=== PATIENT | female | born 1970 | race Caucasian/White ===

== ENCOUNTER 2021-01-13 17:01 | Emergency (ER) | payer MEDICARE, MEDICAID, SELFPAY ==
--- NOTE | ~2021-01-13 | US_ITS ---
EXAMINATION: US ABDOMEN LIMITED CLINICAL INFORMATION: Mid abdominal pain for weeks. Nausea and vomiting.. COMPARISON: 01/13/2021 TECHNIQUE: Real-time imaging of the right upper quadrant abdominal viscera. FINDINGS: PANCREAS: Visualized pancreatic head unremarkable. Body and tail obscured by interposed bowel gas. LIVER: Normal. The liver is normal in size. The liver contour is normal. Parenchymal echogenicity is normal. No focal hepatic lesion. There is no intrahepatic biliary duct dilatation seen. GALLBLADDER: There is a large immobile stone within the gallbladder neck. No significant gallbladder wall thickening or pericholecystic fluid. Sonographic Chong sign is positive. The COMMON BILE DUCT: Normal in caliber measuring 0.4 cm in diameter. RIGHT KIDNEY: Normal. No hydronephrosis. No renal calculi or focal parenchymal lesions. The kidney measures 12.3 cm in maximum dimension. FREE FLUID: None. US/US abdomen limited IMPRESSION: A stone is lodged within the gallbladder neck. No gallbladder wall thickening or pericholecystic fluid to suggest cholecystitis, however the sonographic Chong sign is positive. As such, these findings could be compatible with very early cholecystitis. Consider HIDA scan to confirm.
--- NOTE | ~2021-01-13 | CT_ITS ---
EXAMINATION: CT ABDOMEN AND PELVIS WITH CONTRAST CLINICAL INFORMATION: Diffuse abdominal pain COMPARISON: None TECHNIQUE: Multidetector volumetric images were obtained from the superior aspect of the liver through the pubic symphysis following administration 85 mL of Omnipaque 350 intravenous contrast. Sagittal and coronal reformatted images were obtained on the technologist's workstation. Oral contrast: No This CT examination was performed using dose optimization techniques as appropriate, variously including the following: *Automated exposure control *Adjustment of mA and/or kV according to patient size (this includes techniques or standardized protocols for targeted exams where dose is matched to indication/reason for exam; i.e. extremities or head) *Use of iterative reconstruction technique DLP: 880 mGy-cm FINDINGS: LUNG BASES: The visualized lung bases are unremarkable. LIVER, GALLBLADDER, AND BILIARY TREE: The liver is normal in size, shape, and attenuation. No focal hepatic lesion or biliary ductal dilatation is present. There is a 2.9 cm stone within the gallbladder neck. The gallbladder is mildly distended. No pericholecystic inflammatory changes or fluid. PANCREAS: Unremarkable. SPLEEN: Unremarkable. ADRENAL GLANDS: Unremarkable. KIDNEYS AND URETERS: The kidneys are normal in size, shape, and attenuation. No hydronephrosis, hydroureter, or calculi seen. No perinephric stranding. BLADDER: Unremarkable. GASTROINTESTINAL TRACT: No bowel related abnormalities. Normal appendix. ABDOMINAL WALL: No significant hernia is appreciated. LYMPH NODES: Normal. VASCULAR: Unremarkable. PELVIC VISCERA: Uterus and ovaries unremarkable. OSSEOUS STRUCTURES: No acute or suspicious osseous abnormalities. Moderate loss of disc space height at L5-S1. CT/CT abdomen pelvis w con IMPRESSION: * There is a large stone within the gallbladder neck accompanied by mild gallbladder distention. Recommend right upper quadrant ultrasound if there is concern for cholecystitis. * Otherwise, no potential etiology for the patient's abdominal pain is identified.
[2021-01-13 17:49] VITALS: BP 108/80; BP 140/78; PULSE 71; PULSE 98; RESP 18; TEMP 36.7; O2SAT 98; O2SAT 99; BMI 29.2
[2021-01-13 20:52] LABS: Glucose Urine UA NEG (NEG); Leukocyte Esterase Urine NEG (NEG); Nitrite Urine NEG (NEG); Specific Gravity - Urine 1.025 (1.005-1.025); Urine Blood 1+ (NEG); Urine Ketones NEG (NEG); Urine Protein NEG (NEG-TRACE)
[2021-01-13 20:54] LABS: Appearance Urine CLEAR; Color Urine YELLOW
[2021-01-13 21:05] LABS: Squamous Epithelial Cell Urine 3+ /LPF; WBC Urine 0 /HPF (0-4)
[2021-01-13 21:06] LABS: Calcium Oxalate Crystals Urine 1+ /LPF
[2021-01-13 21:08] LABS: UPreg QC Valid YES; Urine Pregnancy NEGATIVE (NEGATIVE)
--- NOTE | 2021-01-13 21:12 | ED_ITS ---
HPI - Abdominal Pain General Chief Complaint: Abdominal Pain Stated Complaint: ABD PAIN WITH LOOSE STOOL Time Seen by Provider: 01/13/21 20:49 Source: patient Mode of arrival: EMS Limitations: no limitations History of Present Illness HPI narrative: Patient comes emergency room complaining of 1 week of diffuse abdominal pain, nausea vomiting and diarrhea. Patient states that she has vomited twice over the last 5 days, and has had multiple bowel movements over the last 3-4 days. Patient went to [facility] yesterday, patient eloped. Today patient went to urgent care and she was asked to come to the emergency room for further evaluation and treatment. Patient also complains of dysuria, states it has been present for 3-4 months MD elicited complaint: abdominal pain Related Data Previous Rx's Medication Instructions Recorded topiramate 25 mg tablet 25 mg PO DAILY #90 tab 07/09/20 dicyclomine 20 mg tablet 20 mg PO QID #360 tab 10/01/20 ProAir HFA 90 mcg/actuation 1 inh INHALATION QID 30 Days #8.5 10/03/20 aerosol inhaler g NS miscellaneous medical supply #1 ea 10/06/20 docosanol 10 % topical cream 1 appl TOPICAL DAILY 10 Days #2 g 10/15/20 loratadine 10 mg tablet 10 mg PO DAILY 90 Days #90 tab 10/15/20 ondansetron HCl 8 mg tablet 8 mg PO Q12H PRN 30 Days #60 tab 10/15/20 ibuprofen 600 mg tablet 600 mg PO TID PRN #45 tab 12/24/20 xhofinacfo-jcpwjtb-hkgnphux 50 1 cap PO BID PRN 5 Days #10 cap 12/30/20 mg-325 mg-40 mg capsule loperamide 2 mg PO Q6H PRN #10 cap 01/14/21 ondansetron HCl [Zofran] 4 mg PO Q8H PRN #10 tab 01/14/21 tramadol 50 mg PO TID PRN #10 tab 01/14/21 Allergies Allergy/AdvReac Type Severity Reaction Status Date / Time No Known Allergies Allergy Verified 01/13/21 17:48 [No Known Allergies*] Review of Systems Review of Systems Constitutional : No Weight loss, No Fever, No Chills, No Night Sweats, No Fatigue, No Malaise ENT/Mouth : No Hearing loss, No Ear Pain, No Nasal Congestion, No Sinus Pain, No Hoarseness, No sore throat, No Rhinorrhea, No Swallowing Difficulty Eyes: No Eye Pain, No Swelling, No Redness, No Foreign Body, No Discharge, No V ision Changes Cardiovascular : No Chest Pain, No SOB, No Dyspnea on Exertion, No Orthopnea, No Edema, No Palpitations Respiratory : No Cough, No Sputum, No Wheezing, No Smoke Exposure, No Dyspnea Gastrointestinal : Complaining of nausea vomiting and diarrhea No Constipation, complaining of diffuse abdominal Pain, No Hematochezia, No Melena Genitourinary : no irregular bleeding, No Dysuria, No Urinary Frequency, No Hematuria, No Urinary Incontinence, No Urgency, No Flank Pain, No Urinary Flow Changes, No Hesitancy Musculoskeletal : No joint pain, No Myalgias, No Joint Swelling Skin : No Skin Lesions, No rash Neuro : No Weakness, No Numbness, No Paresthesias, No Loss of Consciousness, No Dizziness, No Headache Psych : No Anxiety/Panic, No Depression, No SI/HI/AH/VH, No Social Issues, Heme/Lymph: No Bruising, No Bleeding,No Lymphadenopathy Endocrine : No Polyuria, No Polydipsia, No Temperature Intolerance Physical Exam Vital Signs: Vital Signs: Last Vital Signs Temp 98.0 F 01/13/21 17:49 Pulse 71 01/13/21 17:49 Resp 16 01/14/21 02:18 BP 140/78 H 01/13/21 17:49 Pulse Ox 98 01/13/21 17:49 Body Mass Index 29.2 Appearance: Alert. Oriented X3. No acute distress. Eyes: Pupils equal, round and reactive to light. ENT: Pharynx normal. Neck: Normal inspection. Neck supple. No lymph nodes noted. No crepitus CVS: Normal heart rate and rhythm. Pulses normal. Normal S1 and S2 Respiratory: No respiratory distress. Breath sounds normal. No Wheezing. No rales Abdomen: Soft and nontender. No rigidity. No distention. Mild positive Chong sign, Has good p.o. tolerance, currently drinking [employer] Skin: Skin warm and dry. Normal skin color. Normal skin turgor. Extremities: No lower extremity edema. No lower extremity edema. No Lacerations. No Rash Neuro: Oriented X 3. No motor deficit. No sensory deficit. Moving all extermities. No slurred speech. Course Course Course Narrative: I discussed the CT scan and ultrasound with Dr. Lovett. At this time, given that the patient has had abdominal pain for almost a week, has no gallbladder thickening, unlikely that patient has acute cholecystitis. P atient was given pain medication, feels much better. Patient tolerating p.o. patient will follow-up with surgery. MDM - Abdominal Pain Lab Data Result diagrams: 01/13/21 21:46 01/13/21 21:46 Labs: Lab Results 01/13/21 01/13/21 01/13/21 Range/Units 20:41 20:41 21:46 WBC 10.2 (4.8-10.8) X10*3/uL RBC 4.75 (4.20-5.50) X10*6/uL Hgb 13.5 (12.0-16.0) g/dl Hct 40.2 (37-47) % MCV 84.6 (80-98) fL MCH 28.4 (27.0-33.0) pg MCHC 33.6 (31.0-35.0) g/dl RDW 13.2 (11.0-16.0) % Plt Count 254 (160-400) X10*3/uL MPV 9.3 L (9.4-12.3) fL Immature Gran % (Auto) 0.2 (0.0-0.4) % Neut % (Auto) 52.6 (45-73) % Lymph % (Auto) 37.1 (20-40) % [place] % (Auto) 7.8 (2-11) % Eos % (Auto) 2.0 (0-4) % Baso % (Auto) 0.3 (0-2) % Lymph # (Auto) 3.8 (1.2-4.9) X10*3/uL [place] # (Auto) 0.8 (0.1-1.2) X10*3/uL Eos # (Auto) 0.2 (0.0-0.4) X10*3/uL Baso # (Auto) 0.0 (0.0-0.2) X10*3/uL Abs Immat Gran (auto) 0.02 (0.00-0.03) X10*3/uL Absolute Neuts (auto) 5.4 (2.0-8.3) X10*3/uL Absolute Nucleated RBC 0.000 (0.0-0.012) X10*3/uL Nucleated RBC % (auto) 0.0 (0.0-0.2) /100WBC Sodium (135-145) mmol/L Potassium (3.3-5.1) mmol/L Chloride (96-108) mmol/L Carbon Dioxide (22-29) mmol/L Anion Gap (12-20) BUN (9-16) mg/dL Creatinine (0.5-1.4) mg/dL Estim Creat Clear Calc Estimated GFR Random Glucose (60-115) mg/dL Calcium (8.4-10.2) mg/dL Total Bilirubin (0.0-1.0) mg/dL Direct Bilirubin (0.0-0.5) mg/dL AST (5-31) U/L ALT (0-31) U/L Alkaline Phosphatase (39-117) U/L Total Protein (6.5-8.0) g/dL Albumin (3.5-5.0) g/dL Lipase (8-78) U/L Urine Color YELLOW Urine Appearance CLEAR Urine pH 6.0 (5.0-8.0) Ur Specific [place] 1.025 (1.005-1.025) Urine Protein NEG (NEG-TRACE) MG/DL Urine Glucose (UA) NEG (NEG) MG/DL Urine Ketones NEG (NEG) MG/DL Urine Blood 1+ H (NEG) Urine Nitrite NEG (NEG) Ur Leukocyte Esterase NEG (NEG) Urine RBC 5-9 H (0) /HPF Urine WBC 0 (0-4) /HPF Ur Squamous Epith Cells 3+ /LPF Calcium Oxalate Crystal 1+ /LPF Urine Bacteria NONE /LPF Urine Test NEGATIVE (NEGATIVE) 01/13/21 Range/Units 21:46 WBC (4.8-10.8) X10*3/uL RBC (4.20-5.50) X10*6/uL Hgb (12.0-16.0) g/dl Hct (37-47) % MCV (80-98) fL MCH (27.0-33.0) pg MCHC (31.0-35.0) g/dl RDW (11.0-16.0) % Plt Count (160-400) X10*3/uL MPV (9.4-12.3) fL Immature Gran % (Auto) (0.0-0.4) % Neut % (Auto) (45-73) % Lymph % (Auto) (20-40) % [place] % (Auto) (2-11) % Eos % (Auto) (0-4) % Baso % (Auto) (0-2) % Lymph # (Auto) (1.2-4.9) X10*3/uL [place] # (Auto) (0.1-1.2) X10*3/uL Eos # (Auto) (0.0-0.4) X10*3/uL Baso # (Auto) (0.0-0.2) X10*3/uL Abs Immat Gran (auto) (0.00-0.03) X10*3/uL Absolute Neuts (auto) (2.0-8.3) X10*3/uL Absolute Nucleated RBC (0.0-0.012) X10*3/uL Nucleated RBC % (auto) (0.0-0.2) /100WBC Sodium 142 (135-145) mmol/L Potassium 3.7 (3.3-5.1) mmol/L Chloride 111 H (96-108) mmol/L Carbon Dioxide 23 (22-29) mmol/L Anion Gap 12 (12-20) BUN 10 (9-16) mg/dL Creatinine 0.71 (0.5-1.4) mg/dL Estim Creat Clear Calc 97.3 Estimated GFR > 60 Random Glucose 135 H (60-115) mg/dL Calcium 8.7 (8.4-10.2) mg/dL Total Bilirubin 0.3 (0.0-1.0) mg/dL Direct Bilirubin < 0.2 (0.0-0.5) mg/dL AST 19 (5-31) U/L ALT 24 (0-31) U/L Alkaline Phosphatase 142 H (39-117) U/L Total Protein 6.6 (6.5-8.0) g/dL Albumin 4.0 (3.5-5.0) g/dL Lipase 29 (8-78) U/L Urine Color Urine Appearance Urine pH (5.0-8.0) Ur Specific [place] (1.005-1.025) Urine Protein (NEG-TRACE) MG/DL Urine Glucose (UA) (NEG) MG/DL Urine Ketones (NEG) MG/DL Urine Blood (NEG) Urine Nitrite (NEG) Ur Leukocyte Esterase (NEG) Urine RBC (0) /HPF Urine WBC (0-4) /HPF Ur Squamous Epith Cells /LPF Calcium Oxalate Crystal /LPF Urine Bacteria /LPF Urine Test (NEGATIVE) Discharge Plan Discharge Clinical Impression: Cholelithiasis, Abdominal pain, Diarrhea Patient Disposition: Home, Self-Care Instructions: Gallstones (ED) Additional Instructions: Please follow-up with your primary care physician tomorrow. If you have any worsening or new symptoms, please return to the emergency room or call 911 Prescriptions: New tramadol 50 mg tablet 50 mg PO TID PRN (Reason: pain) Qty: 10 RF: 0 ondansetron HCl [Zofran] 4 mg tablet 4 mg PO Q8H PRN (Reason: nausea and vomiting) Qty: 10 RF: 0 loperamide 2 mg capsule 2 mg PO Q6H PRN (Reason: loose stool) Qty: 10 RF: 0 No Action topiramate 25 mg tablet 25 mg PO DAILY Qty: 90 RF: 1 albuterol sulfate [ProAir HFA] 90 mcg/actuation HFA aerosol inhaler 1 inh inhalation QID 30 Days Qty: 8.5 RF: 4 (DME) Blood Pressure Cuff Misc See Rx Instructions .ROUTE .MEDSUPPLY Qty: 1 RF: 0 ibuprofen 600 mg tablet 600 mg PO TID PRN (Reason: for pain) Qty: 45 RF: 3 vlfxmafeiw-tkiklbp-ruofnkby 50-325-40 mg capsule 1 cap PO BID PRN (Reason: pain) 5 Days Qty: 10 RF: 0 dicyclomine 20 mg tablet 20 mg PO QID Qty: 360 RF: 3 docosanol [Abreva] 10 % cream 1 appl topical DAILY 10 Days Qty: 2 RF: 0 loratadine 10 mg tablet 10 mg PO DAILY 90 Days Qty: 90 RF: 2 ondansetron HCl 8 mg tablet 8 mg PO Q12H PRN (Reason: nausea and vomiting) 30 Days Qty: 60 RF: 1 Referrals: Dinesh Henson MD [Physician] - 2 days [facility] Past Medical History Medical History Seasonal allergies Surgical History No pertinent past surgical history Family History Family History Father Celiac disease CVD (cardiovascular disease) Afib Mother Diabetes Hypertension Fibromyalgia Brother In good health Brother In good health Sister In good health Social History Social History (Updated 10/15/20 @ 11:36 by GELACIO Gatica) Alcohol intake: current Advance Directives: No Advance Directives Information Provided: No Patient : No
[2021-01-13 21:52] LABS: MANUAL DIFF FLAG NO
[2021-01-13 21:54] LABS: Basophils Percent Auto 0.3 % (0-2); Eosinophils Absolute Auto 0.2 X10*3/uL (0.0-0.4); Hematocrit 40.2 % (37-47); Hemoglobin 13.5 g/dl (12.0-16.0); Imm Gran Abs Auto 0.02 X10*3/uL (0.00-0.03); Imm Gran Pct Auto 0.2 % (0.0-0.4); Lymphocytes Absolute Auto 3.8 X10*3/uL (1.2-4.9); Lymphocytes Percent Auto 37.1 % (20-40); Mean Corpuscular HGB Conc 33.6 g/dl (31.0-35.0); Mean Corpuscular Hemoglobin 28.4 pg (27.0-33.0); Mean Corpuscular Volume 84.6 fL (80-98); Mean Platelet Volume 9.3 fL (9.4-12.3); Monocytes Absolute Auto 0.8 X10*3/uL (0.1-1.2); Monocytes Percent Auto 7.8 % (2-11); Neutrophils Absolute Auto 5.4 X10*3/uL (2.0-8.3); Neutrophils Percent Auto 52.6 % (45-73); Platelet Count 254 X10*3/uL (160-400); Red Blood Count 4.75 X10*6/uL (4.20-5.50); Red Cell Distribution Width 13.2 % (11.0-16.0); White Blood Count 10.2 X10*3/uL (4.8-10.8)
[2021-01-13] MEDS: PHENobarb/Hyoscy/Atropine/Scop 10 ML ELIXIR PO (22:06)
[2021-01-13] MEDS: ondansetron HCL 4 MG/2 ML VIAL IVPUSH (22:07)
[2021-01-13] MEDS: 0.9 % Sodium Chloride 1,000 ML 999 ML IVCONT (22:11)
[2021-01-13 22:15] LABS: Alanine Aminotransferase 24 U/L (0-31); Alkaline Phosphatase 142 U/L (39-117); Anion Gap 12 (12-20); Aspartate Amino Transferase 19 U/L (5-31); Bilirubin Direct < 0.2 mg/dL (0.0-0.5); Bilirubin Total 0.3 mg/dL (0.0-1.0); Blood Urea Nitrogen 10 mg/dL (9-16); Calcium 8.7 mg/dL (8.4-10.2); Carbon Dioxide 23 mmol/L (22-29); Chloride 111 mmol/L (96-108); Creatinine Clr Calc Pharmacy 97.3; Estimated Glomerular Filt Rate > 60; Glucose Random 135 mg/dL (60-115); Lipase 29 U/L (8-78); Potassium 3.7 mmol/L (3.3-5.1); Sodium 142 mmol/L (135-145); Total Protein 6.6 g/dL (6.5-8.0)
--- NOTE | 2021-01-13 23:10 | PC.NURSE ---
pt refusing additional IV placement for contrast CT at this time notified
[2021-01-13] MEDS: iohexoL 350 MG/ML 100 ML INFUS..BTL 85 ML IV (23:36)
[2021-01-14 02:18] VITALS: RESP 16
[2021-01-14] MEDS: Morphine Sulfate 4 MG/ML CARTRIDGE IVPUSH (02:18)
[2021-01-14 02:58] VITALS: RESP 16
[2021-01-14] MEDS: Morphine Sulfate 2 MG/ML CARTRIDGE IVPUSH (02:58)
== END 2021-01-14 03:14 | disposition home or self-care (01) ==
PROVIDERS: Internal Medicine; Emergency Provider Emergency Medicine
DX: K80.20 Calculus of gallbladder without cholecystitis without obstruction (principal); R19.7 Diarrhea, unspecified; R30.0 Dysuria
CPT/HCPCS: 36415; 74177; 76705; 80048; 80076; 81001; 81025; 83690; 85025; 96361; 96374; 96375; 96376; 99284; J2270; J2405; Q9967

== ENCOUNTER → 2021-01-15 10:24 | Outpatient (BNVA) | payer MEDICARE, MEDICAID, SELFPAY | PROVIDERS: PCP Physician Assistant; Referring Provider Physician Assistant; Visit Provider Surgery | DX: K80.20 Calculus of gallbladder without cholecystitis without obstruction (principal) | CPT/HCPCS: 99202 ==

== ENCOUNTER 2021-01-15 16:20 | Emergency (ER) | payer MEDICARE, MEDICAID, SELFPAY ==
--- NOTE | ~2021-01-15 | US_ITS ---
EXAMINATION: US ABDOMEN LIMITED CLINICAL INFORMATION: Right upper quadrant/epigastric pain with nausea and vomiting. COMPARISON: 01/14/2021 Limited abdominal ultrasound. TECHNIQUE: Real-time imaging of the right upper quadrant abdominal viscera. FINDINGS: PANCREAS: Visualized portions unremarkable. LIVER: Diffuse increased echotexture without focal abnormality. GALLBLADDER: Echogenic gallstones measuring up to 2.5 cm. No mural thickening or pericholecystic fluid. COMMON BILE DUCT: Normal in caliber measuring 0.4 cm in diameter. RIGHT KIDNEY: 10.5 cm. Unremarkable. FREE FLUID: None. US/US abdomen limited IMPRESSION: 1. Hepatic steatosis without focal abnormality. 2. Cholelithiasis without evidence for acute cholecystitis.
[2021-01-15 16:37] VITALS: BP 140/70; PULSE 73; RESP 18; TEMP 36.8; O2SAT 98; BMI 31.1
[2021-01-15 19:58] LABS: MANUAL DIFF FLAG NO
[2021-01-15 19:59] LABS: Basophils Percent Auto 0.4 % (0-2); Eosinophils Absolute Auto 0.2 X10*3/uL (0.0-0.4); Hematocrit 40.5 % (37-47); Hemoglobin 13.7 g/dl (12.0-16.0); Imm Gran Abs Auto 0.02 X10*3/uL (0.00-0.03); Imm Gran Pct Auto 0.2 % (0.0-0.4); Lymphocytes Percent Auto 27.2 % (20-40); Mean Corpuscular HGB Conc 33.8 g/dl (31.0-35.0); Mean Corpuscular Hemoglobin 28.5 pg (27.0-33.0); Mean Corpuscular Volume 84.4 fL (80-98); Mean Platelet Volume 9.1 fL (9.4-12.3); Monocytes Absolute Auto 0.6 X10*3/uL (0.1-1.2); Monocytes Percent Auto 5.3 % (2-11); Neutrophils Absolute Auto 7.2 X10*3/uL (2.0-8.3); Neutrophils Percent Auto 64.9 % (45-73); Platelet Count 243 X10*3/uL (160-400); Red Cell Distribution Width 13.1 % (11.0-16.0)
[2021-01-15 20:32] LABS: Alanine Aminotransferase 32 U/L (0-31); Albumin Level 4.3 g/dL (3.5-5.0); Alkaline Phosphatase 149 U/L (39-117); Anion Gap 12 (12-20); Aspartate Amino Transferase 22 U/L (5-31); Bilirubin Direct 0.2 mg/dL (0.0-0.5); Bilirubin Total 0.2 mg/dL (0.0-1.0); Blood Urea Nitrogen 14 mg/dL (9-16); Carbon Dioxide 25 mmol/L (22-29); Chloride 107 mmol/L (96-108); Creatinine Clr Calc Pharmacy 84.7; Estimated Glomerular Filt Rate > 60; Glucose Random 86 mg/dL (60-115); Potassium 4.1 mmol/L (3.3-5.1); Sodium 140 mmol/L (135-145); Total Protein 7.1 g/dL (6.5-8.0)
--- NOTE | 2021-01-15 21:19 | ED_ITS ---
HPI - Abdominal Pain General Chief Complaint: Abdominal Pain Stated Complaint: vomiting blood Time Seen by Provider: 01/15/21 21:17 Source: patient Mode of arrival: ambulatory History of Present Illness HPI narrative: This is a 50-year-old female who was evaluated at her general surgery appointment this morning and has a date for elective laparoscopic removal of her gallbladder, but states that when she got home she developed right upper quadrant/epigastric pain with radiation into her back and nausea with multiple episodes of nonbloody/nonbilious vomiting as well as some nonbloody diarrhea. Otherwise, patient denies any fever, chills, shortness of breath, chest pain/palpitations, but states she does have some burning on urination. Related Data Previous Rx's Medication Instructions Recorded topiramate 25 mg tablet 25 mg PO DAILY #90 tab 07/09/20 dicyclomine 20 mg tablet 20 mg PO QID #360 tab 10/01/20 ProAir HFA 90 mcg/actuation 1 inh INHALATION QID 30 Days #8.5 10/03/20 aerosol inhaler g NS miscellaneous medical supply #1 ea 10/06/20 docosanol 10 % topical cream 1 appl TOPICAL DAILY 10 Days #2 g 10/15/20 loratadine 10 mg tablet 10 mg PO DAILY 90 Days #90 tab 10/15/20 ondansetron HCl 8 mg tablet 8 mg PO Q12H PRN 30 Days #60 tab 10/15/20 ibuprofen 600 mg tablet 600 mg PO TID PRN #45 tab 12/24/20 cgjxzfjvtx-tmkhyyl-nwjxuvdb 50 1 cap PO BID PRN 5 Days #10 cap 12/30/20 mg-325 mg-40 mg capsule loperamide 2 mg PO Q6H PRN #10 cap 01/14/21 ondansetron HCl [Zofran] 4 mg PO Q8H PRN #10 tab 01/14/21 hydrocodone 5 mg-acetaminophen 325 1 tab PO Q8H PRN #14 tab 01/15/21 mg tablet ondansetron HCl [Zofran] 4 mg PO Q8H PRN #7 tab 01/15/21 Allergies Allergy/AdvReac Type Severity Reaction Status Date / Time No Known Allergies Allergy Verified 01/13/21 17:48 [No Known Allergies*] Review of Systems Review of Systems Pertinent positives and negatives as stated in HPI 10 point review of systems otherwise negative. Physical Exam Vital Signs: Vital Signs: Last Vital Signs Temp 98.2 F 01/15/21 16:37 Pulse 73 01/15/21 16:37 Resp 18 01/15/21 16:37 BP 140/70 H 01/15/21 16:37 Pulse Ox 98 01/15/21 16:37 Body Mass Index 31.1 VITAL SIGNS: Reviewed. GENERAL: Well developed, well nourished, in no acute distress. HEAD: Normocephalic/atraumatic EYES: PERRLA, EOMI OROPHARYNX: no oral lesions noted, posterior pharynx clear LUNGS: Normal breath sounds. No adventitious sounds or accessory muscle use. SpO2<98> CARDIOVASCULAR: Regular rate and rhythm without noted murmurs ABDOMEN: Soft, tenderness at right upper quadrant and epigastrium without shannon ound, non-distended with bowel sounds. NEUROLOGIC: Alert and oriented x 4. Course Course Course Narrative: 50-year-old female with history and clinical presentation suggestive of acute cholecystitis and felt less likely to be pancreatitis or gastritis. Review of all investigations negative for any acute findings other than known cholelithiasis and on re-evaluation patient reports complete resolution of her symptoms. She has explicitly asked for a pain medication prescription, and she was gently informed that that would not be possible at this time and that if she was having that much pain then we would need to discuss other measures. She declined and just requested something for the nausea should it happen again. She was discharged home in stable condition with instructions to follow-up with her scheduled laparoscopic cholecystectomy. MDM - Abdominal Pain Lab Data Result diagrams: 01/15/21 19:54 01/15/21 19:54 Labs: Lab Results 01/15/21 01/15/21 Range/Units 19:54 19:54 WBC 11.0 H (4.8-10.8) X10*3/uL RBC 4.80 (4.20-5.50) X10*6/uL Hgb 13.7 (12.0-16.0) g/dl Hct 40.5 (37-47) % MCV 84.4 (80-98) fL MCH 28.5 (27.0-33.0) pg MCHC 33.8 (31.0-35.0) g/dl RDW 13.1 (11.0-16.0) % Plt Count 243 (160-400) X10*3/uL MPV 9.1 L (9.4-12.3) fL Immature Gran % (Auto) 0.2 (0.0-0.4) % Neut % (Auto) 64.9 (45-73) % Lymph % (Auto) 27.2 (20-40) % [place] % (Auto) 5.3 (2-11) % Eos % (Auto) 2.0 (0-4) % Baso % (Auto) 0.4 (0-2) % Lymph # (Auto) 3.0 (1.2-4.9) X10*3/uL [place] # (Auto) 0.6 (0.1-1.2) X10*3/uL Eos # (Auto) 0.2 (0.0-0.4) X10*3/uL Baso # (Auto) 0.0 (0.0-0.2) X10*3/uL Abs Immat Gran (auto) 0.02 (0.00-0.03) X10*3/uL Absolute Neuts (auto) 7.2 (2.0-8.3) X10*3/uL Absolute Nucleated RBC 0.000 (0.0-0.012) X10*3/uL Nucleated RBC % (auto) 0.0 (0.0-0.2) /100WBC Sodium 140 (135-145) mmol/L Potassium 4.1 (3.3-5.1) mmol/L Chloride 107 (96-108) mmol/L Carbon Dioxide 25 (22-29) mmol/L Anion Gap 12 (12-20) BUN 14 (9-16) mg/dL Creatinine 0.78 (0.5-1.4) mg/dL Estim Creat Clear Calc 84.7 Estimated GFR > 60 Random Glucose 86 D (60-115) mg/dL Calcium 9.0 (8.4-10.2) mg/dL Total Bilirubin 0.2 (0.0-1.0) mg/dL Direct Bilirubin 0.2 (0.0-0.5) mg/dL AST 22 (5-31) U/L ALT 32 H (0-31) U/L Alkaline Phosphatase 149 H (39-117) U/L Total Protein 7.1 (6.5-8.0) g/dL Albumin 4.3 (3.5-5.0) g/dL Lipase 31 (8-78) U/L Discharge Plan Discharge Clinical Impression: Cholelithiasis Patient Disposition: Home, Self-Care Instructions: Gallstones (ED) Additional Instructions: 1. Please resume all home medications as prescribed. 2. You have been provided with a prescription for antinausea medication and has been sent to your pharmacy please use as directed. 3. Please keep your scheduled appointment for your gallbladder removed. Return to the ER for worsening of your symptoms. Prescriptions: New ondansetron HCl [Zofran] 4 mg tablet 4 mg PO Q8H PRN (Reason: nausea and vomiting) Qty: 7 RF: 0 No Action topiramate 25 mg tablet 25 mg PO DAILY Qty: 90 RF: 1 albuterol sulfate [ProAir HFA] 90 mcg/actuation HFA aerosol inhaler 1 inh inhalation QID 30 Days Qty: 8.5 RF: 4 (DME) Blood Pressure Cuff Misc See Rx Instructions .ROUTE .MEDSUPPLY Qty: 1 RF: 0 ibuprofen 600 mg tablet 600 mg PO TID PRN (Reason: for pain) Qty: 45 RF: 3 aueaxntzwk-hcffffh-qgjhnoco 50-325-40 mg capsule 1 cap PO BID PRN (Reason: pain) 5 Days Qty: 10 RF: 0 ondansetron HCl [Zofran] 4 mg tablet 4 mg PO Q8H PRN (Reason: nausea and vomiting) Qty: 10 RF: 0 loperamide 2 mg capsule 2 mg PO Q6H PRN (Reason: loose stool) Qty: 10 RF: 0 dicyclomine 20 mg tablet 20 mg PO QID Qty: 360 RF: 3 docosanol [Abreva] 10 % cream 1 appl topical DAILY 10 Days Qty: 2 RF: 0 loratadine 10 mg tablet 10 mg PO DAILY 90 Days Qty: 90 RF: 2 ondansetron HCl 8 mg tablet 8 mg PO Q12H PRN (Reason: nausea and vomiting) 30 Days Qty: 60 RF: 1 hydrocodone-acetaminophen 5-325 mg tablet 1 tab PO Q8H PRN (Reason: pain) Qty: 14 RF: 0 Referrals: Ernesto Hernandez PA-C [Primary Care Provider] - 2 days [facility] Past Medical History Source: nursing notes reviewed Medical History Asthma HTN (hypertension) Migraine Seasonal allergies Surgical History No pertinent past surgical history Family History Family History Father Celiac disease CVD (cardiovascular disease) Afib Mother Diabetes Hypertension Fibromyalgia Brother In good health Brother In good health Sister In good health Social History Social History Alcohol intake: current Alcohol intake frequency: holidays/special occasions only Advance Directives: No Advance Directives Information Provided: No Patient : No
[2021-01-15 21:31] LABS: Lipase 31 U/L (8-78)
[2021-01-15 22:00] VITALS: BP 124/78; PULSE 78; RESP 18; TEMP 37.2; O2SAT 98
[2021-01-15] MEDS: Ketorolac Tromethamine 15 MG/ML VIAL IVPUSH (22:10)
[2021-01-15] MEDS: 0.9 % Sodium Chloride 1,000 ML 999 ML IV (22:11)
[2021-01-15] MEDS: ondansetron HCL 4 MG/2 ML VIAL IVPUSH (22:11)
== END 2021-01-15 23:58 | disposition home or self-care (01) ==
PROVIDERS: Emergency Provider Student in an Organized Health Care Education/Training Program; PCP Physician Assistant
DX: K80.20 Calculus of gallbladder without cholecystitis without obstruction (principal); I10 Essential (primary) hypertension; J45.909 Unspecified asthma, uncomplicated; Z79.899 Other long term (current) drug therapy
CPT/HCPCS: 36415; 76705; 80053; 80076; 82248; 83690; 85025; 96361; 96374; 96375; 99284; J1885; J2405

== ENCOUNTER 2021-02-23 16:01 | Emergency (ER) | payer MEDICARE, MEDICAID, SELFPAY ==
--- NOTE | 2021-02-23 | ECG_ITS ---
Test Reason : ABDOMINAL PAIN Blood Pressure : / mmHG Vent. Rate : 072 BPM Atrial Rate : 072 BPM P-R Int : 124 ms QRS Dur : 076 ms QT Int : 380 ms P-R-T Axes : -03 -08 025 degrees QTc Int : 416 ms Normal sinus rhythm Moderate voltage criteria for LVH, may be normal variant Borderline ECG No previous ECGs available Referred By: Generic ED Physician Electronically Signed By:YAKELIN PEREZ
--- NOTE | ~2021-02-23 | US_ITS ---
EXAMINATION: US ABDOMEN LIMITED CLINICAL INFORMATION: Pain. History of cholelithiasis.. COMPARISON: Ultrasound abdomen January 15, 2021, January 14, 2021. CT scan abdomen pelvis January 13, 2021 TECHNIQUE: Real-time imaging of the right upper quadrant abdominal viscera. Color Doppler exam used. FINDINGS: PANCREAS: Obscured by bowel gas LIVER: Normal. The liver is normal in size. The liver contour is normal. Parenchymal echogenicity is normal. No focal hepatic lesion. There is no intrahepatic biliary duct dilatation seen. GALLBLADDER: Gallstones present in the gallbladder. There is an impacted 2.5 cm stone at the neck of the gallbladder. This stone has not changed position since the CAT scan of January 13, 2021. No gallbladder wall thickening. Gallbladder wall measures 0.3 cm. There is no pericholecystic fluid. Positive ultrasound Chong's sign. COMMON BILE DUCT: Normal in caliber measuring 0.5 cm in diameter. RIGHT KIDNEY: Normal. No hydronephrosis. No renal calculi or focal parenchymal lesions. The kidney measures 10.5 cm in maximum dimension. FREE FLUID: None. US/US abdomen limited IMPRESSION: Impacted 2.5 cm stone at the neck of the gallbladder. No change in the position of the stone since the prior CAT scan of January 13, 2021. There is no gallbladder wall thickening or pericholecystic fluid. There is however a positive ultrasound Chong's sign. Further evaluation with HIDA scan may be helpful.
[2021-02-23 16:31] VITALS: BP 131/70; PULSE 78; RESP 18; TEMP 36.4; O2SAT 97; BMI 38.9
--- NOTE | 2021-02-23 16:36 | PC.NURSE ---
when patient was informed about wait time. pt stated to this rn well, Now i'm dizzy and light headed. Can you get me in faster? . EKG ordered at this time. Pt encouraged to return to triage with worsening symptoms.
[2021-02-23 17:19] LABS: Hematocrit 37.5 % (37-47); Hemoglobin 12.8 g/dl (12.0-16.0); Mean Corpuscular HGB Conc 34.1 g/dl (31.0-35.0); Mean Corpuscular Volume 84.8 fL (80-98); Mean Platelet Volume 9.1 fL (9.4-12.3); Platelet Count 219 X10*3/uL (160-400); Red Blood Count 4.42 X10*6/uL (4.20-5.50); Red Cell Distribution Width 13.2 % (11.0-16.0); White Blood Count 12.6 X10*3/uL (4.8-10.8)
[2021-02-23 17:50] LABS: Alanine Aminotransferase 14 U/L (0-31); Albumin Level 3.8 g/dL (3.5-5.0); Alkaline Phosphatase 127 U/L (39-117); Anion Gap 12 (12-20); Aspartate Amino Transferase 14 U/L (5-31); Bilirubin Total 0.5 mg/dL (0.0-1.0); Blood Urea Nitrogen 8 mg/dL (9-16); Calcium 8.9 mg/dL (8.4-10.2); Carbon Dioxide 26 mmol/L (22-29); Chloride 106 mmol/L (96-108); Creatinine Clr Calc Pharmacy 100.6; Estimated Glomerular Filt Rate > 60; Glucose Random 111 mg/dL (60-115); Lipase 30 U/L (8-78); Potassium 3.7 mmol/L (3.3-5.1); Sodium 140 mmol/L (135-145); Total Protein 6.5 g/dL (6.5-8.0)
[2021-02-23 17:53] LABS: Troponin-I High Sensitivity < 3.5 ng/L (<3.5-17.0)
--- NOTE | 2021-02-23 20:46 | PC.NURSE ---
IV established. Pt ambulating to the bathroom to provide UA. PA at bedside for eval.
[2021-02-23 21:05] LABS: Glucose Urine UA NEG (NEG); Leukocyte Esterase Urine NEG (NEG); Nitrite Urine NEG (NEG); Specific Gravity - Urine 1.015 (1.005-1.025); Urine Blood 1+ (NEG); Urine Ketones NEG (NEG); Urine Protein NEG (NEG-TRACE)
[2021-02-23 21:08] LABS: Appearance Urine HAZY; Color Urine YELLOW
[2021-02-23 21:16] LABS: WBC Urine 0-2 /HPF (0-4)
[2021-02-23 21:17] LABS: Bacteria Urine TRACE /LPF; Mucus Urine TRACE /LPF; Squamous Epithelial Cell Urine 3+ /LPF; UPreg QC Valid YES; Urine Pregnancy NEGATIVE (NEGATIVE)
--- NOTE | 2021-02-23 21:22 | ED.ABDPAIN ---
HPI - Abdominal Pain General Chief Complaint: Abdominal Pain Stated Complaint: ABD PAIN Time Seen by Provider: 02/23/21 20:43 Source: patient Mode of arrival: ambulatory History of Present Illness HPI narrative: 50-year-old female with a past medical history of asthma, hypertension, migraines, cholelithiasis, presenting to the ED complaining of acute on chronic abdominal pain and nausea x1 week. Reports pain worse when lying flat. Admits to similar symptoms in the past, was supposed to have cholecystectomy however cannot be scheduled until March. Denies fever, chills, vomiting, diarrhea, dysuria/hematuria, decreased p.o. intake, pain worse with eating MD elicited complaint: abdominal pain Related Data Previous Rx's Medication Instructions Recorded topiramate 25 mg tablet 25 mg PO DAILY #90 tab 07/09/20 docosanol 10 % topical cream 1 appl TOPICAL DAILY 10 Days #2 g 10/15/20 loratadine 10 mg tablet 10 mg PO DAILY 90 Days #90 tab 10/15/20 ibuprofen 600 mg tablet 600 mg PO TID PRN #45 tab 12/24/20 loperamide 2 mg PO Q6H PRN #10 cap 01/14/21 miscellaneous medical supply #1 ea 01/26/21 Ventolin HFA 90 mcg/actuation 1 inh INHALATION QID 30 Days #18 g 02/11/21 aerosol inhaler NS fyewqqabun-hmhvbsc-ybuotygs 50 1 cap PO BID PRN 5 Days #10 cap 02/11/21 mg-325 mg-40 mg capsule dicyclomine 20 mg tablet 20 mg PO QID #360 tab 02/11/21 ondansetron HCl 4 mg tablet 4 mg PO Q8H PRN #10 tab 02/18/21 Allergies Allergy/AdvReac Type Severity Reaction Status Date / Time No Known Allergies Allergy Verified 02/18/21 15:19 [No Known Allergies*] Review of Systems Review of Systems Constitutional: No Fever, No Chills Cardiovascular: No Chest Pain, No SOB, No Palpitations Respiratory: No Cough, No Dyspnea Gastrointestinal: + Nausea, No Vomiting, No Diarrhea, No Constipation, + Abdominal pain Genitourinary: No Dysuria, No Urinary Frequency, No Hematuria, No Flank Pain Musculoskeletal: No joint pain, No Myalgias, No Joint Swelling Skin: No Skin Lesions, No rash Yes all other systems are reviewed and are negative Physical Exam Vital Signs: Vital Signs: Last Vital Signs Temp 97.6 F 02/23/21 22:49 Pulse 64 02/24/21 00:14 Resp 20 02/24/21 00:14 BP 111/56 L 02/24/21 00:14 Pulse Ox 97 02/24/21 00:14 Body Mass Index 38.9 Course Course Course Narrative: -leukocytosis of 12.6, labs otherwise unremarkable -UA with 1+ blood (chronically), not infected US abdomen limited IMPRESSION: Impacted 2.5 cm stone at the neck of the gallbladder. No change in the position of the stone since the prior CAT scan of January 13, 2021. There is no gallbladder wall thickening or pericholecystic fluid. There is however a positive ultrasound Chong's sign. Further evaluation with HIDA scan may be helpful. > will consult surgery -Spoke to Surgery Dr. Lara who recommended if patients pain can be controlled she can be discharged home with outpatient follow-up/surgical intervention -1216--patient was able to tolerate p.o. orange juice and saltines in the ED without nausea or vomiting. Pain is controlled. Discussed with patient worrisome signs and symptoms and strict return precautions and that she needs to call General surgery for follow-up in the morning, she verbalized understanding and feels safe for discharge home MDM - Abdominal Pain Lab Data Result diagrams: 02/23/21 17:14 02/23/21 17:14 Labs: Lab Results 02/23/21 02/23/21 02/23/21 Range/Units 17:14 17:14 17:14 WBC 12.6 H (4.8-10.8) X10*3/uL RBC 4.42 (4.20-5.50) X10*6/uL Hgb 12.8 (12.0-16.0) g/dl Hct 37.5 (37-47) % MCV 84.8 (80-98) fL MCH 29.0 (27.0-33.0) pg MCHC 34.1 (31.0-35.0) g/dl RDW 13.2 (11.0-16.0) % Plt Count 219 (160-400) X10*3/uL MPV 9.1 L (9.4-12.3) fL Absolute Nucleated RBC 0.000 (0.0-0.012) X10*3/uL Nucleated RBC % (auto) 0.0 (0.0-0.2) /100WBC Sodium 140 (135-145) mmol/L Potassium 3.7 (3.3-5.1) mmol/L Chloride 106 (96-108) mmol/L Carbon Dioxide 26 (22-29) mmol/L Anion Gap 12 (12-20) BUN 8 L (9-16) mg/dL Creatinine 0.77 (0.5-1.4) mg/dL Estim Creat Clear Calc 100.6 Estimated GFR > 60 Random Glucose 111 (60-115) mg/dL Calcium 8.9 (8.4-10.2) mg/dL Total Bilirubin 0.5 (0.0-1.0) mg/dL AST 14 (5-31) U/L ALT 14 (0-31) U/L Alkaline Phosphatase 127 H (39-117) U/L Troponin I High Sens < 3.5 (<3.5-17.0) ng/L Total Protein 6.5 (6.5-8.0) g/dL Albumin 3.8 (3.5-5.0) g/dL Lipase 30 (8-78) U/L Urine Color Urine Appearance Urine pH (5.0-8.0) Ur Specific [place] (1.005-1.025) Urine Protein (NEG-TRACE) MG/DL Urine Glucose (UA) (NEG) MG/DL Urine Ketones (NEG) MG/DL Urine Blood (NEG) Urine Nitrite (NEG) Ur Leukocyte Esterase (NEG) Urine RBC (0) /HPF Urine WBC (0-4) /HPF Ur Squamous Epith Cells /LPF Urine Bacteria /LPF Urine Mucus /LPF Urine Test (NEGATIVE) 02/23/21 02/23/21 Range/Units 20:46 20:46 WBC (4.8-10.8) X10*3/uL RBC (4.20-5.50) X10*6/uL Hgb (12.0-16.0) g/dl Hct (37-47) % MCV (80-98) fL MCH (27.0-33.0) pg MCHC (31.0-35.0) g/dl RDW (11.0-16.0) % Plt Count (160-400) X10*3/uL MPV (9.4-12.3) fL Absolute Nucleated RBC (0.0-0.012) X10*3/uL Nucleated RBC % (auto) (0.0-0.2) /100WBC Sodium (135-145) mmol/L Potassium (3.3-5.1) mmol/L Chloride (96-108) mmol/L Carbon Dioxide (22-29) mmol/L Anion Gap (12-20) BUN (9-16) mg/dL Creatinine (0.5-1.4) mg/dL Estim Creat Clear Calc Estimated GFR Random Glucose (60-115) mg/dL Calcium (8.4-10.2) mg/dL Total Bilirubin (0.0-1.0) mg/dL AST (5-31) U/L ALT (0-31) U/L Alkaline Phosphatase (39-117) U/L Troponin I High Sens (<3.5-17.0) ng/L Total Protein (6.5-8.0) g/dL Albumin (3.5-5.0) g/dL Lipase (8-78) U/L Urine Color YELLOW Urine Appearance HAZY Urine pH 6.0 (5.0-8.0) Ur Specific [place] 1.015 (1.005-1.025) Urine Protein NEG (NEG-TRACE) MG/DL Urine Glucose (UA) NEG (NEG) MG/DL Urine Ketones NEG (NEG) MG/DL Urine Blood 1+ H (NEG) Urine Nitrite NEG (NEG) Ur Leukocyte Esterase NEG (NEG) Urine RBC 1-4 (0) /HPF Urine WBC 0-2 (0-4) /HPF Ur Squamous Epith Cells 3+ /LPF Urine Bacteria TRACE /LPF Urine Mucus TRACE /LPF Urine Test NEGATIVE (NEGATIVE) Discharge Plan Discharge Clinical Impression: Cholelithiasis Patient Disposition: Home, Self-Care Instructions: Gallstones (ED) Additional Instructions: You have an impacted stone in the neck of her gallbladder You need her gallbladder taken out It is very important that you are staying hydrated at home You need to call the surgeon in the morning for follow-up If you are unable to eat or drink, persistent nausea/vomiting, unbearable abdominal pain, or develops fever please return to the ED immediately Prescriptions: No Action topiramate 25 mg tablet 25 mg PO DAILY Qty: 90 RF: 1 ibuprofen 600 mg tablet 600 mg PO TID PRN (Reason: for pain) Qty: 45 RF: 3 (DME) Blood Pressure Cuff Misc See Rx Instructions .ROUTE .MEDSUPPLY Qty: 1 RF: 0 dicyclomine 20 mg tablet 20 mg PO QID Qty: 360 RF: 3 albuterol sulfate [Ventolin HFA] 90 mcg/actuation HFA aerosol inhaler 1 inh inhalation QID 30 Days Qty: 18 RF: 4 gvjfasuqgv-agstawx-zuobksmw 50-325-40 mg capsule 1 cap PO BID PRN (Reason: pain) 5 Days Qty: 10 RF: 0 loperamide 2 mg capsule 2 mg PO Q6H PRN (Reason: loose stool) Qty: 10 RF: 0 ondansetron HCl [Zofran] 4 mg tablet 4 mg PO Q8H PRN (Reason: nausea and vomiting) Qty: 10 RF: 0 docosanol [Abreva] 10 % cream 1 appl topical DAILY 10 Days Qty: 2 RF: 0 loratadine 10 mg tablet 10 mg PO DAILY 90 Days Qty: 90 RF: 2 Referrals: Mandi Lara MD [Physician] - 2 days PMF Past Medical History Medical History (Updated 02/23/21 @ 23:33 by STEPHANIE Moe) Asthma HTN (hypertension) Migraine Screening for hypothyroidism Seasonal allergies Surgical History No pertinent past surgical history Family History Family History Father Celiac disease CVD (cardiovascular disease) Afib Mother Diabetes Hypertension Fibromyalgia Brother In good health Brother In good health Sister In good health Social History Social History Housing: Apartment Alcohol intake: current Alcohol intake frequency: holidays/special occasions only Patient Tobacco Use Status: Never used Tobacco e-Cigarette/Vaping Use: Never Used Second Hand Smoke Exposure: No Advance Directives: No Advance Directives Information Provided: No Patient : No service: No Current occupational status: disabled
[2021-02-23] MEDS: 0.9 % Sodium Chloride 1,000 ML 999 ML IVCONT (21:24)
[2021-02-23] MEDS: Ketorolac Tromethamine 15 MG/ML VIAL IVPUSH (21:24)
--- NOTE | 2021-02-23 21:26 | PC.NURSE ---
Pt medicated per MAR.
[2021-02-23 22:49] VITALS: BP 108/56; PULSE 63; RESP 18; TEMP 36.4; O2SAT 98
[2021-02-24 00:14] VITALS: BP 111/56; PULSE 64; RESP 20; O2SAT 97
--- NOTE | 2021-02-24 00:15 | PC.NURSE ---
PA at bedside discussing results and plan to DC home.
== END 2021-02-24 00:19 | disposition home or self-care (01) ==
PROVIDERS: Emergency Provider Student in an Organized Health Care Education/Training Program; PCP Physician Assistant
DX: K80.20 Calculus of gallbladder without cholecystitis without obstruction (principal); I10 Essential (primary) hypertension
CPT/HCPCS: 36415; 76705; 80053; 81001; 81003; 81025; 83690; 84484; 85027; 93005; 96361; 96374; 96375; 99284; J1885; J2405

== ENCOUNTER 2021-04-28 14:09 | Outpatient (REF) | payer MEDICARE, MEDICAID, SELFPAY ==
--- NOTE | ~2021-04-28 | XR_ITS ---
EXAMINATION: XR WRIST, RIGHT CLINICAL INFORMATION: Diffuse pain. COMPARISON: None TECHNIQUE: PA, lateral, and oblique views of the right wrist. FINDINGS: Bony alignment and mineralization are normal. The proximal and distal carpal rows, including the navicular bone, are intact. No fracture, dislocation or unusual degenerative change is seen. There is soft tissue swelling, most pronounced of the dorsal wrist. No soft tissue gas or foreign body is seen. XR/XR wrist RT 2V IMPRESSION: No fracture, dislocation or unusual degenerative change of the right wrist is seen. There is dorsal soft tissue swelling.
--- NOTE | ~2021-04-28 | US_ITS ---
EXAMINATION: US VENOUS WITH DOPPLER UPPER EXTREMITY, right. CLINICAL INFORMATION: Right upper extremity edema. COMPARISON: None TECHNIQUE: Ultrasound of the upper extremity is performed using compression sonography and color and pulse Doppler flow with assessment of augmentation of flow. There is also imaging and Doppler assessment of the jugular and subclavian veins. Spectral analysis with color-flow imaging is performed. FINDINGS: Respiratory variation, normal compression, and augmented flow are noted throughout the upper extremity including the axillary, brachial, cubital, and radial and ulnar veins. There is normal flow in the internal jugular and subclavian veins. There is no visible deep or superficial thrombophlebitis. If the patient's symptoms progress, a followup ultrasound in 5 -7 days might be of value to exclude proximal propagation from a nonvisualized distal arm vein. US/US venous duplex UE RT IMPRESSION: No DVT demonstrated in the right upper extremity ultrasound.
== END 2021-04-28 14:10 | disposition home or self-care (01) ==
LOC: HO.US 14:09
PROVIDERS: PCP Physician Assistant; Visit Provider Physician Assistant
DX: R60.0 Localized edema (principal); M25.431 Effusion, right wrist
CPT/HCPCS: 73100; 93971

== ENCOUNTER 2021-06-30 14:30 | Outpatient (RCR) | payer MEDICARE, MEDICAID, SELFPAY ==
--- NOTE | 2021-05-19 15:36 | MHC.OT.OEV ---
[address] [phone] F: [phone] Occupational Therapy Evaluation Diagnosis: R WRIST PAIN Date of Onset: 04/28/21 Attending Provider: Ernesto Hernandez Prescribed Treatment: EVERETTE AND TEX CHOU Follow Up Appointment: 05/21/21 History of Current Condition: DENIES TRAUMA, FALLS OR INJURY TO RIGHT WRIST OR UE. XRAY: No fracture, dislocation or unusual degenerative change of the right wrist is seen. There is dorsal soft tissue swelling. U/S NEGATIVE FOR ACUTE DVT Significant Medical History: HTN, ASTHMA, MIGRAINE, HYPOTHYROIDISM Precautions/Contraindications: LEGALLY BLIND, L EYE Patient Goals: TO BE ABLE TO DO MORE FOR HERSELF Hand Dominance: Right Observations: PRE-MINOR SPLINT NOT WORN QuickDASH Score: 73% Prior Level of Function and Occupation Self Care, Employment, Leisure: DISABLED. ENJOYS WATCHING TV. DENIES EXERCISING, REPORTS SEDENTARY LIFESTYLE. Living Situation, Family and/or Social Support: LIVES WITH PARENTS; HAS SEWER LINE REPAIRER FOR 6 HOURS/WEEK Current Level of Function and Occupation Self Care, Employment, Leisure: DIFFICULTIES WITH PULLING UP PANTS WITH RUE, TROUBLE WITH FASTENING BUTTONS AND ZIPPERS, WASHING SELF. ASSIST WITH COOKING AND CLEANING FROM FATHER. HAS SEWER LINE REPAIRER ASSIST 6 HOURS/WEEK FOR TRANSPORTATION Sleep: DIFFICULTIES WITH FALLING ASLEEP. NOT CURRENTLY WEARING SPLINT AT NIGHT. Driving: DOES NOT DRIVE. Vision: GLASSES. LEGALLY BLIND IN LEFT EYE. DIFFICULTIES FILLING OUT INTAKE FORMS. Pain Assessment Pain Score: 10/10 Pain Scale Used: Numeric (0 - 10) Pain Location and Description: R DORSAL AND VOLAR FOREARM, R THUMB, R LATERAL ELBOW; GENERALIZED RUE PAIN REPORTS 20/10 PAIN Aggravating Factors: USING - GRIPPING OR CARRYING ITEMS Alleviating Factors: REPORTS RELIEF WITH USE OF ICE, WEARING PRE-MINOR WRIST BRACE, TRAMADOL, PREDNISONE Skin and Soft Tissue Assessment Skin and Soft Tissue: Swelling Comments: EDEMA TO R THENAR EMINENCE AND DORSAL FOREARM Sensory Assessment Temperature: Light Touch: Right Impaired Proprioception: Vibration: Comments: INCONSISTENT WITH SEMMES AVELINO ASSESSMENT WITH EYES OPEN OR CLOSED. ? LOSS OF PROTECTIVE SENSATION R HAND. CONTINUE TO ASSESS WITH ONGOING SESSIONS. Edema Assessment Upper Extremity: Right Impaired Lower Extremity: Comments: CIRCUMFERENCE OF WRIST, DISTAL TO US RIGHT: 17.1 CM, LEFT 16.6 CM Dexterity Assessment Dexterity: WFL Comments: FUNCTIONAL DEXTERITY TEST: RIGHT 25 SECONDS (FUNCTIONAL SCORE), LEFT 32 SECONDS Special Tests Comments: (+) KATHI UNABLE TO TOLERATE PHALENES ASSESSMENT OR COZENS TEST DUE TO PAIN AROM(PROM) Strength Shoulder Flexion: Extension: Abduction: Internal Rotation: External Rotation: Comments: Flexion: R 125, L 155 Extension: Abduction: Internal Rotation: External Rotation: Comments: REPORTS ANTERIOR SHOULDER PAIN, CONTINUE TO ASSESS WITH ONGOING SESSIONS DUE TO TIME LIMITS Elbow Flexion: R 140, L 155 Extension: R 15, L 0 Pronation: Supination: Comments: Flexion: 4+/5 R, 4+/5 L Extension: 4+/5 R, 4+/5 L Pronation: Supination: Comments: Wrist Flexion: R 60, L 55 Extension: R 62, L 65 Ulnar Deviation: R 25, L 50 Radial Deviation: R 10, L 10 Comments: Flexion: Extension: Ulnar Deviation: Radial Deviation: Comments: Thumb Thumb CMC Flexion: Thumb MCP Flexion: Thumb IP Flexion: Radial Abduction: Palmar Abduction: Anderson (Kapandji 0-10): R 7/10 Comments: SUBMAX EFFORT Digits Index MCP: PIP: DIP: Long MCP: PIP: DIP: Ring MCP: PIP: DIP: Small MCP: PIP: DIP: Comments: Gross Grasp: R 33, L 40 Lateral Pinch: R 12, L 11 Two-Point Pinch: R 4, L 5 Three-Jaw Ld: R 9, L 9 Comments: PAIN WITH R LATERAL PINCH MMT ROASTMASTER TESTING 4+/5 R, 4+/5 L Patient Education Primary Language: Maori Sales Utility Representative Required: No Current Knowledge: Minimal, needs reinforcement Teaching Method: Demonstration Handouts Verbal Education Needs Identified on Evaluation: ADL's Disease Information Equipment Use Exercise Pain Safety How did patient/family demonstrate learning? Patient demonstrates Patient verbalizes Needs reinforcement Barriers to Learning: Vision Readiness for Learning: Accepting Who was educated? Patient Comments: MULTIMODAL EDUCATION INCLUDING HAND OVER HAND ASSIST Plan of Care Assessment: FELI PRESENTS TO OT WITH R WRIST PAIN. SHE DENIES FALL, TRAUMA OR INJURY TO DOMINANT RIGHT UE. DIFFICULTIES IDENTIFYING DATE OF ONSET, YET REPORTS A 73% LIMITATION PER THE QUICK DASH ASSESSMENT. SHE EXPRESSES DIFFICULTIES WITH DAILY ACTIVITIES INCLUDING DRESSING AND BATHING. SHE REPORTS GENERALIZED PAIN THROUGH THE DORSAL AND VOLAR ASPECT OF HER WRIST AND ELBOW, YET UPON FURTHER INVESTIGATION IT APPEARS THOUGH HER PAIN IS GREATEST AT HER THUMB AND RADIAL WRIST. A (+) CAN WAS ELICITED DURING HER OT EVALUATION. ONGOING SKILLED OT IS WARRANTED TO ACHIEVE HER OPTIMAL FUNCTIONAL LEVEL AND IMPROVE QOL. STG Duration: 2 WEEKS Short Term Goals: IND HEP IND EDEMA MANAGMENT AND POSITIONING OF RUE REPORT <5/10 PAIN AT REST KAPANDJI 10/10 ON RIGHT IND ORTHOSIS USE AND APPLICATION LTG Duration: 6 WEEKS Assisted Goals: QUICK DASH <58% REPORT <5/10 PAIN WITH BADLs IND JOINT PROTECTION AND ACTIVITY MODIFICATION PAINFREE AROM THROUGH SHOULDER, ELBOW AND WRIST REPORT MINIMAL INTERRUPTION WITH SLEEPING Frequency and Duration: The patient will be seen 2X/WEEK FOR 6 WEEKS Treatment Plan: Therapeutic Exercise Therapeutic Activity Home Exercise Program Splinting Neuro Re-ed Patient Education Desensitization/Sensory Re-ed Edema Control ADL Training Ultrasound NMES Iontophoresis Paraffin Fluidotherapy MHP Cold Packs Joint Mobilization Soft Tissue Mobilization Kinesiotaping Other (see comments) Electronically Signed By: JUAN PABLO HARRIS OTR/L Reviewed/agree with student documentation: N/A Therapist: Please sign and return to therapist, Thank you for your referral.
--- NOTE | 2021-06-30 15:41 | MHC.OT.DC ---
[address] [phone] F: [phone] Occupational Therapy Discharge Note Provider: Ernesto Hernandez Diagnosis: R WRIST PAIN Date of Evaluation: 05/19/21 Date of Discharge: 06/30/21 Treatments to Date: 11 Discharge Status: Achieved Goals Improved Function Discharge Summary: MS MORLEY HAS PROGRESSED WELL WITH HER OT SESSIONS. SHE DEMONSTRATES FUNCTIONAL ROM, STRENGTH, COORDINATION AND ABILITY TO PARTICIPATE IN BADLs. SHE REPORTS LOW PAIN (3/10). PATIENT WAS FIT WITH A CUSTOM ORTHOSIS FOR USE DURING THE DAY WITH IADLs, WELL EDUCATION ON JOINT PROTECTION/ ACTIVITY MODIFICATION. SHE CONTINUED TO NEED MODERATE CUING ON TECHNIQUE/FORM WITH HER HEP AND WOULD BENEFIT FROM ASSISTANCE FROM SIDE STITCHING MACHINE OPERATOR OR FAMILY FOR PROPER CARRYOVER OF EXERCISES. WILL TRANSITION Pt TO A HOME BASED PROGRAM AT THIS TIME. D/C OT SERVICES. Electronically Signed By: JUAN PABLO HARRIS OTR/L Reviewed/agree with student documentation: N/A Therapist: Please Sign and return to therapist, thank you for your referral.
== END 2021-06-30 15:45 | disposition home or self-care (01) ==
LOC: HO.OT 14:30
PROVIDERS: PCP Physician Assistant; Visit Provider Physician Assistant
DX: M77.8 Other enthesopathies, not elsewhere classified (principal)
CPT/HCPCS: 97033; 97035; 97110; 97166; 97530; 97760

== ENCOUNTER 2021-07-08 15:24 | Outpatient (REF) | payer MEDICARE, MEDICAID, SELFPAY ==
[2021-07-10 13:12] LABS: COVID-19 Test Negative (Negative)
== END 2021-07-08 15:25 | disposition home or self-care (01) ==
LOC: HO.LAB 15:24
PROVIDERS: Visit Provider Internal Medicine
DX: Z20.822 Contact with and (suspected) exposure to COVID-19 (principal)
CPT/HCPCS: 36415; 87635; C9803

== ENCOUNTER → 2021-10-13 10:58 | Outpatient (REF) | payer MEDICARE, MEDICAID, SELFPAY ==
[2021-10-13 12:22] LABS: Hematocrit 44.2 % (37.0-47.0); Hemoglobin 14.3 g/dl (12.0-16.0); Mean Corpuscular HGB Conc 32.4 g/dl (31.0-35.0); Mean Corpuscular Hemoglobin 27.8 pg (27.0-33.0); Mean Platelet Volume 9.5 fL (9.4-12.3); Platelet Count 269 X10*3/uL (160-400); Red Blood Count 5.14 X10*6/uL (4.20-5.50); Red Cell Distribution Width 12.9 % (11.0-16.0); White Blood Count 8.1 X10*3/uL (4.8-10.8)
[2021-10-13 12:54] LABS: Alanine Aminotransferase 26 U/L (0-31); Albumin Level 4.2 g/dL (3.5-5.0); Alkaline Phosphatase 117 U/L (39-117); Aspartate Amino Transferase 23 U/L (5-31); Bilirubin Direct 0.3 mg/dL (0.0-0.5); Bilirubin Total 0.8 mg/dL (0.0-1.0); Lipase 17 U/L (8-78)
== END ==
LOC: HO.NUCMED 10:58
PROVIDERS: PCP Physician Assistant; Visit Provider Internal Medicine Gastroenterology
DX: R10.13 Epigastric pain (principal)
CPT/HCPCS: 36415; 80076; 83690; 85027

== ENCOUNTER 2021-10-15 11:00 | Outpatient (REF) | payer MEDICARE, MEDICAID, SELFPAY ==
--- NOTE | ~2021-10-15 | XR_ITS ---
EXAMINATION: XR ANKLE, RIGHT CLINICAL INFORMATION: Medial ankle pain and swelling x4 days COMPARISON: None TECHNIQUE: AP, lateral, and mortise views of the right ankle. FINDINGS: There is lateral malleolar soft tissue swelling. No visible acute fracture, dislocation or subluxation seen. The ankle mortise and subtalar joints are normal. There is a small calcaneal heel spur. XR/XR ankle RT 2V IMPRESSION: Small calcaneal heel spur. No visible acute fracture, dislocation or subluxation seen.
[2021-10-15 12:33] LABS: Hematocrit 41.7 % (37.0-47.0); Hemoglobin 13.5 g/dl (12.0-16.0); Mean Corpuscular HGB Conc 32.4 g/dl (31.0-35.0); Mean Corpuscular Volume 86.3 fL (80.0-98.0); Platelet Count 265 X10*3/uL (160-400); Red Blood Count 4.83 X10*6/uL (4.20-5.50); Red Cell Distribution Width 12.9 % (11.0-16.0); White Blood Count 7.7 X10*3/uL (4.8-10.8)
[2021-10-15 12:39] LABS: Estimated Average Glucose 100 mg/dL; Hemoglobin A1c % 5.1 %
[2021-10-15 13:00] LABS: Microalbum/Creatinine Ratio Ur 5.8 ug/mg cr
[2021-10-15 13:07] LABS: Alanine Aminotransferase 25 U/L (0-31); Albumin Level 4.1 g/dL (3.5-5.0); Alkaline Phosphatase 112 U/L (39-117); Anion Gap 11 (12-20); Aspartate Amino Transferase 19 U/L (5-31); Bilirubin Total 0.6 mg/dL (0.0-1.0); Blood Urea Nitrogen 18 mg/dL (9-16); Calcium 9.6 mg/dL (8.4-10.2); Carbon Dioxide 27 mmol/L (22-29); Chloride 109 mmol/L (96-108); Cholesterol 177 mg/dL; Estimated Glomerular Filt Rate > 60; Glucose Fasting 82 mg/dL (60-99); HDL Cholesterol 49 mg/dL; LDL Cholesterol Calculated 112 mg/dl; Potassium 4.3 mmol/L (3.3-5.1); Sodium 143 mmol/L (135-145); Total Protein 6.9 g/dL (6.5-8.0); Triglycerides 84 mg/dL; Uric Acid 4.5 mg/dL (2.4-5.7)
[2021-10-15 13:28] LABS: TSH reflex Free T4 1.59 uIU/mL (0.32-4.0)
== END 2021-10-15 11:01 | disposition home or self-care (01) ==
LOC: HO.LAB 11:00
PROVIDERS: PCP Physician Assistant; Visit Provider Physician Assistant
DX: M25.471 Effusion, right ankle (principal); I10 Essential (primary) hypertension
CPT/HCPCS: 36415; 73600; 80053; 80061; 82043; 83036; 84443; 84550; 85027

== ENCOUNTER 2022-02-25 15:47 | Outpatient (REF) | payer MEDICARE, MEDICAID, SELFPAY ==
--- NOTE | ~2022-02-25 | XR_ITS ---
EXAMINATION: XR ANKLE, LEFT CLINICAL INFORMATION: Left ankle pain and swelling. COMPARISON: None TECHNIQUE: AP, lateral, and mortise views of the left ankle. FINDINGS: The ankle joint and mortise are intact. There is no acute fracture dislocation. The tarsal bones are normally aligned. Small plantar calcaneal spur. Mild to moderate soft tissue swelling. XR/XR ankle LT min 3V IMPRESSION: Mild to moderate soft tissue swelling and small plantar calcaneal spur. No definitive acute osseous abnormality.
== END 2022-02-25 15:48 | disposition home or self-care (01) ==
LOC: HO.HMGCX 15:47
PROVIDERS: PCP Physician Assistant
DX: M25.572 Pain in left ankle and joints of left foot (principal)
CPT/HCPCS: 73610

== ENCOUNTER 2022-04-08 11:36 | Outpatient (REF) | payer MEDICARE, MEDICAID, SELFPAY ==
[2022-04-08 14:03] LABS: Appearance Urine Clear; Color Urine Yellow; Glucose Urine UA Negative (Negative); Leukocyte Esterase Urine Trace (Negative); Nitrite Urine Negative (Negative); Urine Blood Trace (Negative); Urine Ketones Negative (Negative); Urine Protein Negative (Neg-Trace)
[2022-04-08 14:09] LABS: Bacteria Urine 1+ (None Seen); Hyaline Casts Urine 0-2 /LPF (0-2); WBC Urine 0-5 /HPF (0-5)
== END 2022-04-08 11:37 | disposition home or self-care (01) ==
LOC: HO.LAB 11:36
PROVIDERS: PCP Physician Assistant; Visit Provider Internal Medicine
DX: N39.0 Urinary tract infection, site not specified (principal)
CPT/HCPCS: 81001; 81003

== ENCOUNTER → 2022-08-05 10:48 | Outpatient (REF) | payer MEDICARE, MEDICAID, SELFPAY ==
--- NOTE | ~2022-08-05 | MM_ITS ---
EXAMINATION: MM SCREENING DIGITAL BREAST TOMOSYNTHESIS, BILATERAL CLINICAL INFORMATION: Screening. Asymptomatic. The lifetime risk of breast cancer based on the Tyrer-Cuzick Model is 12%. COMPARISON: Mammography: 04/18/2020; outside mammography 09/02/2017, 10/09/2013 ([facility]) TECHNIQUE: Digital breast tomosynthesis is performed in both the craniocaudal and mediolateral oblique views along with computer-aided detection (CAD). Synthesized 2D images are generated from the tomosynthesis. FINDINGS: There are scattered areas of fibroglandular density (ACR BI-RADS breast composition Category b). There are no significant masses, abnormal calcifications, or other abnormalities. Parenchymal pattern is similar to prior studies. There is no developing density or architectural abnormality. The axilla and skin contours are unremarkable. No significant changes. MM/MM tomosynthesis screening BI IMPRESSION: No mammographic evidence of malignancy. ASSESSMENT: BI-RADS 1: Negative RECOMMENDATION: Routine annual mammography screening. This patient's information was entered into a reminder system with a target due date for their next mammogram.
== END ==
LOC: HO.SL 10:48
PROVIDERS: PCP Physician Assistant; Visit Provider Physician Assistant
DX: Z12.31 Encounter for screening mammogram for malignant neoplasm of breast (principal); G47.33 Obstructive sleep apnea (adult) (pediatric)
CPT/HCPCS: 77063; 77067; 95806

== ENCOUNTER → 2022-10-19 09:59 | Outpatient (BNVA) | payer MEDICARE, MEDICAID, SELFPAY | PROVIDERS: PCP Physician Assistant; Visit Provider Nurse Practitioner Family | DX: G43.009 Migraine without aura, not intractable, without status migrainosus (principal); G47.33 Obstructive sleep apnea (adult) (pediatric) | CPT/HCPCS: 99202 ==

== ENCOUNTER → 2022-12-02 12:53 | Outpatient (BNVA) | payer MEDICARE, MEDICAID, SELFPAY | PROVIDERS: PCP Physician Assistant; Visit Provider Nurse Practitioner Family | DX: G47.33 Obstructive sleep apnea (adult) (pediatric) (principal); G43.009 Migraine without aura, not intractable, without status migrainosus | CPT/HCPCS: 99212 ==

== ENCOUNTER 2023-03-10 10:44 | Outpatient (AMB) | payer MEDICARE, MEDICAID, SELFPAY ==
--- NOTE | 2023-03-10 10:51 | A.OFFPC_ITS ---
Vital Signs 03/10/23 10:52 Height 5 ft 3 in Weight 213 lb BMI 37.7 BP 102/64 Blood Pressure Location Lt brachial Position Sitting Pulse 60 Pulse Source Pulse Oximeter Pulse Oximetry (%) 98 Intake Visit Reasons: med review Intake Note: pt is here for medication review, and also pt states she hurt her back and was seen in [facility] ED [employer] Required: No Accompanied by: Self / Same As Patient Allergies No Known Allergies [No Known Allergies*] Allergy (Verified 03/10/23 10:59) Medication List - Last Reconciled 03/10/23 by Ernesto Hernandez PA-C ilflhnintt-lzrsbkhzyowef-jlvm 50-325-40 mg 1 tab PO ONCE PRN 14 days dicyclomine 20 mg PO QID fluticasone propionate 50 mcg/actuation (Flonase Allergy Relief) 1 spray intranasal DAILY fluticasone propionate 110 mcg/actuation (Flovent HFA) 1 puff inhalation BID 30 days lactulose 20 grams (30 mL) PO BID PRN 15 days lisinopril 2.5 mg PO DAILY loperamide 2 mg PO Q6H PRN methocarbamol 750 mg PO Q8H 7 days miscellaneous medical supply 1 ea miscellaneous DAILY 99 days miscellaneous medical supply (Blood Pressure Cuff) As directed omeprazole 40 mg PO DAILY 30 days ondansetron HCl 4 mg PO Q8H PRN sumatriptan succinate 100 mg PO ONCE PRN 30 days tramadol 50 mg PO DAILY 7 days Ventolin HFA 90 mcg/actuation (albuterol sulfate) 1 inh inhalation QID 30 days NS Tobacco use date assessed: 03/10/23 Dental Screening Dental Screen Date: 03/10/23 Did you have a dental visit in the last 12 months?: Yes Did you have a dental problem in the last 6 months where you did not have access to dental care?: No Was dental information given to patient?: Patient has dentist HPI med review HPI Details atient is a 52 year female here today for a follow-up visit.? Patient has a past medical history significant for obesity, learning disability, chronic migraine, GERD,asthma. Recently seen at [facility] for acute atraumatic lower back pain. She reports her mother fell and tried to pick her up and hurt your back. MRI was recommended though patient reports she is afraid to get MRI. She was prescribed tramadol, methocarbamol and naproxen and has been since asking for refills of tramadol. Now in PT for her back which has been helpful. CHRONIC MEDICAL CONDITION--> .. Migraines:? Has been refer Neurology and has had an evaluation, recommended to start him gout he for her migraines though has not started this medication.? MRI was also recommended though patient in or get this done.? Since starting CPAP machine for her obstructive sleep apnea she has had less frequent less severe migraines. Interval history-- >? Patient has been using Fioricet on a nearly every day basis.? She does report having more than 15 migraines per month and more for age she is having rebound migraines due to her pillow. We did discuss the possibility of her having rebound migraines from the Fioricet and she somewhat understands.? She is willing to trial migraine prophylaxis with amitriptyline on a nightly basis. .. VICENTE:? Has been started on CPAP machine to which she is using a nightly basis though finds it difficult to keep the CPAP mask on throughout the night.? .. Hypertension:? Patient's blood pressure acceptable today in office.? Continues on lisinopril 2.5 mg daily .. Asthma:? Patient reports she has been having to use her asthma inhaler multiple times a day as she does report cough and shortness of breath pick specially on exertion.? Will step up her asthma therapy to include Flovent inhaler twice a day for better asthma control. ,.. Obesity:? Patient does understand her BMI is over 30 will work on being more physically active and adapt to better eating habits to reduce her weight. ? [facility] Medical History Asthma HTN (hypertension) Migraine Screening for hypothyroidism Seasonal allergies Surgical History No pertinent past surgical history Family History Father Celiac disease CVD (cardiovascular disease) Afib Mother Diabetes Hypertension Fibromyalgia Migraines Brother In good health Brother In good health Sister In good health Social History Housing: Apartment Alcohol intake: current Alcohol intake frequency: holidays/special occasions only Patient Tobacco Use Status: Never used Tobacco e-Cigarette/Vaping Use: Never Used Second Hand Smoke Exposure: No service: No Current occupational status: disabled Cognitive needs: No Hearing needs: No Vision needs: Yes (glasses) Questionnaire Thrive Questionnaire Date Thrive assessed: 12/15/22 JUHI-7 AMB Questionnaire JUHI-7 Date JUHI - 7 assessed: 12/15/22 Source: Developed by Drs. Hector Acuña, Varsha Chavez, Sage freeman nd colleagues, with an educational jean marie from [employer]. Review of Systems Const Denies headache(s) Eyes Denies loss of vision ENT Denies vertigo, Denies dizziness, Denies headache(s) and Denies sore throat Card Denies chest pain, Denies leg edema and Denies lightheadedness Resp Denies cough, Denies hemoptysis and Denies wheezing GI Denies abdominal pain, Denies melena, Denies constipation, Denies diarrhea and Denies vomiting Denies urinary frequency, Denies dysuria and Denies urinary urgency Musc Reports back pain, Denies arthralgias, Denies joint swelling, Denies numbness and Denies tingling Neuro Denies Abnormal speech present, Denies behavioral changes, Denies vertigo, Denies dizziness, Denies headache(s), Denies loss of vision, Denies memory loss, Denies numbness and Denies tingling Psych Denies anxiety, Denies behavioral changes, Denies depression, Denies memory loss and Denies panic attacks Jozef/Lymph Denies easy bleeding and Denies easy bruising Aller/Immun Denies wheezing Physical exam (Primary Care) Vital Signs: Last Vital Signs Pulse 60 03/10/23 10:52 BP 102/64 03/10/23 10:52 Pulse Ox 98 03/10/23 10:52 BMI result Body Mass Index 37.7 Tobacco/Smoking Status: Tobacco use Status Tobacco use date assessed 03/10/23 03/10/23 10:56 Patient Tobacco Use Status Never used Tobacco 03/10/23 10:56 e-Cigarette/Vaping Use Never Used 03/10/23 10:56 Thrive Assessment: Date of Thrive Assessment Date Thrive assessed 12/15/22 03/10/23 10:56 Const General: healthy appearing, no acute distress, alert and awake Nutritional Appearance: well nourished Orientation/consciousness: oriented to person, oriented to place and oriented to time HENMT Ears: TM's normal bilaterally General nose exam: Normal nasal mucous membranes and turbinates present Eyes Conjunctivae: conjunctivae normal Sclerae: sclerae normal Pupils: Equal, round and reactive pupils present Neck Neck: Yes no lymphadenopathy and Yes no JVD Thyroid: Thyroid normal Carotids: no bruits Resp Effort & Inspection: normal respiratory effort and not tachypneic Auscultation: no crackles, no rales, no rhonchi and no wheezes Cardio Rate: regular rate Rhythm: regular rhythm Heart sounds: no murmurs and normal S1 and S2 GI Palpation (GI): Soft to palpation, nontender, no hepatomegaly and no splenomegaly Auscultation: normal bowel sounds Skin General skin exam: no rashes or lesions noted and dry skin Neuro General: oriented to person, oriented to place and oriented to time Cranial nerves: Yes Equal, round and reactive pupils present Speech: No Abnormal speech present Gait exam (Neuro): Normal gait present Motor exam (neuro): no tremor noted Extrem Right upper extremity: full ROM Left upper extremity: full ROM Right lower extremity: full ROM; no edema Left lower extremity: full ROM; no edema Psych Mental Status: mental status grossly normal Speech and movement: Normal speech and movement present Affect: normal affect Attitude: cooperative Thought process: Normal thought process present Assessment and Plan Assessment & Plan (1) Lumbar radicular pain: Code(s): M54.16 - Radiculopathy, lumbar region Plan: As per HPI patient reports hurting her back while trying to lift her mother off of the floor. She was seen at the ER for acute low back pain. Per patient she reports getting a CT scan though no reports of this. Recommended MRI though patient declines saying she is claustrophobic. Currently patient denies any radiculopathy, bowel or bladder dysfunction or saddle amnesia. She was started on tramadol p.r.n., methocarbamol and naproxen. She is asking for more tramadol at this time. Now on physical therapy and feels that is helping her lower back pain. Will give 1 more script of 7 tablets of tramadol to use on a p.r.n. basis. Medications: Refilled methocarbamol 750 mg PO Q8H 7 days 21 tabs 0RF M54.16 - Radiculopathy, lumbar region tramadol 50 mg PO DAILY 7 days 7 tabs 0RF M54.16 - Radiculopathy, lumbar region partkwdcdy-utlomzlogkgty-nrec 50-325-40 mg 1 tab PO ONCE 14 days PRN 14 tabs 0RF headaches G43.909 - Migraine, unspecified, not intractable, without status migrainosus fluticasone propionate 110 mcg/actuation (Flovent HFA) 1 puff inhalation BID 30 days 12 grams 4RF J45.20 - Mild intermittent asthma, uncomplicated fluticasone propionate 50 mcg/actuation (Flonase Allergy Relief) administer into each nostril 1 spray intranasal DAILY 100 mL 4RF R09.81 - Nasal congestion lisinopril 2.5 mg PO DAILY 30 tabs 6RF I10 - Essential (primary) hypertension omeprazole 40 mg PO DAILY 30 days 90 caps 3RF K27.9 - Peptic ulcer, site unspecified, unspecified as acute or chronic, without hemorrhage or perforation ondansetron HCl 4 mg PO Q8H PRN 10 tabs 3RF nausea and vomiting K27.9 - Peptic ulcer, site unspecified, unspecified as acute or chronic, without hemorrhage or perforation Coding Level of Care Code Est Pt Level 3 (09477) Diagnoses Lumbar radicular pain M54.16
[2023-03-10 10:52] VITALS: BP 102/64; PULSE 60; O2SAT 98; BMI 37.7
== END 2023-03-10 11:11 | disposition home or self-care (01) ==
LOC: HO.HMGH 10:44
PROVIDERS: PCP Physician Assistant; Visit Provider Physician Assistant
DX: M54.16 Radiculopathy, lumbar region (principal)
CPT/HCPCS: 99213

== ENCOUNTER 2023-03-31 14:32 | Outpatient (AMB) | payer MEDICARE, MEDICAID, SELFPAY ==
--- NOTE | 2023-03-31 14:43 | A.OFFVIS_ITS ---
Intake Vital Signs 03/31/23 14:48 BP 120/82 Blood Pressure Location Rt brachial Position Sitting Pulse 87 Pulse Source Pulse Oximeter Pulse Oximetry (%) 98 Oxygen Delivery Method Room Air Intake Visit Reasons: 3m follow up Migraine - LVM Intake Note: Patient presents for 3 month follow up migraine.Patient states no concerns today. Allergies No Known Allergies [No Known Allergies*] Allergy (Verified 03/31/23 14:46) Medication List - Last Reconciled 03/31/23 by SHALINI Leroy arscrtxrxc-xvuahqitcohmz-htvb 50-325-40 mg 1 tab PO ONCE PRN 14 days dicyclomine 20 mg PO QID fluticasone propionate 110 mcg/actuation (Flovent HFA) 1 puff inhalation BID 30 days fluticasone propionate 50 mcg/actuation (Flonase Allergy Relief) 1 spray intranasal DAILY lactulose 20 grams (30 mL) PO BID PRN 15 days lisinopril 2.5 mg PO DAILY loperamide 2 mg PO Q6H PRN methocarbamol 750 mg PO Q8H 7 days miscellaneous medical supply 1 ea miscellaneous DAILY 99 days miscellaneous medical supply (Blood Pressure Cuff) As directed omeprazole 40 mg PO DAILY 30 days ondansetron HCl 4 mg PO Q8H PRN sumatriptan succinate 100 mg PO ONCE PRN 30 days tramadol 50 mg PO DAILY 7 days Ventolin HFA 90 mcg/actuation (albuterol sulfate) 1 inh inhalation QID 30 days NS HPI HPI Comments History of Present Illness Details 52-yr-old female presents for f/u visit. Pt denies any significant interval medical changes. Pt reports that she is now using her CPAP every night x's at least 4 hrs. There is no recent compliance data- pt states the rekha is not working either. She states she is sleeping well with it and has improved daytime energy. Since she started to use CPAP, she has not had any migraines. Pt states there is a hole in her PAP tubing, states she has called and requested new tubing but she has not received it yet. [facility] Medical History Asthma HTN (hypertension) Migraine Screening for hypothyroidism Seasonal allergies Surgical History No pertinent past surgical history Family History Father Celiac disease CVD (cardiovascular disease) Afib Mother Diabetes Hypertension Fibromyalgia Migraines Brother In good health Brother In good health Sister In good health Social History Housing: Apartment Alcohol intake: current Alcohol intake frequency: holidays/special occasions only Patient Tobacco Use Status: Never used Tobacco e-Cigarette/Vaping Use: Never Used Second Hand Smoke Exposure: No service: No Current occupational status: disabled Cognitive needs: No Hearing needs: No Vision needs: Yes (glasses) Review of Systems Const All systems reviewed & are unremarkable except as noted in HPI and below Physical Exam Vital Signs: Last Vital Signs Pulse 87 03/31/23 14:48 BP 120/82 03/31/23 14:48 Pulse Ox 98 03/31/23 14:48 Oxygen Delivery Method Room Air 03/31/23 14:48 Const General: cooperative and no acute distress HEENT Head: Yes normocephalic Resp Effort & Inspection: normal respiratory effort and able to speak in complete sentences Neuro Other: A&O x's 3, responding appropriately. General: CN's II-XI intact bilaterally Motor exam (neuro): 5/5 motor strength present throughout Psych Affect: normal affect Attitude: cooperative Assessment & Plan Assessment & Plan (1) VICENTE (obstructive sleep apnea): Code(s): G47.33 - Obstructive sleep apnea (adult) (pediatric) (2) Migraine without aura: Code(s): G43.009 - Migraine without aura, not intractable, without status migrainosus Qualifiers: Status migrainosus presence: without status migrainosus Intractability: not intractable Qualified Code(s): G43.009 - Migraine without aura, not intractable, without status migrainosus (3) Cognitive developmental delay: Code(s): F81.9 - Developmental disorder of scholastic skills, unspecified Plan Continue CPAP, as pt is having good clinical effect from use. ? if recent lack of compliance data is r/t Resmed Rekha issues. Due to cognitive developmental delay- pt may need reinforcement of information. Printed info given on [facility]'s walk-in hours. Continue Sumatripatn or Fioricet prn. ? f/u in 6 months or sooner prn. Coding Level of Care Code Est Pt Level 4 (62741) Diagnoses VICENTE (obstructive sleep apnea) G47.33 Migraine without aura G43.009 Status migrainosus presence: without status migrainosus Intractability: not intractable Cognitive developmental delay F81.9
[2023-03-31 14:48] VITALS: BP 120/82; PULSE 87; O2SAT 98
== END 2023-03-31 15:11 | disposition home or self-care (01) ==
PROVIDERS: Visit Provider Nurse Practitioner Family
DX: G47.33 Obstructive sleep apnea (adult) (pediatric) (principal); G43.009 Migraine without aura, not intractable, without status migrainosus; F81.9 Developmental disorder of scholastic skills, unspecified
CPT/HCPCS: 99214

== ENCOUNTER → 2023-03-31 14:32 | Outpatient (BNVA) | payer MEDICARE, MEDICAID, SELFPAY | PROVIDERS: Visit Provider Nurse Practitioner Family | DX: G47.33 Obstructive sleep apnea (adult) (pediatric) (principal); G43.009 Migraine without aura, not intractable, without status migrainosus; F81.9 Developmental disorder of scholastic skills, unspecified; Z99.89 Dependence on other enabling machines and devices | CPT/HCPCS: 99212 ==

== ENCOUNTER 2023-04-19 10:05 | Outpatient (AMB) | payer MEDICARE, MEDICAID, SELFPAY ==
[2023-04-19 10:06] VITALS: BP 106/80; PULSE 76; BMI 38.3
--- NOTE | 2023-04-19 10:06 | A.OFFPC_ITS ---
Vital Signs 04/19/23 10:06 Height 5 ft 3 in Weight 216 lb BMI 38.3 BP 106/80 Blood Pressure Location Lt brachial Position Sitting Pulse 76 Pulse Source Pulse Oximeter Oxygen Delivery Method Room Air Intake Visit Reasons: f/u HTN/ Migraines, VICENTE Intake Note: Pt is here for F/U HTN, Migraine and VICENTE. Maintenance Services Dispatcher Required: No Accompanied by: Self / Same As Patient Allergies No Known Allergies [No Known Allergies*] Allergy (Verified 04/19/23 10:24) Medication List - Last Reconciled 04/19/23 by Ernesto Hernandez PA-C [id number] 50-325-40 mg 1 tab PO ONCE PRN 14 days cyclobenzaprine 10 mg PO TID PRN 7 days dicyclomine 20 mg PO QID fluticasone propionate 50 mcg/actuation (Flonase Allergy Relief) 1 spray intranasal DAILY fluticasone propionate 110 mcg/actuation (Flovent HFA) 1 puff inhalation BID 30 days lactulose 20 grams (30 mL) PO BID PRN 15 days lisinopril 2.5 mg PO DAILY loperamide 2 mg PO Q6H PRN miscellaneous medical supply 1 ea miscellaneous DAILY 99 days miscellaneous medical supply (Blood Pressure Cuff) As directed omeprazole 40 mg PO DAILY 30 days ondansetron HCl 4 mg PO Q8H PRN sumatriptan succinate 100 mg PO ONCE PRN 30 days tramadol 50 mg PO DAILY 7 days Ventolin HFA 90 mcg/actuation (albuterol sulfate) 1 inh inhalation QID 30 days NS Tobacco use date assessed: 03/10/23 Dental Screening Dental Screen Date: 04/19/23 Did you have a dental visit in the last 12 months?: Yes Did you have a dental problem in the last 6 months where you did not have access to dental care?: No Was dental information given to patient?: Patient has dentist HPI f/u HTN/ Migraines, VICENTE HPI Details Patient is a 52 year female here today for a follow-up visit.? Patient has a past medical history significant for obesity, learning disability, chronic migraine, GERD, obstructive sleep apnea, asthma. Recently seen at [facility] for acute atraumatic lower back pain. She reports her mother fell and tried to pick her up and hurt your back. MRI was recommended though patient reports she is afraid to get MRI. She was prescribed tramadol, methocarbamol and naproxen and has been since asking for refills of tramadol. Now in PT for her back which has been helpful. CHRONIC MEDICAL CONDITION--> .. Migraines:? Has been refer Neurology and has had an evaluation, recommended to start him gout he for her migraines though has not started this medication.? MRI was also recommended though patient in or get this done.? Since starting CPAP machine for her obstructive sleep apnea she has had less frequent less severe migraines. Interval history-- >? Patient has been using Fioricet on a nearly every day basis.? She does report having more than 15 migraines per month and more for age she is having rebound migraines due to her pillow. We did discuss the possibility of her having rebound migraines from the Fioricet and she somewhat understands.? .. VICENTE:? Has been started on CPAP machine to which she is using a nightly basis though finds it difficult to keep the CPAP mask on throughout the night.? She has been having less migraines since starting CPAP machine nightly. .. Hypertension:? Patient's blood pressure acceptable today in office.? Continues on lisinopril 2.5 mg daily .. Asthma:? Patient reports she has been having to use her asthma inhaler multiple times a day as she does report cough and shortness of breath pick specially on exertion.? Will step up her asthma therapy to include Flovent inhaler twice a day for better asthma control. ,.. Obesity:? Patient does understand her BMI is over 30 will work on being more physically active and adapt to better eating habits to reduce her weight. ? PFSH Medical History Screening for hypothyroidism HTN (hypertension) Asthma Migraine Seasonal allergies Surgical History No pertinent past surgical history Family History Father Celiac disease CVD (cardiovascular disease) Afib Mother Diabetes Hypertension Fibromyalgia Migraines Brother In good health Brother In good health Sister In good health Social History Housing: Apartment Alcohol intake: current Alcohol intake frequency: holidays/special occasions only Patient Tobacco Use Status: Never used Tobacco e-Cigarette/Vaping Use: Never Used Second Hand Smoke Exposure: No service: No Current occupational status: disabled Cognitive needs: No Hearing needs: No Vision needs: Yes (glasses) Questionnaire Thrive Questionnaire Date Thrive assessed: 12/15/22 JUHI-7 AMB Questionnaire JUHI-7 Date JUHI - 7 assessed: 12/15/22 Source: Developed by Drs. Hector Acuña, Varsha Chavez, Sage Sarabia and colleagues, with an educational jean marie from [employer]. ACT Questionnaire In the past 4 weeks, how much of the time did your asthma keep you from getting as much done at work, school or at home?: None of the time During the past 4 weeks, how often have you had shortness of breath?: Not at all During the past 4 weeks, how often did your asthma symptoms wake you up at night or earlier than usual in the morning?: Not at all During the past 4 weeks, how often have you had to use your rescue inhaler or nebulizer medication?: Not at all How would you rate your asthma control during the past 4 weeks?: Completely controlled ACT Interpretation: Negative Score: 25 Review of Systems Const Denies headache(s) Eyes Denies loss of vision ENT Denies vertigo, Denies dizziness, Denies headache(s) and Denies sore throat Card Denies chest pain, Denies leg edema and Denies lightheadedness Resp Denies cough, Denies hemoptysis and Denies wheezing GI Denies abdominal pain, Denies melena, Denies constipation, Denies diarrhea and Denies vomiting Denies urinary frequency, Denies dysuria and Denies urinary urgency Musc Denies arthralgias, Denies joint swelling, Denies numbness and Denies tingling Neuro Denies Abnormal speech present, Denies behavioral changes, Denies vertigo, Denies dizziness, Denies headache(s), Denies loss of vision, Denies memory loss, Denies numbness and Denies tingling Psych Denies anxiety, Denies behavioral changes, Denies depression, Denies memory loss and Denies panic attacks Jozef/Lymph Denies easy bleeding and Denies easy bruising Aller/Immun Denies wheezing Physical exam (Primary Care) Vital Signs: Last Vital Signs Pulse 76 04/19/23 10:06 BP 106/80 04/19/23 10:06 Oxygen Delivery Method Room Air 04/19/23 10:06 BMI result Body Mass Index 38.3 Tobacco/Smoking Status: Tobacco use Status Tobacco use date assessed 03/10/23 04/19/23 10:14 Patient Tobacco Use Status Never used Tobacco 04/19/23 10:14 e-Cigarette/Vaping Use Never Used 04/19/23 10:14 Thrive Assessment: Date of Thrive Assessment Date Thrive assessed 12/15/22 04/19/23 10:14 Const General: healthy appearing, no acute distress, alert and awake Nutritional Appearance: well nourished Orientation/consciousness: oriented to person, oriented to place and oriented to time HENMT Ears: TM's normal bilaterally General nose exam: Normal nasal mucous membranes and turbinates present Eyes Conjunctivae: conjunctivae normal Sclerae: sclerae normal Pupils: Equal, round and reactive pupils present Neck Neck: Yes no lymphadenopathy and Yes no JVD Thyroid: Thyroid normal Carotids: no bruits Resp Effort & Inspection: normal respiratory effort and not tachypneic Auscultation: no crackles, no rales, no rhonchi and no wheezes Cardio Rate: regular rate Rhythm: regular rhythm Heart sounds: no murmurs and normal S1 and S2 GI Palpation (GI): Soft to palpation, nontender, no hepatomegaly and no splenomegaly Auscultation: normal bowel sounds Skin General skin exam: no rashes or lesions noted and dry skin Neuro General: oriented to person, oriented to place and oriented to time Cranial nerves: Yes Equal, round and reactive pupils present Speech: No Abnormal speech present Gait exam (Neuro): Normal gait present Motor exam (neuro): no tremor noted Extrem Right upper extremity: full ROM Left upper extremity: full ROM Right lower extremity: full ROM; no edema Left lower extremity: full ROM; no edema Psych Mental Status: mental status grossly normal Speech and movement: Normal speech and movement present Affect: normal affect Attitude: cooperative Thought process: Normal thought process present Assessment and Plan Assessment & Plan (1) Migraine without aura: Code(s): G43.009 - Migraine without aura, not intractable, without status migrainosus Qualifiers: Intractability: not intractable Status migrainosus presence: without status migrainosus Qualified Code(s): G43.009 - Migraine without aura, not intractable, without status migrainosus Plan: Since starting CPAP machine nightly basis for obstructive sleep apnea her migraines have been less frequent. She still does use sumatriptan and Fioricet on a p.r.n. basis (2) HTN (hypertension): Code(s): I10 - Essential (primary) hypertension Qualifiers: Hypertension type: essential hypertension Qualified Code(s): I10 - Essential (primary) hypertension Plan: noted low BP today in office. Advised to hold her lisinopril. Advised to increase her fluid intake. We have tried to get her blood pressure cuff though reports insurance does not cover. Advised to purchase blood pressure cuff on a counter. Goal blood pressure is to be below above 100/60 and below 140/90 (3) Asthma: Code(s): J45.909 - Unspecified asthma, uncomplicated Qualifiers: Asthma complication type: uncomplicated Asthma persistence: intermittent Asthma severity: mild Qualified Code(s): J45.20 - Mild intermittent asthma, uncomplicated Plan: Reinforced the directions on using her rescue inhaler and her maintenance Flovent inhaler. (4) Lumbar radicular pain: Code(s): M54.16 - Radiculopathy, lumbar region Plan: Patient now on physical therapy which has been helpful for her lower back pain. Does use cyclobenzaprine and tramadol on a p.r.n. basis for her lower back pain. (5) Obese: Code(s): E66.9 - Obesity, unspecified Qualifiers: Body mass index: BMI 37.0-37.9 Obesity classification: adult class 2 (BMI 35 - 39.9) Obesity type: due to excess calories Serious obesity comorbidity presence: without serious comorbidity Qualified Code(s): E66.09 - Other obesity due to excess calories; Z68.37 - Body mass index [BMI] 37.0-37.9, adult Plan: Patient does understand her BMI is over 30 and will work on being more physically active and adapting to better eating habits to reduce her weight Orders: Orders Comprehensive [place]. Panel Fast 04/19/23 I10 - Essential (primary) hypertension Complete Blood Count no Diff 04/19/23 I10 - Essential (primary) hypertension Microalbumin, Random (w Creat) 04/19/23 I10 - Essential (primary) hypertension Medications: Changed From cyclobenzaprine 10 mg PO TID 7 days PRN 21 tabs 0RF muscle spasm M54.16 - Radiculopathy, lumbar region To cyclobenzaprine 10 mg PO TID 30 days PRN 90 tabs 0RF muscle spasm M54.16 - Radiculopathy, lumbar region Refilled tramadol 50 mg PO DAILY 7 days 7 tabs 0RF M54.16 - Radiculopathy, lumbar region On Hold lisinopril Hold Comment: Doctor's Order 2.5 mg PO DAILY 30 tabs 6RF I10 - Essential (primary) hypertension Coding Level of Care Code Est Pt Level 4 (54332) Diagnoses Migraine without aura and without status migrainosus, not intractable G43.009 Intractability: not intractable Status migrainosus presence: without status migrainosus Essential hypertension I10 Hypertension type: essential hypertension Mild intermittent asthma without complication J45.20 Asthma complication type: uncomplicated Asthma persistence: intermittent Asthma severity: mild Lumbar radicular pain M54.16 Class 2 obesity due to excess calories without serious comorbidity with body mass index (BMI) of 37.0 to 37.9 in adult E66.09; Z68.37 Body mass index: BMI 37.0-37.9 Obesity classification: adult class 2 (BMI 35 - 39.9) Obesity type: due to excess calories Serious obesity comorbidity presence: without serious comorbidity
== END 2023-04-19 10:37 | disposition home or self-care (01) ==
PROVIDERS: PCP Physician Assistant; Visit Provider Physician Assistant
DX: G43.009 Migraine without aura, not intractable, without status migrainosus (principal); I10 Essential (primary) hypertension; Z68.37 Body mass index [BMI] 37.0-37.9, adult; J45.20 Mild intermittent asthma, uncomplicated; E66.09 Other obesity due to excess calories; M54.16 Radiculopathy, lumbar region
CPT/HCPCS: 99214

== ENCOUNTER 2023-06-07 12:00 | Outpatient (RCR) | payer MEDICARE, MEDICAID, SELFPAY ==
--- NOTE | 2023-03-01 14:39 | MHC.PT.EP ---
[place] Office [place] Office [place] Office [address] [phone] F: [phone] F: [phone] F: [phone] F: [phone] Physical Therapy Plan of Care Date of Evaluation: Date of Surgery: Diagnosis: low back pain with radiculopathy Assessment: Patient is a pleasant 52 y.o. female with learning disabilities who is referred to PT by Ernesto Hernandez PA-C with Dx of LBP with radiculopathy. Patient impairments include poor posture, limited ROM in lumbar spine, weakness in core and hips, labored transfers. Patient current functional limitations are bending, cleaning, getting out of low chair, stand for long time, worse with walking longer distance. Patient will benefit from skilled PT to address aforementioned impairments and functional limitations to meet established goals. Frequency and Duration: The patient will be seen 2x/week for 4 weeks Short Term Goals: 2 weeks Patient demonstrates consistency and independence with HEP to self manage symptoms. Senior Care Goals: 4 weeks Patient presents with increased lumbar spine flexion 75 degrees to be able to bend/squat for cleaning at home. Patient presents with increased bilateral hip flexion 5/5 to be able to get up/down from low surfaces. Treatment Plan: Modalities to reduce pain, spasms and effusion. Manual therapy to restore motion and function. Therapeutic exercise to improve strength and flexibility. Neuromuscular re-education for posture and balance. Therapeutic activities to return to functional activities of daily living. Electronically signed by: Nichol Xie, PT, DPT Please sign and return to therapist. Thank you for your referral.
--- NOTE | 2023-06-08 12:51 | MHC.PT.DC ---
[facility] [place] Office [place] Office [place] Office [address] Nadya Reyes [address] [phone] F: [phone] F: [phone] F: [phone] F: [phone] Physical Therapy Discharge Report Diagnosis: low back pain with radiculopathy Date of Surgery: Date of Evaluation: 03/01/23 Date of Discharge: 06/07/23 Treatments to Date: 15 Cancellations to Date: No Shows to Date: Discharge Status: Improved Function Independent with HEP Discharge Summary: Ave has been able to demonstrate HEP throughout her sessions. She has also been able to demonstrates proper squats to help her mother at home whom she cares for. She demonstrates improvements in lumbar ROM, LE strength and reduction in familiar pain. She is agreeable to discharge this session. Electronically signed by: Nichol Xie, PT, DPT Please sign and return to therapist. Thank you for your referral.
== END 2023-06-08 12:52 | disposition home or self-care (01) ==
LOC: HO.PT 12:00
PROVIDERS: PCP Physician Assistant; Visit Provider Physician Assistant
DX: M54.16 Radiculopathy, lumbar region (principal)
CPT/HCPCS: 97110; 97140; 97162; 97530

== ENCOUNTER 2023-08-16 14:35 | Outpatient (AMB) | payer MEDICARE, MEDICAID, SELFPAY ==
--- NOTE | 2023-08-16 14:46 | A.OFFVIS_ITS ---
Intake Vital Signs 08/16/23 14:51 Height 5 ft 3 in Weight 214 lb 6 oz BMI 38.0 BP 122/80 Blood Pressure Location Lt brachial Position Sitting Pulse 69 Pulse Source Pulse Oximeter Pulse Oximetry (%) 98 Oxygen Delivery Method Room Air Intake Visit Reasons: Requalify for Cpap -Confirmed Intake Note: Pt. presents for f/U. she wants to know whats wrong with her machine Allergies No Known Allergies [No Known Allergies*] Allergy (Verified 08/16/23 14:50) HPI HPI Comments History of Present Illness Details 52 y/o female patient presents for follo w up visit to re-qualify CPAP. Pt states that she used CPAP but has not received CPAP supplies for a while, and can't use it now. Pt needs supplies to use it. There is no recent compliance data- pt states the stefan is not working either. She states she is sleeping well with it and has improved daytime energy. Since she started to use CPAP, she has not had any migraines. Pt states there is a hole in her PAP tubing, states she has called and requested new tubing but she has not received it yet. [facility] Medical History Screening for hypothyroidism HTN (hypertension) Asthma Migraine Seasonal allergies Surgical History No pertinent past surgical history Family History Father Celiac disease CVD (cardiovascular disease) Afib Mother Diabetes Hypertension Fibromyalgia Migraines Brother In good health Brother In good health Sister In good health Social History Housing: Apartment Alcohol intake: current Alcohol intake frequency: holidays/special occasions only Patient Tobacco Use Status: Never used Tobacco e-Cigarette/Vaping Use: Never Used Second Hand Smoke Exposure: No service: No Current occupational status: disabled Cognitive needs: No Hearing needs: No Vision needs: Yes (glasses) Review of Systems Const All systems reviewed & are unremarkable except as noted in HPI and below Physical Exam Vital Signs: Last Vital Signs Pulse 69 08/16/23 14:51 BP 122/80 08/16/23 14:51 Pulse Ox 98 08/16/23 14:51 Oxygen Delivery Method Room Air 08/16/23 14:51 BMI result Body Mass Index 38.0 Const General: cooperative and no acute distress HEENT Head: Yes normocephalic Resp Effort & Inspection: normal respiratory effort and able to speak in complete sentences Neuro Other: A&O x's 3, responding appropriately. General: CN's II-XI intact bilaterally Motor exam (neuro): 5/5 motor strength present throughout Psych Affect: normal affect Attitude: cooperative Assessment & Plan Assessment & Plan (1) VICENTE (obstructive sleep apnea): Code(s): G47.33 - Obstructive sleep apnea (adult) (pediatric) Plan Advised patient to undergo in-lab sleep study to requalify the CPAP use. Will f/u of sleep study with the patient for appropriate the treatment options. Wt reduction advised. Orders: Orders RT PSG in-lab sleep study Today E66.9 - Obesity, unspecified, G47.33 - Obstructive sleep apnea (adult) (pediatric) Coding Level of Care Code Est Pt Level 3 (02816) Diagnoses VICENTE (obstructive sleep apnea) G47.33
[2023-08-16 14:51] VITALS: BP 122/80; PULSE 69; O2SAT 98; BMI 38.0
== END 2023-08-16 15:17 | disposition home or self-care (01) ==
PROVIDERS: PCP Physician Assistant; Visit Provider Nurse Practitioner Family
DX: G47.33 Obstructive sleep apnea (adult) (pediatric) (principal)
CPT/HCPCS: 99213

== ENCOUNTER → 2023-08-16 14:35 | Outpatient (BNVA) | payer MEDICARE, MEDICAID, SELFPAY | PROVIDERS: PCP Physician Assistant; Visit Provider Nurse Practitioner Family | DX: G47.33 Obstructive sleep apnea (adult) (pediatric) (principal); E66.9 Obesity, unspecified; Z68.38 Body mass index [BMI] 38.0-38.9, adult | CPT/HCPCS: 99212 ==

== ENCOUNTER 2023-08-19 12:21 | Outpatient (AMB) | payer MEDICARE, MEDICAID, SELFPAY ==
--- NOTE | 2023-08-19 12:35 | A.OFFPC_ITS ---
Vital Signs 08/19/23 12:36 Height 5 ft 3 in Weight 212 lb BMI 37.6 BP 120/70 Blood Pressure Location Lt brachial Position Sitting Pulse 56 Pulse Source Pulse Oximeter Pulse Oximetry (%) 98 Oxygen Delivery Method Room Air Intake Visit Reasons: right wrist pain Intake Note: Patient is here today for right wrist pain and swelling on going for a week. 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: Not Required per policy Accompanied by: Self / Same As Patient Allergies No Known Allergies [No Known Allergies*] Allergy (Verified 08/19/23 13:34) Medication List - Last Reconciled 08/19/23 by David Farias MD blood pressure monitor As directed cgkclaigel-ayffrhccwguvw-baxb 50-325-40 mg 1 tab PO ONCE PRN 14 days cyclobenzaprine 10 mg PO TID PRN 30 days dicyclomine 20 mg PO QID fluticasone propionate 50 mcg/actuation (Flonase Allergy Relief) 1 spray intranasal DAILY 30 days ibuprofen 600 mg PO TID PRN 15 days lactulose 20 grams (30 mL) PO BID PRN 15 days lisinopril 2.5 mg PO DAILY loperamide 2 mg PO Q6H PRN meloxicam 15 mg PO DAILY 14 days miscellaneous medical supply 1 ea miscellaneous DAILY 99 days miscellaneous medical supply (Blood Pressure Cuff) As directed mometasone 100 mcg/actuation (Asmanex HFA) 1 puff inhalation BID 30 days omeprazole 40 mg PO DAILY 90 days ondansetron HCl 4 mg PO Q8H PRN sumatriptan succinate 100 mg PO ONCE PRN 30 days tramadol 50 mg PO BEDTIME PRN 15 days tramadol 50 mg PO DAILY PRN 30 days Ventolin HFA 90 mcg/actuation (albuterol sulfate) 1 inh inhalation QID 30 days NS Tobacco use date assessed: 08/19/23 Dental Screening Dental Screen Date: 08/19/23 Did you have a dental visit in the last 12 months?: Yes Did you have a dental problem in the last 6 months where you did not have access to dental care?: No Was dental information given to patient?: Patient has dentist HPI right wrist pain HPI Details Patient comes in today complaining of increasing right wrist pain lately States that she accidentally tripped and fell on her right wrist while walking her dog back on 06/28/2023 She went to the ER after her fall to get her wrist checked Had x-rays of the wrist done at the ER then, which came back negative for fracture She was provided a splint for her wrist, which she has been using since States that her wrist pain has never completely resolved even though her injury occurred over a month ago now, and she feels that her wrist pain has been getting worse lately, especially at night Has not been able to get a good night's sleep for the past few days due to her increasing wrist pain and states that Ibuprofen does not help at all at night and she would like to get something stronger for night time use She was recently referred to orthopedics by her PCP and is currently scheduled to be seen by orthopedics next month on 09/20/2023 but she does not think she is going to be able to wait that long Would also like to get a refill on her Sumatriptan Rx for her migraine headaches No other acute complaints or symptoms are noted at present [facility] Medical History Screening for hypothyroidism HTN (hypertension) Asthma Migraine Seasonal allergies Surgical History No pertinent past surgical history Family History Father Celiac disease CVD (cardiovascular disease) Afib Mother Diabetes Hypertension Fibromyalgia Migraines Brother In good health Brother In good health Sister In good health Social History Housing: Apartment Alcohol intake: current Alcohol intake frequency: holidays/special occasions only Patient Tobacco Use Status: Never used Tobacco e-Cigarette/Vaping Use: Never Used Second Hand Smoke Exposure: No service: No Current occupational status: disabled Cognitive needs: No Hearing needs: No Vision needs: Yes (glasses) Questionnaire PHQ-9 Over the last 2 weeks, how often have you been bothered by any of the following problems? 1. Little interest or pleasure in doing things: not at all 2. Feeling down, depressed, or hopeless: not at all 3. Trouble falling or staying asleep, or sleeping too much: not at all 4. Feeling tired or having little energy: not at all 5. Poor appetite or overeating: not at all 6. Feeling bad about yourself - or that you are a failure or have let yourself or your family down: not at all 7. Trouble concentrating on things, such as reading the newspaper or watching television: not at all 8. Moving or speaking so slowly that other people could have noticed. Or the opposite - being so fidgety or restless that you have been moving around a lot more than usual: not at all 9. Thoughts that you would be better off or of hurting yourself in some way: not at all Total score: 0 Depression Screening Interpretation: Negative Depression Screening Done: Yes 51926 - PHQ-9 Billing: Yes Source: Developed by Drs. Hector Acuña, Varsha Chavez, Sage Sarabia and colleagues, with an educational jean marie from [employer]. Thrive Questionnaire Date Thrive assessed: 08/19/23 I am a: Patient What is your living situation today?: I have a steady place to live Within the past 12 months, did the food you bought not last and you didn't have the money to get more?: Never true Within the past 12 months, did you worry whether your food would run out before you got money to buy more?: Never true Do you have trouble paying for medicines?: No Do you have trouble getting transportation to medical appointments?: No Do you have trouble paying your heating and electricity bill?: No Do you have trouble taking care of your child, family member or friend?: No Do you have trouble with day-to-day activities such as bathing, preparing meals, shopping, managing finances, etc.?: No Are you currently unemployed and looking for a job?: No Are you interested in more education?: No Currently or been in a relationship where the following occur: no concerns reported THRIVE Score: 0 AUDIT C Alcohol Use Questionnaire (AUDIT-C) 1. How often do you have a drink containing alcohol?: Never Total Score: 0 Score Reviewed/Action Taken: Yes JUHI-7 AMB Questionnaire JUHI-7 Date JUHI - 7 assessed: 08/19/23 Feeling nervous, anxious, or on edge: 0 = Not at all Not being able to stop or control worryin = Not at all Worrying too much about different things: 0 = Not at all Trouble relaxin = Not at all Being so restless that it is hard to sit still: 0 = Not at all Becoming easily annoyed or irritable: 0 = Not at all Feeling afraid as if something awful might happen: 0 = Not at all Total JUHI-7 score (0-4 normal; 5-9 mild; 10-14 moderate; 15-21 severe): 0 Source: Developed by Drs. Hector Acuña, Varsha Chavez, Sage Sarabia and colleagues, with an educational jean marie from [employer]. Review of Systems Const Reports difficulty sleeping (mostly due to her increasing wrist pain lately), Denies fatigue, Denies fever(s) and Denies headache(s) ENT Denies dysphagia, Denies dizziness, Denies headache(s) and Denies sore throat Card Denies chest pain, Denies palpitations and Denies dyspnea Resp Denies cough and Denies dyspnea GI Denies abdominal pain, Denies constipation, Denies dysphagia, Denies heartburn, Denies diarrhea, Denies nausea and Denies vomiting Musc Denies back pain and Reports arthralgias (increasing, over the right wrist; worse at night) Skin/Breast Denies rash Neuro Denies dizziness and Denies headache(s) Endo Denies fatigue and Denies palpitations Physical exam (Primary Care) Vital Signs: Last Vital Signs Pulse 56 08/19/23 12:36 BP 120/70 08/19/23 12:36 Pulse Ox 98 08/19/23 12:36 Oxygen Delivery Method Room Air 08/19/23 12:36 BMI result Body Mass Index 37.6 Tobacco/Smoking Status: Tobacco use Status Tobacco use date assessed 08/19/23 08/19/23 12:42 Patient Tobacco Use Status Never used Tobacco 08/19/23 12:42 e-Cigarette/Vaping Use Never Used 08/19/23 12:42 PHQ-9: PHQ-9 Score PHQ-9: Total score 0 08/19/23 12:42 Depression Screening Interpretation: Negative Thrive Assessment: Date of Thrive Assessment Date Thrive assessed 08/19/23 08/19/23 12:42 Currently or been in a relationship where the following occur: no concerns reported Const General: no acute distress and alert HENMT Throat: Yes posterior oropharynx normal and Yes tonsils normal (no TP congestion noted) Neck Neck: Yes no lymphadenopathy and Yes supple Resp Auscultation: clear to auscultation bilaterally, no rales and no wheezes Cardio Rate: regular rate Rhythm: regular rhythm Heart sounds: no murmurs GI Palpation (GI): Soft to palpation and nontender Extrem General: Yes no clubbing, cyanosis or edema Right upper extremity: wrist Details: tenderness, swelling (mild) and abnormal ROM Details: pain with active ROM during Assessment and Plan Assessment & Plan (1) Right wrist pain: Code(s): M25.531 - Pain in right wrist Plan: Mostly arising from injury / fall sustained on 06/28/2023 Had x-rays done at the ER at [facility] back in June 2022 - x-rays showed no fractures As she has been experiencing a significant increase/worsening of her wrist symptoms lately, will send her for repeat right wrist x-rays for further evaluation Will try to see if we can get orthopedics to expedite her appointment and move up her appointment to a sooner date Will send in Rx for Tramadol 50 mg for her to take Q HS PRN for now to help her get some sleep at night (2) Migraine: Code(s): G43.909 - Migraine, unspecified, not intractable, without status migrainosus Qualifiers: Migraine type: unspecified Status migrainosus presence: without status migrainosus Intractability: not intractable Qualified Code(s): G43.909 - Migraine, unspecified, not intractable, without status migrainosus Plan: Reinforced avoidance of potential migraine triggers Continue Sumatriptan 100 mg PRN - Rx refilled, per request Plan To return as scheduled in October 2023 for her annual physical examination with her PCP Orders: Orders XR wrist RT min 3V Today M25.531 - Pain in right wrist Referrals Orthopedics Referral M25.531 - Pain in right wrist Medications: New tramadol 50 mg PO BEDTIME 15 days PRN 15 tabs 0RF severe wrist pain Refilled loperamide 2 mg PO Q6H PRN 10 caps 0RF loose stool G43.909 - Migraine, unspecified, not intractable, without status migrainosus pzwnvmhbmb-ilhpaxfchcikf-yjbr 50-325-40 mg 1 tab PO ONCE 14 days PRN 14 tabs 1RF headaches G43.909 - Migraine, unspecified, not intractable, without status migrainosus lactulose 20 grams (30 mL) PO BID 15 days PRN 900 mL 0RF laxative effect Ventolin HFA 90 mcg/actuation (albuterol sulfate) 1 inh inhalation QID 30 days 18 grams 4RF NS J45.909 - Unspecified asthma, uncomplicated sumatriptan succinate do not exceed 2 doses per 24 hrs 100 mg PO ONCE 30 days PRN 10 tabs 1RF migraine headache G43.909 - Migraine, unspecified, not intractable, without status migrainosus Coding Level of Care Code Est Pt Level 3 (45956) Diagnoses Right wrist pain M25.531 Migraine without status migrainosus, not intractable, unspecified migraine type G43.909 Migraine type: unspecified Status migrainosus presence: without status migrainosus Intractability: not intractable
[2023-08-19 12:36] VITALS: BP 120/70; PULSE 56; O2SAT 98; BMI 37.6
== END 2023-08-19 15:25 | disposition home or self-care (01) ==
PROVIDERS: PCP Physician Assistant; Visit Provider Internal Medicine
DX: M25.531 Pain in right wrist (principal); G43.909 Migraine, unspecified, not intractable, without status migrainosus
CPT/HCPCS: 99213

== ENCOUNTER 2023-08-19 13:06 | Outpatient (REF) | payer MEDICARE, MEDICAID, SELFPAY ==
--- NOTE | ~2023-08-19 | XR_ITS ---
EXAMINATION: XR WRIST, RIGHT CLINICAL INFORMATION: Pain in right wrist. COMPARISON: 04/28/2021 TECHNIQUE: 4 views of the right wrist. FINDINGS: No acute displaced fracture identified. Moderate degenerative changes in the first carpometacarpal joint with joint space narrowing and hypertrophic change. XR/XR wrist RT min 3V IMPRESSION: Moderate degenerative changes in the first carpometacarpal joint. Recommend follow-up imaging in 10-14 days if fracture is suspected.
== END 2023-08-19 13:07 | disposition home or self-care (01) ==
LOC: HO.XRAY 13:06
PROVIDERS: PCP Physician Assistant; Visit Provider Internal Medicine
DX: M25.531 Pain in right wrist (principal)
CPT/HCPCS: 73110

== ENCOUNTER → 2023-08-30 20:30 | Outpatient (REF) | payer MEDICARE, MEDICAID, SELFPAY | LOC: HO.SL 20:30 | PROVIDERS: PCP Physician Assistant; Visit Provider Nurse Practitioner Family | DX: G47.33 Obstructive sleep apnea (adult) (pediatric) (principal); E66.9 Obesity, unspecified | CPT/HCPCS: 95810 ==

== ENCOUNTER → 2023-08-30 23:18 | Outpatient (BNV) | payer MEDICARE, MEDICAID, SELFPAY | PROVIDERS: PCP Physician Assistant; Visit Provider Psychiatry & Neurology Neurology | DX: G47.33 Obstructive sleep apnea (adult) (pediatric) (principal) | CPT/HCPCS: 95810 ==

== ENCOUNTER 2023-09-19 12:52 | Outpatient (AMB) | payer MEDICARE, MEDICAID, SELFPAY ==
[2023-09-19 13:02] VITALS: BP 100/72; PULSE 65; O2SAT 96; BMI 37.6
--- NOTE | 2023-09-19 13:02 | A.OFFPC_ITS ---
Vital Signs 3 09/19/23 13:02 Height 5 ft 3 in Weight 212 lb BMI 37.6 BP 100/72 Blood Pressure Location Lt brachial Position Sitting Pulse 65 Pulse Source Pulse Oximeter Pulse Oximetry (%) 96 Oxygen Delivery Method Room Air Intake Visit Reasons: [facility] - Wrist Pain Intake Note: Patient is here to follow-up after a visit the emergency department at [facility] on 09/15/23 for Right wrist pain. 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 Accompanied by: Self / Same As Patient Allergies No Known Allergies [No Known Allergies*] Allergy (Verified 09/19/23 13:16) Medication List - Last Reconciled 09/19/23 by Ernesto Hernandez PA-C blood pressure monitor As directed blood pressure monitor As directed tqqevdngot-aldqaounpzgdp-lqte 50-325-40 mg 1 tab PO ONCE PRN 14 days cyclobenzaprine 10 mg PO TID PRN 30 days dicyclomine 20 mg PO QID fluticasone propionate 50 mcg/actuation (Flonase Allergy Relief) 1 spray intranasal DAILY 30 days ibuprofen 600 mg PO TID PRN 15 days lactulose 20 grams (30 mL) PO BID PRN 15 days lisinopril 2.5 mg PO DAILY loperamide 2 mg PO Q6H PRN meloxicam 15 mg PO DAILY 14 days miscellaneous medical supply 1 ea miscellaneous DAILY 99 days miscellaneous medical supply (Blood Pressure Cuff) As directed mometasone 100 mcg/actuation (Asmanex HFA) 1 puff inhalation BID 30 days omeprazole 40 mg PO DAILY 90 days ondansetron HCl 4 mg PO Q8H PRN sumatriptan succinate 100 mg PO ONCE PRN 30 days tramadol 50 mg PO BEDTIME PRN 15 days Ventolin HFA 90 mcg/actuation (albuterol sulfate) 1 inh inhalation QID 30 days NS Tobacco use date assessed: 08/19/23 Dental Screening Dental Screen Date: 09/19/23 Did you have a dental visit in the last 12 months?: Yes Did you have a dental problem in the last 6 months where you did not have access to dental care?: No Was dental information given to patient?: Patient has dentist HPI [facility] - W[facility] Pain 2 HPI0 Details Patient is a 52 year female here today for a follow-up visit.? Patient has a past medical history significant for obesity, learning disability, chronic migraine, GERD, obstructive sleep apnea, asthma. Patient recently seen at [facility] for her wrist pain, has right wrist pain since June. She does report it started off with a fall. Has gotten wrist x-ray that did show some moderate arthritis. Otherwise no notable fracture. Does have full function with her right wrist. She does use ibuprofen and Tylenol without much relief. She does have an upcoming appointment with orthopedics and occupational therapy. She is using tramadol on a p.r.n. basis She is interested in getting a right wrist splint CHRONIC MEDICAL CONDITION--> .. Migraines:? Has been refer Neurology and has had an evaluation, recommended to start him gout he for her migraines though has not started this medication.? MRI was also recommended though patient in or get this done.? Since starting CPAP machine for her obstructive sleep apnea she has had less frequent less severe migraines. Interval history-- >? Patient has been using Fioricet on a nearly every day basis.? She does report having more than 15 migraines per month and more for age she is having rebound migraines due to her pillow. We did discuss the possibility of her having rebound migraines from the Fioricet and she somewhat understands.? .. VICENTE:? Has been started on CPAP machine to which she is using a nightly basis though finds it difficult to keep the CPAP mask on throughout the night.? She has been having less migraines since starting CPAP machine nightly. .. Hypertension:? Patient's blood pressure acceptable today in office.? Continues on lisinopril 2.5 mg daily .. Asthma:? Patient reports she has been having to use her asthma inhaler multiple times a day as she does report cough and shortness of breath pick specially on exertion.? Will step up her asthma therapy to include Flovent inhaler twice a day for better asthma control. ,.. Obesity:? Patient does understand her BMI is over 30 will work on being more physically active and adapt to better eating habits to reduce her weight. [facility] Medical History Screening for hypothyroidism HTN (hypertension) Asthma Migraine Seasonal allergies Surgical History No pertinent past surgical history Family History Father Celiac disease CVD (cardiovascular disease) Afib Mother Diabetes Hypertension Fibromyalgia Migraines Brother In good health Brother In good health Sister In good health Social History Housing: Apartment Alcohol intake: current Alcohol intake frequency: holidays/special occasions only Patient Tobacco Use Status: Never used Tobacco e-Cigarette/Vaping Use: Never Used Second Hand Smoke Exposure: No service: No Current occupational status: disabled Cognitive needs: No Hearing needs: No Vision needs: Yes (glasses) Questionnaire Thrive Questionnaire Date Thrive assessed: 08/19/23 JUHI-7 AMB Questionnaire JUHI-7 Date JUHI - 7 assessed: 08/19/23 Source: Developed by Drs. Hector Acuña, Varsha Chavez, Sage Sarabia and colleagues, with an educational jean marie from [employer]. Review of Systems Const Denies headache(s) Eyes Denies loss of vision ENT Denies vertigo, Denies dizziness, Denies headache(s) and Denies sore throat Card Denies chest pain, Denies leg edema and Denies lightheadedness Resp Denies cough, Denies hemoptysis and Denies wheezing GI Denies abdominal pain, Denies melena, Denies constipation, Denies diarrhea and Denies vomiting Denies urinary frequency, Denies dysuria and Denies urinary urgency Musc Denies arthralgias, Denies joint swelling, Denies numbness and Denies tingling Neuro Denies Abnormal speech present, Denies behavioral changes, Denies vertigo, Denies dizziness, Denies headache(s), Denies loss of vision, Denies memory loss, Denies numbness and Denies tingling Psych Denies anxiety, Denies behavioral changes, Denies depression, Denies memory loss and Denies panic attacks Jozef/Lymph Denies easy bleeding and Denies easy bruising Aller/Immun Denies wheezing Physical exam (Primary Care) Vital Signs: Last Vital Signs Pulse 65 09/19/23 13:02 BP 100/72 09/19/23 13:02 Pulse Ox 96 09/19/23 13:02 Oxygen Delivery Method Room Air 09/19/23 13:02 BMI result Body Mass Index 37.6 Tobacco/Smoking Status: Tobacco use Status Tobacco use date assessed 08/19/23 09/19/23 13:03 Patient Tobacco Use Status Never used Tobacco 09/19/23 13:03 e-Cigarette/Vaping Use Never Used 09/19/23 13:03 Thrive Assessment: Date of Thrive Assessment Date Thrive assessed 08/19/23 09/19/23 13:03 Const General: healthy appearing, no acute distress, alert and awake Nutritional Appearance: well nourished Orientation/consciousness: oriented to person, oriented to place and oriented to time HENMT Ears: TM's normal bilaterally General nose exam: Normal nasal mucous membranes and turbinates present Eyes Conjunctivae: conjunctivae normal Sclerae: sclerae normal Pupils: Equal, round and reactive pupils present Neck Neck: Yes no lymphadenopathy and Yes no JVD Thyroid: Thyroid normal Carotids: no bruits Resp Effort & Inspection: normal respiratory effort and not tachypneic Auscultation: no crackles, no rales, no rhonchi and no wheezes Cardio Rate: regular rate Rhythm: regular rhythm Heart sounds: no murmurs and normal S1 and S2 GI Palpation (GI): Soft to palpation, nontender, no hepatomegaly and no splenomegaly Auscultation: normal bowel sounds Skin General skin exam: no rashes or lesions noted and dry skin Neuro General: oriented to person, oriented to place and oriented to time Cranial nerves: Yes Equal, round and reactive pupils present Speech: No Abnormal speech present Gait exam (Neuro): Normal gait present Motor exam (neuro): no tremor noted Extrem Right upper extremity: full ROM Left upper extremity: full ROM Hand/finger images: 2 1. Has full range of motion of the right wrist, good vp marketing strength, no notable erythema. Does appear somewhat swollen over the right wrist Right lower extremity: full ROM; no edema Left lower extremity: full ROM; no edema Psych Mental Status: mental status grossly normal Speech and movement: Normal speech and movement present Affect: normal affect Attitude: cooperative Thought process: Normal thought process present Assessment and Plan Assessment & Plan (1) Right wrist sprain: Code(s): S63.501A - Unspecified sprain of right wrist, initial encounter Qualifiers: Encounter type: subsequent encounter Qualified Code(s): S63.501D - Unspecified sprain of right wrist, subsequent encounter Plan: Patient has had a 4 month history of right wrist pain. X-rays without any dislocations or fractures. Does have moderate arthritis. Has been using Tylenol, NSAIDs and tramadol with only minimal short-term relief. She does not seem to be limited in any way by her right wrist. Physical exam today shows full range of motion and no snuffbox tenderness. Will supply patient with a right wrist splint to use for stabilization. Has upcoming appointment with orthopedics and occupational therapy. Medications: New 2 diclofenac sodium 1% apply to single elbow, wrist or hand; for hand includes palm/fingers/back of hand 2 grams topical QID 30 days 100 grams 0RF M25.531 - Pain in right wrist Refilled 2 sumatriptan succinate do not exceed 2 doses per 24 hrs 100 mg PO ONCE 30 days PRN 10 tabs 1RF migraine headache G43.909 - Migraine, unspecified, not intractable, without status migrainosus Ventolin HFA 90 mcg/actuation (albuterol sulfate) 1 inh inhalation QID 30 days 18 grams 4RF NS J45.909 - Unspecified asthma, uncomplicated tzolzdffga-mtvwliedhjvpn-hlli 50-325-40 mg 1 tab PO ONCE 14 days PRN 14 tabs 1RF headaches G43.909 - Migraine, unspecified, not intractable, without status migrainosus fluticasone propionate 50 mcg/actuation (Flonase Allergy Relief) administer into each nostril 1 spray intranasal DAILY 30 days 100 mL 4RF R09.81 - Nasal congestion miscellaneous medical supply (Blood Pressure Cuff) As directed 1 ea 0RF I10 - Essential (primary) hypertension mometasone 100 mcg/actuation (Asmanex HFA) 1 puff inhalation BID 30 days 13 grams 3RF J45.20 - Mild intermittent asthma, uncomplicated tramadol 50 mg PO BEDTIME 15 days PRN 15 tabs 0RF severe wrist pain S63.501D - Unspecified sprain of right wrist, subsequent encounter Coding Level of Care Code Est Pt Level 3 (84381) Diagnoses Sprain of right wrist, subsequent encounter S63.501D Encounter type: subsequent encounter
== END 2023-09-19 13:35 | disposition home or self-care (01) ==
PROVIDERS: PCP Physician Assistant; Visit Provider Physician Assistant
DX: S63.501D Unspecified sprain of right wrist, subsequent encounter (principal)
CPT/HCPCS: 99213

== ENCOUNTER 2023-09-20 09:28 | Outpatient (REF) | payer MEDICARE, MEDICAID, SELFPAY ==
--- NOTE | ~2023-09-20 | XR_ITS ---
EXAMINATION: XR WRIST, RIGHT CLINICAL INFORMATION: Pain in right wrist. COMPARISON: 08/19/2023, 04/28/2021 TECHNIQUE: 4 views of the right wrist. FINDINGS: No acute displaced fracture identified. Moderate degenerative changes in the first carpometacarpal joint with joint space narrowing and hypertrophic change. XR/XR wrist RT w scaphoid IMPRESSION: Moderate degenerative changes in the first carpometacarpal joint. No acute displaced fracture appreciated.
== END 2023-09-20 09:29 | disposition home or self-care (01) ==
LOC: HO.HOSX 09:28
PROVIDERS: Visit Provider Orthopaedic Surgery
DX: M25.531 Pain in right wrist (principal); F81.9 Developmental disorder of scholastic skills, unspecified
CPT/HCPCS: 73110; 99202

== ENCOUNTER 2023-09-20 14:04 | Outpatient (AMB) | payer MEDICARE, MEDICAID, SELFPAY ==
[2023-09-20 14:36] VITALS: BMI 37.6
--- NOTE | 2023-09-20 14:36 | A.OFFVIS_ITS ---
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 Patient recently seen at [facility] for her wrist pain, has right wrist pain since June. She does report it started off with a fall while walking her dog. Last seen with her PCP on 09/19/23 who referred patient to Dr. Espinoza. States she has little pain with ROM and has worn her wrist brace as needed. Had swelling for the past 3-4 weeks and is better today. Hx of moderate arthritis. Has an O.T appointment this with [facility] therapist. Denies numbness or tingling. Patient os not sure of the medication she is currently taking. 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 She was seen at [facility] ED on 09/15/23 for right forearm swelling, and seen by her PCP on 09/19/23 for a wrist sprain. Her PCP gave her a right wrist splint to wear, and ordered OT. Her first appointment is on 09/22/23. She complains of pain & swelling in the dorsal aspect of her right wrist since her fall. She says her pain & swelling have been improving over the last few weeks, and is only mild today. She stays active at the gym, and particularly enjoys [employer] classes. She has a developmental delay, but was able to actively participate in discussion today. [facility] Medical History Screening for hypothyroidism HTN (hypertension) Asthma Migraine Seasonal allergies Surgical History No pertinent past surgical history Family History Father Celiac disease CVD (cardiovascular disease) Afib Mother Diabetes Hypertension Fibromyalgia Migraines Brother In good health Brother In good health Sister In good health Social History (Updated 09/20/23 @ 14:45 by Dodie Barrera [facility]) Housing: Apartment Alcohol intake: current Alcohol intake frequency: holidays/special occasions only Patient Tobacco Use Status: Never used Tobacco e-Cigarette/Vaping Use: Never Used Second Hand Smoke Exposure: No service: No Current occupational status: disabled 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 Cognitive needs: No Hearing needs: No Vision needs: Yes (glasses) Review of Systems Const All systems reviewed & are unremarkable except as noted in HPI and below Physical Exam Vital Signs: BMI result Body Mass Index 37.6 Const General: cooperative, healthy appearing and no acute distress Orientation/consciousness: patient oriented x3 HEENT Head: Yes normocephalic and Yes atraumatic Eyes EOM: EOMs intact bilaterally Resp Effort & Inspection: normal respiratory effort and able to speak in complete sentences Cardio Jugular venous distension: no JVD Skin General skin exam: turgor normal Rashes: no rashes Neuro General: patient oriented x3 Extrem Other: Evaluation of Right Upper Extremity: The patient is alert, oriented, and in no acute distress She is seen today with a female operational test mechanic, and possible family member versus field support specialist. Neuro: Median, Ulnar, Radial nerves motor and sensory intact and sensation is n ormal to the tips of all digits Vascular: Cap refill brisk ROM/general: She has no swelling and no erythema in the right upper extremity today. She can make a fist and extend all her digits No locking or catching Smooth & painless wrist ROM Full & symmetrical pronosupination and elbow range of motion. Skin: No lacerations or abrasions. The distal radius DRUJ and distal ulna are completely nontender to palpation. The DRUJ is stable on exam. No subluxation of the ECU tendon with prono-supination. No snuffbox or scaphoid tubercle tenderness. No tenderness over the ECU tendon, ulnocarpal joint or fovea. No pain with proximal forearm squeeze or tenderness about the elbow. Smooth and symmetrical wrist range of motion without pain today. Radiographs: 3 views of the right wrist, plus a scaphoid view, were taken and viewed by me today in clinic. they show no fractures or dislocations. Psych Appearance: grossly normal Affect: normal affect Attitude: cooperative Assessment & Plan Assessment & Plan (1) Right wrist pain: Code(s): M25.531 - Pain in right wrist (2) Cognitive developmental delay: Code(s): F81.9 - Developmental disorder of scholastic skills, unspecified Plan Assessment & Plan: 1. Right wrist pain, S/P fall DOI: 06/28/23 Resolved with reported episode of right forearm and wrist swelling about 5 days ago which resulted in a visit to the [facility] Emergency Department. No new fall. Completely normal radiographs and exam today in clinic. She is a 52-year-old woman with learning disabilities. I educated her and her aide about this condition I encouraged her to discontinue use of any of her wrist splints at this time unless there is ice or snow outside, or perhaps when she is going to the store and anticipates lifting objects. She has a 12 lb dog, and I do not think she needs to wear her wrist brace for walking her dog. I encouraged her to try to normalize activity with her right wrist. Her operational test mechanic tries to encourage her to go to the gym with her, and I encouraged her to start going to the gym and participating in these fun activities. She has her first OT appointment scheduled on 09/22/23. This appears to have been ordered by her primary care physician. I would encourage normalization of right hand function. She can follow up prn. Scribed for Lian Espinoza MD by Vikash Drake, medical record coder, on 09/20/23 at 3:20 PM, EST. Orders: Orders XR wrist RT w scaphoid Today M25.531 - Pain in right wrist Coding Level of Care Code New Pt Level 3 (20468) Diagnoses Right wrist pain M25.531 Cognitive developmental delay F81.9
== END 2023-09-20 15:23 | disposition home or self-care (01) ==
PROVIDERS: PCP Physician Assistant; Visit Provider Orthopaedic Surgery
DX: M25.531 Pain in right wrist (principal); F81.9 Developmental disorder of scholastic skills, unspecified
CPT/HCPCS: 99202

== ENCOUNTER 2023-10-04 14:28 | Outpatient (AMB) | payer MEDICARE, MEDICAID, SELFPAY ==
--- NOTE | 2023-10-04 14:39 | MHC.OFFVIS ---
Intake Intake Visit Reasons: 6m follow up Migraine-confirmed Intake Note: Patient presents for 6 month follow up migraine. Allergies No Known Allergies [No Known Allergies*] Allergy (Verified 09/20/23 14:44) Medication List - Last Reconciled 10/04/23 by SHALINI Leroy blood pressure monitor As directed blood pressure monitor As directed [id number]-[id number]-[id number] 50-325-40 mg 1 tab PO ONCE PRN 14 days cyclobenzaprine 10 mg PO TID PRN 30 days diclofenac sodium 1% 2 grams topical QID 30 days dicyclomine 20 mg PO QID fluticasone propionate 50 mcg/actuation (Flonase Allergy Relief) 1 spray intranasal DAILY 30 days ibuprofen 600 mg PO TID PRN 15 days lactulose 20 grams (30 mL) PO BID PRN 15 days lisinopril 2.5 mg PO DAILY loperamide 2 mg PO Q6H PRN meloxicam 15 mg PO DAILY 14 days miscellaneous medical supply 1 ea miscellaneous DAILY 99 days miscellaneous medical supply (Blood Pressure Cuff) As directed mometasone 100 mcg/actuation (Asmanex HFA) 1 puff inhalation BID 30 days omeprazole 40 mg PO DAILY 90 days ondansetron HCl 4 mg PO Q8H PRN sumatriptan succinate 100 mg PO ONCE PRN 30 days tramadol 50 mg PO BEDTIME PRN 15 days Ventolin HFA 90 mcg/actuation (albuterol sulfate) 1 inh inhalation QID 30 days NS HPI HPI Comments History of Present Illness Details 52-yr-old female presents for female presents for f/u visit. Pt has not had any recent headaches. 08/30/23, in-lab PSG, AHI 16/hr, REM AHI 49hr, O2 dick 64% She was recently fitted for a new PAP mask- but unfortunately states that the hose is broken. She thinks [facility] but is not sure. She does want to resume using her PAP device. She does endorse some mild asthma s/s.. [facility] Medical History Screening for hypothyroidism HTN (hypertension) Asthma Migraine Seasonal allergies Surgical History No pertinent past surgical history Family History Father Celiac disease CVD (cardiovascular disease) Afib Mother Diabetes Hypertension Fibromyalgia Migraines Brother In good health Brother In good health Sister In good health Social History Housing: Apartment Alcohol intake: current Alcohol intake frequency: holidays/special occasions only Patient Tobacco Use Status: Never used Tobacco e-Cigarette/Vaping Use: Never Used Second Hand Smoke Exposure: No service: No Current occupational status: disabled 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 Cognitive needs: No Hearing needs: No Vision needs: Yes (glasses) Physical Exam Const General: cooperative and no acute distress Orientation/consciousness: patient oriented x3 Resp Effort & Inspection: normal respiratory effort and able to speak in complete sentences Neuro General: patient oriented x3 Cognition (Neuro): normal cognition Psych Appearance: grossly normal Affect: normal affect Attitude: cooperative Assessment & Plan Assessment & Plan (1) VICENTE (obstructive sleep apnea): Code(s): G47.33 - Obstructive sleep apnea (adult) (pediatric) (2) Migraine without aura: Code(s): G43.009 - Migraine without aura, not intractable, without status migrainosus Qualifiers: Status migrainosus presence: without status migrainosus Intractability: not intractable Qualified Code(s): G43.009 - Migraine without aura, not intractable, without status migrainosus (3) Cognitive developmental delay: Code(s): F81.9 - Developmental disorder of scholastic skills, unspecified Plan For VICENTE: Resume APAP for now. We will contact [facility] to f/u on request for new PAP hose. However, pt is advised to undergo in-lab PAP titration study to identify optimal PAP tx pressures to reduce REM AHI and nocturanl hypoxemia. Due to cognitive developmental delay- pt may need reinforcement of information and increased support. . For headaches: Continue Sumatripatn or Fioricet prn. ? f/u in 3 months or sooner prn. Orders: Orders RT PSG in-lab sleep titration Today G47.33 - Obstructive sleep apnea (adult) (pediatric), G47.34 - Idiopathic sleep related nonobstructive alveolar hypoventilation, J45.909 - Unspecified asthma, uncomplicated Coding Level of Care Code Est Pt Level 4 (44384) Diagnoses VICENTE (obstructive sleep apnea) G47.33 Migraine without aura and without status migrainosus, not intractable G43.009 Status migrainosus presence: without status migrainosus Intractability: not intractable Cognitive developmental delay F81.9
== END 2023-10-04 15:18 | disposition home or self-care (01) ==
PROVIDERS: PCP Physician Assistant; Visit Provider Nurse Practitioner Family
DX: G47.33 Obstructive sleep apnea (adult) (pediatric) (principal); G43.009 Migraine without aura, not intractable, without status migrainosus; F81.9 Developmental disorder of scholastic skills, unspecified
CPT/HCPCS: 99214

== ENCOUNTER → 2023-10-04 14:28 | Outpatient (BNVA) | payer MEDICARE, MEDICAID, SELFPAY | PROVIDERS: PCP Physician Assistant; Visit Provider Nurse Practitioner Family | DX: G43.009 Migraine without aura, not intractable, without status migrainosus (principal); G47.33 Obstructive sleep apnea (adult) (pediatric); F81.9 Developmental disorder of scholastic skills, unspecified | CPT/HCPCS: 99212 ==

== ENCOUNTER 2023-10-06 14:30 | Outpatient (RCR) | payer MEDICARE, MEDICAID, SELFPAY ==
--- NOTE | 2023-09-22 13:42 | MHC.OT.EP ---
[address] [phone] Occupational Therapy Plan of Care Patient Name: Ave Pires Date of Evaluation: 09/22/23 Diagnosis: Right wrist pain Pain Location: 3/10 resting Pt reports 10/10 at times Tender over dorsal forearm, no other tenderness to palpate Pain Score: 3 Pain Scale Used: Numeric (0 - 10) Aggravating Factors: Lifting nigttime Alleviating Factors: Tramadol daily, ice daily Assessment: 52 yo female fell while walking her dog, was seen at [facility] for right wrist pain, she was given orthosis but did not follow up w/ specialist She was seen by Dr Espinoza at [facility] this past week and she recommends discontinuing splint wear and normalizing function. On assessment, she initially reports 10/10 pain, but has no faclal indicators or grimaces, slight tenderness to palpate over dorsal forearm. Wrist range and gross hand grasp are WFL and no loss of sensation or coordination. She does report nighttime pain and numbness/tingling, but provocative testing (-) for CTS. At this time, we will continue brief course of OT for HEP and encourage general use w/ daily activities. Frequency and Duration: The patient will be seen 1x/wk for 2 weeks Short Term Goals: Ind w/ HEP Pt to report ease w/ lifting and transferring 5lb objects Ind w/ self massage Progress to strengthening program Customer Resource Specialist Goals: same as above Treatment Plan: Therapeutic Exercise Therapeutic Activity Home Exercise Program Patient Education Edema Control ADL Training Fluidotherapy Soft Tissue Mobilization Electronically Signed By: Lauren Sims OTR/L Please Sign and return to therapist. Thank you once again for your referral.
--- NOTE | 2023-10-13 13:59 | MHC.OT.DC ---
[address] [phone] F: [phone] Occupational Therapy Discharge Note Patient Name: Ave Pires Provider: Ernesto Hernandez PA-C Diagnosis: Right wrist pain Date of Evaluation: 09/22/23 Date of Discharge: 10/07/23 Treatments to Date: 2 Discharge Summary: Ave was referred to OT w/ right wrist pain, no known origin of injury and has been cleared by ortho to discharge resting wrist brace and normalize hand function. She has persistent mild edema, right more so than left, but present bilaterally and likely due to decreased lymph drainage. She has overall low endurance w/ therapeutic activities/exercises, needs encouragement to complete sets and easily distracted at times, but completes all activities without indication of pain or weakness. She has not been participating in self massage or HEP, but reports no significant limitations w/ daily activities. At this time we will d/c to self management. Electronically Signed By: Lauren Sims OTR/L Please Sign and return to therapist, thank you for your referral.
== END 2023-10-13 14:00 | disposition home or self-care (01) ==
LOC: HO.OT 14:30
PROVIDERS: PCP Physician Assistant; Visit Provider Physician Assistant
DX: S63.501A Unspecified sprain of right wrist, initial encounter (principal)
CPT/HCPCS: 97110; 97165

== ENCOUNTER 2023-10-13 13:07 | Outpatient (AMB) | payer MEDICARE, MEDICAID, SELFPAY ==
--- NOTE | 2023-10-13 13:12 | A.OFFVIS_ITS ---
Intake Vital Signs 10/13/23 13:16 Height 5 ft 5 in Weight 230 lb BMI 38.3 BP 132/90 H Blood Pressure Location Lt brachial Position Sitting Pulse 84 Pulse Source Pulse Oximeter Pulse Oximetry (%) 97 Oxygen Delivery Method Room Air Intake Visit Reasons: Pain in right wrist Intake Note: Pain today 12/08 Hospice Physician Required: No Accompanied by: Self / Same As Patient Allergies No Known Allergies [No Known Allergies*] Allergy (Verified 10/13/23 13:14) HPI Pain in right wrist HPI Details Patient is a 52 year old right hand dominant woman with cognitive developmental delay, here with her technology support analyst Mady, presents for initial evaluation of chronic right wrist pain. Patient actively participates in discussion today but reports she does not read. She is easily distracted and frequently takes out her iPhone to browse and disconnects during today?s encounter. Patient had a mechanical fall on 06/28/23 and had a right wrist sprain. Patient was seen at [facility] ED on 09/15/23 for right forearm swelling, and seen by her PCP on 09/19/23 for a wrist sprain, completed 3 sessions of OT and was evaluated by Hand Specialist on 09/20/23 and was recommended discontinuation of wrist splints and encourage normalization of right hand function. Recent right wrist xray showed no acute displaced fracture. Patient denies any new falls, injury, or trauma. Patient presents with mild localized tenderness and mild swelling in the dorsal aspect of right forearm. She has been taking Tylenol, oral and topical NSAIDs and short term tramadol with continued symptoms. Pain affects her daily functioning, mood and sleep. She reports increase pain during the night due to CPAP machine use while sleeping on right side. Reports numbness and tingling in her right forearm that radiates up to her right upper arm. Denies any fever, chills, weight loss, rash, redness, weakness, dizziness, chest pain, shortness of breaths, or any significant changes in her medical history, medications or recent hospitalizations. Location Right wrist and forearm, dorsal aspect Duration Since 06/28/23 due to mechanical fall Characteristics of symptom or complaint Tingling, pins and needles, mild tenderness and swelling right forearm Aggravating or associated factors Movements, worse in the middle of the night, right side sleeping Relieving factors Tramadol, Tylenol, NSAIDs, diclofenac gel Treatment OT therapy, wrist splint, active at gym and [facility] Medical History Screening for hypothyroidism HTN (hypertension) Asthma Migraine Seasonal allergies Surgical History No pertinent past surgical history Family History Father Celiac disease CVD (cardiovascular disease) Afib Mother Diabetes Hypertension Fibromyalgia Migraines Brother In good health Brother In good health Sister In good health Social History Housing: Apartment Alcohol intake: current Alcohol intake frequency: holidays/special occasions only Patient Tobacco Use Status: Never used Tobacco e-Cigarette/Vaping Use: Never Used Second Hand Smoke Exposure: No service: No Current occupational status: disabled 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 Alert and oriented. Mood and affect appropriate. Follows and participates in conversation appropriately. Respiratory effort is unlabored. No cough. No nasal discharge. Able to transition from sit to stand unassisted. Ambulates with bilaterally normal heel strike and toe off. Extrem General: Yes capillary refill normal and Yes no clubbing, cyanosis or edema Right upper extremity: elbow/forearm Details: normal to inspection, tenderness (mild TTP dorsal aspect), normal ROM and distal pulses intact; no unusual warmth, no ecchymosis and no crepitus Results Reviewed Results Reviewed: XR WRIST, RIGHT 09/20/23 CLINICAL INFORMATION: Pain in right wrist. COMPARISON: 08/19/2023, 04/28/2021 TECHNIQUE: 4 views of the right wrist. FINDINGS: No acute displaced fracture identified. Moderate degenerative changes in the first carpometacarpal joint with joint space narrowing and hypertrophic change. IMPRESSION: Moderate degenerative changes in the first carpometacarpal joint. No acute displaced fracture appreciated. Assessment & Plan Assessment & Plan (1) Chronic pain of right wrist: Code(s): M25.531 - Pain in right wrist; G89.29 - Other chronic pain (2) Paresthesia of right upper extremity: Code(s): R20.2 - Paresthesia of skin (3) Cognitive developmental delay: Code(s): F81.9 - Developmental disorder of scholastic skills, unspecified Plan Patient presents with normal right wrist and forearm exam and full ROM except mild localized tenderness. She was encouraged by Hand Specialist for normalization of right hand function. Patient reports most of her pain comes on at night when she has prolonged use of screen. Discussed sleep hygiene and decrease iPhone use at night prior to sleep. We will proceed with EMG and NVC testing to evaluate for RUE numbness and tingling. Patient is not interested in interventional treatments and emphasizes that she is very afraid of needles. Script provided for topical capsaicin. Side effects, precautions and safety discussed with patient and her ASSURANCE SENIOR MANAGER INSURANCE Mady. All questions and concerns have been answered and patient/ASSURANCE SENIOR MANAGER INSURANCE agreed with the plan. Follow up for EMG results and sooner as needed. Orders: Orders NE nerve conduction velocity Today G89.29 - Other chronic pain, M25.531 - Pain in right wrist, R20.2 - Paresthesia of skin NE electromyogram (EMG) Today G89.29 - Other chronic pain, M25.531 - Pain in right wrist, R20.2 - Paresthesia of skin Medications: New capsaicin 0.1% (Arthritis Pain Relief (capsaicin)) do not wash area for at least 30 min after application 1 appl topical BID 30 days 60 grams 2RF pain G89.29 - Other chronic pain, M25.531 - Pain in right wrist Coding Level of Care Code New Pt Level 4 (13378) Diagnoses Chronic pain of right wrist M25.531; G89.29 Paresthesia of right upper extremity R20.2 Cognitive developmental delay F81.9
[2023-10-13 13:16] VITALS: BP 132/90; PULSE 84; O2SAT 97; BMI 38.3
== END 2023-10-13 13:43 | disposition home or self-care (01) ==
PROVIDERS: PCP Physician Assistant; Visit Provider Nurse Practitioner Family
DX: M25.531 Pain in right wrist (principal); G89.29 Other chronic pain; R20.2 Paresthesia of skin; F81.9 Developmental disorder of scholastic skills, unspecified
CPT/HCPCS: 99204; 99214

== ENCOUNTER → 2023-10-13 13:07 | Outpatient (BNVA) | payer MEDICARE, MEDICAID, SELFPAY | PROVIDERS: PCP Physician Assistant; Visit Provider Nurse Practitioner Family | DX: M25.531 Pain in right wrist (principal); G89.29 Other chronic pain; R20.2 Paresthesia of skin; F81.9 Developmental disorder of scholastic skills, unspecified | CPT/HCPCS: 99202 ==

== ENCOUNTER → 2023-10-19 19:30 | Outpatient (REF) | payer MEDICARE, MEDICAID, SELFPAY | LOC: HO.SL 19:30 | PROVIDERS: PCP Physician Assistant; Visit Provider Nurse Practitioner Family | DX: G47.33 Obstructive sleep apnea (adult) (pediatric) (principal); G47.34 Idiopathic sleep related nonobstructive alveolar hypoventilation; J45.909 Unspecified asthma, uncomplicated | CPT/HCPCS: 95811 ==

== ENCOUNTER → 2023-10-20 04:18 | Outpatient (BNV) | payer MEDICARE, MEDICAID, SELFPAY | PROVIDERS: PCP Physician Assistant; Visit Provider Psychiatry & Neurology Neurology | DX: G47.33 Obstructive sleep apnea (adult) (pediatric) (principal) | CPT/HCPCS: 95811 ==

== ENCOUNTER 2023-11-01 13:22 | Outpatient (AMB) | payer MEDICARE, MEDICAID, SELFPAY ==
[2023-11-01 13:36] VITALS: BP 110/68; PULSE 70; RESP 17; O2SAT 97; BMI 39.8
--- NOTE | 2023-11-01 13:36 | A.OFFPC_ITS ---
Vital Signs 11/01/23 13:36 Height 5 ft 1.5 in Weight 214 lb 2 oz BMI 39.8 BP 110/68 Blood Pressure Location Lt brachial Position Sitting Respiration 17 Pulse 70 Pulse Source Pulse Oximeter Pulse Oximetry (%) 97 Oxygen Delivery Method Room Air Intake Visit Reasons: Annual Exam Intake Note: Patient is here today for a physical. 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 by: Self / Same As Patient Allergies No Known Allergies [No Known Allergies*] Allergy (Verified 11/01/23 13:43) Medication List - Last Reconciled 11/01/23 by Ernesto Hernandez PA-C blood pressure monitor As directed blood pressure monitor As directed [id number]-kbmwajkbxbrrl-xrot 50-325-40 mg 1 tab PO ONCE PRN 14 days capsaicin 0.1% (Arthritis Pain Relief (capsaicin)) 1 appl topical BID 30 days cyclobenzaprine 10 mg PO TID PRN 30 days diclofenac sodium 1% 2 grams topical QID 30 days dicyclomine 20 mg PO QID fluticasone propionate 50 mcg/actuation (Flonase Allergy Relief) 1 spray intranasal DAILY 30 days ibuprofen 600 mg PO TID PRN 15 days lactulose 20 grams (30 mL) PO BID PRN 15 days lisinopril 2.5 mg PO DAILY loperamide 2 mg PO Q6H PRN meloxicam 15 mg PO DAILY 14 days miscellaneous medical supply 1 ea miscellaneous DAILY 99 days miscellaneous medical supply (Blood Pressure Cuff) As directed mometasone 100 mcg/actuation (Asmanex HFA) 1 puff inhalation BID 30 days omeprazole 40 mg PO DAILY 90 days ondansetron HCl 4 mg PO Q8H PRN sumatriptan succinate 100 mg PO ONCE PRN 30 days tramadol 50 mg PO BEDTIME PRN 15 days Ventolin HFA 90 mcg/actuation (albuterol sulfate) 1 inh inhalation QID 30 days NS Tobacco use date assessed: 08/19/23 Dental Screening Dental Screen Date: 09/19/23 HPI Annual Exam HPI Details Patient is a 52 year female here today for a annual physical? Patient has a past medical history significant for obesity, learning disability, chronic migraine, GERD, obstructive sleep apnea, asthma. Chronic right wrist pain--> has seen pain management and is due for EMG testing. Was to take a topical capsaicin cream for her chronic pain. Also seen orthopedics though no treatment could be given. She reports falling again this past Easter injuring her right wrist. Physical exam today in office benign has full range of motion of bilateral wrist, no snuffbox tenderness or notable erythema or edema. .. Migraines:? Has been refer Neurology and has had an evaluation, recommended to start him gout he for her migraines though has not started this medication.? MRI was also recommended though patient in or get this done.? Since starting CPAP machine for her obstructive sleep apnea she has had less frequent less severe migraines. Interval history-- >? Patient has been using Fioricet on a nearly every day basis.? She does report having more than 15 migraines per month and more for age she is having rebound migraines due to her pillow. We did discuss the possibility of her having rebound migraines from the Fioricet and she somewhat understands.? .. VICENTE:? Has been started on CPAP machine to which she is using a nightly basis though finds it difficult to keep the CPAP mask on throughout the night.? She has been having less migraines since starting CPAP machine nightly. .. Hypertension:? Patient's blood pressure acceptable today in office. She is stopped taking lisinopril as she has been feeling very dizzy when she takes this medication. .. Asthma:? Patient reports she has been having to use her asthma inhaler multiple times a day as she does report cough and shortness of breath pick specially on exertion.? Will step up her asthma therapy to include Flovent inhaler twice a day for better asthma control. ,.. Obesity:? Patient does understand her BMI is over 30 will work on being more physically active and adapt to better eating habits to reduce her weight. ? Mammogram: Mammogram done in August 2022 BI-RADS 1, needs repeat Cervical cancer screening: Continues to decline PAP Colon cancer screening: Has yet to do Cologuard- now declining both colonoscopy and Cologuard Vaccines: Up-to-date with COVID vaccine, up-to-date with tetanus vaccine. , needs pneumonia vaccine , considering shingles vaccine. [facility] Medical History Screening for hypothyroidism HTN (hypertension) Asthma Migraine Seasonal allergies Surgical History No pertinent past surgical history Family History Father Celiac disease CVD (cardiovascular disease) Afib Mother Diabetes Hypertension Fibromyalgia Migraines Brother In good health Brother In good health Sister In good health Social History Housing: Apartment Alcohol intake: current Alcohol intake frequency: holidays/special occasions only Patient Tobacco Use Status: Never used Tobacco e-Cigarette/Vaping Use: Never Used Second Hand Smoke Exposure: No service: No Current occupational status: disabled 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 1. Little interest or pleasure in doing things: not at all 2. Feeling down, depressed, or hopeless: not at all 3. Trouble falling or staying asleep, or sleeping too much: not at all 4. Feeling tired or having little energy: not at all 5. Poor appetite or overeating: not at all 6. Feeling bad about yourself - or that you are a failure or have let yourself or your family down: not at all 7. Trouble concentrating on things, such as reading the newspaper or watching television: not at all 8. Moving or speaking so slowly that other people could have noticed. Or the opposite - being so fidgety or restless that you have been moving around a lot more than usual: not at all 9. Thoughts that you would be better off or of hurting yourself in some way: not at all Total score: 0 Depression Screening Interpretation: Negative Depression Screening Done: Yes 24643 - PHQ-9 Billing: Yes Source: Developed by Drs. Hector Acuña, Varsha Chavez, Sage Sarabia and colleagues, with an educational jean marie from [employer]. Thrive Questionnaire Date Thrive assessed: 08/19/23 AUDIT C Alcohol Use Questionnaire (AUDIT-C) 1. How often do you have a drink containing alcohol?: Never Total Score: 0 Score Reviewed/Action Taken: Yes JUHI-7 AMB Questionnaire JUHI-7 Date JUHI - 7 assessed: 08/19/23 Source: Developed by Drs. Hector Acuña, Varsha Chavez, Sage Sarabia and colleagues, with an educational jean marie from [employer]. ACT Questionnaire In the past 4 weeks, how much of the time did your asthma keep you from getting as much done at work, school or at home?: None of the time During the past 4 weeks, how often have you had shortness of breath?: 1-2 times a week During the past 4 weeks, how often did your asthma symptoms wake you up at night or earlier than usual in the morning?: Once or twice per week During the past 4 weeks, how often have you had to use your rescue inhaler or nebulizer medication?: Not at all How would you rate your asthma control during the past 4 weeks?: Well controlled ACT Interpretation: Negative Score: 22 Review of Systems Const Denies body aches, Denies chills, Denies excessive sweating, Denies fatigue, Denies fever(s) and Denies headache(s) Eyes Denies blurry vision ENT Denies dysphagia, Denies vertigo, Denies dizziness, Denies headache(s), Denies hearing loss and Denies tinnitus Card Denies chest pain, Denies chest pain with activity, Denies syncope, Denies irregular heart rhythm and Denies dyspnea Resp Denies chest congestion, Denies cough, Denies hemoptysis, Denies dyspnea and Denies wheezing GI Denies abdominal pain, Denies melena, Denies hematochezia, Denies coffee ground emesis, Denies dysphagia, Denies diarrhea, Denies nausea and Denies vomiting Denies urinary frequency, Denies dysuria, Denies urinary hesitancy and Denies urinary urgency Musc Denies arthralgias, Denies limited range of motion, Denies muscle cramps and Denies muscle weakness Skin/Breast Denies rash and Denies skin ulcer Neuro Denies Abnormal speech present, Denies confusion, Denies vertigo, Denies dizziness, Denies syncope, Denies headache(s), Denies memory loss and Denies seizure-like activity Psych Denies anxiety, Denies confusion, Denies depression, Denies memory loss, Denies panic attacks and Denies paranoia Endo Denies excessive sweating, Denies fatigue, Denies flushing, Denies polydipsia and Denies polyuria Aller/Immun Denies wheezing Physical exam (Primary Care) Vital Signs: Last Vital Signs Pulse 70 11/01/23 13:36 Resp 17 11/01/23 13:36 BP 110/68 11/01/23 13:36 Pulse Ox 97 11/01/23 13:36 Oxygen Delivery Method Room Air 11/01/23 13:36 BMI result Body Mass Index 39.8 Tobacco/Smoking Status: Tobacco use Status Tobacco use date assessed 08/19/23 11/01/23 13:42 Patient Tobacco Use Status Never used Tobacco 11/01/23 13:42 e-Cigarette/Vaping Use Never Used 11/01/23 13:42 PHQ-9: PHQ-9 Score PHQ-9: Total score 0 11/01/23 13:44 Depression Screening Interpretation: Negative Thrive Assessment: Date of Thrive Assessment Date Thrive assessed 08/19/23 11/01/23 13:42 Const General: cooperative, comfortable, no acute distress, alert and awake; No confusion Orientation/consciousness: oriented to person, oriented to place, patient oriented x3 and No confusion HENMT Head: Yes normocephalic Ears: external ears normal and TM's normal bilaterally Face and sinus: No sinus tenderness Mouth: Normal oral and palatal mucosa present and tongue normal Teeth and gingiva: dentition normal and gingiva normal Throat: Yes posterior oropharynx normal, Yes tonsils normal and Yes uvula midline Eyes Conjunctivae: conjunctivae normal Sclerae: sclerae normal Pupils: Equal, round and reactive pupils present EOM: EOMs intact bilaterally Direct Ophthalmoscopy: No no photophobia Neck Neck: Yes no lymphadenopathy, No tender and Yes no JVD Thyroid: Thyroid normal Carotids: no bruits Chest Chest palpation & inspection: no tenderness Resp Effort & Inspection: normal respiratory effort, no audible wheezes, not labored and no stridor Auscultation: no crackles, no rales, no rhonchi and no wheezes Cardio Jugular venous distension: no JVD Rate: regular rate, not bradycardic and not tachycardic Rhythm: regular rhythm Bruits: no carotid bruits Peripheral pulses: Peripheral pulses 2+ throughout GI Inspection: Yes normal to inspection, No abdominal wall ecchymosis and No visible herniation Palpation (GI): Soft to palpation, nontender, no guarding, not rigid and No hepatosplenomegaly present Auscultation: normoactive bowel sounds General: Yes no CVA tenderness Back/Spine/Pelvis Back: no CVA tenderness and No back tenderness Cervical Spine: cervical ROM normal Thoracic/Lumbar Spine: thoracic and lumbar spine normal to inspection, straight leg raise negative bilaterally, No thoraco-lumbar ROM limited and No lumbar spinal tenderness Skin Lesions: no lesions Rashes: no rashes Wounds: no wounds Neuro General: oriented to person, oriented to place, patient oriented x3, CN's II-XI intact bilaterally and No confusion Cranial nerves: Yes Equal, round and reactive pupils present and Yes Normal accommodation reflex present Cognition (Neuro): normal cognition Speech: No Abnormal speech present Gait exam (Neuro): Normal gait present Motor exam (neuro): 5/5 motor strength present throughout Extrem Other: BILATERAL WRIST WITH FULL RANGE OF MOTION, NO NOTABLE SWELLING OR DEFORMITIES. NO SNUFFBOX TENDERNESS. Right upper extremity: full ROM; no cyanosis Left upper extremity: full ROM; no cyanosis Right lower extremity: no edema Left lower extremity: no edema Psych Appearance: grossly normal Mental Status: mental status grossly normal Affect: normal affect Attitude: cooperative Thought process: Normal thought process present Assessment and Plan Assessment & Plan (1) Annual physical exam: Code(s): Z00.00 - Encounter for general adult medical examination without abnormal findings (2) HTN (hypertension): Code(s): I10 - Essential (primary) hypertension Qualifiers: Hypertension type: essential hypertension Qualified Code(s): I10 - Essential (primary) hypertension Plan: Patient blood pressure acceptable today in office. She has been holding off on taking lisinopril as she does report feeling dizzy with the medication. For now her blood pressure is dietary lifestyle managed. Goal blood pressures to remain below 140/90 (3) Migraine: Code(s): G43.909 - Migraine, unspecified, not intractable, without status migrainosus Qualifiers: Intractability: not intractable Migraine type: unspecified Status migrainosus presence: without status migrainosus Qualified Code(s): G43.909 - Migraine, unspecified, not intractable, without status migrainosus Plan: Patient is followed by Neurology, she does use a CPAP machine on a nightly b asis. She is using sumatriptan as a as needed medication for her migraines. Is seen she has not using much Fioricet at this time. (4) VICENTE (obstructive sleep apnea): Code(s): G47.33 - Obstructive sleep apnea (adult) (pediatric) Plan: Patient is followed by sleep specialty, uses her CPAP nightly basis. She does report recently getting CPAP titration study and is awaiting results. (5) Asthma: Code(s): J45.909 - Unspecified asthma, uncomplicated Qualifiers: Asthma complication type: uncomplicated Asthma persistence: in termittent Asthma severity: mild Qualified Code(s): J45.20 - Mild intermittent asthma, uncomplicated Plan: Patient reports her asthma is fairly well controlled though is having trouble getting insurance approval for inhalers. (6) Right wrist tendinitis: Code(s): M77.8 - Other enthesopathies, not elsewhere classified Plan: Has chronic right wrist pain. Does report having a fall up some stairs his past weekend. Does seem to have a right wrist tendinitis. Advised on conservative treatment NSAID, rest and ice. She does take tramadol from time to time for her pain scales of 9-10.. Medications: Changed From tramadol 50 mg PO BEDTIME 15 days PRN 15 tabs 0RF severe wrist pain S63.501D - Unspecified sprain of right wrist, subsequent encounter To tramadol 50 mg PO BEDTIME 10 days PRN 10 tabs 0RF severe wrist pain S63.501D - Unspecified sprain of right wrist, subsequent encounter From Ventolin HFA 90 mcg/actuation (albuterol sulfate) 1 inh inhalation QID 30 days 18 grams 4RF NS J45.909 - Unspecified asthma, uncomplicated To albuterol sulfate 90 mcg/actuation 1 inh inhalation QID 30 days 8.5 grams 3RF NS J45.909 - Unspecified asthma, uncomplicated Refilled sumatriptan succinate do not exceed 2 doses per 24 hrs 100 mg PO ONCE 30 days PRN 10 tabs 1RF migraine headache G43.909 - Migraine, unspecified, not intractable, without status migrainosus mometasone 100 mcg/actuation (Asmanex HFA) 1 puff inhalation BID 30 days 13 grams 3RF J45.20 - Mild intermittent asthma, uncomplicated Coding Level of Care Code Est Pt Prev Care 40-64y(21257) Diagnoses Annual physical exam Z00.00 Essential hypertension I10 Hypertension type: essential hypertension Migraine without status migrainosus, not intractable, unspecified migraine type G43.909 Intractability: not intractable Migraine type: unspecified Status migrainosus presence: without status migrainosus VICENTE (obstructive sleep apnea) G47.33 Mild intermittent asthma without complication J45.20 Asthma complication type: uncomplicated Asthma persistence: intermittent Asthma severity: mild Right wrist tendinitis M77.8
== END 2023-11-01 14:07 | disposition home or self-care (01) ==
PROVIDERS: PCP Physician Assistant; Visit Provider Physician Assistant
DX: Z00.00 Encounter for general adult medical examination without abnormal findings (principal); I10 Essential (primary) hypertension; G43.909 Migraine, unspecified, not intractable, without status migrainosus; G47.33 Obstructive sleep apnea (adult) (pediatric); J45.20 Mild intermittent asthma, uncomplicated; M77.8 Other enthesopathies, not elsewhere classified
CPT/HCPCS: 99396

== ENCOUNTER 2023-11-24 12:55 | Outpatient (REF) | payer MEDICARE, MEDICAID, SELFPAY ==
--- NOTE | 2023-11-24 12:59 | EMG_ITS ---
Chief complaint: Right wrist pain after fall last June, denies numbness, denies neck pain Reason for referral: Evaluate for Carpal Tunnel Syndrome Referred by: Katiuska Burnett NP Procedure done: Right upper extremity NCS/EMG Precautions and/or limitations: None The limb temperature was monitored continuously and remained between 32-36 degrees C during the performance of the NCS. Nerve Conduction Studies Anti Sensory Summary Table ?Stim Site NR Onset (ms) Norm Onset (ms) Peak (ms) Norm Peak (ms) O-P Amp (?V) Norm O-P Amp Site1 Site2 Delta-0 (ms) Dist (cm) Krzysztof (m/s) Norm Krzysztof (m/s) Right Median Anti Sensory (2nd Digit) Wrist ? 2.9 3.6 <3.6 30.3 >10 Wrist 2nd Digit 2.9 14.0 48 Right Ulnar Anti Sensory (5th Digit) Wrist ? 2.1 2.7 <3.7 16.4 >15.0 Wrist 5th Digit 2.1 14.0 67 Motor Summary Table ?Stim Site NR Onset (ms) Norm Onset (ms) O-P Amp (mV) Norm O-P Amp iAmp (mV) Amp (1st) (%) Site1 Site2 Delta-0 (ms) Dist (cm) Krzysztof (m/s) Norm Krzysztof (m/s) Right Median Motor (Abd Poll Brev) Wrist ? 3.4 <3.9 8.3 >4.5 10.2 100.0 Elbow Wrist 3.8 19.0 50 >45 Elbow ? 7.2 7.9 9.8 95.2 Right Ulnar Motor (Abd Dig Minimi) Wrist ? 2.4 <3.0 5.4 >5 6.6 100.0 B Elbow Wrist 3.3 18.0 55 >45 B Elbow ? 5.7 5.8 7.3 107.4 A Elbow B Elbow 1.5 10.0 67 >45 A Elbow ? 7.2 4.9 6.3 90.7 Comparison Summary Table ?Stim Site NR Peak (ms) Norm Peak (ms) P-T Amp (?V) Site1 Site2 Delta-P (ms) Norm Delta (ms) Right Median/Radial Dig I Comparison (Digit 1 - 10cm) Median ? 2.9 <2.9 47.1 Median Radial 0.6 Radial ? 2.3 <2.8 22.5 EMG ?Side Muscle Nerve Root Ins Act Fibs Psw Amp Dur Poly Recrt Int Pat Comment Right 1stDorInt Ulnar C8-T1 Nml Nml Nml Nml Nml 0 Nml Complete Right FlexCarRad Median C6-7 Nml Nml Nml Nml Nml 0 Nml Complete Right Biceps Musculocut C5-6 Nml Nml Nml Nml Nml 0 Nml Complete Right Triceps Radial C6-7-8 Nml Nml Nml Nml Nml 0 Nml Complete Right Deltoid Axillary C5-6 Nml Nml Nml Nml Nml 0 Nml Complete FINDINGS: Significant interlatency difference between right median and radial sensory nerves. Otherwise, all other nerves tested were within normal. Concentric needle EMG was performed in selected muscles of the right upper extremity. Study did not reveal signs of electric abnormalities as shown in the table below. IMPRESSION: 1. This is minimally abnormal study. 2. 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 3. There is no electrodiagnostic evidence for ulnar neuropathy, brachial plexopathy, or cervical radiculopathy. Thank you for your kind referral. Linda Becerra MD, ZAK Board Certified, [place] [employer] and [employer] (ABPMR) Board Certified, [place] Board [employer] Electrodiagnostic Medicine (ABEM) [place] [id number] [facility]
== END 2023-11-24 12:56 | disposition home or self-care (01) ==
LOC: HO.NEURO 12:55
PROVIDERS: PCP Physician Assistant; Visit Provider Nurse Practitioner Family
DX: R20.2 Paresthesia of skin (principal); M25.531 Pain in right wrist; G89.29 Other chronic pain
CPT/HCPCS: 95886; 95909

== ENCOUNTER → 2023-11-24 12:59 | Outpatient (BNV) | payer MEDICARE, MEDICAID, SELFPAY | PROVIDERS: PCP Physician Assistant; Visit Provider Physical Medicine & Rehabilitation | DX: G56.11 Other lesions of median nerve, right upper limb (principal) | CPT/HCPCS: 95886; 95909 ==

== ENCOUNTER 2024-01-03 11:39 | Outpatient (AMB) | payer MEDICARE, MEDICAID, SELFPAY ==
--- NOTE | 2024-01-03 11:46 | MHC.PC.OV ---
Vital Signs 01/03/24 11:47 Height 5 ft 1.5 in Weight 209 lb 8 oz BMI 38.9 BP 110/64 Blood Pressure Location Lt brachial Position Sitting Pulse 78 Pulse Source Pulse Oximeter Pulse Oximetry (%) 99 Oxygen Delivery Method Room Air Intake Visit Reasons: [facility] ER/gallbladder pain Gis Technician Required: No Accompanied by: Self / Same As Patient Allergies No Known Allergies [No Known Allergies*] Allergy (Verified 01/03/24 12:01) Medication List - Last Reconciled 01/03/24 by Ernesto Hernandez PA-C albuterol sulfate 90 mcg/actuation 1 inh inhalation QID 30 days NS blood pressure monitor As directed blood pressure monitor As directed oimnranevg-ahqenxttekdrc-yuwa 50-325-40 mg 1 tab PO ONCE PRN 14 days capsaicin 0.1% (Arthritis Pain Relief (capsaicin)) 1 appl topical BID 30 days cyclobenzaprine 10 mg PO TID PRN 30 days diclofenac sodium 1% 2 grams topical QID 30 days dicyclomine 20 mg PO QID fluticasone propionate 50 mcg/actuation (Flonase Allergy Relief) 1 spray intranasal DAILY 30 days ibuprofen 600 mg PO TID PRN 15 days lactulose 20 grams (30 mL) PO BID PRN 15 days lisinopril 2.5 mg PO DAILY loperamide 2 mg PO Q6H PRN miscellaneous medical supply 1 ea miscellaneous DAILY 99 days miscellaneous medical supply (Blood Pressure Cuff) As directed mometasone 100 mcg/actuation (Asmanex HFA) 1 puff inhalation BID 30 days omeprazole 40 mg PO DAILY 90 days ondansetron HCl 4 mg PO Q8H PRN sumatriptan succinate 100 mg PO ONCE PRN 30 days tramadol 50 mg PO BEDTIME PRN 10 days Tobacco use date assessed: 08/19/23 Dental Screening Dental Screen Date: 09/19/23 HPI [facility] ER/gallbladder pain HPI Details Patient is a 52 year female here today for an ER follow-up visit.? Patient has a past medical history significant for obesity, learning disability, chronic migraine, GERD, obstructive sleep apnea, asthma. Patient was seen at [facility] in early November 2023 for acute right upper abdominal pain and few episodes of bloody diarrhea. While in the ER she underwent a CT of the abdomen and pelvis which showed cholelithiasis with distended gallbladder and fatty liver. She did not elect to a cholecystectomy and elected to do outpatient evaluation with general surgeon. She was discharged home with a few tablets of oxycodone for pain. Currently doing well without any abdominal pain or changes in bowel movements. She is followed up with surgeon as outpatient and per patient if she has another gallbladder attack she will strongly consider cholecystectomy. She is asking for refill on oxycodone for pain and agreed to give her low-dose short-term script for as needed abdominal pain. No further use of tramadol at this time and patient agrees and understands. [facility] Medical History Screening for hypothyroidism HTN (hypertension) Asthma Migraine Seasonal allergies Surgical History No pertinent past surgical history Family History Father Celiac disease CVD (cardiovascular disease) Afib Mother Diabetes Hypertension Fibromyalgia Migraines Brother In good health Brother In good health Sister In good health Social History Housing: Apartment Alcohol intake: current Alcohol intake frequency: holidays/special occasions only Patient Tobacco Use Status: Never used Tobacco e-Cigarette/Vaping Use: Never Used Second Hand Smoke Exposure: No service: No Current occupational status: disabled 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 Hector Acuña, Varsha Chavez, Sage Sarabia and colleagues, with an educational jean marie from [employer]. Review of Systems Const Denies headache(s) Eyes Denies loss of vision ENT Denies vertigo, Denies dizziness, Denies headache(s) and Denies sore throat Card Denies chest pain, Denies leg edema and Denies lightheadedness Resp Denies cough, Denies hemoptysis and Denies wheezing GI Denies abdominal pain, Denies melena, Denies constipation, Denies diarrhea and Denies vomiting Denies urinary frequency, Denies dysuria and Denies urinary urgency Musc Denies arthralgias, Denies joint swelling, Denies numbness and Denies tingling Neuro Denies Abnormal speech present, Denies behavioral changes, Denies vertigo, Denies dizziness, Denies headache(s), Denies loss of vision, Denies memory loss, Denies numbness and Denies tingling Psych Denies anxiety, Denies behavioral changes, Denies depression, Denies memory loss and Denies panic attacks Jozef/Lymph Denies easy bleeding and Denies easy bruising Aller/Immun Denies wheezing Physical exam (Primary Care) Vital Signs: Last Vital Signs Pulse 78 01/03/24 11:47 BP 110/64 01/03/24 11:47 Pulse Ox 99 01/03/24 11:47 Oxygen Delivery Method Room Air 01/03/24 11:47 BMI result Body Mass Index 38.9 Tobacco/Smoking Status: Tobacco use Status Tobacco use date assessed 08/19/23 01/03/24 11:53 Patient Tobacco Use Status Never used Tobacco 01/03/24 11:53 e-Cigarette/Vaping Use Never Used 01/03/24 11:53 Thrive Assessment: Date of Thrive Assessment Date Thrive assessed 08/19/23 01/03/24 11:53 Const General: healthy appearing, no acute distress, alert and awake Nutritional Appearance: well nourished Orientation/consciousness: oriented to person, oriented to place and oriented to time HENMT Ears: TM's normal bilaterally General nose exam: Normal nasal mucous membranes and turbinates present Eyes Conjunctivae: conjunctivae normal Sclerae: sclerae normal Pupils: Equal, round and reactive pupils present Neck Neck: Yes no lymphadenopathy and Yes no JVD Thyroid: Thyroid normal Carotids: no bruits Resp Effort & Inspection: normal respiratory effort and not tachypneic Auscultation: no crackles, no rales, no rhonchi and no wheezes Cardio Rate: regular rate Rhythm: regular rhythm Heart sounds: no murmurs and normal S1 and S2 GI Palpation (GI): Soft to palpation, nontender, no hepatomegaly and no splenomegaly Auscultation: normal bowel sounds Skin General skin exam: no rashes or lesions noted and dry skin Neuro General: oriented to person, oriented to place and oriented to time Cranial nerves: Yes Equal, round and reactive pupils present Speech: No Abnormal speech present Gait exam (Neuro): Normal gait present Motor exam (neuro): no tremor noted Extrem Right upper extremity: full ROM Left upper extremity: full ROM Right lower extremity: full ROM; no edema Left lower extremity: full ROM; no edema Psych Mental Status: mental status grossly normal Speech and movement: Normal speech and movement present Affect: normal affect Attitude: cooperative Thought process: Normal thought process present Assessment and Plan Assessment & Plan (1) Hospital discharge follow-up: Code(s): Z09 - Encounter for follow-up examination after completed treatment for conditions other than malignant neoplasm Plan: As per HPI (2) Cholelithiases: Code(s): K80.20 - Calculus of gallbladder without cholecystitis without obstruction Qualifiers: Biliary obstruction: without biliary obstruction Cholecystitis presence: without cholecystitis Cholelithiasis location: gallbladder Qualified Code(s): K80.20 - Calculus of gallbladder without cholecystitis without obstruction Plan: As per HPI patient does have cholelithiasis. Does seem to be having intermittent episodes of biliary colic. CT of abdomen as explained in HPI. She does have general surgeon at [facility]. She will consider a elective laparoscopic cholecystectomy if she has another gallbladder attack. His far as her pain she is asking for refill on oxycodone 5 mg which she was given from [facility]. We did discuss the habit-forming nature and addiction potential with this medication she does agree and understand. Will give her#5 tablets of oxycodone to use on a very limited p.r.n. basis for abdominal pain. Advised on no further use of tramadol. (3) Biliary colic: Code(s): K80.50 - Calculus of bile duct without cholangitis or cholecystitis without obstruction Medications: New oxycodone Partial Fill upon patient request. 5 mg PO DAILY PRN 5 tabs 0RF pain 5 days K80.50 - Calculus of bile duct without cholangitis or cholecystitis without obstruction Refilled lisinopril 2.5 mg PO DAILY 30 tabs 6RF I10 - Essential (primary) hypertension sumatriptan succinate do not exceed 2 doses per 24 hrs 100 mg PO ONCE PRN 10 tabs 3RF migraine headache 30 days G43.909 - Migraine, unspecified, not intractable, without status migrainosus albuterol sulfate 90 mcg/actuation 1 inh inhalation QID 8.5 grams 3RF 30 days NS J45.909 - Unspecified asthma, uncomplicated diclofenac sodium 1% apply to single elbow, wrist or hand; for hand includes palm/fingers/back of hand 2 grams topical QID 100 grams 0RF 30 days M25.531 - Pain in right wrist fluticasone propionate 50 mcg/actuation (Flonase Allergy Relief) administer into each nostril 1 spray intranasal DAILY 100 mL 3RF 30 days R09.81 - Nasal congestion ondansetron HCl 4 mg PO Q8H PRN 10 tabs 3RF nausea and vomiting K27.9 - Peptic ulcer, site unspecified, unspecified as acute or chronic, without hemorrhage or perforation Discontinued tramadol Discontinued Reason: Doctor's Order 50 mg PO BEDTIME 10 days PRN 10 tabs 0RF severe wrist pain S63.501D - Unspecified sprain of right wrist, subsequent encounter Coding Level of Care Code Est Pt Level 3 (59486) Diagnoses Hospital discharge follow-up Z09 Calculus of gallbladder without cholecystitis without obstruction K80.20 Biliary obstruction: without biliary obstruction Cholecystitis presence: without cholecystitis Cholelithiasis location: gallbladder Biliary colic K80.50
[2024-01-03 11:47] VITALS: BP 110/64; PULSE 78; O2SAT 99; BMI 38.9
== END 2024-01-03 12:14 | disposition home or self-care (01) ==
PROVIDERS: PCP Physician Assistant; Visit Provider Physician Assistant
DX: Z09 Encounter for follow-up examination after completed treatment for conditions other than malignant neoplasm (principal); K80.20 Calculus of gallbladder without cholecystitis without obstruction; K80.50 Calculus of bile duct without cholangitis or cholecystitis without obstruction
CPT/HCPCS: 99213

== ENCOUNTER 2024-03-05 12:51 | Outpatient (REF) | payer MEDICARE, SELFPAY | END 2024-03-05 12:52 | disposition home or self-care (01) | LOC: HO.HOSX 12:51 | PROVIDERS: Visit Provider Physician Assistant | DX: Z13.89 Encounter for screening for other disorder (principal) ==

== ENCOUNTER 2024-03-13 14:45 | Outpatient (AMB) | payer MEDICARE, MEDICAID, SELFPAY ==
--- NOTE | 2024-03-13 14:50 | A.OFFVIS_ITS ---
Vital Signs 03/13/24 15:03 Handedness Right Intake Visit Reasons: OV- Rt Wrist Pain, EMG done Intake Note: Ave 53 year old right hand dominant female who presents today for a follow up evaluation of right wrist pain s/p fall DOI: 06/28/23. Patient states her wrist has been hurting for a while. She says she has seen other doctors in the past who were unable to figure out what has been going on. She has stabbing pain is mainly on the dorsal and volar aspect of wrist. She has tried ibuprofen and found no relief, is requesting an alternative medication for her symptoms. EMG done on 11/24/23. She has tried OT and claims this helped to improve her symptoms but since she no longer sees OT her symptoms have improved. Allergies No Known Allergies [No Known Allergies*] Allergy (Verified 03/13/24 15:11) HPI HPI OV- Rt Wrist Pain, EMG done: Details: Patient is a 53-year-old female who presents for evaluation of right wrist pain, ongoing since approximately . 2022. At that time, the patient reports that she fell while walking her dog, and injured both her right wrist and left ankle. Patient has been evaluated several times for both of these issues, and no structural issues have been identified for either condition. For her right wrist, the patient was previously evaluated by Dr. Espinoza in September of 2023, where she was given a Velcro wrist splint to wear with strenuous activity, such as walking her dog, and was also sent to occupational hand therapy, which the patient reports did help with her pain significantly. The patient does report that when she was discharged from no therapy, her pain began to worsen, and now she feels she is back to her previous baseline from prior to OT. The patient reports no further injuries to the area since original date of injury. No other complaints or concerns at this time. [facility] Medical History Screening for hypothyroidism HTN (hypertension) Asthma Migraine Seasonal allergies Surgical History No pertinent past surgical history Family History Father Celiac disease CVD (cardiovascular disease) Afib Mother Diabetes Hypertension Fibromyalgia Migraines Brother In good health Brother In good health Sister In good health Social History Housing: Apartment Alcohol intake: current Alcohol intake frequency: holidays/special occasions only Patient Tobacco Use Status: Never used Tobacco e-Cigarette/Vaping Use: Never Used Second Hand Smoke Exposure: No service: No Current occupational status: disabled 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 Neuro: Median, ulnar, radial nerves motor and sensory intact and sensation is normal to the tips of all digits. Vascular: Cap refill brisk Pain: Patient reports very mild tenderness to deep palpation of the dorsal and volar right wrist, no tenderness to palpation of the radial and ulnar aspects of the right wrist, no anatomical snuffbox tenderness, no tenderness to CMC grind ROM: Patient is able to make a full closed fist and extend fingers fully Range of motion of the right wrist is full and intact with encouragement Skin: No lacerations or abrasions. General: No ecchymosis, erythema, or evidence of infection. Psych: Appears grossly normal Affect normal Attitude cooperative Assessment & Plan Assessment & Plan (1) Chronic pain of right wrist: Code(s): M25.531 - Pain in right wrist; G89.29 - Other chronic pain Category: Medical Plan 1. Right wrist pain Patient was discussed with Dr. Espinoza, and a collaborative treatment plan was formed: At this time, due to history of negative imaging and lack of acute findings on physical exam, I do not feel that there is any acute intervention indicated in this patient at this time Patient is educated that she should continue with OT exercises multiple times per day to promote strengthening, range of motion, stability of the right wrist Patient is amenable to this plan If the patient does not notice any improvement in 2-3 months, she should follow up for discussion of potential further imaging, such as MRI Patient will follow-up in 2-3 months if she has no symptom improvement for discussion of further imaging and treatment options, sooner with any acute concerns Coding Level of Care Code Est Pt Level 3 (02170) Diagnoses Chronic pain of right wrist M25.531; G89.29
== END 2024-03-13 15:58 | disposition home or self-care (01) ==
PROVIDERS: PCP Physician Assistant
DX: M25.531 Pain in right wrist (principal); G89.29 Other chronic pain
CPT/HCPCS: 99212

== ENCOUNTER → 2024-03-13 14:45 | Outpatient (BNVA) | payer MEDICARE, MEDICAID, SELFPAY | PROVIDERS: PCP Physician Assistant | DX: M25.531 Pain in right wrist (principal); G89.29 Other chronic pain | CPT/HCPCS: 99212 ==

== ENCOUNTER 2024-03-21 11:03 | Outpatient (AMB) | payer MEDICARE, MEDICAID, SELFPAY ==
--- NOTE | 2024-03-21 11:11 | MHC.OFFVIS ---
Vital Signs 03/21/24 11:19 Height 5 ft 4 in Weight 214 lb 0.8 oz BMI 36.7 Intake Visit Reasons: [facility]- LT ankle pain, ED follow up from [facility] Intake Note: Ave 53 year old right hand dominant female who presents today for a follow up evaluation of LT ankle pain s/p fall DOI: 06/28/23. Patient says she was walking her dog in Jun when she had a fall, she believes this is how she injured her ankle. She presents today with a post op shoe on that she was provided by [facility] ED. She describes her pain as stabbing that is intermittent. She expresses pain occasionally with ambulation. She is able to stand w/o discomfort she says when she has her post op shoe on. Ibuprofen and ice offer her mild relief. Denies recent trauma, numbness and tingling. She is requesting francisco bandage to wrap her left ankle when she goes home. Allergies No Known Allergies [No Known Allergies*] Allergy (Verified 03/21/24 11:24) HPI HPI [facility]- LT ankle pain, ED follow up from [facility]: Details: Patient is a 53-year-old female who presents for evaluation of chronic left ankle pain, ongoing since June of 2023 when she fell while walking her dog. The patient reports that, since this time, she has been experiencing pain on the lateral aspect of her left ankle. The patient reports that she has been evaluated multiple times in [facility] Emergency Department for this ankle pain, and she was previously provided with a postop shoe, which she reports does give some relief with ambulation. The patient reports that her pain improves with rest, and worsens with activity. Patient reports that she has had x-rays taken multiple times of her left ankle, and they are always negative. The patient inquires if there are any further treatment options available for her. Patient reports normal sensation in the distal lower extremity. No other acute complaints or concerns at this time. [facility] Medical History Screening for hypothyroidism HTN (hypertension) Asthma Migraine Seasonal allergies Surgical History No pertinent past surgical history Family History Father Celiac disease CVD (cardiovascular disease) Afib Mother Diabetes Hypertension Fibromyalgia Migraines Brother In good health Brother In good health Sister In good health Social History Housing: Apartment Alcohol intake: current Alcohol intake frequency: holidays/special occasions only Patient Tobacco Use Status: Never used Tobacco e-Cigarette/Vaping Use: Never Used Second Hand Smoke Exposure: No service: No Current occupational status: disabled 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 Patient is able to plantar flex and dorsiflex the left foot fully without difficulty Patient is able to invert and delmis the left foot without difficulty Patient is able to flex and extend the digits of the left foot without difficulty Distal sensation intact Capillary refill brisk Results Reviewed Results Reviewed: X-rays obtained in the office today and independently reviewed by me, Thang Guajardo PA-C, demonstrate no fracture or acute bony abnormality. Assessment & Plan Assessment & Plan (1) Left ankle pain: Code(s): M25.572 - Pain in left ankle and joints of left foot Category: Medical Qualifiers: Chronicity: chronic Qualified Code(s): M25.572 - Pain in left ankle and joints of left foot; G89.29 - Other chronic pain (2) Chronic pain of left ankle: Code(s): M25.572 - Pain in left ankle and joints of left foot; G89.29 - Other chronic pain Category: Medical Plan 1. Left ankle pain Ongoing since approximately June 2023 At this time, it is likely that the patient is experiencing pain secondary to an old sprain or strain of the left ankle Patient is told that x-rays of both her foot and ankle are negative, revealing no fracture or acute bony abnormality Patient is referred to physical therapy for range of motion, strengthening, stabilization of the left ankle Patient is amenable to this plan Patient will follow-up p.r.n. with any acute concerns Orders: Orders PT Evaluation and Treatment 03/21/24 G89.29 - Other chronic pain, M25.572 - Pain in left ankle and joints of left foot XR ankle LT min 3V 03/21/24 M25.572 - Pain in left ankle and joints of left foot Coding Level of Care Code Est Pt Level 3 (66710) Diagnoses Chronic pain of left ankle M25.572; G89.29 Chronicity: chronic Chronic pain of left ankle M25.572; G89.29
[2024-03-21 11:19] VITALS: BMI 36.7
== END 2024-03-21 11:46 | disposition home or self-care (01) ==
PROVIDERS: PCP Physician Assistant
DX: M25.572 Pain in left ankle and joints of left foot (principal); G89.29 Other chronic pain
CPT/HCPCS: 99213

== ENCOUNTER 2024-03-21 13:51 | Outpatient (REF) | payer MEDICARE, MEDICAID, SELFPAY ==
--- NOTE | ~2024-03-21 | XR_ITS ---
EXAMINATION: XR ANKLE, LEFT CLINICAL INFORMATION: Left ankle pain. COMPARISON: None available. TECHNIQUE: AP, lateral, and mortise views of the left ankle. FINDINGS: Soft tissue swelling of the ankle. A 4 mm osseous loose body is suspected in the posterior joint recess. A small osteochondral injury is suspected at the lateral margin of the talar dome, measuring 5 mm in width. Small marginal osteophytes at the talocrural joint. There is a 1.8 cm type II accessory navicular. Moderate-sized enthesopathic spur is present at the plantar fascial origin on the calcaneus. No fracture or malalignment. XR/XR ankle LT min 3V IMPRESSION: 1. Soft tissue swelling at the ankle. No acute fracture or malalignment. 2. Mild talocrural osteoarthritis with a probable 4 mm osseous loose body in the posterior joint recess and a small osteochondral injury at the lateral margin of the talar dome. Electronically signed by: Nain Cotton MD 04/13/2024 10:10 PM EDT
== END 2024-03-21 13:52 | disposition home or self-care (01) ==
LOC: HO.HOSX 13:51
DX: M25.572 Pain in left ankle and joints of left foot (principal); G89.29 Other chronic pain
CPT/HCPCS: 73610; 99212

== ENCOUNTER 2024-04-03 13:41 | Outpatient (AMB) | payer MEDICARE, MEDICAID, SELFPAY ==
--- NOTE | 2024-04-03 13:52 | A.OFFPC_ITS ---
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 Accompanied by: Self / Same As Patient Allergies No Known Allergies [No Known Allergies*] Allergy (Verified 04/03/24 14:03) Medication List - Last Reconciled 04/03/24 by Ernesto Hernandez PA-C albuterol sulfate 90 mcg/actuation 1 inh inhalation QID 30 days NS blood pressure monitor As directed blood pressure monitor As directed jzbzrhxcvj-rgyyeolopfdhk-xejx 50-325-40 mg 1 tab PO ONCE PRN 14 days capsaicin 0.1% (Arthritis Pain Relief (capsaicin)) 1 appl topical BID 30 days cyclobenzaprine 10 mg PO TID PRN 30 days diclofenac sodium 1% 2 grams topical QID 30 days dicyclomine 20 mg PO QID fluticasone propionate 50 mcg/actuation (Flonase Allergy Relief) 1 spray intranasal DAILY 30 days ibuprofen 600 mg PO TID PRN 15 days lactulose 20 grams (30 mL) PO BID PRN 15 days lisinopril 2.5 mg PO DAILY loperamide 2 mg PO Q6H PRN miscellaneous medical supply 1 ea miscellaneous DAILY 99 days miscellaneous medical supply (Blood Pressure Cuff) As directed mometasone 100 mcg/actuation (Asmanex HFA) 1 puff inhalation BID 30 days omeprazole 40 mg PO DAILY 90 days ondansetron HCl 4 mg PO Q8H PRN sumatriptan succinate 100 mg PO ONCE PRN 30 days Tobacco use date assessed: 08/19/23 Dental Screening Dental Screen Date: 09/19/23 HPI f/u HTN/ Migraines 2 HPI0 Details Patient is a 53 year female here today for a follow-up visit. Patient has a past medical history significant for obesity, learning disability, chronic migraine, GERD, obstructive sleep apnea, asthma. .. Left ankle pain/ chronic swelling: Patient has had several month history right ankle pain and swelling. Seeing orthopedics and will be sent for physical therapy. She is unclear on how she injured her ankle though did have a fall several months ago injuring her right wrist. On physical exam does seem to have some lateral malleolus swelling. Plan: Start physical therapy, use NSAID/Tylenol for pain. Advised on elevating and icing as much as possible. Did supply her with a stabilizing ankle brace today in office. .. CHRONIC MEDICAL CONDITIONS--> Migraines:? Has been refer Neurology and has had an evaluation, recommended to start him gout he for her migraines though has not started this medication.? MRI was also recommended though patient in or get this done.? Since starting CPAP machine for her obstructive sleep apnea she has had less frequent less severe migraines. Interval history-- >? Patient has been using Fioricet on a nearly every day basis.? She does report having more than 15 migraines per month and more for age she is having rebound migraines due to her pillow. We did discuss the possibility of her having rebound migraines from the Fioricet and she somewhat understands.? .. VICENTE:? Has been started on CPAP machine to which she is using a nightly basis though finds it difficult to keep the CPAP mask on throughout the night.? She has been having less migraines since starting CPAP machine nightly. .. Hypertension:? Patient's blood pressure acceptable today in office. She is stopped taking lisinopril as she has been feeling very dizzy when she takes this medication. .. Asthma:? Patient reports she has been having to use her asthma inhaler multiple times a day as she does report cough and shortness of breath pick specially on exertion.? Will step up her asthma therapy to include Flovent inhaler twice a day for better asthma control. ,..? [facility] Medical History Screening for hypothyroidism HTN (hypertension) Asthma Migraine Seasonal allergies Surgical History No pertinent past surgical history Family History Father Celiac disease CVD (cardiovascular disease) Afib Mother Diabetes Hypertension Fibromyalgia Migraines Brother In good health Brother In good health Sister In good health Social History Housing: Apartment Alcohol intake: current Alcohol intake frequency: holidays/special occasions only Patient Tobacco Use Status: Never used Tobacco e-Cigarette/Vaping Use: Never Used Second Hand Smoke Exposure: No service: No Current occupational status: disabled 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 Hector Acuña, Varsha Chavez, Sage Sarabia and colleagues, with an educational jean marie from [employer]. Review of Systems Const Denies headache(s) Eyes Denies loss of vision ENT Denies vertigo, Denies dizziness, Denies headache(s) and Denies sore throat Card Denies chest pain, Denies leg edema and Denies lightheadedness Resp Denies cough, Denies hemoptysis and Denies wheezing GI Denies abdominal pain, Denies melena, Denies constipation, Denies diarrhea and Denies vomiting Denies urinary frequency, Denies dysuria and Denies urinary urgency Musc Denies arthralgias, Denies joint swelling, Denies numbness and Denies tingling Neuro Denies Abnormal speech present, Denies behavioral changes, Denies vertigo, Denies dizziness, Denies headache(s), Denies loss of vision, Denies memory loss, Denies numbness and Denies tingling Psych Denies anxiety, Denies behavioral changes, Denies depression, Denies memory loss and Denies panic attacks Jozef/Lymph Denies easy bleeding and Denies easy bruising Aller/Immun Denies wheezing Physical exam (Primary Care) Vital Signs: Last Vital Signs Pulse 90 04/03/24 13:56 BP 106/70 04/03/24 13:56 Pulse Ox 99 04/03/24 13:56 Oxygen Delivery Method Room Air 04/03/24 13:56 BMI result Body Mass Index 37.0 Tobacco/Smoking Status: Tobacco use Status Tobacco use date assessed 08/19/23 04/03/24 13:52 Patient Tobacco Use Status Never used Tobacco 04/03/24 13:52 e-Cigarette/Vaping Use Never Used 04/03/24 13:52 Thrive Assessment: Date of Thrive Assessment Date Thrive assessed 08/19/23 04/03/24 13:52 Const General: healthy appearing, no acute distress, alert and awake Nutritional Appearance: well nourished Orientation/consciousness: oriented to person, oriented to place and oriented to time HENMT Ears: TM's normal bilaterally General nose exam: Normal nasal mucous membranes and turbinates present Eyes Conjunctivae: conjunctivae normal Sclerae: sclerae normal Pupils: Equal, round and reactive pupils present Neck Neck: Yes no lymphadenopathy and Yes no JVD Thyroid: Thyroid normal Carotids: no bruits Resp Effort & Inspection: normal respiratory effort and not tachypneic Auscultation: no crackles, no rales, no rhonchi and no wheezes Cardio Rate: regular rate Rhythm: regular rhythm Heart sounds: no murmurs and normal S1 and S2 GI Palpation (GI): Soft to palpation, nontender, no hepatomegaly and no splenomegaly Auscultation: normal bowel sounds Skin General skin exam: no rashes or lesions noted and dry skin Neuro General: oriented to person, oriented to place and oriented to time Cranial nerves: Yes Equal, round and reactive pupils present Speech: No Abnormal speech present Gait exam (Neuro): Normal gait present Motor exam (neuro): no tremor noted Extrem Right upper extremity: full ROM Left upper extremity: full ROM Right lower extremity: full ROM; no edema Left lower extremity: full ROM; no edema Ankle/foot/toe images: 2 1. NOTED SWELLING IN THE AREA OUTLINED. DOES HAVE SOME LIMITED RANGE OF MOTION DUE TO SOME PAIN AND STIFFNESS Psych Mental Status: mental status grossly normal Speech and movement: Normal speech and movement present Affect: normal affect Attitude: cooperative Thought process: Normal thought process present Assessment and Plan Assessment & Plan (1) Left ankle tendinitis: Code(s): M77.52 - Other enthesopathy of left foot and ankle Plan: Patient does seem to have a left ankle tendinitis. Does have some notable swelling over the left lateral malleolus. She would likely benefit from physical therapy and icing and elevating the extremity. Will supply patient with NSAID and Tylenol to use. Also did supply patient with an ankle brace for stabilization today in office. She will continue to follow orthopedics. (2) HTN (hypertension): Code(s): I10 - Essential (primary) hypertension Qualifiers: Hypertension type: essential hypertension Qualified Code(s): I10 - Essential (primary) hypertension Plan: Patient blood pressure acceptable today in office. She has been holding off on taking lisinopril as she does report feeling dizzy with the medication. For now her blood pressure is dietary lifestyle managed. Goal blood pressures to remain below 140/90 (3) Migraine: Code(s): G43.909 - Migraine, unspecified, not intractable, without status migrainosus Qualifiers: Intractability: not intractable Migraine type: unspecified Status migrainosus presence: without status migrainosus Qualified Code(s): G43.909 - Migraine, unspecified, not intractable, without status migrainosus Plan: Patient is followed by Neurology, she does use a CPAP machine on a nightly basis. She is using sumatriptan as a as needed medication for her migraines. Today she does ask for 30 day supply of Fioricet and we did have a long discussion again about the habit-forming nature and rebound headaches with this medication and patient does understand.. (4) VICENTE (obstructive sleep apnea): Code(s): G47.33 - Obstructive sleep apnea (adult) (pediatric) Plan: Patient is followed by sleep specialty, uses her CPAP nightly basis. She does report recently getting CPAP titration study and is awaiting results. (5) Asthma: Code(s): J45.909 - Unspecified asthma, uncomplicated Qualifiers: Asthma complication type: uncomplicated Asthma persistence: i ntermittent Asthma severity: mild Qualified Code(s): J45.20 - Mild intermittent asthma, uncomplicated Plan: Patient reports her asthma is fairly well controlled though is having trouble getting insurance approval for inhalers. Orders: Orders 2 Microalbumin, Random (w Creat) 04/03/24 I10 - Essential (primary) hypertension Uric Acid 04/03/24 M77.52 - Other enthesopathy of left foot and ankle Comprehensive [place]. Panel Fast 04/03/24 Z13.1 - Encounter for screening for diabetes mellitus Medications: New 2 acetaminophen ER (Tylenol Arthritis Pain) 650 mg PO Q12H 60 tabs 0RF 30 days M19.90 - Unspecified osteoarthritis, unspecified site Changed 2 From albuterol sulfate 90 mcg/actuation 1 inh inhalation QID 30 days 8.5 grams 3RF NS J45.909 - Unspecified asthma, uncomplicated To albuterol sulfate 90 mcg/actuation 1 inh inhalation QID 3 inhalers 3RF 90 days NS J45.909 - Unspecified asthma, uncomplicated From qxvfkjjwty-fgwtjountqgsa-dbho 50-325-40 mg 1 tab PO ONCE 14 days PRN 14 tabs 1RF headaches G43.909 - Migraine, unspecified, not intractable, without status migrainosus To rmvumnlvda-fngwdntrwuckd-hqvj 50-325-40 mg 1 tab PO ONCE 30 tabs 2RF headaches 30 days G43.909 - Migraine, unspecified, not intractable, without status migrainosus From mometasone 100 mcg/actuation (Asmanex HFA) 1 puff inhalation BID 30 days 13 grams 3RF J45.20 - Mild intermittent asthma, uncomplicated To mometasone 100 mcg/actuation (Asmanex HFA) 1 puff inhalation BID 3 inhalers 3RF 90 days J45.20 - Mild intermittent asthma, uncomplicated Refilled 2 ondansetron HCl 4 mg PO Q8H PRN 10 tabs 3RF nausea and vomiting K27.9 - Peptic ulcer, site unspecified, unspecified as acute or chronic, without hemorrhage or perforation ibuprofen 600 mg PO TID PRN 45 tabs 3RF pain 15 days G43.909 - Migraine, unspecified, not intractable, without status migrainosus Discontinued 2 blood pressure monitor Discontinued Reason: Doctor's Order As directed 1 ea 0RF I10 - Essential (primary) hypertension Coding Level of Care Code Est Pt Level 4 (94677) Diagnoses Left ankle tendinitis M77.52 Essential hypertension I10 Hypertension type: essential hypertension Migraine without status migrainosus, not intractable, unspecified migraine type G43.909 Intractability: not intractable Migraine type: unspecified Status migrainosus presence: without status migrainosus VICENTE (obstructive sleep apnea) G47.33 Mild intermittent asthma without complication J45.20 Asthma complication type: uncomplicated Asthma persistence: intermittent Asthma severity: mild
[2024-04-03 13:56] VITALS: BP 106/70; PULSE 90; O2SAT 99; BMI 37.0
== END 2024-04-03 14:29 | disposition home or self-care (01) ==
PROVIDERS: PCP Physician Assistant; Visit Provider Physician Assistant
DX: M77.52 Other enthesopathy of left foot and ankle (principal); I10 Essential (primary) hypertension; G43.909 Migraine, unspecified, not intractable, without status migrainosus; G47.33 Obstructive sleep apnea (adult) (pediatric); J45.20 Mild intermittent asthma, uncomplicated
CPT/HCPCS: 99214

== ENCOUNTER 2024-04-19 13:05 | Outpatient (AMB) | payer MEDICARE, SELFPAY ==
--- NOTE | 2024-04-19 13:11 | A.OFFVIS_ITS ---
Vital Signs 04/19/24 13:12 Height 5 ft 4 in Weight 215 lb BMI 36.9 Pulse 74 Pulse Source Pulse Oximeter Pulse Oximetry (%) 97 Oxygen Delivery Method Room Air Intake Visit Reasons: 6m f/u Migraine Intake Note: patient presents for follow up. patient still getting migraines Allergies No Known Allergies [No Known Allergies*] Allergy (Verified 04/19/24 13:12) Medication List - Last Reconciled 04/19/24 by SHALINI Leroy acetaminophen ER (Tylenol Arthritis Pain) 650 mg PO Q12H 30 days albuterol sulfate 90 mcg/actuation 1 inh inhalation QID 90 days NS blood pressure monitor As directed eelyodvemg-ghrhwcxyiooaa-zmwh 50-325-40 mg 1 tab PO ONCE 30 days capsaicin 0.1% (Arthritis Pain Relief (capsaicin)) 1 appl topical BID 30 days cyclobenzaprine 10 mg PO TID PRN 30 days diclofenac sodium 1% 2 grams topical QID 30 days dicyclomine 20 mg PO QID fluticasone propionate 50 mcg/actuation (Flonase Allergy Relief) 1 spray intranasal DAILY 30 days ibuprofen 600 mg PO TID PRN 15 days lactulose 20 grams (30 mL) PO BID PRN 15 days lisinopril 2.5 mg PO DAILY loperamide 2 mg PO Q6H PRN miscellaneous medical supply 1 ea miscellaneous DAILY 99 days miscellaneous medical supply (Blood Pressure Cuff) As directed mometasone 100 mcg/actuation (Asmanex HFA) 1 puff inhalation BID 90 days omeprazole 40 mg PO DAILY 90 days ondansetron HCl 4 mg PO Q8H PRN sumatriptan succinate 100 mg PO ONCE PRN 30 days HPI Comments Details: 53-yr-old female presents for f/u visit. Pt denies any significant interval medical changes. Pt states she needs a new CPAP mask and tubing. She states she does need a mask fitting as the nasal pillows work well for her. Her [employer] account does not show any significant PAP usage, however pt states she is using her machine w/ good effect. However she states that maybe the machine is not logging her use, as she cannot log into her own [employer] [facility] as she forgot her password. Her migraines are well controlled. She has needed to occasionally take her Sumatriptan, which is effective. [facility] Medical History Screening for hypothyroidism HTN (hypertension) Asthma Migraine Seasonal allergies Surgical History No pertinent past surgical history Family History Father Celiac disease CVD (cardiovascular disease) Afib Mother Diabetes Hypertension Fibromyalgia Migraines Brother In good health Brother In good health Sister In good health Social History Housing: Apartment Alcohol intake: current Alcohol intake frequency: holidays/special occasions only Patient Tobacco Use Status: Never used Tobacco e-Cigarette/Vaping Use: Never Used Second Hand Smoke Exposure: No service: No Current occupational status: disabled 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 Cognitive needs: No Hearing needs: No Vision needs: Yes (glasses) Physical Exam Vital Signs: Last Vital Signs Pulse 74 04/19/24 13:12 Pulse Ox 97 04/19/24 13:12 Oxygen Delivery Method Room Air 04/19/24 13:12 BMI result Body Mass Index 36.9 Const General: cooperative and no acute distress Orientation/consciousness: patient oriented x3 Resp Effort & Inspection: normal respiratory effort and able to speak in complete sentences Neuro General: patient oriented x3 Cranial nerves: Yes CN's II-XII intact bilaterally Cognition (Neuro): normal cognition Psych Appearance: grossly normal Mental Status: mental status grossly normal Speech and movement: Pressured speech present (this is pt's baseline.) Affect: normal affect Attitude: cooperative Assessment & Plan Assessment & Plan (1) VICENTE (obstructive sleep apnea): Code(s): G47.33 - Obstructive sleep apnea (adult) (pediatric) Category: Medical (2) Cognitive developmental delay: Code(s): F81.9 - Developmental disorder of scholastic skills, unspecified Category: Medical (3) Migraine without aura: Code(s): G43.009 - Migraine without aura, not intractable, without status migrainosus Category: Medical Qualifiers: Status migrainosus presence: without status migrainosus Intractability: not intractable Qualified Code(s): G43.009 - Migraine without aura, not intractable, without status migrainosus Plan For VICENTE: Continue APAP for now. We will contact [facility] to check status of mask and PAP hose. Due to cognitive developmental delay- pt may need reinforcement of information and increased support. Assisted pt is re-accessing her [employer] Rekha. For headaches: Continue Sumatripatn or Fioricet prn. ? f/u in 6 months or sooner prn. Coding Level of Care Code Est Pt Level 4 (24917) Diagnoses VICENTE (obstructive sleep apnea) G47.33 Cognitive developmental delay F81.9 Migraine without aura and without status migrainosus, not intractable G43.009 Status migrainosus presence: without status migrainosus Intractability: not intractable
[2024-04-19 13:12] VITALS: PULSE 74; O2SAT 97; BMI 36.9
== END 2024-04-19 13:44 | disposition home or self-care (01) ==
PROVIDERS: PCP Physician Assistant; Visit Provider Nurse Practitioner Family
DX: G47.33 Obstructive sleep apnea (adult) (pediatric) (principal); F81.9 Developmental disorder of scholastic skills, unspecified; G43.009 Migraine without aura, not intractable, without status migrainosus
CPT/HCPCS: 99214

== ENCOUNTER → 2024-04-19 13:05 | Outpatient (BNVA) | payer MEDICARE, SELFPAY | PROVIDERS: PCP Physician Assistant; Visit Provider Nurse Practitioner Family | DX: G43.009 Migraine without aura, not intractable, without status migrainosus (principal); G47.33 Obstructive sleep apnea (adult) (pediatric); F81.9 Developmental disorder of scholastic skills, unspecified; Z99.89 Dependence on other enabling machines and devices | CPT/HCPCS: 99212 ==

== ENCOUNTER 2024-05-15 13:39 | Outpatient (AMB) | payer MEDICARE, MEDICAID, SELFPAY ==
--- NOTE | 2024-05-15 14:19 | MHC.PC.OV ---
Vital Signs 05/15/24 14:20 Height 5 ft 4 in Weight 215 lb 4 oz BMI 36.9 BP 120/80 Blood Pressure Location Lt brachial Position Sitting Pulse 76 Pulse Source Pulse Oximeter Pulse Oximetry (%) 97 Oxygen Delivery Method Room Air Intake Visit Reasons: Follow Up Cytogenetic Technician Required: No Accompanied by: Self / Same As Patient Allergies No Known Allergies [No Known Allergies*] Allergy (Verified 05/15/24 14:41) Medication List - Last Reconciled 05/15/24 by Ernesto Hernandez PA-C acetaminophen ER (Tylenol Arthritis Pain) 650 mg PO Q12H 30 days albuterol sulfate 90 mcg/actuation 1 inh inhalation QID 90 days NS blood pressure monitor As directed cjgxtbmkba-bzptlftcweaul-oojj 50-325-40 mg 1 tab PO .PRN 30 days capsaicin 0.1% (Arthritis Pain Relief (capsaicin)) 1 appl topical BID 30 days cyclobenzaprine 10 mg PO TID PRN 30 days diclofenac sodium 1% 2 grams topical QID 30 days dicyclomine 20 mg PO QID fluticasone furoate 100 mcg/actuation (Arnuity Ellipta) 1 inh inhalation DAILY 30 days fluticasone propionate 50 mcg/actuation (Flonase Allergy Relief) 1 spray intranasal DAILY 30 days ibuprofen 600 mg PO TID PRN 15 days lactulose 20 grams (30 mL) PO BID PRN 15 days lisinopril 2.5 mg PO DAILY loperamide 2 mg PO Q6H PRN miscellaneous medical supply 1 ea miscellaneous DAILY 99 days miscellaneous medical supply (Blood Pressure Cuff) As directed omeprazole 40 mg PO DAILY 90 days ondansetron HCl 4 mg PO Q8H PRN sumatriptan succinate 100 mg PO ONCE PRN 30 days Tobacco use date assessed: 08/19/23 Dental Screening Dental Screen Date: 09/19/23 HPI Follow Up HPI Details Patient is a 53 year female here today for a follow-up visit. Patient has a past medical history significant for obesity, learning disability, chronic migraine, GERD, obstructive sleep apnea, asthma. .. CHRONIC MEDICAL CONDITIONS--> Migraines:? Has been refer Neurology and has had an evaluation, recommended to start him gout he for her migraines though has not started this medication.? MRI was also recommended though patient in or get this done.? Since starting CPAP machine for her obstructive sleep apnea she has had less frequent less severe migraines. Interval history-- >? Patient has been using Fioricet on a nearly every day basis.? WE STARTED TO DISCUSS ONLY USING FIORICET ON NEEDED BASIS THOUGH PATIENT CAN VERY ANGRY AND STARTED TO RAISE HER VOICE. SHE WAS REQUESTING A 90 DAY SUPPLY OF FIORICET THOUGH I DO NOT BELIEVE THIS IS APPROPRIATE FOR PATIENT SHE SEEMINGLY USING THIS MEDICATION ON AN EVERYDAY BASIS WHICH IS LIKELY CAUSING REBOUND HEADACHES. SHE HAS MULTIPLE CALL IN ON ON-CALL MIGRAINE MEDICATION. GAVE HER SOME OTHER OPTIONS INCLUDING RIZATRIPTAN COUPLE OF TOPAMAX OR TRIALING NURTEC THOUGH SHE DECLINES AND LEFT OFFICE VISIT.? .. VICENTE:? Has been started on CPAP machine to which she is using a nightly basis though finds it difficult to keep the CPAP mask on throughout the night.? She has been having less migraines since starting CPAP machine nightly. .. Hypertension:? Patient's blood pressure acceptable today in office. She is stopped taking lisinopril as she has been feeling very dizzy when she takes this medication. .. Asthma:? Patient reports she has been having to use her asthma inhaler multiple times a day as she does report cough and shortness of breath pick specially on exertion.? Will step up her asthma therapy to include Flovent inhaler twice a day for better asthma control. [facility] Medical History Screening for hypothyroidism HTN (hypertension) Asthma Migraine Seasonal allergies Surgical History No pertinent past surgical history Family History Father Celiac disease CVD (cardiovascular disease) Afib Mother Diabetes Hypertension Fibromyalgia Migraines Brother In good health Brother In good health Sister In good health Social History Housing: Apartment Alcohol intake: current Alcohol intake frequency: holidays/special occasions only Patient Tobacco Use Status: Never used Tobacco e-Cigarette/Vaping Use: Never Used Second Hand Smoke Exposure: No service: No Current occupational status: disabled 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 Hector Acuña, Varsha Chavez, Sage Sarabia and colleagues, with an educational jean marie from [employer]. Review of Systems Const Reports headache(s) Eyes Denies loss of vision ENT Denies vertigo, Denies dizziness, Reports headache(s) and Denies sore throat Card Denies chest pain, Denies leg edema and Denies lightheadedness Resp Denies cough, Denies hemoptysis and Denies wheezing GI Denies abdominal pain, Denies melena, Denies constipation, Denies diarrhea and Denies vomiting Denies urinary frequency, Denies dysuria and Denies urinary urgency Musc Denies arthralgias, Denies joint swelling, Denies numbness and Denies tingling Neuro Denies Abnormal speech present, Denies behavioral changes, Denies vertigo, Denies dizziness, Reports headache(s), Denies loss of vision, Denies memory loss, Denies numbness and Denies tingling Psych Denies anxiety, Denies behavioral changes, Denies depression, Denies memory loss and Denies panic attacks Jozef/Lymph Denies easy bleeding and Denies easy bruising Aller/Immun Denies wheezing Physical exam (Primary Care) Vital Signs: Last Vital Signs Pulse 76 05/15/24 14:20 BP 120/80 05/15/24 14:20 Pulse Ox 97 05/15/24 14:20 Oxygen Delivery Method Room Air 05/15/24 14:20 BMI result Body Mass Index 36.9 Tobacco/Smoking Status: Tobacco use Status Tobacco use date assessed 08/19/23 05/15/24 14:19 Patient Tobacco Use Status Never used Tobacco 05/15/24 14:19 e-Cigarette/Vaping Use Never Used 05/15/24 14:19 Thrive Assessment: Date of Thrive Assessment Date Thrive assessed 08/19/23 05/15/24 14:19 Const General: healthy appearing, no acute distress, alert and awake Nutritional Appearance: well nourished Orientation/consciousness: oriented to person, oriented to place and oriented to time HENMT Ears: TM's normal bilaterally General nose exam: Normal nasal mucous membranes and turbinates present Eyes Conjunctivae: conjunctivae normal Sclerae: sclerae normal Pupils: Equal, round and reactive pupils present Neck Neck: Yes no lymphadenopathy and Yes no JVD Thyroid: Thyroid normal Carotids: no bruits Resp Effort & Inspection: normal respiratory effort and not tachypneic Auscultation: no crackles, no rales, no rhonchi and no wheezes Cardio Rate: regular rate Rhythm: regular rhythm Heart sounds: no murmurs and normal S1 and S2 GI Palpation (GI): Soft to palpation, nontender, no hepatomegaly and no splenomegaly Auscultation: normal bowel sounds Skin General skin exam: no rashes or lesions noted and dry skin Neuro General: oriented to person, oriented to place and oriented to time Cranial nerves: Yes Equal, round and reactive pupils present Speech: No Abnormal speech present Gait exam (Neuro): Normal gait present Motor exam (neuro): no tremor noted Extrem Right upper extremity: full ROM Left upper extremity: full ROM Right lower extremity: full ROM; no edema Left lower extremity: full ROM; no edema Psych Mental Status: mental status grossly normal Speech and movement: Normal speech and movement present Affect: normal affect Attitude: cooperative Thought process: Normal thought process present Office Procedures Flu Questionnaire Does the patient have a severe egg allergy?: No Does the patient have severe life threatening allergies?: No Does the patient have a fever or illness today?: No Has the patient ever had Guillain-[place] Syndrome?: No Has the patient ever had any past reaction to a flu shot?: No Immunizations Fluarix Triv [id number] (PF) 45 mcg (15 mcg x 3)/0.5 mL IM syringe Performing Provider: Ernesto Hernandez PA-C [facility] Administered by: ANA Valenzuela on 05/15/24 14:25 Dose Route Admin Location Dispensed Lot Number Expiration Date [facility] Solar Engineer 0.5 mL IM Right Deltoid 0.5 mL [id number] 01/28/25 31260-086-05 STATS Group VIS Given Date VIS Provided VIS Publication Date 05/15/24 Single Vaccine 21 Eligibility Eligibility Date Funding Source Not [facility] Eligible 05/15/24 Private Coding Level of Care Code Est Pt Level 4 (60540) Diagnoses Migraine without status migrainosus, not intractable, unspecified migraine type G43.909 Intractability: not intractable Migraine type: unspecified Status migrainosus presence: without status migrainosus Essential hypertension I10 Hypertension type: essential hypertension Assessment & Plan Assessment & Plan (1) Migraine: Code(s): G43.909 - Migraine, unspecified, not intractable, without status migrainosus Category: Medical Qualifiers: Intractability: not intractable Migraine type: unspecified Status migrainosus presence: without status migrainosus Qualified Code(s): G43.909 - Migraine, unspecified, not intractable, without status migrainosus Plan: WE STARTED TO DISCUSS ONLY USING FIORICET ON NEEDED BASIS THOUGH PATIENT CAN VERY ANGRY AND STARTED TO YELL. SHE WAS REQUESTING A 90 DAY SUPPLY OF FIORICET THOUGH I DO NOT BELIEVE THIS IS APPROPRIATE FOR PATIENT SHE SEEMINGLY USING THIS MEDICATION ON AN EVERYDAY BASIS WHICH IS LIKELY CAUSING REBOUND HEADACHES. GAVE HER SOME OTHER OPTIONS INCLUDING RIZATRIPTAN COUPLE OF TOPAMAX OR TRIALING NURTEC THOUGH SHE DECLINES AND LEFT OFFICE VISIT.? (2) HTN (hypertension): Code(s): I10 - Essential (primary) hypertension Category: Medical Qualifiers: Hypertension type: essential hypertension Qualified Code(s): I10 - Essential (primary) hypertension Plan: Patient's blood pressure acceptable today in office. Will continue current dose of lisinopril with goal blood pressure to be below 140/90 Orders: Orders Influenza [id number] Immunization 05/15/24 Z23 - Encounter for immunization Medications: New azelastine (Astepro Allergy) administer into each nostril 1 spray intranasal BID 30 mL 3RF 30 days R09.81 - Nasal congestion Changed From sumatriptan succinate do not exceed 2 doses per 24 hrs 100 mg PO ONCE 30 days PRN 10 tabs 3RF migraine headache G43.909 - Migraine, unspecified, not intractable, without status migrainosus To sumatriptan succinate do not exceed 2 doses per 24 hrs 100 mg PO ONCE 30 tabs 3RF migraine headache 90 days G43.909 - Migraine, unspecified, not intractable, without status migrainosus Discontinued fluticasone propionate 50 mcg/actuation (Flonase Allergy Relief) administer into each nostril Discontinued Reason: Doctor's Order 1 spray intranasal DAILY 30 days 100 mL 3RF R09.81 - Nasal congestion
[2024-05-15 14:20] VITALS: BP 120/80; PULSE 76; O2SAT 97; BMI 36.9
== END 2024-05-15 15:44 | disposition home or self-care (01) ==
PROVIDERS: PCP Physician Assistant; Visit Provider Physician Assistant
DX: G43.909 Migraine, unspecified, not intractable, without status migrainosus (principal); I10 Essential (primary) hypertension

== ENCOUNTER → 2024-05-15 13:39 | Outpatient (BNVA) | payer MEDICARE, MEDICAID, SELFPAY | PROVIDERS: PCP Physician Assistant; Visit Provider Physician Assistant | DX: Z23 Encounter for immunization (principal); G43.909 Migraine, unspecified, not intractable, without status migrainosus; I10 Essential (primary) hypertension | CPT/HCPCS: 90471; 90656; 99212 ==

== ENCOUNTER 2024-05-31 12:00 | Outpatient (RCR) | payer MEDICARE, MEDICAID, SELFPAY ==
--- NOTE | 2024-04-17 13:58 | MHC.PT.EP ---
[facility] [place] Office [place] Office [place] Office [address] [phone] F: [phone] F: [phone] F: [phone] F: [phone] Physical Therapy Plan of Care Date of Evaluation: 04/17/24 Date of Surgery: Diagnosis: Chronic LEFT ankle pain (Hx of sprain) (RS) Assessment: Patient is a 53 y.o. female who is referred to PT by STEPHANIE Lira with Dx of chronic LEFT ankle pain (from sprain). Patient impairments include localized L ankle swelling, limited L ankle ROM, weakness in L ankle with antalgic gait and reduced balance. Patient current functional limitations are walking long distances, walking outdoors, stairs. Patient will benefit from skilled PT to address aforementioned impairments and functional limitations to meet established goals. Frequency and Duration: The patient will be seen Short Term Goals: 2 weeks Patient demonstrates consistency and independence with HEP to self manage symptoms. Patient is able to wean out of tall walking boot slowly and carefully to regular shoe. Manager Rental Goals: 4 weeks Patient presents with increased LEFT ankle AROM 0 degrees to restore normalized gait level surfaces. Patient presents with increased LEFT ankle eversion strength 4+/5 to improve stability to walk outside on uneven surfaces. Treatment Plan: Modalities to reduce pain, spasms and effusion. Manual therapy to restore motion and function. Therapeutic exercise to improve strength and flexibility. Neuromuscular re-education for posture and balance. Therapeutic activities to return to functional activities of daily living. Electronically signed by: Nichol Xie, PT, DPT Please sign and return to therapist. Thank you for your referral.
--- NOTE | 2024-07-06 15:09 | MHC.PT.DC ---
[facility] [place] [facility] [place] [facility] [place] [facility] [address] Nadya Reyes [address] [phone] F: [phone] F: [phone] F: [phone] F: [phone] Physical Therapy Discharge Report Diagnosis: Chronic LEFT ankle pain (Hx of sprain) (RS) Date of Surgery: Date of Evaluation: 04/17/24 Date of Discharge: 07/06/24 Treatments to Date: 5 Cancellations to Date: 0 No Shows to Date: 2 Discharge Status: Independent with HEP Visit Non-compliance Discharge Summary: Ave showed progress in functional strength and mobility of her ankle and was able to progress to standing program for her ankle. She ceased attending PT on her own accord, she has an independent HEP to self manage her sxs. Electronically signed by: Nichol Xie, PT, DPT Please sign and return to therapist. Thank you for your referral.
== END 2024-07-06 15:10 | disposition home or self-care (01) ==
LOC: HO.PT 12:00
PROVIDERS: PCP Physician Assistant
DX: M25.572 Pain in left ankle and joints of left foot (principal); G89.29 Other chronic pain
CPT/HCPCS: 97110; 97112; 97140; 97161

== ENCOUNTER 2024-06-11 14:59 | Outpatient (AMB) | payer MEDICARE, MEDICAID, SELFPAY ==
--- NOTE | 2024-06-11 15:08 | A.OFFPC_ITS ---
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: No Accompanied by: Self / Same As Patient Allergies No Known Allergies [No Known Allergies*] Allergy (Verified 06/11/24 15:24) Medication List - Last Reconciled 06/11/24 by Ernesto Hernandez PA-C acetaminophen ER (Tylenol Arthritis Pain) 650 mg PO Q12H 30 days albuterol sulfate 90 mcg/actuation 1 inh inhalation QID 90 days NS blood pressure monitor As directed yzgmgeaaky-pmikkwhjbzepr-xyih 50-325-40 mg 1 tab PO .PRN 30 days capsaicin 0.1% (Arthritis Pain Relief (capsaicin)) 1 appl topical BID 30 days diclofenac sodium 1% 2 grams topical QID 30 days dicyclomine 20 mg PO QID fluticasone furoate 100 mcg/actuation (Arnuity Ellipta) 1 inh inhalation DAILY 30 days ibuprofen 600 mg PO TID PRN 15 days ipratropium bromide 2 sprays intranasal BID 30 days lactulose 20 grams (30 mL) PO BID PRN 15 days lisinopril 2.5 mg PO DAILY loperamide 2 mg PO Q6H PRN miscellaneous medical supply 1 ea miscellaneous DAILY 99 days miscellaneous medical supply (Blood Pressure Cuff) As directed omeprazole 40 mg PO DAILY 90 days ondansetron HCl 4 mg PO Q8H PRN sumatriptan succinate 100 mg PO ONCE 90 days Tobacco use date assessed: 08/19/23 Dental Screening Dental Screen Date: 09/19/23 HPI medication F/U HPI Details Patient is a 53 year female here today for a follow-up visit. Patient has a past medical history significant for obesity, learning disability, chronic migraine, GERD, obstructive sleep apnea, asthma. Patient recently seen at the [facility] ER for acute low back pain. No x-rays were done as pains seem to be muscular. She reports she was given a muscle relaxer though does not not name. She is willing to try a muscle relaxer to help her pain. Also did discuss physical therapy and she is willing to do this as well. .. CHRONIC MEDICAL CONDITIONS--> Migraines:? Has been refer Neurology and has had an evaluation. Since starting CPAP machine for her obstructive sleep apnea she has had less frequent less severe migraines. Interval history-- >? Patient has been using Fioricet on a nearly every day basis.? WE STARTED TO DISCUSS ONLY USING FIORICET ON NEEDED BASIS THOUGH PATIENT DOES NOT SEEM TO UNDERSTAND. GAVE HER SOME OTHER OPTIONS INCLUDING RIZATRIPTAN COUPLE OF TOPAMAX OR TRIALING NURTEC .. VICENTE:? Has been started on CPAP machine to which she is using a nightly basis though finds it difficult to keep the CPAP mask on throughout the night.? She has been having less migraines since starting CPAP machine nightly. .. Hypertension:? Patient's blood pressure acceptable today in office. She is stopped taking lisinopril as she has been feeling very dizzy when she takes this medication. .. Asthma:? Patient reports she has been having to use her asthma inhaler multiple times a day as she does report cough and shortness of breath pick specially on exertion.? Will step up her asthma therapy to include Flovent inhaler twice a day for better asthma control. [facility] Medical History Screening for hypothyroidism HTN (hypertension) Asthma Migraine Seasonal allergies Surgical History No pertinent past surgical history Family History Father Celiac disease CVD (cardiovascular disease) Afib Mother Diabetes Hypertension Fibromyalgia Migraines Brother In good health Brother In good health Sister In good health Social History Housing: Apartment Alcohol intake: current Alcohol intake frequency: holidays/special occasions only Patient Tobacco Use Status: Never used Tobacco e-Cigarette/Vaping Use: Never Used Second Hand Smoke Exposure: No service: No Current occupational status: disabled 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 Hector Acuña, Varsha Chavez, Sage Sarbaia and colleagues, with an educational jean marie from [employer]. Review of Systems Const Denies headache(s) Eyes Denies loss of vision ENT Denies vertigo, Denies dizziness, Denies headache(s) and Denies sore throat Card Denies chest pain, Denies leg edema and Denies lightheadedness Resp Denies cough, Denies hemoptysis and Denies wheezing GI Denies abdominal pain, Denies melena, Denies constipation, Denies diarrhea and Denies vomiting Denies urinary frequency, Denies dysuria and Denies urinary urgency Musc Denies arthralgias, Denies joint swelling, Denies numbness and Denies tingling Neuro Denies Abnormal speech present, Denies behavioral changes, Denies vertigo, Denies dizziness, Denies headache(s), Denies loss of vision, Denies memory loss, Denies numbness and Denies tingling Psych Denies anxiety, Denies behavioral changes, Denies depression, Denies memory loss and Denies panic attacks Jozef/Lymph Denies easy bleeding and Denies easy bruising Aller/Immun Denies wheezing Physical exam (Primary Care) Vital Signs: Last Vital Signs Pulse 76 06/11/24 15:16 BP 106/60 06/11/24 15:16 Pulse Ox 97 06/11/24 15:16 Oxygen Delivery Method Room Air 06/11/24 15:16 BMI result Body Mass Index 36.6 Tobacco/Smoking Status: Tobacco use Status Tobacco use date assessed 08/19/23 06/11/24 15:08 Patient Tobacco Use Status Never used Tobacco 06/11/24 15:08 e-Cigarette/Vaping Use Never Used 06/11/24 15:08 Thrive Assessment: Date of Thrive Assessment Date Thrive assessed 08/19/23 06/11/24 15:08 Const General: healthy appearing, no acute distress, alert and awake Nutritional Appearance: well nourished Orientation/consciousness: oriented to person, oriented to place and oriented to time HENMT Ears: TM's normal bilaterally General nose exam: Normal nasal mucous membranes and turbinates present Eyes Conjunctivae: conjunctivae normal Sclerae: sclerae normal Pupils: Equal, round and reactive pupils present Neck Neck: Yes no lymphadenopathy and Yes no JVD Thyroid: Thyroid normal Carotids: no bruits Resp Effort & Inspection: normal respiratory effort and not tachypneic Auscultation: no crackles, no rales, no rhonchi and no wheezes Cardio Rate: regular rate Rhythm: regular rhythm Heart sounds: no murmurs and normal S1 and S2 GI Palpation (GI): Soft to palpation, nontender, no hepatomegaly and no splenomegaly Auscultation: normal bowel sounds Skin General skin exam: no rashes or lesions noted and dry skin Neuro General: oriented to person, oriented to place and oriented to time Cranial nerves: Yes Equal, round and reactive pupils present Speech: No Abnormal speech present Gait exam (Neuro): Normal gait present Motor exam (neuro): no tremor noted Extrem Right upper extremity: full ROM Left upper extremity: full ROM Right lower extremity: full ROM; no edema Left lower extremity: full ROM; no edema Psych Mental Status: mental status grossly normal Speech and movement: Normal speech and movement present Affect: normal affect Attitude: cooperative Thought process: Normal thought process present Office Procedures Flu Questionnaire Does the patient have a severe egg allergy?: No Immunizations Fluarix Triv 1065-8302 (PF) 45 mcg (15 mcg x 3)/0.5 mL IM syringe Performing Provider: Ernesto Hernandez PA-C [facility] Documented (not given) by: ANA Valenzuela on 06/11/24 15:19 Reason Not Given: Patient Refused Coding Level of Care Code Est Pt Level 4 (35195) Diagnoses Migraine without status migrainosus, not intractable, unspecified migraine type G43.909 Migraine type: unspecified Status migrainosus presence: without status migrainosus Intractability: not intractable Essential hypertension I10 Hypertension type: essential hypertension Lumbar radicular pain M54.16 Assessment & Plan Assessment & Plan (1) Migraine: Code(s): G43.909 - Migraine, unspecified, not intractable, without status migrainosus Category: Medical Qualifiers: Migraine type: unspecified Status migrainosus presence: without status migrainosus Intractability: not intractable Qualified Code(s): G43.909 - Migraine, unspecified, not intractable, without status migrainosus Plan: Patient will continue with the use of ibuprofen as 1st line for her migraines. We did discuss Fioricet bein an only as needed though patient does not seem to understand. Seems that she is using the medication on a daily basis. Of note since she has started CPAP machine her migraines have been a bit better. (2) HTN (hypertension): Code(s): I10 - Essential (primary) hypertension Category: Medical Qualifiers: Hypertension type: essential hypertension Qualified Code(s): I10 - Essential (primary) hypertension Plan: Patient's blood pressure acceptable today in office. Will continue current dose of lisinopril with goal blood pressure to be below 140/90 (3) Lumbar radicular pain: Code(s): M54.16 - Radiculopathy, lumbar region Category: Medical Plan: Patient recently seen at the [facility] ER for acute lower back pain. No recent falls or lifting injuries. She was given a muscle relaxer though can not recall the name. Will supply patient with baclofen to use for her pain. She does agree with doing physical therapy for back as well. Will consider getting x- rays if physical therapy is not effective. Orders: Orders Complete Blood Count no Diff Today K27.9 - Peptic ulcer, site unspecified, unspecified as acute or chronic, without hemorrhage or perforation Comprehensive [place]. Panel Fast Today Z13.1 - Encounter for screening for diabetes mellitus Magnesium Today R20.2 - Paresthesia of skin Influenza 2931-3917 Immunization Today Z23 - Encounter for immunization PT Evaluation and Treatment Today M51.9 - Unspecified thoracic, thoracolumbar and lumbosacral intervertebral disc disorder, M54.16 - Radiculopathy, lumbar region Medications: New fluticasone propionate 50 mcg/actuation (Flonase Allergy Relief) administer into each nostril 1 spray intranasal BID 16 grams 3RF 30 days R09.81 - Nasal congestion baclofen 10 mg PO BID PRN 28 tabs 0RF muscle spasm 14 days M54.16 - Radiculopathy, lumbar region Changed From loperamide 2 mg PO Q6H PRN 10 caps 0RF loose stool G43.909 - Migraine, unspecified, not intractable, without status migrainosus To loperamide 2 mg PO Q6H PRN 28 caps 3RF loose stool 7 days G43.909 - Migraine, unspecified, not intractable, without status migrainosus Refilled qqzkanemhd-hdsvzmsenmjwu-lgfr 50-325-40 mg TO BE USED NEEDED ONLY FOR ACUTE MIGRAINES 1 tab PO .PRN 30 tabs 0RF headaches 30 days G43.909 - Migraine, unspecified, not intractable, without status migrainosus ondansetron HCl 4 mg PO Q8H PRN 10 tabs 3RF nausea and vomiting K27.9 - Peptic ulcer, site unspecified, unspecified as acute or chronic, without hemorrhage or perforation albuterol sulfate 90 mcg/actuation 1 inh inhalation QID 3 inhalers 3RF 90 days NS J45.909 - Unspecified asthma, uncomplicated
[2024-06-11 15:16] VITALS: BP 106/60; PULSE 76; O2SAT 97; BMI 36.6
== END 2024-06-11 15:39 | disposition home or self-care (01) ==
PROVIDERS: PCP Physician Assistant; Visit Provider Physician Assistant
DX: G43.909 Migraine, unspecified, not intractable, without status migrainosus (principal); I10 Essential (primary) hypertension; M54.16 Radiculopathy, lumbar region; Z23 Encounter for immunization

== ENCOUNTER → 2024-06-11 14:59 | Outpatient (BNVA) | payer MEDICARE, MEDICAID, SELFPAY | PROVIDERS: PCP Physician Assistant; Visit Provider Physician Assistant | DX: G43.909 Migraine, unspecified, not intractable, without status migrainosus (principal); M54.16 Radiculopathy, lumbar region; I10 Essential (primary) hypertension | CPT/HCPCS: 90471; 99212 ==

== ENCOUNTER 2024-11-01 13:25 | Outpatient (AMB) | payer MEDICARE, SELFPAY ==
[2024-11-01 13:47] VITALS: BP 114/72; BMI 38.3
--- NOTE | 2024-11-01 13:47 | MHC.OFFVIS ---
Vital Signs 11/01/24 13:47 Height 5 ft 4 in Weight 223 lb BMI 38.3 BP 114/72 Blood Pressure Location Rt brachial Position Sitting Intake Visit Reasons: 6mo F/U Intake Note: Patient presents follow up VICENTE/Migraine. Non Compliant Allergies No Known Allergies [No Known Allergies*] Allergy (Verified 11/01/24 13:49) Medication List - Last Reconciled 11/01/24 by SHALINI Leroy acetaminophen ER (Tylenol Arthritis Pain) 650 mg PO Q12H 30 days albuterol sulfate 90 mcg/actuation 1 inh inhalation QID 90 days NS baclofen 10 mg PO BID PRN 14 days blood pressure monitor As directed wekixvrjqi-nbaveapwmiosh-yrjn 50-325-40 mg 1 tab PO ONCE 30 days capsaicin 0.1% (Arthritis Pain Relief (capsaicin)) 1 appl topical BID 30 days diclofenac sodium 1% 2 grams topical QID 30 days dicyclomine 20 mg PO QID fluticasone furoate 100 mcg/actuation (Arnuity Ellipta) 1 inh inhalation DAILY 30 days fluticasone propionate 50 mcg/actuation (Flonase Allergy Relief) 1 spray intranasal BID 30 days ibuprofen 600 mg PO TID PRN 15 days ipratropium bromide 2 sprays intranasal BID 30 days lactulose 20 grams (30 mL) PO BID PRN 15 days lisinopril 2.5 mg PO DAILY loperamide 2 mg PO Q6H PRN 7 days miscellaneous medical supply 1 ea miscellaneous DAILY 99 days miscellaneous medical supply (Blood Pressure Cuff) As directed omeprazole 40 mg PO DAILY 90 days ondansetron HCl 4 mg PO Q8H PRN sumatriptan succinate 100 mg PO ONCE 90 days HPI Comments Details: 53-yr-old female presents for f/u visit. Pt denies any significant interval medical changes. Pt states she has been unable to use her CPAP machine as she needs new tubing. Patient's [employer] account does not show any significant PAP usage. She again is unable to access her [employer] as she forgot her password. Her migraines are well controlled. She has needed to occasionally take her Sumatriptan, which is still effective. [facility] Medical History Screening for hypothyroidism HTN (hypertension) Asthma Migraine Seasonal allergies Surgical History No pertinent past surgical history Family History Father Celiac disease CVD (cardiovascular disease) Afib Mother Diabetes Hypertension Fibromyalgia Migraines Brother In good health Brother In good health Sister In good health Social History Housing: Apartment Alcohol intake: current Alcohol intake frequency: holidays/special occasions only Patient Tobacco Use Status: Never used Tobacco e-Cigarette/Vaping Use: Never Used Second Hand Smoke Exposure: No service: No Current occupational status: disabled 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 Cognitive needs: No Hearing needs: No Vision needs: Yes (glasses) Physical Exam Vital Signs: Last Vital Signs BP 114/72 11/01/24 13:47 BMI result Body Mass Index 38.3 Const General: cooperative and no acute distress Orientation/consciousness: patient oriented x3 Resp Effort & Inspection: normal respiratory effort and able to speak in complete sentences Neuro General: patient oriented x3 Cranial nerves: Yes CN's II-XII intact bilaterally Cognition (Neuro): normal cognition Psych Appearance: grossly normal Mental Status: mental status grossly normal Speech and movement: Pressured speech present (this is pt's baseline.) Affect: normal affect Attitude: cooperative Assessment & Plan Assessment & Plan (1) VICENTE (obstructive sleep apnea): Code(s): G47.33 - Obstructive sleep apnea (adult) (pediatric) Category: Medical (2) Cognitive developmental delay: Code(s): F81.9 - Developmental disorder of scholastic skills, unspecified Category: Medical (3) Migraine without aura: Code(s): G43.009 - Migraine without aura, not intractable, without status migrainosus Category: Medical Qualifiers: Status migrainosus presence: without status migrainosus Intractability: not intractable Qualified Code(s): G43.009 - Migraine without aura, not intractable, without status migrainosus Plan For VICENTE: Continue APAP for now. We will request new PAP supplies including water reservoir Due to cognitive developmental delay- pt may need reinforcement of information and increased support. Provided patient with a copy of her [employer] logging credentials.. For headaches: Continue Sumatripatn or Fioricet prn. ? f/u in 6 months or sooner prn. Medications: Refilled sumatriptan succinate do not exceed 2 doses per 24 hrs 100 mg PO ONCE 90 days 30 tabs 3RF migraine headache G43.909 - Migraine, unspecified, not intractable, without status migrainosus Coding Level of Care Code Est Pt Level 4 (20633) Diagnoses VICENTE (obstructive sleep apnea) G47.33 Cognitive developmental delay F81.9 Migraine without aura and without status migrainosus, not intractable G43.009 Status migrainosus presence: without status migrainosus Intractability: not intractable
--- OUTSIDE RECORDS SUMMARY | 2024-11-01 14:41 | XMS_ITS ---
Author Organization [facility] Address [address] [place] [address] Care Team Providers Care Sampler Radioactive Waste Name Role Phone Ernesto Hernandez Primary Care Provider Unavailab Levy Ozuna Jr REASON FOR VISIT Pt no show Encounters Encounter Location Date Provider Diagnosis [facility] [address] [place] [address] 05/10/2024 Levy Sung Jr Plan Of Treatment Next Appt Details Provider Name:Levy parekh Jr, 12/06/2024 03:15:00 PM, [address], [address], [place], [address], Progress Notes * FELI MORLEY ADOB:1970 (53 yo F)Acc No.[id number]:05/10/2024 Patient:?PEYMAN FELI A :1970???Age:53 Y???Sex:Female [address] [place], [address] * true * Date:? Generated for Danyell asif/Chari/eTransmitting on:?11/01/2024 02:40 PM EDT
--- OUTSIDE RECORDS SUMMARY | 2024-11-01 14:41 | XMS_ITS ---
Author Organization [facility] Address [address] [place] [address] Care Team Providers Care Weblogic Developer Name Role Phone [place], Ernesto Primary Care Provider Unavailab kaye Sung [...] 20 MG 1-2 Orally before meals/prn Active Hleuczpgdp-VZO-Xecxqfqf Active Ondansetron Active Loperamide HCl 2 MG 1-2 capsule Orally F our times a day Active ProAir HFA Active ibuprofen Active Encounters Encounter Location Date Provider Diagnosis [facility] [address] [place] [address] 05/10/2024 Levy Sung Jr Plan Of Treatment Next Appt Details Provider Name:Levy parekh Jr, 12/06/2024 03:15:00 PM, [address], [address], [place], [address], Progress Notes * FELI MORLEY ADOB:1970 (53 yo F)Acc No.[id number]:05/10/2024 Progress Notes Patient:FELI MCCOY Provider:?Levy Sung MD :1970???Age:53 Y???Sex:Female D ate:05/10/2024 Address:[address] [place] [address] [facility] Pcp:Ernesto Hernandez Subjective: * Chief Complaints: * ???1. Patient presents today for IBS. * Medical History:? * Medications:?Taking ibuprofe n , Taking Ondansetron , Taking Ngydmvljzu-EWE-Ghcrdiyc , Taking ProAir HFA , Taking Loperamide [...] EVERY DAY FOR 30 DAYS Objective: * Vitals:? Assessment: Plan: * Treatment: * * The named appointment provid er may or may not be the originator of this progress note, and it is not deemed complete until electronically signed by the appointment provider. Sign off status: Pending * Provider:?Levy Sung MD Date:?1 Generated for Danyell asif/Chari/eTransmitting on:?11/01/2024 02:40 PM EDT
--- OUTSIDE RECORDS SUMMARY | 2024-11-01 14:41 | XMS_ITS | Patient Health Record ---
Author Organization [facility] Address [address] [place] [address] Care Team Providers Care Oracle R12 Developer Name Role Phone Ernesto Hernandez Primary Care Provider UnavailLevy Alanis Jr Unavailable Allergies No Known Allergies Reason For Referral No Information Medications Medication SIG (Take, Route, Frequency, Duration) Notes Start Date End Date Status Omeprazole 40 MG TAKE 1 CAPSULE BY MO UTH EVERY DAY Oral for 90 Active Dicyclomine HCl 20 MG 1-2 Orally before meals/prn Active Cyclobenzaprine HCl 10 MG Oral for 7 Active SUMAtriptan Succinate 100 MG Oral for 23 Active Lzmruruytu-YKV-Iclhcmds Active Ondansetron Active ProAir HFA Active Loperamide HCl 2 MG TAKE 1 CAPSULE BY MO UTH FOUR TIMES A DAY NEEDED for 30 Active ibuprofen Active Ondansetron HCl 4 MG TAKE 1 TABLET BY MO UTH EVERY DAY FOR 30 DAYS for 30 Active Immunizations Vaccine Route Administration Date Status Comme nts Influenza Unknown 05/10/2018 Administered Influenza Unknown 04/01/2020 Administered Social History Alcohol Screen Question Answer Notes Did you have a drink containing alcohol in the p ast year? No Points 0 Interpretation Negative Problems Problem Type SNOMED Code ICD Code Onset Dates Problem Status W/U Status Risk Notes Problem 09199076 Epigastric pain (R10.13) Active confirmed Problem 792252729 Change in bowel habits (R19.4) Active confirmed Problem 646703335 Irritable bowel syndrome with diarrhea (K58.0) Active confirmed Problem 794253797 Gastroesophageal reflux disease without esophagitis (K21.9) Active confirmed Problem 980785400 Gallstones (K80.20) Active confirmed Problem 542620579 Hepatic steatosi s (K76.0) Active confirmed Encounters Encounter Location Date Provider Diagnosis [facility] [address] [place] [address] 05/10/2024 Levy Sung Jr Plan Of Treatment Pending Test Test Name Order Date LIVER PROFILE 10/07/2021 LIPASE 10/07/2021 CBC w/o DIFF 10/07/2021 HIDA SCAN W/WO GALL BLADDER 10/07/2021 Future Test Test Name Order Date UPPER GI ENDOSCOPY 08/19/2016 COLONOSCOPY 08/19/2016 Next Appt Details Provider Name:Levy parekh Jr, 12/06/2024 03:15:00 PM, [address], [address], [place], [address], Insurance Providers Payer Name Payer Address Payer Phone Subscriber Number Group Number Insured Name Patient Relationship to Insured Coverage Start Date Coverage End Date MEDICARE OF [place] [address] YONNY LÓPEZ [id number] [phone] [id number] FELI MORLEY Self - patient is the insured MEDICAID OF [facility] [address] [place] [phone] [id number] FELI MORLEY Self - patient is the insured Medical (General) History Medical History History ICD Code Colonoscopy 01/28/17, done fo r change in bowel habits, normal including terminal ileal and sigmoid biopsies. blind eye left PTSD developmental delay asthma urinary incontinence Upper endoscopy done for epi gastric pain, 01/28/17, normal, no H. pylori or Patel's Surgical History Surgery Date(Month/Year) Eye surgery
--- OUTSIDE RECORDS SUMMARY | 2024-11-01 14:41 | XMS_ITS | Clinical Summary ---
Author Organization [facility] Address [address] [place] [address] Phone Care Team Providers Care Mat Roller Name Role Phone Ernesto Hernandez Primary Care Provider [phone] Allergies No known active allergies Medications diclofenac (Voltaren Arthritis Pain) 1 % topical gel Apply 4 g topically 2 (two) times a day. 240 g 1 5 11/04/19 25 Active methocarbamoL (ROBAXIN) 750 mg tablet Take 1 tablet (750 mg total) by mouth 4 (four) times a day for 10 days. 40 each 5 Active ibuprofen (ADVIL,MOTRIN) 800 mg tablet Take 1 tablet (800 mg total) by mouth every 12 (twelve) hours for 21 days. 42 each 5 11/21/19 25 Active naproxen (NAPROSYN) 500 mg tablet Take 1 tablet (500 mg total) by mouth 2 (two) times a day with meals for 15 days. 30 tablet 5 10/26/19 25 ibuprofen (ADVIL,MOTRIN) 600 mg tablet Take 1 tablet (600 mg total) by mouth every 6 (six) hours if needed for mild pain (for pain) for up to 10 days. 30 tablet 5 10/27/19 25 Active Problems No known active problems Encounters Date Type Department Care Team Description 10/30/2024 1:30 PM EDT Consult Orthopedic Surgery - [place] [address] [facility] [address] [place] [address] Asha Solomon PA Acute pain of right shoulder (Primary Dx) 10/16/2024 6:16 PM EDT - 10/16/2024 8:04 PM EDT Emergency [facility] [address] [place] [phone] Right shoulder injury, initial encounter (Primary Dx) Discharge Disposition: Home or Self Care 10/10/2024 8:51 AM EDT - 10/10/2024 9:52 AM EDT Emergency [facility] [address] [place] [phone] Acute pain of right shoulder (Primary Dx) Discharge Disposition: Home or Self Care 09/04/2024 1:30 PM EST Office Visit Orthopedic Surgery - [place] [address] [place] [address] [address] [place] [phone] Roberto Faye, FLOR Inversion sprain of left ankle, sequela (Primary Dx); Ankle impingement syndrome, left from Last 3 Months Immunizations Name Administration Dates Next Due Influenza, Unspecified 05/21/2016 Medical History Medical History Date Comments Obstructive sleep apnea (raymond lt) (pediatric) 04/22/2023 DX:Obstructive sleep apnea ( adult) (pediatric) Essential hypertension, malignant 04/22/2023 DX:Essential hypertension, malignant Migraine 04/22/2023 DX:Migraine 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 04/22/2023 DX:Intrinsic asthma without status asthmaticus Left ankle pain 04/22/2023 DX:Left ankle pa in Social History Tobacco Use Types Packs/Day Years Used Date Smoking Tobacco: Never Smokeless Tobacco: Never Tobacco Cessation:Counseling Given: Not Answered Alcohol Use Standard Drinks/Week Comments Not Currently 0 (1 standard drink = 0.6 oz pur e alcohol) Comments Unknown Sex and Gender Information Value Date Recorded Sex Assigned at Female 10/10/2024 9:11 AM EDT Legal Sex Female 9:10 PM EST Gender Identity Female 10/10/2024 9:11 AM EDT Sexual Orientation Straight 10/10/2024 9: 11 AM EDT Obstetrics History Last Filed Vital Signs Vital Sign Reading Time Taken Comments Blood Pressure 100/57 10/16/2024 6:07 PM EDT Pulse 73 10/16/2024 6:07 PM EDT Temperature 36.6 ??C (97.9 ??F) 10/16/2024 6:07 PM ED T Respiratory Rate 22 10/16/2024 6:07 PM EDT Oxygen Saturation 97% 10/16/2024 6:07 PM EDT Inhaled Oxygen Concentration - - Weight 77.1 kg (170 lb) 10/30/2024 1:16 PM EDT Height 162.6 cm (5' 4.02 ) 10/30/2024 1:16 PM ED T Body Mass Index 29.17 10/30/2024 1:16 PM EDT Plan of Treatment Upcoming Encounters Date Type Department Care Team (Late st Contact Info) Description 11/06/2024 2:00 PM EDT Office Visit Orthopedic Surgery [facility] [address] [facility] [address] [place] [phone] Roberto Faye, DPYayo [address] [facility] 250 [place] [address] 12/13/2024 11:15 AM EDT Office Visit Orthopedic Surgery [facility] [address] [facility] [address] [place] [phone] Asha Solomon PA [address] [facility] [address] [place] [phone] Health Maintenance Due Date Last Done Comments Breast Cancer Screening 1972 COVID-19 Vaccine (#1) 1977 DTaP,Tdap,and Td Vaccines (1 - Tdap) 11/29/1991 Hepatitis B Vaccines (1 of 3 - 19+ 3-dose series) 11/29/1991 Pneumococcal Vaccine: 50+ Years (1 of 2 - PCV) 11/29/1991 Pneumococcal Vaccine: Pediatrics (0 to 5 Years) and At-Risk Patients (6 to 64 Years) (1 of 2 - PCV) 11/29/1991 Zoster Vaccines (1 of 2) 11/29/1991 Cervical Cancer Screening: P ap Smear 1993 Cholesterol Screening (Lipid Panel) 08/26/2023 Colorectal Cancer Screening: Colonoscopy 08/26/2023 Depression Screening 08/26/2023 HIV Screening 08/26/2023 Hepatitis C Screening 08/26/2023 Medicare Annual Wellness Visit 08/26/2023 Social Influencers of Health Screening 08/26/2023 Hypertension/CHF/CAD Annual BMP Blood Test 09/14/2023 Influenza Vaccine Completed 05/15/2024, 05/21/2016 HIB Vaccines Aged Out No longer eligi ble based on patient's age to complete this topic HPV Vaccines Aged Out No longer eligi ble based on patient's age to complete this topic Hepatitis A Vaccines Aged Out No long er eligible based on patient's age to complete this topic IPV Vaccines Aged Out No longer eligi ble based on patient's age to complete this topic MMR Vaccines Aged Out No longer eligi ble based on patient's age to complete this topic Meningococcal ACWY Vaccine Aged Out N o longer eligible based on patient's age to complete this topic Meningococcal B Vacine Aged Out No lo nger eligible based on patient's age to complete this topic RSV Immunization Patients Under 20 months Aged Out No longer eligible b ased on patient's age to complete this topic Varicella Vaccines Aged Out No longer eligible based on patient's age to complete this topic Procedures Procedure Name Priority Date/Time Associated Diagnosis Comments XR HUMERUS 2+ VIEWS RIGHT STAT 10/16/2024 6:20 PM EDT XR SHOULDER 2+ VIEWS RIGHT STAT 10/16/2024 6:20 PM EDT XR SHOULDER 2+ VIEWS RIGHT STAT 10/10/2024 9:00 AM EDT from Last 3 Months Results * XR Humerus 2+ Views Right (10/16/2024 6:20 PM EDT) Anatomical Region Laterality Modality Upper Extremities, Humerus Right Radio graphic Imaging 10/17/2024 7:29 AM EDT Impressions 10/17/2024 7:34 AM EDT No acute fracture or subluxation. -------- FINAL REPORT -------- Dictated By: Joe Lindsay Dictated Date: 10/17/2024 07:29 ET Assigned Physician: Joe Lindsay Reviewed and Electronically Signed By: Joe Lindsay Signed Date: 10/17/2024 07:34 ET Workstation ID: [id number] Transcribed By: Self Edit Transcribed Date: 10/17/2024 07:29 ET Narrative 10/17/2024 7:34 AM EDT EXAMINATION: RIGHT SHOULDER RIGHT HUMERUS CLINICAL INFORMATION: Pain. Fall COMPARISON: Right shoulder 10/10/2024 TECHNIQUE: 3 views right shoulder Frontal and lateral views right humerus FINDINGS: Right shoulder: No fracture, focal lesion, periosteal new bone or subluxation. Tiny ossification associated with the dorsum of the acromion unchanged with no overlying soft tissue swelling. No suspicious abnormality in the visualized chest Right humerus: No fracture focal lesion or periosteal new bone. The chest and ribs are not evaluable. Procedure Note Joe Lindsay MD - 10/17/2024 EXAMINATION: RIGHT SHOULDER RIGHT HUMERUS CLINICAL INFORMATION: Pain. Fall COMPARISON: Right shoulder 10/10/2024 TECHNIQUE: 3 views right shoulder Frontal and lateral views right humerus FINDINGS: Right shoulder: No fracture, focal lesion, periosteal new bone or subluxation. Tiny ossification associated with the dorsum of the acromion unchangedwith no overlying soft tissue swelling. No suspicious abnormality in the visualized chest Right humerus: No fracture focal lesion or periosteal new bone. The chest and ribs are not evaluable. IMPRESSION: No acute fracture or subluxation. -------- FINAL REPORT -------- Dictated By: Joe Lindsay Dictated Date: 10/17/2024 07:29 ET Assigned Physician: Joe Lindsay Reviewed and Electronically Signed By: Joe Lindsay Signed Date: 10/17/2024 07:34 ET Workstation ID: [id number] Transcribed By: Self Edit Transcribed Date: 10/17/2024 07:29 ET us Fredy Cueto MD IMG XR PROCEDURES Final R esult * XR Shoulder 2+ Views Right (10/16/2024 6:20 PM EDT) Only the most recent of2 resultswithin the time period is included. Anatomical Region Laterality Modality Upper Extremities, Shoulder Right Radi ographic Imaging 10/17/2024 7:29 AM EDT Impressions 10/17/2024 7:34 AM EDT No acute fracture or subluxation. -------- FINAL REPORT -------- Dictated By: Joe Lindsay Dictated Date: 10/17/2024 07:29 ET Assigned Physician: Joe Lindsay Reviewed and Electronically Signed By: Joe Lindsay Signed Date: 10/17/2024 07:34 ET Workstation ID: [id number] Transcribed By: Self Edit Transcribed Date: 10/17/2024 07:29 ET Narrative 10/17/2024 7:34 AM EDT EXAMINATION: RIGHT SHOULDER RIGHT HUMERUS CLINICAL INFORMATION: Pain. Fall COMPARISON: Right shoulder 10/10/2024 TECHNIQUE: 3 views right shoulder Frontal and lateral views right humerus FINDINGS: Right shoulder: No fracture, focal lesion, periosteal new bone or subluxation. Tiny ossification associated with the dorsum of the acromion unchanged with no overlying soft tissue swelling. No suspicious abnormality in the visualized chest Right humerus: No fracture focal lesion or periosteal new bone. The chest and ribs are not evaluable. Procedure Note Joe Lindsay MD - 10/17/2024 EXAMINATION: RIGHT SHOULDER RIGHT HUMERUS CLINICAL INFORMATION: Pain. Fall COMPARISON: Right shoulder 10/10/2024 TECHNIQUE: 3 views right shoulder Frontal and lateral views right humerus FINDINGS: Right shoulder: No fracture, focal lesion, periosteal new bone or subluxation. Tiny ossification associated with the dorsum of the acromion unchangedwith no overlying soft tissue swelling. No suspicious abnormality in the visualized chest Right humerus: No fracture focal lesion or periosteal new bone. The chest and ribs are not evaluable. IMPRESSION: No acute fracture or subluxation. -------- FINAL REPORT -------- Dictated By: Joe Lindsay Dictated Date: 10/17/2024 07:29 ET Assigned Physician: Joe Lindsay Reviewed and Electronically Signed By: Joe Lindsay Signed Date: 10/17/2024 07:34 ET Workstation ID: [id number] Transcribed By: Self Edit Transcribed Date: 10/17/2024 07:29 ET us Fredy Cueto MD IMG XR PROCEDURES Final R esult from Last 3 Months Insurance MEDICAID - [place] [employer] MEDICARE ADVANTAGE Care Teams Mat Roller Relationship Specialty Start Date End Date Ernesto Hernandez PA [address] [place] [address] PCP - General 12/21/22
--- OUTSIDE RECORDS SUMMARY | 2024-11-01 14:41 | XMS_ITS ---
Author Organization [facility] Address [address] [place] [address] Care Team Providers Care Surgical Endoscopist Name Role Phone Ernesto Hernandez Primary Care Provider Unavailab Levy Ozuna Jr REASON FOR VISIT Patient presents today for IBS Encounters Encounter Location Date Provider Diagnosis [facility] [address] [facility] [address] [place] [address] 09/06/2024 Levy Sung Jr Plan Of Treatment Next Appt Details Provider Name:Levy parekh Jr, 12/06/2024 03:15:00 PM, [address] [facility], [address], [place], [address], Progress Notes * FELI MORLEY ADOB:1970 (53 yo F)Acc No.[id number]:09/06/2024 Progress Notes Patient:?NIKOValentino FELI A Provider:?Levy Sung MD :1970???Age:53 Y???Sex:Female D ate:09/06/2024 Address: [place], [place] Pcp:Ernesto Hernandez Subjective: * Chief Complaints: * ???1. Patient presents today for IBS. * Medical History:? Objective: * Vitals:? Assessment: Plan: * Treatment: * * The named appointment provid er may or may not be the originator of this progress note, and it is not deemed complete until electronically signed by the appointment provider. Sign off status: Pending * Provider:?Levy Sung MD Date:?0 09/06/2024 Generated for Danyell asif/Chari/Awilda on:?11/01/2024 02:40 PM EDT
--- OUTSIDE RECORDS SUMMARY | 2024-11-01 14:41 | XMS_ITS | Encounter Summary ---
Author Organization [facility] Address [id number] [place] [id number] Care Team Providers Care Aws Consultant Name Role Phone Ernesto Hernandez Primary Care Provider [phone] Reason for Referral * Consultation (Routine) - Pending Review Specialty Diagnoses / Procedures Referred By Contkarthikeyan pratt Referred To Contact Physical Therapy Diagnoses Acute pain of right shoulder Asha Solomon PA [address] [facility] [address] [place] [address] Phone: tel: fax: Referral ID Status Reason Start Date Expiration Date Visits Requested Visits Authorized [id number] Pending Review Specialty Services Required 10/30/2024 10/30/2025 1 1 Reason for Visit * Reason Comments Consult NPV-right shoulder p ain * Consultation (Routine) - Authorized Specialty Diagnoses / Procedures Referred By Contact Referred To Contact Orthopaedics / Orthopaedic Surgery Diagnoses Right shoulder injury Telma Brower PA [address] [place] [address] Phone: tel: fax: Orthopedic Surgery [facility] [address] [facility] [address] [place] [address] Phone: tel: fax: Referral ID Status Reason Start Date Expiration Date Visits Requested Visits Authorized [id number] Authorized Specialty Services Required 10/16/2024 10/16/2025 1 1 Encounter Details Date Type Department Care Team (Late st Contact Info) Description 10/30/2024 1:30 PM EDT Consult Orthopedic Surgery [facility] [address] [facility] [address] [place] [address] Asha Solomon PA [address] [facility] [address] [place] [address] Acute pain of right shoulder (Primary Dx) Social History Tobacco Use Types Packs/Day Years Used Date Smoking Tobacco: Never Smokeless Tobacco: Never Alcohol Use Standard Drinks/Week Comments Not Currently 0 (1 standard drink = 0.6 oz pur e alcohol) Comments Unknown Sex and Gender Information Value Date Recorded Sex Assigned at Female 10/10/2024 9:11 AM EDT Legal Sex Female 9:10 PM EST Gender Identity Female 10/10/2024 9:11 AM EDT Sexual Orientation Straight 10/10/2024 9: 11 AM EDT documented as of this encounter Last Filed Vital Signs Vital Sign Reading Time Taken Comments Blood Pressure - - Pulse - - Temperature - - Respiratory Rate - - Oxygen Saturation - - Inhaled Oxygen Concentration - - Weight 77.1 kg (170 lb) 10/30/2024 1:16 PM EDT Height 162.6 cm (5' 4.02 ) 10/30/2024 1:16 PM ED T Body Mass Index 29.17 10/30/2024 1:16 PM EDT documented in this encounter Functional Status * Are you deaf or do you have serious difficulty hearing? Answer Date of Assessment Author No 06/04/2024 7:02 PM Savana Mario RN * Are you blind or do you have serious difficulty seeing, even when wearing glasses? Answer Date of Assessment Author No 06/04/2024 7:02 PM Savana Mario RN * Do you have serious difficulty walking or climbing stairs? Answer Date of Assessment Author No 06/04/2024 7:02 PM Savana Mario RN * Do you have serious difficulty dressing or bathing? Answer Date of Assessment Author No 06/04/2024 7:02 PM Savana Mario RN * Because of a physical, mental, or emotional condition, do you have serious difficulty doing errandsalone such as visiting the doctor? Answer Date of Assessment Author No 06/04/2024 7:02 PM Savana Mario RN documented as of this encounter Mental Status * Because of a physical, mental, or emotional condition, do you have serious difficulty concentrating, remembering, or making decisions? (5 years old or older) Answer Entry Date Author No 06/04/2024 7:02 PM Savana Mario RN documented in this encounter Ordered Prescriptions Prescription Sig Dispense Quantity Refills Last Filled Start Date End Date ibuprofen (ADVIL,MOTRIN) 800 mg tablet Take 1 tablet (800 mg total) by mouth every 12 (twelve) hours for 21 days. 42 each 10/30/2024 11/20/2024 documented in this encounter Progress Notes * STEPHANIE Dempsey - 10/30/2024 1:30 PM EDT Referring MD:Telma Brower PA is a 53 y.o. year old female who presents for consultation regarding Chief Complaint Patient presents with Consult NPV-right shoulder pain . HPI: 53-year-old [id number] female chief complaint right shoulder pain ongoing for about 3 months. She reports she started having shoulder pain about 3 months ago but then she fell on October 15 where she was walking her dog and had increased right shoulder pain. She has been having some trouble lifting her arm and pain lying on her side at night. She went to the [facility] ER and she had x-rays of the shoulder and humerus with no fracture. She has been taking a muscle relaxant that is not helpingand ibuprofen 600 mg that is also not helping. No numbness tingling in her arm. PAST MEDICAL HISTORY: Past Medical History: Diagnosis Date Essential hypertension, malignant 04/22/2023 DX:Essential hypertension, malignant Intrinsic asthma without status asthmaticus 04/22/2023 DX:Intrinsic asthma without status asthmaticus Left ankle pain 04/22/2023 DX:Left ankle pain Migraine 04/22/2023 DX:Migraine Obstructive sleep apnea (adult) (pediatric) 04/22/2023 DX:Obstructive sleep apnea (adult) (pediatric) PAST SURGICAL HISTORY: No past surgical history on file. SOCIAL HISTORY: Social History Occupational History Not on file Tobacco Use Smoking status: Never Smokeless tobacco: Never Substance and Sexual Activity Alcohol use: Not Currently Drug use: Not Currently Sexual activity: Not on file FAMILY HISTORY: No family history on file. No family status information on file. ACTIVE PROBLEMS LIST: There is no problem list on file for this patient. ACTIVE MEDICATIONS: Current Outpatient Medications on File Prior to Visit Medication Sig Dispense Refill diclofenac (Voltaren Arthritis Pain) 1 % topical gel Apply 4 g topically 2 (two) times a day. 240 g1 [] ibuprofen (ADVIL,MOTRIN) 600 mg tablet Take 1 tablet (600 mg total) by mouth every 6 (six) hours if needed for mild pain (for pain) for up to 10 days. 30 tablet 0 methocarbamoL (ROBAXIN) 750 mg tablet Take 1 tablet (750 mg total) by mouth 4 (four) times a day for 10 days. 40 each 0 [] naproxen (NAPROSYN) 500 mg tablet Take 1 tablet (500 mg total) by mouth 2 (two) times a day with meals for 15 days. 30 tablet 0 No current facility-administered medications on file prior to visit. ALLERGIES: No Known Allergies PHYSICAL EXAM: Visit Vitals Ht 1.626 m (64.02 ) Wt 77.1 kg (170 lb) BMI 29.17 kg/m?? Smoking Status Never BSA 1.83 m?? APPEARANCE: Alert and in no acute distress EYES: conjunctivae and sclerae normal EXTREMITIES: Extremities warm and well perfused without clubbing, cyanosis, or edema Right shoulder no swelling. Right wrist and forearm no swelling. Full flexion extension of the elbow with 5 out of 5 biceps and triceps strength. She can make a full fist with hypothenar, thenar interosseous musculature intact. Active forward flexion is to 90 degrees, IR to L4 and external . Passively forward flexion 140 but with some stiffness and pain, ER 50 and abduction external rotation 90. Positive Neer's and Urban test. Pain to palpation over anterior lateral aspect of the shoulder. No pain over bicipital groove. Strength intact in IR ER and supraspinatus. Negative drop arm test. Intact belly press. VASCULAR:well perfused with normal pulses in the distal extremities and no peripheral edema noted NEURO: Awake, alert and oriented SKIN: Skin color, texture, turgor normal. No rashes or lesions. PSYCH: does not appear depressed or anxious and oriented to time, place and person LABS: none IMAGING: X-rays of the right shoulder done on October 16 were reviewed showing no fracture, dislocation or lytic lesions. No calcifications no proximal migration humeral head and no arthritis. ASSESSMENT AND PLAN: 1. Acute pain of right shoulder STEPHANIE Dempsey The details of the visit were reviewed with the patient. Pertinent history, and objective findings were reviewed, along with the diagnoses: Right shoulder pain with differential diagnosis tendinitis/bursitis versus sprain. She does have some limited range of motion of her shoulder. She mentions that she is very fearful of needles and does not want a shot . Recommended physical therapy to start and ibuprofen 800 mg twice daily for the next 2 weeks. Gentle at home exercises. Patient will follow-up with me in 6 weeks time for clinical recheck. She is requesting that the therapy prescription go to [facility]. [facility] P[facility] acknowledges understanding of the above plan and agrees to follow recommendations and/or take medications as prescribed. cc: Telma Brower PA documented in this encounter Plan of Treatment Upcoming Encounters Date Type Department Care Team (Late st Contact Info) Description 11/06/2024 2:00 PM EDT Office Visit Orthopedic Surgery [facility] [address] [phone] Roberto Faye, [place]OR [address] [address] 12/13/2024 11:15 AM EDT Office Visit Orthopedic Surgery [facility] [address] [facility] [address] [facility] [address] [place] [phone] Asha Solomon PA [address] [facility] [address] [facility] [address] [place] [phone] Scheduled Referrals Name Type Priority Associated Diagnoses Order Schedule Ambulatory referral to Physical Therapy and Athletic Training Outpatient Referral Routine Acute pain of right shoulder 1 Occurrences starting 10/30/2024 until 10/30/2025 documented as of this encounter Visit Diagnoses Diagnosis Acute pain of right shoulder- Primary documented in this encounter Care Teams Aws Consultant Relationship Specialty Start Date End Date Ernesto Hernandez PA [address] [place] [phone] PCP - General 12/21/22 documented as of this encounter
== END 2024-11-01 14:11 | disposition home or self-care (01) ==
LOC: HO.HSMS 13:26
PROVIDERS: PCP Physician Assistant; Visit Provider Nurse Practitioner Family
DX: G47.33 Obstructive sleep apnea (adult) (pediatric) (principal); F81.9 Developmental disorder of scholastic skills, unspecified; G43.009 Migraine without aura, not intractable, without status migrainosus
CPT/HCPCS: 99214

== ENCOUNTER → 2024-11-01 13:25 | Outpatient (BNVA) | payer MEDICARE, SELFPAY | PROVIDERS: PCP Physician Assistant; Visit Provider Nurse Practitioner Family | DX: G47.33 Obstructive sleep apnea (adult) (pediatric) (principal); G43.009 Migraine without aura, not intractable, without status migrainosus; F81.9 Developmental disorder of scholastic skills, unspecified; Z99.89 Dependence on other enabling machines and devices | CPT/HCPCS: 99212 ==

== ENCOUNTER 2024-11-13 13:39 | Outpatient (AMB) | payer MEDICARE, SELFPAY ==
--- NOTE | 2024-11-13 13:40 | MHC.PC.OV ---
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 Required: No Accompanied by: Self / Same As Patient Allergies No Known Allergies [No Known Allergies*] Allergy (Verified 11/13/24 14:04) Medication List - Last Reconciled 11/13/24 by Ernesto Hernandez PA-C acetaminophen ER (Tylenol Arthritis Pain) 650 mg PO Q12H 30 days albuterol sulfate 90 mcg/actuation 1 inh inhalation QID 90 days NS baclofen 10 mg PO BID PRN 14 days blood pressure monitor As directed zzwyswnhbg-cidtjldoxlpya-bywe 50-325-40 mg 1 tab PO ONCE 30 days capsaicin 0.1% (Arthritis Pain Relief (capsaicin)) 1 appl topical BID 30 days diclofenac sodium 1% 2 grams topical QID 30 days dicyclomine 20 mg PO QID fluticasone furoate 100 mcg/actuation (Arnuity Ellipta) 1 inh inhalation DAILY 30 days fluticasone propionate 50 mcg/actuation (Flonase Allergy Relief) 1 spray intranasal BID 30 days ibuprofen 600 mg PO TID PRN 15 days ipratropium bromide 2 sprays intranasal BID 30 days lactulose 20 grams (30 mL) PO BID PRN 15 days lisinopril 2.5 mg PO DAILY loperamide 2 mg PO Q6H PRN 7 days miscellaneous medical supply 1 ea miscellaneous DAILY 99 days miscellaneous medical supply (Blood Pressure Cuff) As directed omeprazole 40 mg PO DAILY 90 days ondansetron HCl 4 mg PO Q8H PRN sumatriptan succinate 100 mg PO ONCE 90 days Tobacco use date assessed: 11/13/24 Dental Screening Dental Screen Date: 11/13/24 Did you have a dental visit in the last 12 months?: Yes Did you have a dental problem in the last 6 months where you did not have access to dental care?: No Was dental information given to patient?: Patient has dentist HPI Follow-up asthma HPI Details Patient is a 53 year female here today for a follow-up visit. Patient has a past medical history significant for obesity, learning disability, chronic migraine, GERD, obstructive sleep apnea, asthma. Patient recently seen at the [facility] ER for acute right shoulder pain . does reports being told she has tendinitis in her right shoulder. She can not recall any injury to her right shoulder recently. She was given tramadol up the ER. She does report getting a muscle relaxer methocarbamol which did help her pain .. CHRONIC MEDICAL CONDITIONS--> Migraines:? Has been refer Neurology and has had an evaluation. Since starting CPAP machine for her obstructive sleep apnea she has had less frequent less severe migraines. Interval history-- >? Patient has been using Fioricet on a nearly every day basis.? She has recently followed up neurology whom recommends using sumatriptan for migraine WE STARTED TO DISCUSS ONLY USING FIORICET ON NEEDED BASIS THOUGH PATIENT DOES NOT SEEM TO UNDERSTAND. .. VICENTE:? Has been started on CPAP machine to which she is using a nightly basis though finds it difficult to keep the CPAP mask on throughout the night.? She has been having less migraines since starting CPAP machine nightly. .. Hypertension:? Patient's blood pressure acceptable today in office. She is stopped taking lisinopril as she has been feeling very dizzy when she takes this medication. .. Asthma:? Patient reports she has been having to use her asthma inhaler multiple times a day as she does report cough and shortness of breath pick specially on exertion.? Will step up her asthma therapy to include Flovent inhaler twice a day for better asthma control. [facility] Medical History Screening for hypothyroidism HTN (hypertension) Asthma Migraine Seasonal allergies Surgical History No pertinent past surgical history Family History Father Celiac disease CVD (cardiovascular disease) Afib Mother Diabetes Hypertension Fibromyalgia Migraines Brother In good health Brother In good health Sister In good health Social History Housing: Apartment Alcohol intake: current Alcohol intake frequency: holidays/special occasions only Patient Tobacco Use Status: Never used Tobacco e-Cigarette/Vaping Use: Never Used Second Hand Smoke Exposure: No service: No Current occupational status: disabled 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 1. Little interest or pleasure in doing things: not at all 2. Feeling down, depressed, or hopeless: not at all 3. Trouble falling or staying asleep, or sleeping too much: not at all 4. Feeling tired or having little energy: not at all 5. Poor appetite or overeating: not at all 6. Feeling bad about yourself - or that you are a failure or have let yourself or your family down: not at all 7. Trouble concentrating on things, such as reading the newspaper or watching television: not at all 8. Moving or speaking so slowly that other people could have noticed. Or the opposite - being so fidgety or restless that you have been moving around a lot more than usual: not at all 9. Thoughts that you would be better off or of hurting yourself in some way: not at all Total score: 0 Depression Screening Interpretation: Negative Depression Screening Done: Yes 84968 - PHQ-9 Billing: Yes Source: Developed by Drs. Hector Acuña, Varsha Chavez, Sage Sarabia and colleagues, with an educational jean marie from [employer]. Thrive Questionnaire Date Thrive assessed: 11/13/24 I am a: Patient What is your living situation today?: I have a steady place to live Within the past 12 months, did the food you bought not last and you didn't have the money to get more?: Never true Within the past 12 months, did you worry whether your food would run out before you got money to buy more?: Never true Do you have trouble paying for medicines?: No Do you have trouble getting transportation to medical appointments?: No Do you have trouble paying your heating and electricity bill?: No Do you have trouble taking care of your child, family member or friend?: No Do you have trouble with day-to-day activities such as bathing, preparing meals, shopping, managing finances, etc.?: No Are you currently unemployed and looking for a job?: No Are you interested in more education?: No Please select the resources that you would like help with: None Currently or been in a relationship where the following occur: No concerns reported THRIVE Score: 0 AUDIT C Alcohol Use Questionnaire (AUDIT-C) 1. How often do you have a drink containing alcohol?: Never 3. How often do you have six or more drinks on one occasion?: Never Total Score: 0 Score Reviewed/Action Taken: Yes JUHI-7 AMB Questionnaire JUHI-7 Date JUHI - 7 assessed: 11/13/24 Feeling nervous, anxious, or on edge: 0 = Not at all Not being able to stop or control worryin = Not at all Worrying too much about different things: 0 = Not at all Trouble relaxin = Not at all Being so restless that it is hard to sit still: 0 = Not at all Becoming easily annoyed or irritable: 0 = Not at all Feeling afraid as if something awful might happen: 0 = Not at all Total JUHI-7 score (0-4 normal; 5-9 mild; 10-14 moderate; 15-21 severe): 0 Source: Developed by Drs. Hector Acuña, Varsha Chavez, Sage Sarabia and colleagues, with an educational jean marie from [employer]. JUHI-7 Assessment Billing JUHI-7 Assessment Tool: JUHI-7 Assessment 97005 ACT Questionnaire In the past 4 weeks, how much of the time did your asthma keep you from getting as much done at work, school or at home?: None of the time During the past 4 weeks, how often have you had shortness of breath?: Not at all During the past 4 weeks, how often did your asthma symptoms wake you up at night or earlier than usual in the morning?: Not at all During the past 4 weeks, how often have you had to use your rescue inhaler or nebulizer medication?: Not at all How would you rate your asthma control during the past 4 weeks?: Completely controlled ACT Interpretation: Negative Score: 25 Review of Systems Const Denies headache(s) Eyes Denies loss of vision ENT Denies vertigo, Denies dizziness, Denies headache(s) and Denies sore throat Card Denies chest pain, Denies leg edema and Denies lightheadedness Resp Denies cough, Denies hemoptysis and Denies wheezing GI Denies abdominal pain, Denies melena, Denies constipation, Denies diarrhea and Denies vomiting Denies urinary frequency, Denies dysuria and Denies urinary urgency Musc Denies arthralgias, Denies joint swelling, Denies numbness and Denies tingling Neuro Denies Abnormal speech present, Denies behavioral changes, Denies vertigo, Denies dizziness, Denies headache(s), Denies loss of vision, Denies memory loss, Denies numbness and Denies tingling Psych Denies anxiety, Denies behavioral changes, Denies depression, Denies memory loss and Denies panic attacks Jozef/Lymph Denies easy bleeding and Denies easy bruising Aller/Immun Denies wheezing Physical exam (Primary Care) Vital Signs: Last Vital Signs Temp 97.3 F 11/13/24 13:53 Pulse 70 11/13/24 13:53 BP 124/68 11/13/24 13:53 Pulse Ox 98 11/13/24 13:53 Oxygen Delivery Method Room Air 11/13/24 13:53 BMI result Body Mass Index 38.0 Tobacco/Smoking Status: Tobacco use Status Tobacco use date assessed 08/19/23 11/13/24 13:40 Patient Tobacco Use Status Never used Tobacco 11/13/24 13:40 e-Cigarette/Vaping Use Never Used 11/13/24 13:40 PHQ-9: PHQ-9 Score PHQ-9: Total score 0 11/13/24 13:50 Depression Screening Interpretation: Negative Thrive Assessment: Date of Thrive Assessment Date Thrive assessed 11/13/24 11/13/24 13:50 Currently or been in a relationship where the following occur: No concerns reported Const General: healthy appearing, no acute distress, alert and awake Nutritional Appearance: well nourished Orientation/consciousness: oriented to person, oriented to place and oriented to time HENMT Ears: TM's normal bilaterally General nose exam: Normal nasal mucous membranes and turbinates present Eyes Conjunctivae: conjunctivae normal Sclerae: sclerae normal Pupils: Equal, round and reactive pupils present Neck Neck: Yes no lymphadenopathy and Yes no JVD Thyroid: Thyroid normal Carotids: no bruits Resp Effort & Inspection: normal respiratory effort and not tachypneic Auscultation: no crackles, no rales, no rhonchi and no wheezes Cardio Rate: regular rate Rhythm: regular rhythm Heart sounds: no murmurs and normal S1 and S2 GI Palpation (GI): Soft to palpation, nontender, no hepatomegaly and no splenomegaly Auscultation: normal bowel sounds Skin General skin exam: no rashes or lesions noted and dry skin Neuro General: oriented to person, oriented to place and oriented to time Cranial nerves: Yes Equal, round and reactive pupils present Speech: No Abnormal speech present Gait exam (Neuro): Normal gait present Motor exam (neuro): no tremor noted Extrem Right upper extremity: full ROM Left upper extremity: full ROM Right lower extremity: full ROM; no edema Left lower extremity: full ROM; no edema Psych Mental Status: mental status grossly normal Speech and movement: Normal speech and movement present Affect: normal affect Attitude: cooperative Thought process: Normal thought process present Coding Level of Care Code Est Pt Level 4 (17572) Diagnoses Migraine without status migrainosus, not intractable, unspecified migraine type G43.909 Migraine type: unspecified Status migrainosus presence: without status migrainosus Intractability: not intractable Essential hypertension I10 Hypertension type: essential hypertension Right shoulder tendinitis M77.8 Mild intermittent asthma without complication J45.20 Asthma severity: mild Asthma persistence: intermittent Asthma complication type: uncomplicated Additional Codes JUHI-7 Assessment Billing - JUHI-7 Assessment Tool: JUHI-7 Assessment 34030 ([id number]) PHQ-9 - 55524 - PHQ-9 Billing: Yes ([id number]) Asthma Control Questionnaire - ACT Interpretation: Negative ([id number]) Assessment & Plan Assessment & Plan (1) Migraine: Code(s): G43.909 - Migraine, unspecified, not intractable, without status migrainosus Category: Medical Qualifiers: Migraine type: unspecified Status migrainosus presence: without status migrainosus Intractability: not intractable Qualified Code(s): G43.909 - Migraine, unspecified, not intractable, without status migrainosus Plan: She is followed by neurologist and has been using sumatriptan for first-line med for migraines. We did discuss the habit-forming nature of butalbital and the rebound headaches that could come along with this medication she does somewhat understand. (2) HTN (hypertension): Code(s): I10 - Essential (primary) hypertension Category: Medical Qualifiers: Hypertension type: essential hypertension Qualified Code(s): I10 - Essential (primary) hypertension Plan: Patient's blood pressure acceptable today in office. Will continue current dose of lisinopril with goal blood pressure to be below 140/90 (3) Right shoulder tendinitis: Code(s): M77.8 - Other enthesopathies, not elsewhere classified Category: Medical Plan: Had recent ER visit for right shoulder pain, she was diagnosed with tendinitis. She is willing to do physical therapy. We did discuss the possibility of having to do more advanced imaging to evaluate for rotator cuff partial tear though she is not open to the idea of doing MRI or CT scan (4) Asthma: Code(s): J45.909 - Unspecified asthma, uncomplicated Category: Medical Qualifiers: Asthma severity: mild Asthma persistence: intermittent Asthma complication type: uncomplicated Qualified Code(s): J45.20 - Mild intermittent asthma, uncomplicated Plan: Patient's asthma seems to be well controlled with current maintenance inhaler and p.r.n. use of her albuterol inhaler. She has denies any nighttime awakenings with asthma symptoms or recent asthma exacerbations. Orders: Orders PT Evaluation and Treatment Today M77.8 - Other enthesopathies, not elsewhere classified Microalbumin, Random (w Creat) Today I10 - Essential (primary) hypertension Comprehensive [place]. Panel Fast Today I10 - Essential (primary) hypertension Complete Blood Count no Diff Today I10 - Essential (primary) hypertension MM screening mammo BI Today Z12.31 - Encounter for screening mammogram for malignant neoplasm of breast Medications: New methocarbamol 500 mg PO BID 15 days PRN 30 tabs 0RF pain (scale score 7-10) M77.8 - Other enthesopathies, not elsewhere classified Refilled albuterol sulfate 90 mcg/actuation 1 inh inhalation QID 90 days 3 inhalers 3RF NS J45.909 - Unspecified asthma, uncomplicated dlntrieeoe-klwfxioatwjsr-afhx 50-325-40 mg TO BE USED once per day NEEDED ONLY FOR ACUTE MIGRAINES 1 tab PO ONCE 30 days 30 tabs 1RF headaches G43.909 - Migraine, unspecified, not intractable, without status migrainosus fluticasone furoate 100 mcg/actuation (Arnuity Ellipta) 1 inh inhalation DAILY 30 days 30 ea 3RF J45.20 - Mild intermittent asthma, uncomplicated fluticasone propionate 50 mcg/actuation (Flonase Allergy Relief) administer into each nostril 1 spray intranasal BID 30 days 16 grams 1RF R09.81 - Nasal congestion ondansetron HCl 4 mg PO Q8H PRN 10 tabs 3RF nausea and vomiting K27.9 - Peptic ulcer, site unspecified, unspecified as acute or chronic, without hemorrhage or perforation omeprazole 40 mg PO DAILY 90 days 90 caps 2RF K27.9 - Peptic ulcer, site unspecified, unspecified as acute or chronic, without hemorrhage or perforation Discontinued baclofen Discontinued Reason: Doctor's Order 10 mg PO BID 14 days PRN 28 tabs 0RF muscle spasm M54.16 - Radiculopathy, lumbar region
[2024-11-13 13:53] VITALS: BP 124/68; PULSE 70; TEMP 36.3; O2SAT 98; BMI 38.0
--- OUTSIDE RECORDS SUMMARY | 2024-11-13 16:43 | XMS_ITS ---
Author Organization [facility] Address [address] [place] [address] Care Team Providers Care Power Machine Operator Name Role Phone David, Ernesto Primary Care [...] 20 MG 1-2 Orally before meals/prn Active Mlqbtsropw-MLL-Chsylhjt Active Ondansetron Active Loperamide HCl 2 MG 1-2 capsule Orally F our times a day Active ProAir HFA Active ibuprofen Active Encounters Encounter Location Date Provider Diagnosis [facility] [address] [place] [address] 05/10/2024 Levy Sung Jr Plan Of Treatment Next Appt Details Provider Name:Levy parekh Jr, 12/06/2024 03:15:00 PM, [address], [address], [place], [address], Progress Notes * FELI MORLEY ADOB:1970 (53 yo F)Acc No.[id number]:05/10/2024 Progress Notes Patient:FELI MCCOY Provider:?Levy Sung MD :1970???Age:53 Y???Sex:Female D ate:05/10/2024 Address:[address] [place] [address] [facility] Pcp:Ernesto Hernandez Subjective: * Chief Complaints: * ???1. Patient presents today for IBS. * Medical History:? * Medications:?Taking ibuprofe n , Taking Ondansetron , Taking [place]-FHN-Xstqlznf , Taking ProAir HFA , Taking Loperamide [...] Provider:?Levy Sung MD Date:?1 Generated for Danyell asif/Chari/Gabrielaransmitting on:?11/13/2024 04:43 PM EDT
--- OUTSIDE RECORDS SUMMARY | 2024-11-13 16:44 | XMS_ITS | Patient Health Record ---
Author Organization [facility] Address [address] [place] [address] Care Team Providers Care Sound Controller Name Role Phone Ernesto Hernandez Primary Care Provider UnavailLevy Alanis Jr Unavailable [phone] Allergies No Known Allergies Reason For Referral No Information Medications Medication SIG (Take, Route, Frequency, Duration) Notes Start Date End Date Status Omeprazole 40 MG TAKE 1 CAPSULE BY MO UTH EVERY DAY Oral for 90 Active Dicyclomine HCl 20 MG 1-2 Orally before meals/prn Active Cyclobenzaprine HCl 10 MG Oral for 7 Active SUMAtriptan Succinate 100 MG Oral for 23 Active Nrphutugrc-SPV-Abqowrxk Active Ondansetron Active ProAir HFA Active Loperamide [...] Problem Status W/U Status Risk Notes Problem 38706745 Epigastric pain (R10.13) Active confirmed Problem 520693324 Change in bowel habits (R19.4) Active confirmed Problem 196303254 Irritable bowel syndrome with diarrhea (K58.0) Active confirmed Problem 410317978 Gastroesophageal reflux disease without esophagitis (K21.9) Active confirmed Problem 588157796 Gallstones (K80.20) Active confirmed Problem 580259780 Hepatic steatosi s (K76.0) Active confirmed Encounters Encounter Location Date Provider Diagnosis [facility] [address] [place] [address] 05/10/2024 Levy Sung Jr Plan Of Treatment Pending Test Test Name Order Date LIVER PROFILE 10/07/2021 LIPASE 10/07/2021 CBC w/o DIFF 10/07/2021 HIDA SCAN W/WO GALL BLADDER 10/07/2021 Future Test Test Name Order Date UPPER GI ENDOSCOPY 08/19/2016 COLONOSCOPY 08/19/2016 Next Appt Details Provider Name:Levy parekh Jr, 12/06/2024 03:15:00 PM, [address], [address], [place], [address], Insurance Providers Payer Name Payer Address Payer Phone Subscriber Number Group Number Insured Name Patient Relationship to Insured Coverage Start Date Coverage End Date MEDICARE OF [place] [address] [place]Z [id number] FELI MORLEY Self - patient is the insured MEDICAID OF [facility] [address] [place] [address] [id number] FELI MORLEY Self - patient is the [...]
--- OUTSIDE RECORDS SUMMARY | 2024-11-13 16:44 | XMS_ITS | Clinical Summary ---
Author Organization [facility] Address [address] [place] [address] Phone Care Team Providers Care Distribution Estimator Name Role Phone Ernesto Hernandez Primary Care Provider [phone] Allergies No known active allergies Medications methocarbamoL (ROBAXIN) 750 mg tablet Take 1 tablet (750 mg total) by mouth 4 (four) times a day for 10 days. 40 each 5 Active ibuprofen (ADVIL,MOTRIN) 800 mg tablet Take 1 tablet (800 mg total) by mouth every 12 (twelve) hours for 21 days. 42 each 5 11/21/19 25 Active traMADoL (ULTRAM) 50 mg tabletIndicatio ns:Chronic right shoulder pain Take 1 tablet (50 mg total) by mouth 3 (three) times a day if needed for severe pain for up to 3 days. Max Daily Amount: 150 mg 9 tablet 5 11/15/19 25 Active diclofenac (Voltaren Arthritis Pain) 1 % topical gel Apply 4 g topically 2 (two) times a day. 240 g 1 5 11/04/19 25 naproxen (NAPROSYN) 500 mg tablet Take 1 tablet (500 mg total) by mouth 2 (two) times a day with meals for 15 days. 30 tablet 5 10/26/19 25 ibuprofen (ADVIL,MOTRIN) 600 mg tablet Take 1 tablet (600 mg total) by mouth every 6 (six) hours if needed for mild pain (for pain) for up to 10 days. 30 tablet 03/18/10/27/19 Active Problems No known active problems Encounters Date Type Department Care Team Description 11/11/2024 5:16 PM EDT - 11/11/2024 6:16 PM EDT Emergency Emergency [address] [place] [address] Chronic right shoulder pain (Primary Dx) Discharge Disposition: Home or Self Care 10/30/2024 1:30 PM EDT Consult Orthopedic Surgery [facility] [address] [facility] [address] [place] [phone] Asha Solomon PA Acute pain of right shoulder (Primary Dx) 10/16/2024 6:16 PM EDT - 10/16/2024 8:04 PM EDT Emergency Emergency [address] [place] [id number] Right shoulder injury, initial encounter (Primary Dx) Discharge Disposition: Home or Self Care 10/10/2024 8:51 AM EDT - 10/10/2024 9:52 AM EDT Emergency Emergency [address] [place] [address] Acute pain of right shoulder (Primary Dx) Discharge Disposition: Home or Self Care 09/04/2024 1:30 PM EST Office Visit Orthopedic Surgery [facility] [address] [facility] [address] [place] [address] Roberto Faye, FLOR Inversion sprain of left [...] Sign Reading Time Taken Comments Blood Pressure 129/71 11/11/2024 5:03 PM EDT Pulse 88 11/11/2024 5:03 PM EDT Temperature 36.9 ??C (98.4 ??F) 11/11/2024 5:03 PM ED T Respiratory Rate 16 11/11/2024 5:03 PM EDT Oxygen Saturation 98% 11/11/2024 5:03 PM EDT Inhaled Oxygen Concentration - - Weight 101 kg (222 lb) 11/11/2024 5:03 PM EDT Height 162.6 cm (5' 4 ) 11/11/2024 5:03 PM EDT Body Mass Index 38.11 11/11/2024 5:03 PM EDT Plan of Treatment Upcoming Encounters Date Type Department Care Team (Late st Contact Info) Description 12/13/2024 11:15 AM EDT Office Visit Orthopedic Surgery - [place] [address] [facility] [address] [place] [address] Asha Solomon PA [address] [facility] [address] [place] [phone] Health Maintenance Due Date Last Done Comments [...] age to complete this topic Meningococcal B Vaccine Aged Out No l onger eligible based on patient's age to complete [...] Signed Date: 10/17/2024 07:34 ET Workstation ID: [id number] Transcribed By: Self Edit Transcribed Date: 10/17/2024 [...] Signed Date: 10/17/2024 07:34 ET Workstation ID: [id number] Transcribed By: Self Edit Transcribed Date: 10/17/2024 [...] Signed Date: 10/17/2024 07:34 ET Workstation ID: [id number] Transcribed By: Self Edit Transcribed Date: 10/17/2024 [...] Signed Date: 10/17/2024 07:34 ET Workstation ID: [id number] Transcribed By: Self Edit Transcribed Date: 10/17/2024 07:29 ET Fredy Cueto MD IMG XR PROCEDURES Final R esult from Last 3 Months Insurance MEDICAID - [place] [employer] MEDICARE ADVANTAGE Care Teams Distribution Estimator Relationship Specialty Start Date End Date Ernesto Hernandez PA [address] [place] [phone] PCP - General 12/21/22
--- OUTSIDE RECORDS SUMMARY | 2024-11-13 16:44 | XMS_ITS | Encounter Summary ---
Author Organization [facility] Address [address] [place] [address] Care Team Providers Care Heat Treating Furnace Tender Name Role Phone Ernesto Hernandez Primary Care Provider [phone] Reason for Referral * Consultation (Routine) - Authorized Specialty Diagnoses / Procedures Referred By Contkarthikeyan t Referred To Contact Orthopaedics / Orthopaedic Surgery Diagnoses ? right rot cuff injury, ongoing right posterior shoulder pain Hector De Guzman PA [address] [place] [address] Phone: tel: fax: Asha Solomon PA [address] [address] Phone: tel: fax: Referral ID Status Reason Start Date Expiration Date Visits Requested Visits Authorized [id number] Authorized Specialty Services Required 11/11/2024 11/11/2025 1 1 Reason for Visit * Reason Comments Shoulder Pain Encounter Details Date Type Department Care Team (Late st Contact Info) Description 11/11/2024 5:16 PM EDT - 11/11/2024 6:16 PM EDT Emergency [facility] Emergency [address] [place] [address] Chronic right shoulder pain (Primary Dx) Discharge Disposition: Home or Self Care Social History Tobacco Use Types Packs/Day Years [...] Mass Index 38.11 11/11/2024 5:03 PM EDT documented in this encounter Functional [...] Savana Mario RN documented in this encounter Discharge Instructions * Discharge Instructions* STEPHANIE Gonzalez - 11/11/2024 5:53 PM EDT It is possible that you have sustained a rotator cuff injury in your right shoulder. The way to better evaluate for this is an MRI. I would like for you to follow-up with orthopedics, I have given you a referral, and you are free to call the office number for Dr. Masoud Gomez, as otherwise documented in this discharge summary. Alternate Tylenol (500-1,000 mg) and Ibuprofen (400-600 mg) every 4 hours for pain/inflammation. You can take tramadol 50 mg up to 4 times a day as needed for severe breakthrough pain only. This is an opioid medication and can be highly addictive and abused. Please use safely and responsibly. You have the right to partially fill your prescription at the pharmacy to avoid potential abuse. This medication may also make you drowsy, and significantly increases risk of falls. Be careful while using this medication. Try not to do any lifting over 5 pounds on the right arm in the meantime as this may cause worsening of your symptoms. I encouraged gentle range of motion of the wrist and digits to avoid stiffness however. In the meantime I encourage you to follow-up with your primary care doctor this coming Tuesday as previously scheduled. Return to the ER with any new or worsening symptoms. * Attachments The following attachments cannot be sent through Care Everywhere. * Rotator Cuff Injury (Arabic) * Shoulder Pain (Arabic) documented in this encounter Medications at Time of Discharge ibuprofen (ADVIL,MOTRIN) 800 mg tablet Take 1 tablet (800 mg total) by mouth every 12 (twelve) hours for 21 days. 42 each 10/30/2024 11/20/2024 traMADoL (ULTRAM) 50 mg tabletIndications :Chronic right shoulder pain Take 1 tablet (50 mg total) by mouth 3 (three) times a day if needed for severe pain for up to 3 days. Max Daily Amount: 150 mg 9 tablet 11/11/2024 11/14/2024 documented as of this encounter Ordered Prescriptions Prescription Sig Dispense Quantity Refills Last Filled Start Date End Date traMADoL (ULTRAM) 50 mg tabletIndications: Chronic right shoulder pain Take 1 tablet (50 mg total) by mouth 3 (three) times a day if needed for severe pain for up to 3 days. Max Daily Amount: 150 mg 9 tablet 11/11/2024 11/14/2024 documented in this encounter Discharge Disposition Disposition Code Departure Means Destination Comment s Home or Self Care Patient confirmed not driving. documented in this encounter Progress Notes * Marla Rodriguez RN - 11/11/2024 5:01 PM EDT She has been having pain in her right shoulder since last June. She has been seen here twice for her shoulder pain. She has been taking Ibuprofen and a muscle relaxer with no relief. * Primo Serrano MD - 11/11/2024 4:52 PM EDT [facility] Emergency Department Encounter Note Patient Name: Ave Pires Initial Evaluation: 11/11/2024 : 1970 Patient's PCP: STEPHANIE Ibarra Emergency Physician: STEPHANIE Peralta History of Present Illness Chief Complaint: Chief Complaint Patient presents with Shoulder Pain HPI: Ave is a 53-year-old female with reported history of hypertension, VICENTE, amongst others; presents for evaluation of ongoing, intermittent right posterior shoulder pains. Pain seems to originate in the posterior right shoulder, and radiating down to the mid aspect of the posterior lateral humerus. This all started a few days prior to her initial visit here on 10/10/2024. Radiographs were negativeat the time, and she was discharged on Naprosyn and methocarbamol. She did not have any relief on this therapy, so she returned here on 10/16/2024, at which time radiographs of the shoulder and humerus were obtained, both negative for acute pathology. She was then discharged on ibuprofen. She statesjosefina continues to have intermittent pains, primarily with active range of motion. Was feeling somewhat at her baseline earlier this morning, however upon returning home from [facility], was once again noticing the pain. She denies any overt erythema or heat. Denies any associate fevers or chills. No recent reinjury. Denies history of rotator cuff injury. No other complaints. Otherwise denies fever, chills, weakness, c/p, sob, cough, abd pain, n/v/d/c. No headache, LOC, lightheadedness, dizziness. No dysuria, frequency, or hematuria. ROS: I have performed a ROS with the pertinent positives and negatives documented in the history ofpresent illness. Previous History Past Medical History: Diagnosis Date Essential hypertension, malignant 04/22/2023 DX:Essential hypertension, malignant Intrinsic asthma without status asthmaticus 04/22/2023 DX:Intrinsic asthma without status asthmaticus Left ankle pain 04/22/2023 DX:Left ankle pain Migraine 04/22/2023 DX:Migraine Obstructive sleep apnea (adult) (pediatric) 04/22/2023 DX:Obstructive sleep apnea (adult) (pediatric) History reviewed. No pertinent surgical history. Social History Tobacco Use Smoking status: Never Smokeless tobacco: Never Substance Use Topics Alcohol use: Not Currently Drug use: Not Currently No family history on file. has No Known Allergies. No current facility-administered medications on file prior to encounter. Current Outpatient Medications on File Prior to Encounter Medication Sig Dispense Refill ibuprofen (ADVIL,MOTRIN) 800 mg tablet Take 1 tablet (800 mg total) by mouth every 12 (twelve) hours for 21 days. 42 each 0 methocarbamoL (ROBAXIN) 750 mg tablet Take 1 tablet (750 mg total) by mouth 4 (four) times a day for 10 days. 40 each 0 Physical Exam ED Triage Vitals [11/11/24 1703] Temp Heart Rate Resp BP 36.9 ??C (98.4 ??F) 88 16 129/71 SpO2 Temp Source Heart Rate Source Patient Position 98 % Oral -- -- BP Location FiO2 (%) -- -- GENERAL: Non-toxic appearing, no acute distress. SKIN: [place], warm, dry. HEENT: Normocephalic, atraumatic. EOMI. NECK: Supple, full ROM. CARDIOVASCULAR: Deferred. PULMONARY: Breathing adequately on room air. ABDOMINAL: Deferred. MUSCULOSKELETAL: RUE: + Difficulty with active external rotation and abduction/elevation of the arm due to discomfort. Reproducibly TTP about the muscular distribution of the posterior shoulder. No erythema, heat, fluctuance, or swelling. Negative empty glenoid sign. Full and uninhibited flexion/extension ability of the elbow and wrist. Gross neurovascular intact. No other tenderness to palpation. NEURO: AOx3 PSYCHIATRIC: Normal affect, fluid speech, good eye contact and appropriate demeanor. Results Labs Reviewed - No data to display Abnormal Labs Reviewed - No data to display No orders to display I have discussed the incidental/abnormal imaging and/or lab abnormalities with the patient and haveinstructed them the need for further evaluation and workup with their primary care doctor. I have provided the patient with a paper copy of the abnormality. The laboratory results, imaging results and other diagnostic exam results were reviewed in the EMR. Differential Diagnosis Rotator cuff injury Shoulder sprain vs strain Fracture-doubt Dislocation-doubt ? Medical Decision Making On my exam is NAD, nontoxic-appearing, hemodynamically stable and afebrile. Overall clinically well-appearing. Physical exam as above, consistent with possible rotator cuff injury. There are no infectious indications of form of erythema, heat, or pain with any passive range of motion. She actually tolerates full passive range of motion in all directions without any difficulty. She is otherwise neurovascularly intact. Considering she has had radiographs of the shoulder and humerus on several occasions now, in the absence of any reinjury or obvious bony deformity/crepitus or concerning findings here today, there isno indication for reimaging. She has no TTP about the midline spine, I do not find this to be radicular pain in nature. No hypertensive crisis, toxic appearance, BP variance, or other red flag signs/symptoms for dissection event. We talked about getting an outpatient MRI, however patient states she is claustrophobic and refusing a referral for MRI. I have put a referral into orthopedics. Encouraged continuing Tylenol ibuprofen, will write for short course of tramadol to bridge any severe breakthrough pain. Medically and hemodynamically stable, safe for discharge. Discussed this plan with the patient who is agreeable. Red flag symptoms and return precautions discussed, all questions asked and answered, plan for discharge with outpatient follow-up. *All documented times are approximate and may not reflect exact time of care rendered or intervention.* Clinical Impressions as of 11/11/241808 Chronic right shoulder pain Medications ketorolac (TORADOL) injection 30 mg (30 mg intramuscular Given 11/11/241801) traMADoL (ULTRAM) tablet 50 mg (50 mg oral Given 11/11/241802) Procedures Procedures Diagnosis 1. Chronic right shoulder pain traMADoL (ULTRAM) 50 mg tablet Disposition Discharge ED Prescriptions Medication Sig Dispense Start Date End Date Auth. Provider traMADoL (ULTRAM) 50 mg tablet Take 1 tablet (50 mg total) by mouth 3 (three) times a day if neededfor severe pain for up to 3 days. Max Daily Amount: 150 mg 9 tablet 11/11/2024 11/14/2024 STEPHANIE Gonzalez Physician Attestation I was available for consult in real time (during the shifts I was working) and if asked my input incare is as outlined by the documentation below by me. If not documented, then I did not participatein the care of this patient and have reviewed the chart as written. Primo Serrano MD Electronically signed by STEPHANIE Peralta PA 11/11/241808 Primo Serrano MD 11/11/24 184 documented in this encounter Plan of Treatment Upcoming Encounters Date Type Department Care Team (Late st Contact Info) Description 12/13/2024 11:15 AM EDT Office Visit Orthopedic Surgery - [place] [address] [place] [address] Asha Solomon PA [address] [place] [address] Scheduled Referrals Name Type Priority Associated Diagnoses Order Schedule Ambulatory referral to Orthopedic Outpatient Referral Routine 1 Occurrence s starting 11/11/2024 until 11/11/2025 documented as of this encounter Visit Diagnoses Diagnosis Chronic right shoulder pain- Primary Pain in joint, shoulder region documented in this encounter Administered Medications Inactive Administered Medications - up to 3 most recent administrations Medication Order MAR Action Action Date Dose Rate Site ketorolac (TORADOL) injection 30 mg 30 mg, intramuscular, Once, On 11/11/24 at 1755, For 1 dose Given 11/11/2024 6:02 PM EDT 30 mg Left Deltoid traMADoL (ULTRAM) tablet 50 mg 50 mg, oral, Once, On 11/11/24 at 1755, For 1 dose Given 11/11/2024 6:03 PM EDT 50 mg documented in this encounter Active and Recently Administered Medications Times are shown in EDT. Scheduled Medication Order 11/09/2024 11/10/2024 11/11/2024 ketorolac (TORADOL) injection 30 mg (COMPLETED) 30 mg, intramuscular, Once, On 11/11/24 at 1755, For 1 dose 1802 (Given - Provid er: Silvestre Gonzalez RN) traMADoL (ULTRAM) tablet 50 mg (COMPLETED) 50 mg, oral, Once, On 11/11/24 at 1755, For 1 dose 1803 (Given - Provid er: Silvestre Gonzalez RN) documented in this encounter Care Teams Heat Treating Furnace Tender Relationship Specialty Start Date End Date Ernesto Hernandez PA [address] [place] [address] PCP - General 12/21/22 documented as of this encounter
--- OUTSIDE RECORDS SUMMARY | 2024-11-13 16:44 | XMS_ITS ---
Author Organization [facility] Address [address] [place] [address] Care Team Providers Care Enrolled Nurse Name Role Phone Ernesto Henrandez Primary Care Provider Unavailab Levy Ozuna Jr REASON FOR VISIT Pt no show Encounters Encounter Location Date Provider Diagnosis [facility] [address] [place] [address] 05/10/2024 Levy Sung Jr Plan Of Treatment Next Appt Details Provider Name:Levy parekh Jr, 12/06/2024 03:15:00 PM, [address], [address], [place], [address], Progress Notes * FELI MORLEY ADOB:1970 (53 yo F)Acc No.[id number]:05/10/2024 Patient:?PEYMAN FELI A :1970???Age:53 Y???Sex:Female Address:[address] [place], [address] * true * Date:? Generated for Onii laya/Chari/eTransmitting on:?11/13/2024 04:43 PM EDT
--- OUTSIDE RECORDS SUMMARY | 2024-11-13 16:44 | XMS_ITS ---
Author Organization [facility] Address [address] [place] [address] Care Team Providers Care Casket Inspector Name Role Phone Ernesto Hernandez Primary Care Provider Unavailab Levy Ozuna Jr REASON FOR VISIT Patient presents today for IBS Encounters Encounter Location Date Provider Diagnosis [facility] [address] [place] [address] 09/06/2024 Levy Sung Jr Plan Of Treatment Next Appt Details Provider Name:Levy parekh Jr, 12/06/2024 03:15:00 PM, [address], [address], [place], [address], Progress Notes * FELI MORLEY ADOB:1970 (53 yo F)Acc No.[id number]:09/06/2024 Progress Notes Patient:?NIKOValentino FELI A Provider:?Levy Sung MD :1970???Age:53 Y???Sex:Female D ate:09/06/2024 Address: [address] [place], [place] Pcp:Ernesto Hernandez Subjective: * Chief Complaints: * [...] MD Date:?0 09/06/2024 Generated for Danyell asif/Chari/Awilda on:?11/13/2024 04:43 PM EDT
== END 2024-11-13 14:14 | disposition home or self-care (01) ==
LOC: HO.HMCH 13:39
PROVIDERS: PCP Physician Assistant; Visit Provider Physician Assistant
DX: G43.909 Migraine, unspecified, not intractable, without status migrainosus (principal); I10 Essential (primary) hypertension; M77.8 Other enthesopathies, not elsewhere classified; J45.20 Mild intermittent asthma, uncomplicated

== ENCOUNTER → 2024-11-13 13:39 | Outpatient (BNVA) | payer MEDICARE, SELFPAY | PROVIDERS: PCP Physician Assistant; Visit Provider Physician Assistant | DX: G43.909 Migraine, unspecified, not intractable, without status migrainosus (principal); K21.9 Gastro-esophageal reflux disease without esophagitis; G47.33 Obstructive sleep apnea (adult) (pediatric); M25.511 Pain in right shoulder; I10 Essential (primary) hypertension; E66.9 Obesity, unspecified; M77.8 Other enthesopathies, not elsewhere classified; J45.20 Mild intermittent asthma, uncomplicated; R09.81 Nasal congestion; K27.9 Peptic ulcer, site unspecified, unspecified as acute or chronic, without hemorrhage or perforation; M54.16 Radiculopathy, lumbar region; Z99.89 Dependence on other enabling machines and devices; Z68.38 Body mass index [BMI] 38.0-38.9, adult | CPT/HCPCS: 96127; 96160; 99212 ==

== ENCOUNTER 2025-02-21 13:51 | Outpatient (AMB) | payer MEDICARE, SELFPAY ==
--- OUTSIDE RECORDS SUMMARY | 2024-05-10 09:15 | XMS_ITS ---
Author Organization [facility] Address [address] [place] [address] Care Team Providers Care Cut Plug Packer Name Role Phone Maurice, Ernesto Primary Care Provider Unavailab kaye Sung Jr, Levy Unavailable [phone] REASON FOR VISIT Patient presents today for IBS Medications Medication SIG (Take, Route, Frequency, Duration) Notes Start Date End Date Status Omeprazole 40 MG TAKE 1 CAPSULE BY MO UT EVERY DAY Oral for 90 Active Cyclobenzaprine HCl 10 MG Oral for 7 Active SUMAtriptan Succinate 100 MG Oral for 23 Active Loperamide HCl 2 MG 1 capsule as needed Orally Four times a day for 30 days 05/12/2023 Active Ondansetron HCl 4 MG TAKE 1 TABLET BY MO UT EVERY DAY FOR 30 DAYS for 30 Active Dicyclomine HCl 20 MG 1-2 Orally before meals/prn Active Zndvzdfrgp-CLX-Zndomdnu Active Ondansetron Active Loperamide HCl 2 MG 1-2 capsule Orally F our times a day Active ProAir HFA Active ibuprofen Active Encounters Encounter Location Date Provider Diagnosis [facility] [address] [place] [address] 05/10/2024 Levy Sung Jr Plan Of Treatment Next Appt Details Provider Name:Levy parekh Jr, 12/12/2025 01:35:00 PM, [address], [address], [place], [address], Progress Notes * FELI MORLEY ADOB:1970 (54 yo F)Acc No.[id number]:05/10/2024 Progress Notes Patient: FELI RITTER Provider: Beatrice Sung MD :1970 A ge:53 Y S ex:Female Date:05/10/2024 [address] [facility] Pcp:Ernesto Hernandez Subjective: * Chief Complaints: * 1 . Patient presents today for IBS. * Medical History: * Medications: T aking ibuprofen , Taking Ondansetron , Taking Laggcjivpz-NWJ-Swoknkkn , Taking ProAir HFA , Taking Loperamide [...] Beatrice Sung MD Date: Generated for Danyell asif/Chari/Vanessaitting on: 02/21/2025 01:54 PM EDT
--- NOTE | 2025-02-21 13:53 | A.OFFPC_ITS ---
Vital Signs 02/21/25 13:54 Height 5 ft 4 in Weight 223 lb BMI 38.3 BP 118/80 Blood Pressure Location Lt brachial Position Sitting Pulse 88 Pulse Source Pulse Oximeter Pulse Oximetry (%) 97 Oxygen Delivery Method Room Air Intake Visit Reasons: Follow-up asthma Sleeve Separator Required: No Accompanied by: Self / Same As Patient Allergies No Known Allergies (No Known Allergies*) Allergy (Verified 02/21/25 14:14) Medication List - Last Reconciled 02/21/25 by Ernesto Hernandez PA-C acetaminophen ER (Tylenol Arthritis Pain) 650 mg PO Q12H 30 days albuterol sulfate 90 mcg/actuation 1 inh inhalation QID 90 days NS blood pressure monitor As directed yqbawubwsy-teedtiyokrgho-dsax 50-325-40 mg 1 tab PO ONCE PRN 30 days capsaicin 0.1% (Arthritis Pain Relief (capsaicin)) 1 appl topical BID 30 days diclofenac sodium 1% 2 grams topical QID 30 days dicyclomine 20 mg PO QID fluticasone furoate 100 mcg/actuation (Arnuity Ellipta) 1 inh inhalation DAILY 30 days fluticasone propionate 50 mcg/actuation (Flonase Allergy Relief) 1 spray intranasal BID 30 days ibuprofen 600 mg PO TID PRN 15 days ipratropium bromide 2 sprays intranasal BID 30 days lactulose 20 grams (30 mL) PO BID PRN 15 days lisinopril 2.5 mg PO DAILY loperamide 2 mg PO Q6H PRN 7 days methocarbamol 500 mg PO BID PRN 15 days miscellaneous medical supply 1 ea miscellaneous DAILY 99 days miscellaneous medical supply (Blood Pressure Cuff) As directed omeprazole 40 mg PO DAILY 90 days ondansetron HCl 4 mg PO Q8H PRN sumatriptan succinate 100 mg PO ONCE 90 days Tobacco use date assessed: 02/21/25 Dental Screening Dental Screen Date: 02/21/25 Did you have a dental visit in the last 12 months?: No Did you have a dental problem in the last 6 months where you did not have access to dental care?: No Was dental information given to patient?: No HPI Follow-up asthma HPI Details Patient is a 53 year female here today for a follow-up visit. Patient has a past medical history significant for obesity, learning disability, chronic migraine, GERD, obstructive sleep apnea, asthma. .. CHRONIC MEDICAL CONDITIONS--> Migraines:? Patient is followed by neurologist. She reports experiencing severe migraines, particularly exacerbated by heat, occurring daily during hot weather. The migraines are described as intense, causing significant distress, and have led to emergency room visits in the past. Previously was noted that she did have some resolution of her migraines when she started obstructive sleep apnea treatment. The patient has tried various medications, including ibuprofen, sumatriptan, rizatriptan, and injectable treatments, with limited success. She finds relief with a specific medication previously prescribed, although it is not intended for daily use due to potential for rebound headaches. She has recently followed up neurology whom recommends using sumatriptan for migraine --> we did have long discussion about us e of daily Fioricet perhaps causing rebound migraine though patient does not seem to understand. She continues to ask for Fioricet. We did come to agreement that would give her # 15 tablets of Fioricet for a month supply. Will switch her migraine medication to rizatriptan 10 mg to use on a p.r.n. basis. .. VICENTE:? Has been started on CPAP machine to which she is using a nightly basis th ough finds it difficult to keep the CPAP mask on throughout the night.? Of note it was noted that she was having less migraines when using CPAP machine continually .. Hypertension:? Patient's blood pressure acceptable today in office. She is stopped taking lisinopril as she has been feeling very dizzy when she takes this medication. .. Asthma:? Patient reports she has been having to use her asthma inhaler multiple times a day as she does report cough and shortness of breath pick specially on exertion.? [facility] Medical History (Updated 02/26/25 @ 18:00 by Ernesto Hernandez PA-C) Biliary colic Screening for hypothyroidism HTN (hypertension) Asthma Migraine Seasonal allergies Surgical History No pertinent past surgical history Family History Father Celiac disease CVD (cardiovascular disease) Afib Mother Diabetes Hypertension Fibromyalgia Migraines Brother In good health Brother In good health Sister In good health Social History Housing: Apartment Alcohol intake: current Alcohol intake frequency: holidays/special occasions only Patient Tobacco Use Status: Never used Tobacco e-Cigarette/Vaping Use: Never Used Second Hand Smoke Exposure: No service: No Current occupational status: disabled 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 1. Little interest or pleasure in doing things: not at all 2. Feeling down, depressed, or hopeless: not at all 3. Trouble falling or staying asleep, or sleeping too much: not at all 4. Feeling tired or having little energy: not at all 5. Poor appetite or overeating: not at all 6. Feeling bad about yourself - or that you are a failure or have let yourself or your family down: not at all 7. Trouble concentrating on things, such as reading the newspaper or watching television: not at all 8. Moving or speaking so slowly that other people could have noticed. Or the opposite - being so fidgety or restless that you have been moving around a lot more than usual: not at all 9. Thoughts that you would be better off or of hurting yourself in some way: not at all Total score: 0 Depression Screening Interpretation: Negative Depression Screening Done: Yes 42897 - PHQ-9 Billing: Yes Source: Developed by Drs. Hector Acuña, Varsha Chavez, Sage Sarabia and colleagues, with an educational jean marie from [employer]. Thrive Questionnaire Date Thrive assessed: 02/21/25 I am a: Patient What is your living situation today?: I have a steady place to live Within the past 12 months, did the food you bought not last and you didn't have the money to get more?: Never true Within the past 12 months, did you worry whether your food would run out before you got money to buy more?: Never true Do you have trouble paying for medicines?: No Do you have trouble getting transportation to medical appointments?: No Do you have trouble paying your heating and electricity bill?: No Do you have trouble taking care of your child, family member or friend?: No Do you have trouble with day-to-day activities such as bathing, preparing meals, shopping, managing finances, etc.?: No Are you currently unemployed and looking for a job?: No Are you interested in more education?: No Please select the resources that you would like help with: None Currently or been in a relationship where the following occur: No concerns reported THRIVE Score: 0 AUDIT C Alcohol Use Questionnaire (AUDIT-C) 1. How often do you have a drink containing alcohol?: Never 3. How often do you have six or more drinks on one occasion?: Never Total Score: 0 Score Reviewed/Action Taken: Yes JUHI-7 AMB Questionnaire JUHI-7 Date JUHI - 7 assessed: 02/21/25 Feeling nervous, anxious, or on edge: 0 = Not at all Not being able to stop or control worryin = Not at all Worrying too much about different things: 0 = Not at all Trouble relaxin = Not at all Being so restless that it is hard to sit still: 0 = Not at all Becoming easily annoyed or irritable: 0 = Not at all Feeling afraid as if something awful might happen: 0 = Not at all Total JUHI-7 score (0-4 normal; 5-9 mild; 10-14 moderate; 15-21 severe): 0 Source: Developed by Drs. Hector Acuña, Varsha Chavez, Sage Sarabia and colleagues, with an educational jean marie from [employer]. JUHI-7 Assessment Billing JUHI-7 Assessment Tool: JUHI-7 Assessment 99962 Review of Systems Const Reports headache(s) Eyes Denies loss of vision ENT Denies vertigo, Denies dizziness, Reports headache(s) and Denies sore throat Card Denies chest pain, Denies leg edema and Denies lightheadedness Resp Denies cough, Denies hemoptysis and Denies wheezing GI Denies abdominal pain, Denies melena, Denies constipation, Denies diarrhea and Denies vomiting Denies urinary frequency, Denies dysuria and Denies urinary urgency Musc Denies arthralgias, Denies joint swelling, Denies numbness and Denies tingling Neuro Denies Abnormal speech present, Denies behavioral changes, Denies vertigo, Denies dizziness, Reports headache(s), Denies loss of vision, Denies memory loss, Denies numbness and Denies tingling Psych Denies anxiety, Denies behavioral changes, Denies depression, Denies memory loss and Denies panic attacks Jozef/Lymph Denies easy bleeding and Denies easy bruising Aller/Immun Denies wheezing Physical exam (Primary Care) Vital Signs: Last Vital Signs Pulse 88 02/21/25 13:54 BP 118/80 02/21/25 13:54 Pulse Ox 97 02/21/25 13:54 Oxygen Delivery Method Room Air 02/21/25 13:54 BMI result Body Mass Index 38.3 BMI Assessment/Plan discussion: High BMI High, discussed plan: lifestyle, weight reduction, dietary and physical activity Tobacco/Smoking Status: Tobacco use Status Tobacco use date assessed 02/21/25 02/21/25 13:58 Patient Tobacco Use Status Never used Tobacco 02/21/25 13:53 e-Cigarette/Vaping Use Never Used 02/21/25 13:53 PHQ-9: PHQ-9 Score PHQ-9: Total score 0 02/21/25 14:17 Depression Screening Interpretation: Negative Thrive Assessment: Date of Thrive Assessment Date Thrive assessed 02/21/25 02/21/25 13:54 Currently or been in a relationship where the following occur: No concerns reported Const General: healthy appearing, no acute distress, alert and awake Nutritional Appearance: well nourished Orientation/consciousness: oriented to person, oriented to place and oriented to time HENMT Ears: TM's normal bilaterally General nose exam: Normal nasal mucous membranes and turbinates present Eyes Conjunctivae: conjunctivae normal Sclerae: sclerae normal Pupils: Equal, round and reactive pupils present Neck Neck: Yes no lymphadenopathy and Yes no JVD Thyroid: Thyroid normal Carotids: no bruits Resp Effort & Inspection: normal respiratory effort and not tachypneic Auscultation: no crackles, no rales, no rhonchi and no wheezes Cardio Rate: regular rate Rhythm: regular rhythm Heart sounds: no murmurs and normal S1 and S2 GI Palpation (GI): Soft to palpation, nontender, no hepatomegaly and no splenomegaly Auscultation: normal bowel sounds Skin General skin exam: no rashes or lesions noted and dry skin Neuro General: oriented to person, oriented to place and oriented to time Cranial nerves: Yes Equal, round and reactive pupils present Speech: No Abnormal speech present Gait exam (Neuro): Normal gait present Motor exam (neuro): no tremor noted Extrem Right upper extremity: full ROM Left upper extremity: full ROM Right lower extremity: full ROM; no edema Left lower extremity: full ROM; no edema Psych Mental Status: mental status grossly normal Speech and movement: Normal speech and movement present Affect: normal affect Attitude: cooperative Thought process: Normal thought process present Coding Level of Care Code Est Pt Level 4 (96776) Diagnoses Migraine without status migrainosus, not intractable, unspecified migraine type G43.909 Migraine type: unspecified Status migrainosus presence: without status migrainosus Intractability: not intractable Essential hypertension I10 Hypertension type: essential hypertension Mild intermittent asthma without complication J45.20 Asthma severity: mild Asthma persistence: intermittent Asthma complication type: uncomplicated Class 2 obesity E66.812 Additional Codes JUHI-7 Assessment Billing - JHUI-7 Assessment Tool: JUHI-7 Assessment 18449 ([id number]) PHQ-9 - 71142 - PHQ-9 Billing: Yes ([id number]) Assessment & Plan Assessment & Plan (1) Migraine: Code(s): G43.909 - Migraine, unspecified, not intractable, without status migrainosus Category: Medical Qualifiers: Migraine type: unspecified Status migrainosus presence: without status migrainosus Intractability: not intractable Qualified Code(s): G43.909 - Migraine, unspecified, not intractable, without status migrainosus Plan: She is followed by neurologist. The patient experiences severe migraines exacerbated by heat, occurring daily during hot weather. She has tried various medications, including ibuprofen, sumatriptan, rizatriptan, and injectable treatments, with limited success. A specific medication previously prescribed provides relief, but it is not intended for daily use due to potential for rebound headaches. The plan includes prescribing rizatriptan as alternative for acute migraine management and limiting the use of the other medication to 15 tablets per month. (2) HTN (hypertension): Code(s): I10 - Essential (primary) hypertension Category: Medical Qualifiers: Hypertension type: essential hypertension Qualified Code(s): I10 - Essential (primary) hypertension Plan: Patient's blood pressure acceptable today in office. Will continue current dose of lisinopril with goal blood pressure to be below 140/90 (3) Asthma: Code(s): J45.909 - Unspecified asthma, uncomplicated Category: Medical Qualifiers: Asthma severity: mild Asthma persistence: intermittent Asthma complication type: uncomplicated Qualified Code(s): J45.20 - Mild intermittent asthma, uncomplicated Plan: Patient's asthma seems to be well controlled with current maintenance inhaler and p.r.n. use of her albuterol inhaler. She has denies any nighttime awakenings with asthma symptoms or recent asthma exacerbations. (4) Class 2 obesity: Code(s): E66.812 - Obesity, class 2 Category: Medical Plan: Patient does understand her BMI is over 35 and will work on trying to be more physically active and adapt to better eating habits to reduce her weight Medications: New rizatriptan take 1 tab at onset of headache; if no relief may repeat 1 tab after at least 2 hrs; max = 3 tabs/24 hr PO 10 tabs 1RF 30 days G43.009 - Migraine without aura, not intractable, without status migrainosus Changed From lisinopril 2.5 mg PO DAILY 30 tabs 6RF I10 - Essential (primary) hypertension To lisinopril 2.5 mg PO DAILY 90 tabs 2RF 90 days I10 - Essential (primary) hypertension Refilled albuterol sulfate 90 mcg/actuation 1 inh inhalation QID 3 inhalers 1RF 90 days NS J45.909 - Unspecified asthma, uncomplicated ondansetron HCl 4 mg PO Q8H PRN 10 tabs 3RF nausea and vomiting K27.9 - Peptic ulcer, site unspecified, unspecified as acute or chronic, without hemorrhage or perforation omeprazole 40 mg PO DAILY 90 caps 2RF 90 days K27.9 - Peptic ulcer, site unspecified, unspecified as acute or chronic, without hemorrhage or perforation fluticasone propionate 50 mcg/actuation (Flonase Allergy Relief) administer into each nostril 1 spray intranasal BID 16 grams 1RF 30 days R09.81 - Nasal congestion ipratropium bromide administer into each nostril 2 sprays intranasal BID 30 mL 1RF 30 days R09.81 - Nasal congestion Discontinued lactulose Discontinued Reason: Doctor's Order 20 grams (30 mL) PO BID 15 days PRN 900 mL 0RF laxative effect sumatriptan succinate do not exceed 2 doses per 24 hrs Discontinued Reason: Doctor's Order 100 mg PO ONCE 90 days 30 tabs 3RF migraine headache G43.909 - Migraine, unspecified, not intractable, without status migrainosus Patient Instructions: Goal: Blood pressure to remain below 140/90 Barriers: Adherence to physical activity and healthy eating habits
[2025-02-21 13:54] VITALS: BP 118/80; PULSE 88; O2SAT 97; BMI 38.3
--- OUTSIDE RECORDS SUMMARY | 2025-02-21 13:54 | XMS_ITS | Encounter Summary ---
Author Organization [facility] Address [address] [place] [address] Care Team Providers Care Director Life Name Role Phone Ernesto Hernandez Primary Care Provider [phone] Reason for Visit * Reason Onset Date Comments Medication 01/29/2025 Encounter Details Date Type Department Care Team ([facility] st Contact Info) Description 01/29/2025 Telephone Orthopedic Surgery - [place] [address] [phone] Roberto Faye, DPM [address] [id number] Medication Social History Tobacco Use Types Packs/Day Years [...] AM EDT documented as of this encounter Functional Status * Are you [...] Savana Mario RN documented in this encounter Progress Notes * Padma Zhao - 01/29/2025 1:22 PM EDT Received call from Leilani, from [facility] she state that patient just picked up picked her scriptfor Ibuprofen 600 mg 1 tab po tid x 15 days has multiple refills. from her PCP, and she just filled the new script for Meloxicam from Dr faye. Patient informed Pharmacist that this was okay with Dr Faye to take both.Medications. Please advise. Please call Leilani back @ [phone] thanks. documented in this encounter Plan of Treatment Upcoming Encounters Date Type Department Care Team (Late st Contact Info) Description 04/30/2025 1:00 PM EDT Office Visit Orthopedic Surgery - [place] [address] [facility] [address] [place] [phone] Roberto Faye DPM [address] [facility] [address] [place] [id number] documented as of this encounter Visit Diagnoses Not on filedocumented in this encounter Care Teams Director Life Relationship Specialty Start Date End Date Ernesto Hernandez PA [address] [place] [phone] PCP - General 12/21/22 documented as of this encounter
== END 2025-02-21 14:28 | disposition home or self-care (01) ==
LOC: HO.HMCH 13:52
PROVIDERS: PCP Physician Assistant; Visit Provider Physician Assistant
DX: G43.909 Migraine, unspecified, not intractable, without status migrainosus (principal); I10 Essential (primary) hypertension; E66.812 Obesity, class 2; Z68.38 Body mass index [BMI] 38.0-38.9, adult; J45.20 Mild intermittent asthma, uncomplicated

== ENCOUNTER → 2025-02-21 13:51 | Outpatient (BNVA) | payer MEDICARE, SELFPAY | PROVIDERS: PCP Physician Assistant; Visit Provider Physician Assistant | DX: G43.909 Migraine, unspecified, not intractable, without status migrainosus (principal); I10 Essential (primary) hypertension; J45.20 Mild intermittent asthma, uncomplicated; E66.812 Obesity, class 2; Z68.38 Body mass index [BMI] 38.0-38.9, adult; G47.33 Obstructive sleep apnea (adult) (pediatric); Z13.31 Encounter for screening for depression; Z13.39 Encounter for screening examination for other mental health and behavioral disorders | CPT/HCPCS: 96127; 99212 ==

== ENCOUNTER 2025-03-26 13:45 | Outpatient (REF) | payer MEDICARE, SELFPAY ==
--- OUTSIDE RECORDS SUMMARY | 2024-05-10 09:15 | XMS_ITS ---
Author Organization [facility] Address [address] [place] [address] Care Team Providers Care Mobile Lounge Driver Name Role Phone David, Ernesto Primary Care Provider Unavailab kaye Sung Jr, Levy Unavailable REASON FOR VISIT Patient presents today [...] 20 MG 1-2 Orally before meals/prn Active Afnqknxnst-ZKK-Yrxfmrbm Active Ondansetron Active Loperamide HCl 2 MG 1-2 capsule Orally F our times a day Active ProAir HFA Active ibuprofen Active Encounters Encounter Location Date Provider Diagnosis [facility] [address] [place] [address] 05/10/2024 Levy Sung Jr Plan Of Treatment Next Appt Details Provider Name:Levy parekh Jr, 12/12/2025 01:35:00 PM, [address], [address], [place], [address], Progress Notes * FELI MORLEY ADOB:1970 (54 yo F)Acc No.[id number]:05/10/2024 Progress Notes Patient: FELI RITTER Provider: Beatrice Sung MD :1970 A ge:53 Y S ex:Female Date:05/10/2024 [address] Pcp:Ernesto Hernandez Subjective: * Chief Complaints: * 1 . Patient presents today for IBS. * Medical History: * Medications: T aking ibuprofen , Taking Ondansetron , Taking Wlscundodv-VYT-Htvpawdw , Taking ProAir HFA , Taking Loperamide [...] MD Date: Generated for Danyell asif/Chari/Vanessaitting on: 03/26/2025 02:41 PM EDT
--- OUTSIDE RECORDS SUMMARY | 2024-09-06 09:55 | XMS_ITS ---
Author Organization [facility] Address [address] [place] [address] Care Team Providers Care Corporate Legal Assistant Name Role Phone Ernesto Hernandez Primary Care Provider Unavailab Levy Ozuna Jr REASON FOR VISIT Patient presents today for IBS Encounters Encounter Location Date Provider Diagnosis [facility] [address] [place] [address] 09/06/2024 Levy Sung Jr Plan Of Treatment Next Appt Details Provider Name:Levy parekh Jr, 12/12/2025 01:35:00 PM, [address], [address], [place], [address], Progress Notes * NIKOFELI Avelar ADOB:1970 (54 yo F)Acc No.[id number]:09/06/2024 Progress Notes Patient: FELI RITTER Provider: Beatrice Sung MD :1970 A ge:53 Y S ex:Female Date:09/06/2024 Address: [address] [facility] Pcp:Ernesto Hernandez Subjective: * Chief Complaints: * [...] 0 09/06/2024 Generated for Danyell asif/Chari/Awilda on: 0 03/26/2025 02:41 PM EDT
--- NOTE | ~2025-03-26 | MM_ITS ---
EXAMINATION: MM SCREENING DIGITAL BREAST TOMOSYNTHESIS, BILATERAL CLINICAL INFORMATION: Screening. Asymptomatic. COMPARISON: Comparison made to multiple prior, most recent August 05, 2022, and most remote October 09, 2013. TECHNIQUE: Digital breast tomosynthesis is performed in mediolateral oblique and craniocaudal views along with computer-aided detection (CAD). Additional views were taken if needed. FINDINGS: BREAST COMPOSITION: There are scattered areas of fibroglandular density (ACR BI-RADS breast composition Category b). BILATERAL BREASTS: No significant masses, suspicious calcifications or other abnormalities are seen in either breast. MM/MM tomosynthesis screening BI IMPRESSION: BILATERAL BREASTS: Negative, no mammographic evidence of malignancy. Normal interval follow-up is recommended in 12 months. ASSESSMENT: BI-RADS 1 - Negative RECOMMENDATION: Routine annual mammography screening. FOLLOW-UP: 1 year F/U This examination should not preclude the clinical evaluation of a suspicious palpable abnormality. This patient's information was entered into a reminder system with a target due date for their next mammogram. Electronically signed by: Micky Cho MD 03/30/2025 11:33 AM EDT
--- OUTSIDE RECORDS SUMMARY | 2025-03-26 14:41 | XMS_ITS | Clinical Summary ---
Author Organization [facility] Address [address] [place] [address] Phone Care Team Providers Care Measurement Coordinator Name Role Phone Ernesto Hernandez Primary Care Provider [phone] Allergies No known active allergies Medications methocarbamoL (ROBAXIN) 750 mg tablet Take 1 tablet (750 mg total) by mouth 4 (four) times a day for 10 days. 40 each 10/10/2024 Active meloxicam (MOBIC) 7.5 mg tablet Take 1 tablet (7.5 mg total) by mouth 1 (one) time each day. 30 each 1 01/28/2025 Active Active Problems No known active problems Encounters Date Type Department Care Team Description 02/08/2025 5:44 PM EDT - 02/08/2025 11:53 PM EDT Emergency [facility] Emergency [address] [place] [address] Discharge Disposition: Left Against Medical Advice 01/29/[address] [facility] [address] [address] Roberto Faye DPM 01/28/2025 11:00 AM EDT Office Visit [facility]opedic [facility] [address] [address] Roberto Faye DPM Inversion sprain of left ankle, sequela (Primary Dx); Ankle impingement syndrome, left; Pain in toes of both feet; Dermatophytosis, nail from Last 3 Months Immunizations Name Administration [...] Sign Reading Time Taken Comments Blood Pressure 131/79 02/08/2025 5:51 PM EDT Pulse 75 02/08/2025 5:51 PM EDT Temperature 37 C (98.6 F) 02/08/2025 5:51 PM EDT Respiratory Rate 16 02/08/2025 5:51 PM EDT Oxygen Saturation 95% 02/08/2025 5:51 PM EDT Inhaled Oxygen Concentration - - Weight 101 kg (222 lb) 02/08/2025 5:48 PM EDT Height 162.6 cm (5' 4.02 ) 01/28/2025 10:49 AM E DT Body Mass Index 38.09 01/28/2025 10:49 AM EDT Plan of Treatment Upcoming Encounters Date Type Department Care Team (Late st Contact Info) Description 04/30/2025 1:00 PM EDT Office Visit Orthopedic Surgery - [address] [address] Roberto Faye DPM [address] [place] [phone] Health Maintenance Due Date Last Done Comments Breast Cancer Screening 1972 DTaP,Tdap,and Td Vaccines (1 - Tdap) 11/29/1991 Hepatitis B Vaccines (1 of 3 - 19+ 3-dose series) 11/29/1991 Pneumococcal Vaccine: 50+ Years (1 of 2 - PCV) 11/29/1991 Cervical Cancer Screening: P ap Smear 1993 Zoster Vaccines (1 of 2) 2022 Cholesterol Screening (Lipid Panel) 08/26/2023 Colorectal Cancer Screening: Colonoscopy 08/26/2023 HIV Screening 08/26/2023 Hepatitis C Screening 08/26/2023 Medicare Annual Wellness Visit 08/26/2023 Social Influencers of Health Screening 08/26/2023 COVID-19 Vaccine (1 - 2023-2 5 season) 2024 Depression Screening 08/01/2024 Influenza Vaccine (#1) 2025 , 05/21/2016 Hypertension/CHF/CAD Annual BMP Blood Test 02/08/2026 02/08/2025 HIB Vaccines Aged Out No longer eligi [...] Procedure Name Priority Date/Time Associated Diagnosis Comments CBC WITH AUTO DIFFERENTIAL STAT 02/08/2025 6:29 PM EDT CBC AND DIFFERENTIAL STAT 02/08/2025 6:29 PM EDT COMPREHENSIVE METABOLIC PANEL STAT 02/08/2025 6:29 PM EDT from Last 3 Months Results * CBC auto differential (02/08/2025 6:29 PM EDT) [facility] Signature WBC 10.5 4.8 - 10.8 K/mcL LAB HEMETOLOGY METHOD 02/08/2025 6:58 PM EDT [facility] RBC 4.80 3.80 - 4.80 M/mcL LAB HEMETOLOGY METHOD 02/08/2025 6:58 PM EDT [facility] Hemoglobin 13.3 11.5 - 16.0 g/dL LAB HEMETOLOGY METHOD 02/08/2025 6:58 PM EDT [facility] Hematocrit 40.9 35.0 - 47.0 % LAB HEMETOLOGY METHOD 02/08/2025 6:58 PM EDT [facility] MCV 85.9 79.0 - 98.0 FL LAB HEMETOLOGY METHOD 02/08/2025 6:58 PM EDT [facility] MCH 27.9 27.0 - 32.0 pcg LAB HEMETOLOGY METHOD 02/08/2025 6:58 PM EDT [facility] MCHC 32.5 32.0 - 37.0 g/dL LAB HEMETOLOGY METHOD 02/08/2025 6:58 PM EDT [facility] RDW 13.1 11.0 - 15.0 % LAB HEMETOLOGY METHOD 02/08/2025 6:58 PM EDT [facility] Platelets 264 130 - 400 K/mcL LAB HEMETOLOGY METHOD 02/08/2025 6:58 PM EDT [facility] MPV 9.7 7.0 - 11.0 FL LAB HEMETOLOGY METHOD 02/08/2025 6:58 PM EDT [facility] NRBC 0.0 <1.0 % LAB HEMETOLOGY METHOD 02/08/2025 6:58 PM EDT [facility] NRBC Absolute 0.00 <0.10 K/mcL LAB HEMETOLOGY METHOD 02/08/2025 6:58 PM EDT [facility] Neutrophils Relative 54.6 % LAB HEMETOLOGY METHOD 02/08/2025 6:58 PM EDT [facility] Lymphocytes Relative 37.3 % LAB HEMETOLOGY METHOD 02/08/2025 6:58 PM [facility] Monocytes Relative 5.8 % LAB HEMETOLOGY METHOD 02/08/2025 6:58 PM [facility] Eosinophils Relative 1.7 % LAB HEMETOLOGY METHOD 02/08/2025 6:58 PM [facility] Basophils Relative 0.4 % LAB HEMETOLOGY METHOD 02/08/2025 6:58 PM [facility] Immature Granulocytes Relative 0.2 % LAB HEMETOLOGY METHOD 02/08/2025 6:58 PM [facility] Neutrophils Absolute 5.71 1.50 - 7.00 K/mcL LAB HEMETOLOGY METHOD 02/08/2025 6:58 PM [facility] Lymphocytes Absolute 3.90 1.00 - 5.00 K/mcL LAB HEMETOLOGY METHOD 02/08/2025 6:58 PM [facility] Monocytes Absolute 0.61 0.20 - 1.00 K/mcL LAB HEMETOLOGY METHOD 02/08/2025 6:58 PM [facility] Eosinophils Absolute 0.18 0.00 - 0.50 K/mcL LAB HEMETOLOGY METHOD 02/08/2025 6:58 PM [facility] Basophils Absolute 0.04 0.00 - 0.20 K/mcL LAB HEMETOLOGY METHOD 02/08/2025 6:58 PM [facility] Immature Granulocytes Absolute 0.02 0.00 - 0.03 K/mcL LAB HEMETOLOGY METHOD 02/08/2025 6:58 PM [facility] Blood Venous blood specimen / Unknown Venipuncture / Unknown 02/08/2025 6:29 PM EDT 02/08/2025 6:44 PM EDT Maulik Guzman MD LAB BLOOD ORDERABLES Final Result [facility] [address] [place] [address], * (ABNORMAL) Comprehensive metabolic panel (02/08/2025 6:29 PM EDT) Sodium 143 133 - 145 mmol/L LAB CHEMISTRY METHOD 02/08/2025 7:15 PM [facility] Potassium 4.2 3.5 - 5.5 mmol/L LAB CHEMISTRY METHOD 02/08/2025 7:15 PM [facility] Chloride 111(H) 96 - 110 mmol/L LAB CHEMISTRY METHOD 02/08/2025 7:15 PM [facility] CO2 29 21 - 32 mmol/L LAB CHEMISTRY METHOD 02/08/2025 7:15 PM [facility] Anion Gap 3 3 - 11 LAB CHEMISTRY METHOD 02/08/2025 7:15 PM [facility] Glucose 113(H) 70 - 100 mg/dL LAB CHEMISTRY METHOD 02/08/2025 7:15 PM [facility] BUN 13 5 - 25 mg/dL LAB CHEMISTRY METHOD 02/08/2025 7:15 PM [facility] Creatinine 0.95 0.50 - 1.10 mg/dL LAB CHEMISTRY METHOD 02/08/2025 7:15 PM [facility] eGFR 72 >=60 mL/min/1. 73m2 LAB CHEMISTRY METHOD 02/08/2025 7:15 PM [facility] Comment:Calculation based on the Chronic Kidney Disease Epidemiology Collaboration (CKD-EPI) equation refit without adjustment for race. BUN/Creatinine Ratio 13.7 LAB CHEMISTRY METHOD 02/08/2025 7:15 PM EDT [facility] Calcium 9.3 8.5 - 10.5 mg/dL LAB CHEMISTRY METHOD 02/08/2025 7:15 PM EDT [facility] AST (SGOT) 22 10 - 42 unit/L LAB CHEMISTRY METHOD 02/08/2025 7:15 PM EDT [facility] ALT (SGPT) 36 10 - 60 unit/L LAB CHEMISTRY METHOD 02/08/2025 7:15 PM EDT [facility] Alkaline Phosphatase 169(H) 42 - 121 unit/L LAB CHEMISTRY METHOD 02/08/2025 7:15 PM EDT [facility] Total Protein 6.8 6.0 - 8.0 g/dL LAB CHEMISTRY METHOD 02/08/2025 7:15 PM EDT [facility] Albumin 3.7 3.2 - 5.0 g/dL LAB CHEMISTR[facility] METHOD [facility] Total Bilirubin 0.3 0.0 - 1.4 mg/dL LAB CHEMISTRY METHOD 02/08/2025 7:15 PM [facility] Blood Venous blood specimen / Unknown Venipuncture / Unknown 02/08/2025 6:29 PM EDT 02/08/2025 6:44 PM EDT us Maulik Guzman MD LAB BLOOD ORDERABLES Final Result [facility] [address] [place] [address], [place] [phone] from Last 3 Months Insurance MEDICAID - [place] [employer] MED[employer]ARE [employer]VANTAGE Care Teams Measurement Coordinator Relationship Specialty Start Date End Date Ernesto Hernandez PA [address] [place] [address] PCP - General 12/21/22
--- OUTSIDE RECORDS SUMMARY | 2025-03-26 14:41 | XMS_ITS | Patient Health Record ---
Author Organization [facility] Address [address] [place] [address] Care Team Providers Care Lehr Loader Name Role Phone Ernesto Hernandez Primary Care Provider UnavailLevy Alanis Jr Unavailable [phone] Allergies No Known Allergies Reason For Referral No Information Medications Medication SIG (Take, Route, Frequency, Duration) Notes Start Date End Date Status SUMAtriptan Succinate 100 MG Oral for 23 Active Cyclobenzaprine HCl 10 MG Oral for 7 Active Loperamide HCl 2 MG 1 Orally Four times a day for diarrhea for 90 days 12/06/2024 Active Omeprazole 40 MG TAKE 1 CAPSULE BY MO UT EVERY DAY Oral for 90 days Active ProAir HFA Active Dicyclomine HCl 20 MG 1-2 Orally before meals/prn Active Brcraunnqx-XPFO-Nzuaobba 50-325-40 MG Oral for 30 Days Active ibuprofen Active Ipratropium [place] 0.03 % Nasal for 30 Days Active Ondansetron HCl 4 MG TAKE 1 TABLET BY MO UT EVERY DAY FOR 90 DAYS for 90 Active Loperamide HCl 2 MG TAKE 1 CAPSULE BY MO UT FOUR TIMES A DAY NEEDED for 30 Active Immunizations Vaccine Route Administration Date Status Comme nts Influenza Unknown 05/10/2018 Administered Influenza Unknown 04/01/2020 Administered Social History Alcohol Screen Question Answer Notes Did you have a drink containing alcohol in the p ast year? No Points 0 Interpretation Negative Problems Problem Type SNOMED Code ICD Code Onset Dates Problem Status W/U Status Risk Notes Problem 08884169 Epigastric pain (R10.13) Active confirmed Problem 858857108 Change in bowel habits (R19.4) Active confirmed Problem 404614040 Irritable bowel syndrome with diarrhea (K58.0) Active confirmed Problem 581023596 Gastroesophageal reflux disease without esophagitis (K21.9) Active confirmed Problem 314484202 Gallstones (K80.20) Active confirmed Problem 048391861 Hepatic steatosi s (K76.0) Active confirmed Vital Signs Blood pressure diastolic 77 mm Hg 12/06/2024 Height 62 in 12/06/2024 Blood pressure systolic 111 mm Hg 12/06/2024 Weight 224 lbs 12/06/2024 BMI 40.97 kg/m2 12/06/2024 Encounters Encounter Location Date Provider Diagnosis [facility] [address] [place] [phone] 12/06/2024 Levy Sung Jr Gastroesophageal reflux disease without esophagitis K21.9 and Irritable bowel syndrome with diarrhea K58.0 [facility] [address] [place] [phone] 05/10/2024 Levy Sung Jr [facility] [address] [place] [phone] 12/04/2024 Levy Sung Jr Assessments Encounter Date Diagnosis (ICD Code) Assessment Notes Treatment Notes Treatment Clinical Notes Section Notes 12/06/2024 Gastroesophageal reflux disease without esophagitis (ICD-10 - K21.9) We discussed gastroesophageal reflux disease today. We discussed irritable bowel syndrome today. We discussed diet, lifestyle modifications, and weight management. She will continue omeprazole for her reflux. IBS symptoms appear stable. She will continue loperamide and Zofran as needed. Refills of prescriptions are sent. Follow-up should be in 12 months, sooner if necessary. Today's visit was 30 minutes. 12/06/2024 Irritable bowel syndrome with diarrhea (ICD-10 - K58.0) We discussed gastroesophageal reflux disease today. We discussed irritable bowel syndrome today. We discussed diet, lifestyle modifications, and weight management. She will continue omeprazole for her reflux. IBS symptoms appear stable. She will continue loperamide and Zofran as needed. Refills of prescriptions are sent. Follow-up should be in 12 months, sooner if necessary. Today's visit was 30 minutes. Plan Of Treatment Pending Test Test Name Order Date LIVER PROFILE 10/07/2021 LIPASE 10/07/2021 CBC w/o DIFF 10/07/2021 HIDA SCAN W/WO GALL BLADDER 10/07/2021 Future Test Test Name Order Date UPPER GI ENDOSCOPY 08/19/2016 COLONOSCOPY 08/19/2016 Next Appt Details Provider Name:Levy Nava Matthewpadilla guerrad , 12/12/2025 01:35:00 PM, [address] [facility], [address], [place], [address], Insurance Providers Payer Name Payer Address Payer Phone Subscriber Number Group Number Insured Name Patient Relationship to Insured Coverage Start Date Coverage End Date [facility] [address] [place], [place] [id number] FELI MORLEY Self - patient is the insured MEDICAID OF [employer] [address] [place] [address] [id number] KAMILLA MORLEYIA Self - patient is the insured Medical [...]
== END 2025-03-26 13:46 | disposition home or self-care (01) ==
LOC: HO.MAMMO 13:45
PROVIDERS: PCP Physician Assistant; Visit Provider Physician Assistant
DX: Z12.31 Encounter for screening mammogram for malignant neoplasm of breast (principal)
CPT/HCPCS: 77063; 77067

== ENCOUNTER → 2025-03-26 13:47 | Outpatient (BNV) | payer MEDICARE, SELFPAY | PROVIDERS: PCP Physician Assistant; Visit Provider Radiology Body Imaging | DX: Z12.31 Encounter for screening mammogram for malignant neoplasm of breast (principal) | CPT/HCPCS: 77063; 77067 ==

== ENCOUNTER 2025-04-04 12:00 | Outpatient (RCR) | payer MEDICARE, MEDICAID, SELFPAY ==
--- NOTE | 2024-12-04 13:28 | MHC.PT.EP ---
[facility] [place] Office [place] Office [place] Office [address] [phone] F: [phone] F: [phone] F: [phone] F: [phone] Physical Therapy Plan of Care Date of Evaluation: 12/04/24 Date of Surgery: Diagnosis: RIGHT shoulder tendinitis RIGHT shoulder ACJ sprain, impingement (PT Dx) Assessment: Ave is a pleasant 54 y.o. female with PMHx involving learning disabilities, asthma, HTN, who is referred to PT by Ernesto Hernandez PA-C, with Dx of RIGHT shoulder tendinitis. PT diagnosis is RIGHT shoulder ACJ sprain, possible impingement. Patient impairments include poor posture, muscle guarding, limited R shoulder ROM, weakness R shoulder. Patient current functional limitations are lifting overhead, behind back, carry/lift groceries. Patient will benefit from skilled PT to address aforementioned impairments and functional limitations to meet established goals. Frequency and Duration: The patient will be seen 2x/week for 4 weeks Short Term Goals: 2 weeks Patient demonstrates consistency and independence with HEP to self manage symptoms. Cardiac Cath Lab Manager Goals: 4 weeks Patient presents with increased R shoulder flexion AROM 150 degrees to be able to reach to high cabinets. Patient presents with increased R shoulder flexion strength 4+/5 to be able to carry groceries. Treatment Plan: Modalities to reduce pain, spasms and effusion. Manual therapy to restore motion and function. Therapeutic exercise to improve strength and flexibility. Neuromuscular re-education for posture and balance. Therapeutic activities to return to functional activities of daily living. Electronically signed by: Nichol Xie, PT, DPT Please sign and return to therapist. Thank you for your referral.
--- NOTE | 2025-04-19 10:23 | MHC.PT.DC ---
[facility] [place] Office [place] Office [place] Office [address] Nadya Reyes [address] [phone] F: [phone] F: [phone] F: [phone] F: [phone] Physical Therapy Discharge Report Diagnosis: RIGHT shoulder tendinitis RIGHT shoulder ACJ sprain, impingement (PT Dx) Date of Surgery: Date of Evaluation: 12/04/24 Date of Discharge: 04/19/25 Treatments to Date: 13 Cancellations to Date: No Shows to Date: Discharge Status: Improved Function Independent with HEP Discharge Summary: Ave was last seen in PT on 03/21/25 and the asseaament on that date reads, Ave has reduced tenderness and tension in R UT and shoulder area. She does need visual and tactile cues to not compensate with R UT with UE elevation. She presents with full AAROM into R shoulder flexion/abduction without pain. She is discharged from PT at this time due to progress. Electronically signed by: Nichol Xie, PT, DPT Please sign and return to therapist. Thank you for your referral.
== END 2025-04-19 10:23 | disposition home or self-care (01) ==
LOC: HO.PT 12:00
PROVIDERS: PCP Physician Assistant; Visit Provider Physician Assistant
DX: M77.8 Other enthesopathies, not elsewhere classified (principal)
CPT/HCPCS: 97110; 97140; 97162

== ENCOUNTER 2025-05-07 15:06 | Outpatient (AMB) | payer MEDICARE, SELFPAY ==
--- OUTSIDE RECORDS SUMMARY | 2024-05-10 09:15 | XMS_ITS ---
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 Name Role Phone David, Ernesto Primary Care [...] 20 MG 1-2 Orally before meals/prn Active Nbbopbhykf-HNL-Fvmqkclf Active Ondansetron Active Loperamide HCl 2 MG 1-2 capsule Orally F our times a day Active ProAir HFA Active ibuprofen Active Encounters Encounter Location Date Provider Diagnosis [facility] [address] [place] [address] 05/10/2024 Levy Sung Jr Plan Of Treatment Next Appt Details Provider Name:Levy parekh Jr, 12/12/2025 01:35:00 PM, [address], [address], [place], [address], Progress Notes * FELI MORLEY ADOB:1970 (54 yo F)Acc No.[id number]:05/10/2024 Progress Notes Patient: FELI RITTER Provider: Beatrice Sung MD :1970 A ge:53 Y S ex:Female Date:05/10/2024 Address:[address] [facility] Pcp:Ernesto Hernandez Subjective: * Chief Complaints: * 1 . Patient presents today for IBS. * Medical History: * Medications: T aking ibuprofen , Taking Ondansetron , Taking Tlfqvnxqgp-STM-Zglllvan , Taking ProAir HFA , Taking Loperamide [...] MD Date: Generated for Danyell asif/Chari/Awilda on: 06:20 PM EDT
--- OUTSIDE RECORDS SUMMARY | 2024-09-06 09:55 | XMS_ITS ---
Author Organization [facility] Address [address] [place] [address] Care Team Providers Care Marketing Account Executive Name Role Phone Ernesto Hernandez Primary Care Provider Unavailab Levy Ozuna Jr REASON FOR VISIT Patient presents today for IBS Encounters Encounter Location Date Provider Diagnosis [facility] [address] [place] [address] 09/06/2024 Levy Sung Jr Plan Of Treatment Next Appt Details Provider Name:Levy parekh Jr, 12/12/2025 01:35:00 PM, [address], [address], [place], [address], Progress Notes * NIKOFELI Avelar ADOB:1970 (54 yo F)Acc No.[id number]:09/06/2024 Progress Notes Patient: FELI RITTER Provider: Beatrice Sung MD :1970 A ge:53 Y S ex:Female Date:09/06/2024 Address: [address] [facility] Pcp:Ernesto Hernandez Subjective: * Chief Complaints: * [...] 09/06/2024 Generated for Danyell asif/Chari/Awilda on: 1 06:21 PM EDT
--- NOTE | 2025-04-30 09:55 | MHC.OFFVIS ---
Intake Visit Reasons: 6 MO FU Allergies No Known Allergies (No Known Allergies*) Allergy (Verified 02/21/25 14:14) PFSH Medical History (Updated 02/26/25 @ 18:00 by Ernesto Hernandez PA-C) Biliary colic Screening for hypothyroidism HTN (hypertension) Asthma Migraine Seasonal allergies Surgical History No pertinent past surgical history Family History Father Celiac disease CVD (cardiovascular disease) Afib Mother Diabetes Hypertension Fibromyalgia Migraines Brother In good health Brother In good health Sister In good health Social History Housing: Apartment Alcohol intake: current Alcohol intake frequency: holidays/special occasions only Patient Tobacco Use Status: Never used Tobacco e-Cigarette/Vaping Use: Never Used Second Hand Smoke Exposure: No service: No Current occupational status: disabled 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
[2025-05-07 15:06] VITALS: BP 110/70; PULSE 73; O2SAT 95; BMI 36.0
--- NOTE | 2025-05-07 15:06 | A.OFFVIS_ITS ---
Vital Signs 05/07/25 15:06 Height 5 ft 4 in Weight 210 lb BMI 36.0 BP 110/70 Blood Pressure Location Rt brachial Position Sitting Pulse 73 Pulse Source Pulse Oximeter Pulse Oximetry (%) 95 Oxygen Delivery Method Room Air Intake Visit Reasons: 6 MO FU Intake Note: Patient presents follow up VICENTE/Migraine. 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: No Accompanied by: Self / Same As Patient Allergies No Known Allergies (No Known Allergies*) Allergy (Verified 02/21/25 14:14) Medication List - Last Reconciled 05/07/25 by SHALINI Leroy acetaminophen ER (Tylenol Arthritis Pain) 650 mg PO Q12H 30 days albuterol sulfate 90 mcg/actuation 1 inh inhalation QID 90 days NS blood pressure monitor As directed oyknqtddfo-eidsqpsoxhblr-roih 50-325-40 mg 1 tab PO ONCE PRN 30 days capsaicin 0.1% (Arthritis Pain Relief (capsaicin)) 1 appl topical BID 30 days diclofenac sodium 1% 2 grams topical QID 30 days dicyclomine 20 mg PO QID fluticasone furoate 100 mcg/actuation (Arnuity Ellipta) 1 inh inhalation DAILY 30 days fluticasone propionate 50 mcg/actuation (Flonase Allergy Relief) 1 spray intranasal BID 30 days ibuprofen 600 mg PO TID PRN 15 days ipratropium bromide 2 sprays intranasal BID 30 days lisinopril 2.5 mg PO DAILY 90 days loperamide 2 mg PO Q6H PRN 7 days methocarbamol 500 mg PO BID PRN 15 days miscellaneous medical supply 1 ea miscellaneous DAILY 99 days miscellaneous medical supply (Blood Pressure Cuff) As directed omeprazole 40 mg PO DAILY 90 days ondansetron HCl 4 mg PO Q8H PRN sumatriptan succinate 100 mg PO Q2H PRN 90 days MDD 2 tabs HPI Comments Details: 54-year-old female presents for a follow-up visit for VICENTE and migraine. She reports that in early April, she suffered a fall due to tripping over a bed frame. She went to [facility] ER and was admitted for a few days, with discharge to rehab for a few more days. She has since been discharged home with home PT. She states that since being home, she no longer needs to walk with a walker. She is requesting a letter to confirm this for the program she attends. Of note, on review of [facility] notes, it looks like she saw [facility] last week, and there were recommendations for her to use an OTC ankle support. However, she denies any knowledge of this recommendation. She states she has been unable to use her CPAP recently, as it is packed away since she and her family will be moving in the near future. She does wonder when she can get new CPAP supplies again. She states she is having about 1 migraine attack per week, which responds to 1 sumatriptan. She states her PCP gave her an order for rizatriptan in place of the sumatriptan, but she is requesting the sumatriptan to be refilled, as she does not want to try the rizatriptan. [facility] Medical History (Updated 05/07/25 @ 07:33 by Ernesto Hernandez PA-C) Biliary colic Screening for hypothyroidism HTN (hypertension) Asthma Migraine Seasonal allergies Surgical History No pertinent past surgical history Family History Father Celiac disease CVD (cardiovascular disease) Afib Mother Diabetes Hypertension Fibromyalgia Migraines Brother In good health Brother In good health Sister In good health Social History Housing: Apartment Alcohol intake: current Alcohol intake frequency: holidays/special occasions only Patient Tobacco Use Status: Never used Tobacco e-Cigarette/Vaping Use: Never Used Second Hand Smoke Exposure: No service: No Current occupational status: disabled 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 Cognitive needs: No Hearing needs: No Vision needs: Yes (glasses) Physical Exam Vital Signs: Last Vital Signs Pulse 73 05/07/25 15:06 BP 110/70 05/07/25 15:06 Pulse Ox 95 05/07/25 15:06 Oxygen Delivery Method Room Air 05/07/25 15:06 BMI result Body Mass Index 36.0 Const General: cooperative and no acute distress Orientation/consciousness: patient oriented x3 Resp Effort & Inspection: normal respiratory effort and able to speak in complete sentences Neuro General: patient oriented x3 Cranial nerves: Yes CN's II-XII intact bilaterally Cognition (Neuro): normal cognition Psych Appearance: grossly normal Mental Status: mental status grossly normal Speech and movement: Pressured speech present (this is pt's baseline.) Affect: normal affect Attitude: cooperative Assessment & Plan Assessment & Plan (1) VICENTE (obstructive sleep apnea): Code(s): G47.33 - Obstructive sleep apnea (adult) (pediatric) Category: Medical (2) Migraine without aura: Code(s): G43.009 - Migraine without aura, not intractable, without status migrainosus Category: Medical Qualifiers: Intractability: not intractable Status migrainosus presence: without status migrainosus Qualified Code(s): G43.009 - Migraine without aura, not intractable, without status migrainosus (3) Cognitive developmental delay: Code(s): F81.9 - Developmental disorder of scholastic skills, unspecified Category: Medical Plan For VICENTE: Resume APAP therapy when she moves. Discussed that likely the respiratory company can not give her new supplies until she is again compliant with her PAP therapy. Due to cognitive developmental delay- pt may need reinforcement of information and increased support. Previously provided patient with a copy of her [employer] log-in credentials. For headaches: Resume sumatriptan 100 mg tab, may repeat in 2 hours, max of 2 tabs per day. Hold resume triptan order for now, due to patient preference Regarding patient's request for a letter stating that she does not need to walk with a walker: Patient asked to call us with the name of her home PT's home care company. Once received, we will reach out to the PT to discuss patient's request. ? f/u in 6 months or sooner prn. Medications: Changed From sumatriptan succinate do not exceed 2 doses per 24 hrs 100 mg PO ONCE 90 days 30 tabs 3RF migraine headache G43.909 - Migraine, unspecified, not intractable, without status migrainosus To sumatriptan succinate do not exceed 2 doses per 24 hrs 100 mg PO Q2H PRN 36 tabs 3RF migraine headache 90 days MDD 2 tabs G43.909 - Migraine, unspecified, not intractable, without status migrainosus Discontinued rizatriptan Discontinued Reason: Doctor's Order take 1 tab at onset of headache; if no relief may repeat 1 tab after at least 2 hrs; max = 3 tabs/24 hr PO 30 days 10 tabs 1RF G43.009 - Migraine without aura, not intractable, without status migrainosus Coding Level of Care Code Est Pt Level 4 (86641) Diagnoses VICENTE (obstructive sleep apnea) G47.33 Migraine without aura and without status migrainosus, not intractable G43.009 Intractability: not intractable Status migrainosus presence: without status migrainosus Cognitive developmental delay F81.9
--- OUTSIDE RECORDS SUMMARY | 2025-05-07 18:21 | XMS_ITS | Encounter Summary ---
Author Organization [facility] Address [address] [place] [address] Care Team Providers Care House Nurse Name Role Phone Ernesto Hernandez Primary Care Provider [phone] Encounter Details Date Type Department Care Team (Latest Contact Info) Description 04/22/2025 Lab Requisition [facility] - Main Lab [address] [place] [address] Reno Grewal MD [address] [place] [address] Unspecified fall, initial encounter; Essential (primary) hypertension; Vitamin D deficiency, unspecified; Type 2 diabetes mellitus without complications (CMS/HCC V24, CMS/HCC V28) Social History Tobacco Use Types Packs/Day Years Used Date Smoking Tobacco: Never Smokeless Tobacco: Never Alcohol Use Standard Drinks/Week Comments Not Currently 0 (1 standard drink = 0.6 oz pur e alcohol) Interpersonal Safety Answer Date Record ed Physical Abuse Unrecognized value 04/16/2025 Verbal Abuse Unrecognized value 04/16/2025 Comments Unknown Sex and Gender Information Value Date Recorded Sex Assigned at Female 10/10/2024 9:11 AM EDT Legal Sex Female 9:10 PM EST Gender Identity Female 10/10/2024 9:11 AM EDT Sexual Orientation Straight 10/10/2024 9: 11 AM EDT documented as of this encounter Functional Status * Are you deaf or do you have serious difficulty hearing? Answer Date of Assessment Author No 04/16/2025 8:01 PM EDT Tejal Santa RN * Are you blind or do you have serious difficulty seeing, even when wearing glasses? Answer Date of Assessment Author No 04/16/2025 8:01 PM Tejal Welch RN * Do you have serious difficulty walking or climbing stairs? Answer Date of Assessment Author Yes 04/16/2025 8:01 PM Tejal Welch RN * Do you have serious difficulty dressing or bathing? Answer Date of Assessment Author No 04/16/2025 8:01 PM Tejal Welch RN * Because of a physical, mental, or emotional condition, do you have serious difficulty doing errandsalone such as visiting the doctor? Answer Date of Assessment Author Yes 04/16/2025 8:01 PM Tejal Welch RN documented as of this encounter Mental Status * Because of a physical, mental, or emotional condition, do you have serious difficulty concentrating, remembering, or making decisions? (5 years old or older) Answer Entry Date Author Yes 04/16/2025 8:01 PM Tejal Welch RN documented in this encounter Plan of Treatment Upcoming Encounters Date Type Department Care Team (Late st Contact Info) Description 07/30/2025 2:00 PM EST Office Visit Orthopedic Surgery - [place] [phone] [address] Roberto Faye, [place] [address] [address] documented as of this encounter Procedures Procedure Name Priority Date/Time Associated Diagnosis Comments VITAMIN D 25 HYDROXY Routine 04/22/2025 7:22 AM EDT Unspecified fall, initial encounter Essential (primary) hypertension Vitamin D deficiency, unspecified Type 2 diabetes mellitus without complications ([facility] V24, [facility] V28) COMPLETE BLOOD COUNT Routine 04/22/2025 7:22 AM EDT Unspecified fall, initial encounter Essential (primary) hypertension Vitamin D deficiency, unspecified Type 2 diabetes mellitus without complications (CMS/[facility] V24, CMS/[facility] V28) THYROID STIMULATING HORMONE Routine 04/22/2025 7:22 AM EDT Unspecified fall, initial encounter Essential (primary) hypertension Vitamin D deficiency, unspecified Type 2 diabetes mellitus without complications ([facility] V24, [facility] V28) MAGNESIUM Routine 04/22/2025 7:22 AM EDT Unspecified fall, initial encounter Essential (primary) hypertension Vitamin D deficiency, unspecified Type 2 diabetes mellitus without complications ([facility] V24, [facility] V28) HEMOGLOBIN A1C Routine 04/22/2025 7:22 AM EDT Unspecified fall, initial encounter Essential (primary) hypertension Vitamin D deficiency, unspecified Type 2 diabetes mellitus without complications ([facility] V24, [facility] V28) COMPREHENSIVE METABOLIC PANEL Routine 04/22/2025 7:22 AM EDT Unspecified fall, initial encounter Essential (primary) hypertension Vitamin D deficiency, unspecified Type 2 diabetes mellitus without complications ([facility] V24, [facility] V28) documented in this encounter Results * (ABNORMAL) Vitamin D 25 hydroxy (04/22/2025 7:22 AM EDT) Vit D, 25-Hydroxy 18.6(L) 30.0 - 80.0 ng/mL LAB CHEMISTRY METHOD 04/22/2025 2:32 PM EDT [facility] Blood Venous blood specimen / Unknown Venipuncture / Unknown 04/22/2025 7:22 AM EDT 04/22/2025 11:10 AM EDT us Reno Grewal MD LAB BLOOD ORDERABLES Final R esult [facility] [address] [place] [address], * Magnesium (04/22/2025 7:22 AM EDT) Magnesium 2.2 1.9 - 2.6 mg/dL LAB CHEMISTRY METHOD 04/22/2025 1:29 PM EDT [facility] Blood Venous blood specimen / Unknown Venipuncture / Unknown 04/22/2025 7:22 AM EDT 04/22/2025 11:10 AM EDT us Reno Grewal MD LAB BLOOD ORDERABLES Final R esult Performing Organization Address City/[facility]/ZIP Co de Phone Number [facility] [address] [place] [address], [place] [phone] * Hemoglobin A1c (04/22/2025 7:22 AM EDT) Hemoglobin A1C 5.1 <6.5 % LAB CHEMISTRY METHOD 04/22/2025 8:39 PM EDT [facility] Mean Bld Glu Estim. 100 mg/dL LAB CHEMISTRY METHOD 04/22/2025 8:39 PM EDT [facility] Blood Venous blood specimen / Unknown Venipuncture / Unknown 04/22/2025 7:22 AM EDT 04/22/2025 11:10 AM EDT us Reno Grewal MD LAB BLOOD ORDERABLES Final R esult Performing Organization Address [facility] Co de Phone Number [facility] [address] [place] [address], [place] [phone] * Thyroid stimulating hormone (04/22/2025 7:22 AM EDT) Pathologist [facility] TSH 1.50 0.40 - 4.00 mcIU/mL LAB CHEMISTRY METHOD 04/22/2025 2:33 PM EDT [facility] Blood Venous blood specimen / Unknown Venipuncture / Unknown 04/22/2025 7:22 AM EDT 04/22/2025 11:10 AM EDT us Reno Grewal MD LAB BLOOD ORDERABLES Final R esult Performing Organization Address City/[facility]/ZIP Co de Phone Number [facility] [address] [place] [address], * (ABNORMAL) Comprehensive metabolic panel (04/22/2025 7:22 AM EDT) Sodium 142 133 - 145 mmol/L LAB CHEMISTRY METHOD 04/22/2025 1:29 PM [facility] Potassium 4.3 3.5 - 5.5 mmol/L LAB CHEMISTRY METHOD 04/22/2025 1:29 PM [facility] Chloride 108 96 - 110 mmol/L LAB CHEMISTRY METHOD 04/22/2025 1:29 PM [facility] CO2 28 21 - 32 mmol/L LAB CHEMISTRY METHOD 04/22/2025 1:29 PM [facility] Anion Gap 6 3 - 11 LAB CHEMISTRY METHOD 04/22/2025 1:29 PM [facility] Glucose 70 70 - 100 mg/dL LAB CHEMISTRY METHOD 04/22/2025 1:29 PM [facility] BUN 17 5 - 25 mg/dL LAB CHEMISTRY METHOD 04/22/2025 1:29 PM [facility] Creatinine 0.62 0.50 - 1.10 mg/dL LAB CHEMISTRY METHOD 04/22/2025 1:29 PM [facility] eGFR 107 >=60 mL/min/1. 73m2 LAB CHEMISTRY METHOD 04/22/2025 1:29 PM [facility] Comment:Calculation based on the Chronic Kidney Disease Epidemiology Collaboration (CKD-EPI) equation refit without adjustment for race. BUN/Creatinine Ratio 27.4 LAB CHEMISTRY METHOD 04/22/2025 1:29 PM [facility] Calcium 9.0 8.5 - 10.5 mg/dL LAB CHEMISTRY METHOD 04/22/2025 1:29 PM [facility] AST (SGOT) 34 10 - 42 unit/L LAB CHEMISTRY METHOD 04/22/2025 1:29 PM [facility] ALT (SGPT) 66(H) 10 - 60 unit/L LAB CHEMISTRY METHOD 04/22/2025 1:29 PM EDT [facility] Alkaline Phosphatase 134(H) 42 - 121 unit/L LAB CHEMISTRY METHOD 04/22/2025 1:29 PM EDT [facility] Total Protein 6.1 6.0 - 8.0 g/dL LAB CHEMISTRY METHOD 04/22/2025 1:29 PM EDT [facility] Albumin 3.5 3.2 - 5.0 g/dL LAB CHEMISTRY METHOD 04/22/2025 1:29 PM EDT [facility] Total Bilirubin 0.5 0.0 - 1.4 mg/dL LAB CHEMISTRY METHOD 04/22/2025 1:29 PM EDT [facility] Blood Venous blood specimen / Unknown Venipuncture / Unknown 04/22/2025 7:22 AM EDT 04/22/2025 11:10 AM EDT us Reno Grewal MD LAB BLOOD ORDERABLES Final R esult [facility] [address] [place] [address], * Complete blood count (04/22/2025 7:22 AM EDT) WBC 8.4 4.8 - 10.8 K/mcL LAB HEMETOLOGY METHOD 04/22/2025 1:42 PM EDT [facility] RBC 4.70 3.80 - 4.80 M/mcL LAB HEMETOLOGY METHOD 04/22/2025 1:42 PM EDT [facility] Hemoglobin 13.3 11.5 - 16.0 g/dL LAB HEMETOLOGY METHOD 04/22/2025 1:42 PM EDT [facility] Hematocrit 40.7 35.0 - 47.0 % LAB HEMETOLOGY METHOD 04/22/2025 1:42 PM EDT [facility] MCV 86.2 79.0 - 98.0 FL LAB HEMETOLOGY METHOD 04/22/2025 1:42 PM EDT [facility] MCH 28.2 27.0 - 32.0 pcg LAB HEMETOLOGY METHOD 04/22/2025 1:42 PM EDT [facility] MCHC 32.7 32.0 - 37.0 g/dL LAB HEMETOLOGY METHOD 04/22/2025 1:42 PM EDT [facility] RDW 13.3 11.0 - 15.0 % LAB HEMETOLOGY METHOD 04/22/2025 1:42 PM EDT [facility] Platelets 264 130 - 400 K/mcL LAB HEMETOLOGY METHOD 04/22/2025 1:42 PM EDT [facility] MPV 10.3 7.0 - 11.0 FL LAB HEMETOLOGY METHOD 04/22/2025 1:42 PM EDT [facility] NRBC 0.0 <1.0 % LAB HEMETOLOGY METHOD 04/22/2025 1:42 PM EDT [facility] NRBC Absolute 0.00 <0.10 K/mcL LAB HEMETOLOGY METHOD 04/22/2025 1:42 PM EDT [facility] Blood Venous blood specimen / Unknown Venipuncture / Unknown 04/22/2025 7:22 AM EDT 04/22/2025 11:10 AM EDT us Reno Grewal MD LAB BLOOD ORDERABLES Final R esult [facility] [address] [place] [address], [place] [phone] documented in this encounter Visit Diagnoses Diagnosis Unspecified fall, initial encounter Essential (primary) hypertension Unspecified essential hypertension Vitamin D deficiency, unspecified Type 2 diabetes mellitus without complications (CMS/[facility] V24, CMS/HCC V28) documented in this encounter Care Teams House Nurse Relationship Specialty Start Date End Date Ernesto Hernandez PA [address] [place] [address] PCP - General 12/21/22 documented as of this encounter
--- OUTSIDE RECORDS SUMMARY | 2025-05-07 18:21 | XMS_ITS | Patient Health Record ---
Author Organization [facility] Address [address] [place] [address] Care Team Providers Care Cover Mat Machine Operator Name Role Phone Ernesto Hernandez Primary Care [...] 20 MG 1-2 Orally before meals/prn Active Ingkdddddi-OYTK-Wbbwhtkd 50-325-40 MG Oral for 30 Days Active ibuprofen Active Ipratropium [place] 0.03 % Nasal for 30 Days Active [...] Problem Status W/U Status Risk Notes Problem 86462710 Epigastric pain (R10.13) Active confirmed Problem 550247287 Change in bowel habits (R19.4) Active confirmed Problem 199292748 Irritable bowel syndrome with diarrhea (K58.0) Active confirmed Problem 669975871 Gastroesophageal reflux disease without esophagitis (K21.9) Active confirmed Problem 696043502 Gallstones (K80.20) Active confirmed Problem 790145156 Hepatic steatosi s (K76.0) Active confirmed Vital Signs Blood pressure diastolic 77 mm Hg 12/06/2024 Height 62 in 12/06/2024 Blood pressure systolic 111 mm Hg 12/06/2024 Weight 224 lbs 12/06/2024 BMI 40.97 kg/m2 12/06/2024 Encounters Encounter Location Date Provider Diagnosis [facility] [address] [place] [phone] 12/06/2024 Levy Sung Jr Gastroesophageal reflux disease without esophagitis K21.9 and Irritable bowel syndrome with diarrhea K58.0 [facility] [address] [place] [phone] 05/10/[address] [facility] [address] [place] [phone] 12/04/2024 Levy Sung Jr Assessments Encounter Date [...] Matthewpadilla guerrad , 12/12/2025 01:35:00 PM, [address] [facility], [address], [place], [address], Insurance Providers Payer Name Payer Address Payer Phone Subscriber Number Group Number Insured Name Patient Relationship to Insured Coverage Start Date Coverage End Date [facility] [address] [place], [place] [phone] [id number] FELI MORLEY Self - patient is the insured MEDICAID OF [employer] [address] [place] [address] [phone] [id number] KAMILLA MORLEYIA Self - patient is the [...]
--- OUTSIDE RECORDS SUMMARY | 2025-05-07 18:21 | XMS_ITS | Clinical Summary ---
Author Organization [facility] Address [address] [place] [address] Phone Care Team Providers Care Driver/Sales Workers Name Role Phone Ernesto Hernandez Primary Care Provider +- [phone] Allergies No known active allergies Medications methocarbamoL (ROBAXIN) 750 mg tablet Take 1 tablet (750 mg total) by mouth 4 (four) times a day for 10 days. 40 each 5 Active omeprazole (PriLOSEC) [address] capsule Take 1 capsule (40 mg total) by mouth 1 (one) time each day. Do not crush or chew. Active lisinopriL (PRINIVIL,ZESTR IL) 2.5 mg tablet Take 1 tablet (2.5 mg total) by mouth 1 (one) time each day. Active dicyclomine (BENTYL) 20 mg tablet Take 1 tablet (20 mg total) by mouth 4 (four) times a day (before meals and nightly). Active fluticasone propionate (FLONASE) 50 mcg/actuation nasal spray Administer 2 sprays into each nostril 2 (two) times a day. Shake gently. Before first use, prime pump. After use, clean tip and replace cap. Active ipratropium (ATROVENT) 21 mcg (0.03 %) nasal spray Administer 2 sprays into each nostril every 12 (twelve) hours. Active butalbital-acet aminophen-caffe ine (FIORICET, ESGIC) 50-325-40 mg per tablet Take 1 tablet by mouth every 4 (four) hours if needed for headaches. Active SUMAtriptan (IMITREX) 100 mg tablet Take 1 tablet (100 mg total) by mouth 1 (one) time if needed for migraine. May repeat dose once in 2 hours if no relief. Do not exceed 2 doses in 24 hours. Active ondansetron (ZOFRAN) 4 mg tablet Take 1 tablet (4 mg total) by mouth every 8 (eight) hours if needed for nausea or vomiting. Active meloxicam (MOBIC) 7.5 mg tablet Take 1 tablet (7.5 mg total) by mouth 1 (one) time each day. Active albuterol HFA (PROAIR HFA ; PROVENTIL HFA ; VENTOLIN HFA) 90 mcg/actuation inhaler Inhale 2 puffs by mouth every 6 (six) hours if needed for wheezing. Active fluticasone furoate (Arnuity Ellipta) 100 mcg/actuation blister with device inhaler Inhale 1 puff by mouth 1 (one) time each day. Active celecoxib (CeleBREX) 200 mg capsule Take 1 capsule (200 mg total) by mouth 2 (two) times a day for 3 days. 6 each 04/22/20 25 Active Problems Problem Noted Date Diagnosed Date Acute pain of right knee 04/19/2025 Fall 04/16/2025 Encounters Date Type Department Care Team Description 04/30/2025 1:00 PM EDT Office Visit Orthopedic Surgery - [place] [address] [place] [phone] Roberto Faye, [place] Ankle impingement syndrome, left (Primary Dx); Pain in toes of both feet; Dermatophytosis, nail 04/22/2025 Lab Requisition [facility] - Main Lab [address] [facility] [place] [phone] Reno Grewal MD Unspecified fall, initial encounter; Essential (primary) hypertension; Vitamin D deficiency, unspecified; Type 2 diabetes mellitus without complications (CMS/HCC V24, CMS/HCC V28) 04/12/2025 7:45 AM EDT - 04/19/2025 3:28 PM EDT Hospital Encounter [facility]rology Unit [address] [place] [phone] MuhoozChris martinez MD Touriel, Ross, MD Amardey-Welli ngton, Aaron, MD Ziebro, John, MD Wire, MD Niru Bojorquez, MD Paresh Rosales Jasmine, DO Kokosadze, Estate, MD Alam, MD Rain Olguin, initial encounter (Primary Dx); Acute pain of right knee Discharge Disposition: [facility] Facility 02/08/2025 5:44 PM EDT - 02/08/2025 11:53 PM EDT Emergency [facility] Emergency [address] [place] [address] Discharge Disposition: Left Against Medical Advice from Last 3 Months Immunizations Immunization Administration Dates Next Due Influenza, Unspecified 05/21/2016 [...] Sign Reading Time Taken Comments Blood Pressure 134/78 04/19/2025 8:46 AM EDT Pulse 59 04/19/2025 8:46 AM EDT Temperature 36.6 C (97.9 F) 04/19/2025 8:46 AM EDT Respiratory Rate 16 04/19/2025 8:46 AM EDT Oxygen Saturation 96% 04/19/2025 8:46 AM EDT Inhaled Oxygen Concentration - - Weight 95.4 kg (210 lb 4 oz) 04/19/2025 3:39 AM EDT Height 162.6 cm (5' 4 ) 04/19/2025 3:39 AM EDT Body Mass Index 36.09 04/19/2025 3:39 AM EDT Plan of Treatment Upcoming Encounters Date Type Department Care Team (Late st Contact Info) Description 07/30/2025 2:00 PM EST Office Visit Orthopedic Surgery - [place] [phone] [facility] [address] [place] [phone] Roberto Faye, [place] [address] [facility] [address] [place] [address] Health Maintenance Due Date Last Done Comments Breast Cancer Screening 1972 Colorectal Cancer Screening: Colonoscopy 1972 Diabetes: Annual Foot Exam 1982 Diabetes: Annual Retina Eye Exam 1982 DTaP,Tdap,and Td Vaccines (1 - Tdap) 11/29/1991 Hepatitis B Vaccines (1 of 3 - 19+ 3-dose series) 11/29/1991 Pneumococcal Vaccine: 50+ Years (1 of 2 - PCV) 11/29/1991 Cervical Cancer Screening: P ap Smear 1993 Zoster Vaccines (1 of 2) 2022 Cholesterol Screening (Lipid Panel) 08/26/2023 HIV Screening 08/26/2023 Hepatitis C Screening 08/26/2023 Medicare Annual Wellness Visit 08/26/2023 Social Influencers of Health Screening 08/26/2023 Depression Screening 08/01/2024 COVID-19 Vaccine (1 - 2023-2 5 season) 2025 Influenza Vaccine (#1) 2025 , 05/21/2016 Diabetes: Annual Urine Albumin-Creatinine Ratio (uACR) 04/22/2025 Diabetes: Blood Sugar Contro l Test (HGBA1C) 10/20/2025 04/22/2025 Diabetes: Annual GFR (Glomerular Filtration Rate) 04/22/2026 04/22/2025, 04/17/2025, 02/08/2025 Hypertension/CHF/CAD Annual BMP Blood Test 04/22/2026 04/22/2025, 04/17/2025, 02/08/2025 RSV Immunization Adult Patients (1 - 1-dose 75+ series) 11/29/2047 HIB Vaccines Aged Out No longer eligi [...] unspecified Type 2 diabetes mellitus without complications (CMS/HCC V24, CMS/HCC V28) MAGNESIUM Routine 04/22/2025 7:22 AM EDT Unspecified fall, initial encounter Essential (primary) hypertension Vitamin D deficiency, unspecified Type 2 diabetes mellitus without complications (CMS/HCC V24, CMS/HCC V28) HEMOGLOBIN A1C Routine 04/22/2025 7:22 AM EDT Unspecified fall, initial encounter Essential (primary) hypertension Vitamin D deficiency, unspecified Type 2 diabetes mellitus without complications (CMS/HCC V24, CMS/HCC V28) THYROID STIMULATING HORMONE Routine 04/22/2025 7:22 AM EDT Unspecified fall, initial encounter Essential (primary) hypertension Vitamin D deficiency, unspecified Type 2 diabetes mellitus without complications (CMS/HCC V24, CMS/HCC V28) COMPREHENSIVE METABOLIC PANEL Routine 04/22/2025 7:22 AM EDT Unspecified fall, initial encounter Essential (primary) hypertension Vitamin D deficiency, unspecified Type 2 diabetes mellitus without complications (CMS/[facility] V24, CMS/[facility] V28) COMPLETE BLOOD COUNT Routine 04/22/2025 7:22 AM EDT Unspecified fall, initial encounter Essential (primary) hypertension Vitamin D deficiency, unspecified Type 2 diabetes mellitus without complications (CMS/[facility] V24, CMS/[facility] V28) CPAP NIV Routine 04/17/2025 10:00 PM EDT CPAP NIV Routine 04/17/2025 2:24 PM EDT VAS US DUPLEX LOWER EXT VENOUS RIGHT STAT 04/17/2025 1:07 PM EDT Acute pain of right knee CBC WITH AUTO DIFFERENTIAL Routine 04/17/2025 5:57 AM EDT URIC ACID Routine 04/17/2025 5:57 AM EDT C-REACTIVE PROTEIN Routine 04/17/2025 5: 57 AM EDT CBC AND DIFFERENTIAL Routine 04/17/2025 5:57 AM EDT COMPREHENSIVE METABOLIC PANEL Routine 04/17/2025 5:[address] LOWER EXTREMITY WO CONTRAST RIGHT STAT 04/15/2025 12:00 PM EDT XR PELVIS 1-2 VIEWS STAT 04/12/2025 9 :06 AM EDT XR FEMUR 2+ VIEWS RIGHT STAT 04/12/2025 9:06 AM EDT CBC WITH AUTO DIFFERENTIAL STAT 02/08/2025 6:29 PM EDT CBC AND DIFFERENTIAL STAT 02/08/2025 6:29 PM EDT COMPREHENSIVE METABOLIC PANEL STAT 02/08/2025 6:29 PM EDT from Last 3 Months Results * (ABNORMAL) Vitamin D 25 hydroxy (04/22/2025 7:22 AM EDT) [facility] Vit D, 25-Hydroxy 18.6(L) 30.0 - 80.0 ng/mL LAB CHEMISTRY METHOD 04/22/2025 2:32 PM EDT [facility] Blood Venous blood specimen / Unknown Venipuncture / Unknown 04/22/2025 7:22 AM EDT 04/22/2025 11:10 AM EDT us Reno Grewal MD LAB BLOOD ORDERABLES Final R esult [facility] [address] [place] [address], [place] [phone] * Complete blood count (04/22/2025 7:22 AM EDT) [facility] WBC 8.4 4.8 - 10.8 K/mcL LAB HEMETOLOGY METHOD 04/22/2025 1:42 PM EDT [facility] RBC 4.70 3.80 - 4.80 M/mcL LAB HEMETOLOGY METHOD 04/22/2025 1:42 PM EDT [facility] Hemoglobin 13.3 11.5 - 16.0 g/dL LAB HEMETOLOGY METHOD 04/22/2025 1:42 PM EDT [facility] Hematocrit 40.7 35.0 - 47.0 % LAB HEMETOLOGY METHOD 04/22/2025 1:42 PM EDT [facility] MCV 86.2 79.0 - 98.0 FL LAB HEMETOLOGY METHOD 04/22/2025 1:42 PM EDT [facility] MCH 28.2 27.0 - 32.0 pcg LAB HEMETOLOGY METHOD 04/22/2025 1:42 PM EDT [facility] MCHC 32.7 32.0 - 37.0 g/dL LAB HEMETOLOGY METHOD 04/22/2025 1:42 PM EDT [facility] RDW 13.3 11.0 - 15.0 % LAB HEMETOLOGY METHOD 04/22/2025 1:42 PM EDT [facility] Platelets 264 130 - 400 K/mcL LAB HEMETOLOGY METHOD 04/22/2025 1:42 PM EDT [facility] MPV 10.3 7.0 - 11.0 FL LAB HEMETOLOGY METHOD 04/22/2025 1:42 PM EDT [facility] NRBC 0.0 <1.0 % LAB HEMETOLOGY METHOD 04/22/2025 1:42 PM EDT [facility] NRBC Absolute 0.00 <0.10 K/mcL LAB HEMETOLOGY METHOD 04/22/2025 1:42 PM EDT [facility] Blood Venous blood specimen / Unknown Venipuncture / Unknown 04/22/2025 7:22 AM EDT 04/22/2025 11:10 AM EDT Reno Grewal MD LAB BLOOD ORDERABLES Final R esult [facility] [address] [place] [address], * Thyroid stimulating hormone (04/22/2025 7:22 AM EDT) TSH 1.50 0.40 - 4.00 mcIU/mL LAB CHEMISTRY METHOD 04/22/2025 2:33 PM EDT [facility] Blood Venous blood specimen / Unknown Venipuncture / Unknown 04/22/2025 7:22 AM EDT 04/22/2025 11:10 AM EDT Reno Grewal MD LAB BLOOD ORDERABLES Final R esult [facility] [address] [place] [address], [place] [phone] * Magnesium (04/22/2025 7:22 AM EDT) [facility] Magnesium 2.2 1.9 - 2.6 mg/dL LAB CHEMISTRY METHOD 04/22/2025 1:29 PM EDT [facility] Blood Venous blood specimen / Unknown Venipuncture / Unknown 04/22/2025 7:22 AM EDT 04/22/2025 11:10 AM EDT Reno Grewal MD LAB BLOOD ORDERABLES Final R esult Performing Organization Address [facility] Co de Phone Number [facility] [address] [place] [address], [place] [phone] * Hemoglobin A1c (04/22/2025 7:22 AM EDT) [facility] Hemoglobin A1C 5.1 <6.5 % LAB CHEMISTRY METHOD 04/22/2025 8:39 PM EDT [facility] Mean Bld Glu Estim. 100 mg/dL LAB CHEMISTRY METHOD 04/22/2025 8:39 PM EDT [facility] Blood Venous blood specimen / Unknown Venipuncture / Unknown 04/22/2025 7:22 AM EDT 04/22/2025 11:10 AM EDT us Reno Grewal MD LAB BLOOD ORDERABLES Final R esult Performing Organization Address [facility]/ZIP Co de Phone Number [facility] [address] [place] [address], [place] [phone] * (ABNORMAL) Comprehensive metabolic panel (04/22/2025 7:22 AM EDT) Only the most recent of3 resultswithin the time period is included. [facility] Sodium 142 133 - 145 mmol/L LAB CHEMISTRY METHOD 04/22/2025 1:29 PM [facility] Potassium 4.3 3.5 - 5.5 mmol/L LAB CHEMISTRY METHOD 04/22/2025 1:29 PM [facility] Chloride 108 96 - 110 mmol/L LAB CHEMISTRY METHOD 04/22/2025 1:29 PM [facility] CO2 28 21 - 32 mmol/L LAB CHEMISTRY METHOD 04/22/2025 1:29 PM [facility] Anion Gap 6 3 - 11 LAB CHEMISTRY METHOD 04/22/2025 1:29 PM [facility] Glucose 70 70 - 100 mg/dL LAB CHEMISTRY METHOD 04/22/2025 1:29 PM [facility] BUN 17 5 - 25 mg/dL LAB CHEMISTRY METHOD 04/22/2025 1:29 PM [facility] Creatinine 0.62 0.50 - 1.10 mg/dL LAB CHEMISTRY METHOD 04/22/2025 1:29 PM [facility] eGFR 107 >=60 mL/min/1. 73m2 LAB CHEMISTRY METHOD 04/22/2025 1:29 PM [facility] Comment:Calculation based on the Chronic Kidney Disease Epidemiology Collaboration (CKD-EPI) equation refit without adjustment for race. BUN/Creatinine Ratio 27.4 LAB CHEMISTRY METHOD 04/22/2025 1:29 PM [facility] Calcium 9.0 8.5 - 10.5 mg/dL LAB CHEMISTRY METHOD 04/22/2025 1:29 PM [facility] AST (SGOT) 34 10 - 42 unit/L LAB CHEMISTRY METHOD 04/22/2025 1:29 PM [facility] ALT (SGPT) 66(H) 10 - 60 unit/L LAB CHEMISTRY METHOD 04/22/2025 1:29 PM [facility] Alkaline Phosphatase 134(H) 42 - 121 unit/L LAB CHEMISTRY METHOD 04/22/2025 1:29 PM EDT [facility] Total Protein 6.1 6.0 - 8.0 g/dL LAB CHEMISTRY METHOD 04/22/2025 1:29 PM EDT [facility] Albumin 3.5 3.2 - 5.0 g/dL LAB CHEMISTRY METHOD 04/22/2025 1:29 PM EDT [facility] Total Bilirubin 0.5 0.0 - 1.4 mg/dL LAB CHEMISTRY METHOD 04/22/2025 1:29 PM EDT [facility] Blood Venous blood specimen / Unknown Venipuncture / Unknown 04/22/2025 7:22 AM EDT 04/22/2025 11:10 AM EDT us Reno Grewal MD LAB BLOOD ORDERABLES Final R esult [facility] [address] [place] [address], * Vascular US duplex lower extremity venous right (04/17/2025 1:07 PM EDT) Anatomical Region Laterality Modality Vascular, Abdomen Ultrasound 04/17/2025 1:14 PM EDT Impressions 04/17/2025 1:15 PM EDT NO RIGHT LOWER EXTREMITY DEEP VENOUS THROMBOSIS. -------- FINAL REPORT -------- Dictated By: Izzy Coulter Dictated Date: 04/17/2025 13:14 ET Assigned Physician: Izzy Coulter Reviewed and Electronically Signed By: Izzy Coulter Signed Date: 04/17/2025 13:15 ET Workstation ID: [id number] Transcribed By: Self Edit Transcribed Date: 04/17/2025 13:14 ET Narrative 04/17/2025 1:15 PM EDT Ultrasound duplex right lower extremity. INDICATION: pain in extremities ?dvt TECHNIQUE: 2-D and color Doppler imaging of the right lower extremity venous vasculature with compression and augmentation maneuvers. COMPARISON: No priors available. FINDINGS: There is normal flow, compression, and augmentation from the common femoral through the popliteal vein. No fluid collection. Procedure Note Izzy Coulter MD - 04/17/2025 Ultrasound duplex right lower extremity. INDICATION: pain in extremities ?dvt TECHNIQUE: 2-D and color Doppler imaging of the right lower extremityvenous vasculature with compression and augmentation maneuvers. COMPARISON: No priors available. FINDINGS: There is normal flow, compression, and augmentation from the commonfemoral through the popliteal vein. No fluid collection. IMPRESSION: NO RIGHT LOWER EXTREMITY DEEP VENOUS THROMBOSIS. -------- FINAL REPORT -------- Dictated By: Izzy Coulter Dictated Date: 04/17/2025 13:14 ET Assigned Physician: Izzy Coulter Reviewed and Electronically Signed By: Izzy Coulter Signed Date: 04/17/2025 13:15 ET Workstation ID: [id number] Transcribed By: Self Edit Transcribed Date: 04/17/2025 13:14 ET Jovita BROWN CV VASCULAR PROCEDURES Fin al Result * CBC auto differential (04/17/2025 5:57 AM EDT) Only the most recent of2 resultswithin the time period is included. WBC 7.4 4.8 - 10.8 K/mcL LAB HEMETOLOGY METHOD 04/17/2025 6:38 AM [facility] RBC 4.60 3.80 - 4.80 M/mcL LAB HEMETOLOGY METHOD 04/17/2025 6:38 AM [facility] Hemoglobin 12.7 11.5 - 16.0 g/dL LAB HEMETOLOGY METHOD 04/17/2025 6:38 AM [facility] Hematocrit 38.1 35.0 - 47.0 % LAB HEMETOLOGY METHOD 04/17/2025 6:38 AM [facility] MCV 83.4 79.0 - 98.0 FL LAB HEMETOLOGY METHOD 04/17/2025 6:38 AM [facility] MCH 27.8 27.0 - 32.0 pcg LAB HEMETOLOGY METHOD 04/17/2025 6:38 AM [facility] MCHC 33.3 32.0 - 37.0 g/dL LAB HEMETOLOGY METHOD 04/17/2025 6:38 AM [facility] RDW 12.8 11.0 - 15.0 % LAB HEMETOLOGY METHOD 04/17/2025 6:38 AM [facility] Platelets 227 130 - 400 K/mcL LAB HEMETOLOGY METHOD 04/17/2025 6:38 AM [facility] MPV 9.6 7.0 - 11.0 FL LAB HEMETOLOGY METHOD 04/17/2025 6:38 AM [facility] NRBC 0.0 <1.0 % LAB HEMETOLOGY METHOD 04/17/2025 6:38 AM [facility] NRBC Absolute 0.00 <0.10 K/mcL LAB HEMETOLOGY METHOD 04/17/2025 6:38 AM [facility] Neutrophils Relative 57.4 % LAB HEMETOLOGY METHOD 04/17/2025 6:38 AM [facility] Lymphocytes Relative 32.3 % LAB HEMETOLOGY METHOD 04/17/2025 6:38 AM [facility] Monocytes Relative 7.3 % LAB HEMETOLOGY METHOD 04/17/2025 6:38 AM [facility] Eosinophils Relative 2.3 % LAB HEMETOLOGY METHOD 04/17/2025 6:38 AM [facility] Basophils Relative 0.4 % LAB HEMETOLOGY METHOD 04/17/2025 6:38 AM [facility] Immature Granulocytes Relative 0.3 % LAB HEMETOLOGY METHOD 04/17/2025 6:38 AM [facility] Neutrophils Absolute 4.26 1.50 - 7.00 K/mcL LAB HEMETOLOGY METHOD 04/17/2025 6:38 AM EDT [facility] Lymphocytes Absolute 2.39 1.00 - 5.00 K/[facility] LAB HEMETOLOGY METHOD 04/17/2025 6:38 AM EDT [facility] Monocytes Absolute 0.54 0.20 - 1.00 K/[facility] LAB HEMETOLOGY METHOD 04/17/2025 6:38 AM EDT [facility] Eosinophils Absolute 0.17 0.00 - 0.50 K/[facility] LAB HEMETOLOGY METHOD 04/17/2025 6:38 AM EDT [facility] Basophils Absolute 0.03 0.00 - 0.20 K/[facility] LAB HEMETOLOGY METHOD 04/17/2025 6:38 AM EDT [facility] Immature Granulocytes Absolute 0.02 0.00 - 0.03 K/[facility] LAB HEMETOLOGY METHOD 04/17/2025 6:38 AM EDT [facility] Blood Venous blood specimen / Unknown Venipuncture / Unknown 04/17/2025 5:57 AM EDT 04/17/2025 6:18 AM EDT us Padma BROWN LAB BLOOD ORDERABLES Final Re sult [facility] [address] [place] [address], * (ABNORMAL) C-reactive protein (04/17/2025 5:57 AM EDT) C-Reactive Protein 0.87(H) <=0.50 mg/dL LAB CHEMISTRY METHOD 04/17/2025 7:17 AM EDT [facility] Blood Venous blood specimen / Unknown Venipuncture / Unknown 04/17/2025 5:57 AM EDT 04/17/2025 6:17 AM EDT Padma BROWN LAB BLOOD ORDERABLES Final Re sult Performing Organization Address [facility]/ZIP Co de Phone Number [facility] [address] [place] [address], [place] [phone] * Uric acid (04/17/2025 5:57 AM EDT) Uric Acid 3.8 3.1 - 7.8 mg/dL LAB CHEMISTRY METHOD 04/17/2025 7:17 AM EDT [facility] Blood Venous blood specimen / Unknown Venipuncture / Unknown 04/17/2025 5:57 AM EDT 04/17/2025 6:17 AM EDT Padma BROWN LAB BLOOD ORDERABLES Final Re sult Performing Organization Address [facility] Co de Phone Number [facility] [address] [place] [address], [place] [phone] * CT Lower Extremity wo Contrast Right (04/15/2025 12:00 PM EDT) Anatomical Region Laterality Modality Lower Extremities Right Computed Tomog savanna 04/15/2025 12:1 3 PM EDT Impressions 04/15/2025 12:17 PM EDT No acute fracture. -------- FINAL REPORT -------- Dictated By: CHRIS WINN Dictated Date: 04/15/2025 12:13 ET Assigned Physician: CHRIS WINN Reviewed and Electronically Signed By: CHRIS WINN Signed Date: 04/15/2025 12:17 ET Workstation ID: [id number] Transcribed By: Self Edit Transcribed Date: 04/15/2025 12:13 ET Narrative 04/15/2025 12:17 PM EDT PROCEDURE: Right lower extremity CT INDICATION: Pain TECHNIQUE: Noncontrast CT of the right lower extremity with multiplanar reformats. The examination was performed utilizing dose reduction techniques. COMPARISON: 04/12/2025 FINDINGS: No acute fracture or traumatic malalignment. Joint spaces are maintained. No knee effusion. Muscles and soft tissues are normal. No mass or fluid collection. Procedure Note Chris Winn MD - 04/15/2025 PROCEDURE: Right lower extremity CT INDICATION: Pain TECHNIQUE: Noncontrast CT of the right lower extremity with multiplanarreformats. The examination was performed utilizing dose reduction techniques. COMPARISON: 04/12/2025 FINDINGS: No acute fracture or traumatic malalignment. Joint spaces are maintained. No knee effusion. Muscles and soft tissues are normal. No mass or fluid collection. IMPRESSION: No acute fracture. -------- FINAL REPORT -------- Dictated By: CHRIS WINN Dictated Date: 04/15/2025 12:13 ET Assigned Physician: CHRIS WINN Reviewed and Electronically Signed By: CHRIS WINN Signed Date: 04/15/2025 12:17 ET Workstation ID: [id number] Transcribed By: Self Edit Transcribed Date: 04/15/2025 12:13 ET Elier Marrufo MD IMG CT PROCEDURES Final Result * XR Pelvis 1-2 Views (04/12/2025 9:06 AM EDT) Anatomical Region Laterality Modality Body, Pelvis Radiographic Lindsey ging 04/12/2025 9:21 AM EDT Impressions 04/12/2025 9:33 AM EDT FINDINGS/IMPRESSION: No acute fracture or dislocation. Joint spaces are maintained. No focal soft tissue swelling. -------- FINAL REPORT -------- Dictated By: CHRIS WINN Dictated Date: 04/12/2025 09:21 ET Assigned Physician: CHRIS WINN Reviewed and Electronically Signed By: CHRIS WINN Signed Date: 04/12/2025 09:33 ET Workstation ID: [id number] Transcribed By: Self Edit Transcribed Date: 04/12/2025 09:21 ET Narrative 04/12/2025 9:33 AM EDT XR PELVIS 1-2 VIEWS INDICATION: Pain TECHNIQUE: XR PELVIS 1-2 VIEWS COMPARISON: No priors available. Procedure Note Chris Winn MD - 04/12/2025 XR PELVIS 1-2 VIEWS INDICATION: Pain TECHNIQUE: XR PELVIS 1-2 VIEWS COMPARISON: No priors available. IMPRESSION: FINDINGS/IMPRESSION: No acute fracture or dislocation. Joint spaces aremaintained. No focal soft tissue swelling. -------- FINAL REPORT -------- Dictated By: CHRIS WINN Dictated Date: 04/12/2025 09:21 ET Assigned Physician: CHRIS WINN Reviewed and Electronically Signed By: CHRIS WINN Signed Date: 04/12/2025 09:33 ET Workstation ID: [id number] Transcribed By: Self Edit Transcribed Date: 04/12/2025 09:21 ET Obed Esparza MD IMG XR PROCEDURES Final Result * XR Femur 2+ Views Right (04/12/2025 9:06 AM EDT) Anatomical Region Laterality Modality Lower Extremities, Femur Right Radiogr aphic Imaging 04/12/2025 9:32 AM EDT Impressions 04/12/2025 9:33 AM EDT FINDINGS/IMPRESSION: No acute fracture or dislocation. Joint spaces are maintained. No focal soft tissue swelling. -------- FINAL REPORT -------- Dictated By: CHRIS WINN Dictated Date: 04/12/2025 09:32 ET Assigned Physician: CHRIS WINN Reviewed and Electronically Signed By: CHRIS WINN Signed Date: 04/12/2025 09:33 ET Workstation ID: [id number] Transcribed By: Self Edit Transcribed Date: 04/12/2025 09:32 ET Narrative 04/12/2025 9:33 AM EDT XR FEMUR 2+ VIEWS RIGHT INDICATION: Pain TECHNIQUE: XR FEMUR 2+ VIEWS RIGHT COMPARISON: No priors available. Procedure Note Chris Winn MD - 04/12/2025 XR FEMUR 2+ VIEWS RIGHT INDICATION: Pain TECHNIQUE: XR FEMUR 2+ VIEWS RIGHT COMPARISON: No priors available. IMPRESSION: FINDINGS/IMPRESSION: No acute fracture or dislocation. Joint spaces aremaintained. No focal soft tissue swelling. -------- FINAL REPORT -------- Dictated By: CHRIS WINN Dictated Date: 04/12/2025 09:32 ET Assigned Physician: CHRIS WINN Reviewed and Electronically Signed By: CHRIS WINN Signed Date: 04/12/2025 09:33 ET Workstation ID: [id number] Transcribed By: Self Edit Transcribed Date: 04/12/2025 09:32 ET Obed Esparza MD IMG XR PROCEDURES Final Result from Last 3 Months Insurance [place]ICA[place] [employer] MEDICARE ADVANTAGE Advance Directives * Full Code - Confirmed (Latest Code Status on File) Date Activated Date Inactivated Comments 04/16/2025 7:49 PM 04/19/2025 5:[address] [facility] was ascertained in the following way: Code status discussion: discussion with healthcare telesales representative To update the patient's code status, place a code status order. Do not modify or discontinue any currently active code status orders. Care Teams Driver/Sales Workers Relationship Specialty Start Date End Date [place], Ernesto J, PA [address] [place] [address] PCP - General 12/21/22
== END 2025-05-07 16:23 | disposition home or self-care (01) ==
LOC: HO.HSMS 15:07
PROVIDERS: PCP Physician Assistant; Visit Provider Nurse Practitioner Family
DX: G47.33 Obstructive sleep apnea (adult) (pediatric) (principal); G43.009 Migraine without aura, not intractable, without status migrainosus; F81.9 Developmental disorder of scholastic skills, unspecified
CPT/HCPCS: 99214

== ENCOUNTER → 2025-05-07 15:06 | Outpatient (BNVA) | payer MEDICARE, SELFPAY | PROVIDERS: PCP Physician Assistant; Visit Provider Nurse Practitioner Family | DX: G47.33 Obstructive sleep apnea (adult) (pediatric) (principal); Z99.89 Dependence on other enabling machines and devices; G43.009 Migraine without aura, not intractable, without status migrainosus; F81.9 Developmental disorder of scholastic skills, unspecified | CPT/HCPCS: 99212 ==

== ENCOUNTER 2025-06-04 14:28 | Outpatient (AMB) | payer MEDICARE, SELFPAY ==
--- OUTSIDE RECORDS SUMMARY | 2024-05-10 08:15 | XMS_ITS ---
Author Organization [facility] Address [address] [place] [address] Care Team Providers Care Shaker Flatwork Name Role Phone Ernesto Hernandez Primary Care Provider Unavailab Levy Ozuna Jr Unavailable REASON FOR VISIT Patient presents today for IBS Medications Medication SIG (Take, Route, Frequency, Duration) Notes Start Date End Date Status Omeprazole 40 MG TAKE 1 CAPSULE BY MO UTH EVERY DAY Oral; Duration: 90 Active Cyclobenzaprine HCl 10 MG Oral; Duration: 7 Active SUMAtriptan Succinate 100 MG Oral; Duration: 23 Active Loperamide HCl 2 MG 1 capsule as needed Orally Four times a day; Duration: 30 days 05/12/2023 Active Ondansetron HCl 4 MG TAKE 1 TABLET BY MO UTH EVERY DAY FOR 30 DAYS; Duration: 30 Active Dicyclomine HCl 20 MG 1-2 Orally before meals/prn Active Wpulcotmtf-ZPA-Fudsgpge Active Ondansetron Active Loperamide HCl 2 MG 1-2 capsule Orally F our times a day Active ProAir HFA Active ibuprofen Active Encounters Encounter Location Date Provider Diagnosis [facility] [address] [place] [address] 05/10/2024 Levy Sung Jr Plan Of Treatment Next Appt Details Provider Name:Levy parekh Jr, 12/12/2025 01:35:00 PM, [address], [address], [place], [address], Progress Notes * FELI MORLEY ADOB:1970 (54 yo F)Acc No.[id number]:05/10/2024 Progress Notes Patient: FELI RITTER Provider: Beatrice Sung MD :1970 A ge:53 Y S ex:Female Date:05/10/2024 Address:[address] [place] [address] Pcp:Ernesto Hernandez Subjective: * Chief Complaints: * 1 . Patient presents today for IBS. * Medical History: * Medications: T aking ibuprofen , Taking Ondansetron , Taking Ccddnvwrnj-HZI-Qidjotjh , Taking ProAir HFA , Taking Loperamide HCl 2 MG Capsule 1-2 capsule Orally Four times a day , Taking Dicyclomine HCl 20 MG Tablet 1-2 Orally before meals/prn , Taking Omeprazole 40 MG Capsule Delayed Release TAKE 1 CAPSULE BY MOUTH EVERY DAY Oral , Taking SUMAtriptan Succinate 100 MG Tablet Oral , Taking Cyclobenzaprine HCl 10 MG Tablet Oral , Taking Loperamide HCl 2 MG Capsule 1 capsule as needed Orally Four times a day , Taking Ondansetron HCl 4 MG Tablet TAKE 1 TABLET BY MOUTH EVERY DAY FOR 30 DAYS Objective: * Vitals: Assessment: Plan: * Treatment: * * The named appointment provid er may or may not be the originator of this progress note, and it is not deemed complete until electronically signed by the appointment provider. Sign off status: Pending * Provider: Beatrice Sung MD Date: Generated for Danyell asif/Chari/Awilda on: 08/04/2024 05:28 PM EST
--- OUTSIDE RECORDS SUMMARY | 2024-09-06 08:55 | XMS_ITS ---
Author Organization [facility] Address [address] [place] [address] Care Team Providers Care Manager Ed Name Role Phone Ernesto Hernandez Primary Care Provider Unavailab Levy Ozuna Jr [phone] REASON FOR VISIT Patient presents today for IBS Encounters Encounter Location Date Provider Diagnosis [facility] [address] [place] [address] 09/06/2024 Levy Sung Jr Plan Of Treatment Next Appt Details Provider Name:Levy parekh Jr, 12/12/2025 01:35:00 PM, [address], [address], [place], [address], Progress Notes * NIKOFELI Avelar ADOB:1970 (54 yo F)Acc No.[id number]:09/06/2024 Progress Notes Patient: FELI RITTER Provider: Beatrice Sung MD :1970 A ge:53 Y S ex:Female Date:09/06/2024 Address: [address] [facility] Pcp:Ernesto Hernandez Subjective: * Chief Complaints: * 1 . Patient presents today for IBS. * Medical History: Objective: * Vitals: Assessment: Plan: * Treatment: * * The named appointment provid er may or may not be the originator of this progress note, and it is not deemed complete until electronically signed by the appointment provider. Sign off status: Pending * Provider: Beatrice Sung MD Date: 0 09/06/2024 Generated for Danyell asif/Chari/Awilda on: 1 08/04/2024 05:29 PM EST
--- NOTE | 2025-06-04 14:50 | A.OFFPC_ITS ---
Vital Signs 06/04/25 14:51 Height 5 ft 4 in Weight 207 lb BMI 35.5 BP 112/76 Blood Pressure Location Lt brachial Position Sitting Pulse 73 Pulse Source Pulse Oximeter Temp 97.3 F Temp Source Temporal Artery Scan Pulse Oximetry (%) 97 Oxygen Delivery Method Room Air Intake Visit Reasons: Annual exam Intake Note: Patient is here today for a physical. Retention Specialist Required: No Program Officer: Not Required per policy Accompanied by: Self / Same As Patient Allergies No Known Allergies (No Known Allergies*) Allergy (Verified 06/04/25 15:09) Medication List - Last Reconciled 06/04/25 by Ernesto Hernandez PA-C acetaminophen ER (Tylenol Arthritis Pain) 650 mg PO Q12H 30 days albuterol sulfate 90 mcg/actuation 1 inh inhalation QID 90 days NS blood pressure monitor As directed kwvlwidroz-qchhsrduxkpnm-njez 50-325-40 mg 1 tab PO ONCE PRN 30 days capsaicin 0.1% (Arthritis Pain Relief (capsaicin)) 1 appl topical BID 30 days diclofenac sodium 1% 2 grams topical QID 30 days dicyclomine 20 mg PO QID fluticasone furoate 100 mcg/actuation (Arnuity Ellipta) 1 inh inhalation DAILY 30 days fluticasone propionate 50 mcg/actuation (Flonase Allergy Relief) 1 spray intranasal BID 30 days ibuprofen 600 mg PO TID PRN 15 days ipratropium bromide 2 sprays intranasal BID 30 days lisinopril 2.5 mg PO DAILY 90 days loperamide 2 mg PO Q6H PRN 7 days methocarbamol 500 mg PO BID PRN 15 days miscellaneous medical supply 1 ea miscellaneous DAILY 99 days miscellaneous medical supply (Blood Pressure Cuff) As directed omeprazole 40 mg PO DAILY 90 days ondansetron HCl 4 mg PO Q8H PRN sumatriptan succinate 100 mg PO Q2H PRN 90 days MDD 2 tabs Tobacco use date assessed: 06/04/25 Dental Screening Dental Screen Date: 02/21/25 HPI Annual exam HPI Details Patient is a 54-year-old female here today for routine annual physical. Patient has a past medical history significant for obesity, learning disabil ity, chronic migraine, GERD, obstructive sleep apnea, asthma. Migraines:? Patient is followed by neurologist. She reports experiencing severe migraines, particularly exacerbated by heat, occurring daily during hot weather. The migraines are described as intense, causing significant distress, and have led to emergency room visits in the past. Previously was noted that she did have some resolution of her migraines when she started obstructive sleep apnea treatment. The patient has tried various medications, including ibuprofen, sumatriptan, rizatriptan, and injectable treatments, with limited success. She finds relief with a specific medication previously prescribed, although it is not intended for daily use due to potential for rebound headaches. She admits that she will not do any injectable treatments as she does not like needles. --> we did have long discussion about us e of daily Fioricet perhaps causing rebound migraine though patient does not seem to understand. She continues to ask for Fioricet. We did come to agreement that would give her # 30 tablets of Fioricet for a month supply. Will switch her migraine medication to rizatriptan 10 mg to use on a p.r.n. basis. .. Hypertension:? Patient's blood pressure acceptable today in office. She is stopped taking lisinopril as she has been feeling very dizzy when she takes this medication. .. Asthma:? Patient reports she has been having to use her asthma inhaler multiple times a day as she does report cough and shortness of breath pick specially on exertion. Mammogram: Mammogram done in March of 2025 BI-RADS 1 Cervical cancer screening: Continues to decline PAP Colon cancer screening: Has yet to do Cologuard- now declining both colonoscopy and Cologuard Vaccines: Up-to-date with COVID vaccine, up-to-date with tetanus vaccine. , needs pneumonia vaccine , considering shingles vaccine. declines flu vaccine [facility] Medical History Biliary colic Screening for hypothyroidism HTN (hypertension) Asthma Migraine Seasonal allergies Surgical History No pertinent past surgical history Family History Father Celiac disease CVD (cardiovascular disease) Afib Mother Diabetes Hypertension Fibromyalgia Migraines Brother In good health Brother In good health Sister In good health Social History Housing: Apartment Alcohol intake: current Alcohol intake frequency: holidays/special occasions only Patient Tobacco Use Status: Never used Tobacco e-Cigarette/Vaping Use: Never Used Second Hand Smoke Exposure: No service: No Current occupational status: disabled 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 1. Little interest or pleasure in doing things: not at all 2. Feeling down, depressed, or hopeless: not at all 3. Trouble falling or staying asleep, or sleeping too much: not at all 4. Feeling tired or having little energy: not at all 5. Poor appetite or overeating: not at all 6. Feeling bad about yourself - or that you are a failure or have let yourself or your family down: more than half the days 7. Trouble concentrating on things, such as reading the newspaper or watching television: not at all 8. Moving or speaking so slowly that other people could have noticed. Or the opposite - being so fidgety or restless that you have been moving around a lot more than usual: not at all 9. Thoughts that you would be better off or of hurting yourself in some way: not at all Total score: 2 Depression Screening Interpretation: Positive Depression Screening Follow-up: Existing condition Depression Screening Done: Yes 41475 - PHQ-9 Billing: Yes Source: Developed by Drs. Hector Acuña, Varsha Chavez, Sage Sarabia and colleagues, with an educational jean marie from [employer]. Thrive Questionnaire Date Thrive assessed: 02/21/25 I am a: Patient What is your living situation today?: I have a steady place to live Within the past 12 months, did the food you bought not last and you didn't have the money to get more?: Often true Within the past 12 months, did you worry whether your food would run out before you got money to buy more?: Often true Do you have trouble paying for medicines?: No Do you have trouble getting transportation to medical appointments?: No Do you have trouble paying your heating and electricity bill?: No Do you have trouble taking care of your child, family member or friend?: No Do you have trouble with day-to-day activities such as bathing, preparing meals, shopping, managing finances, etc.?: No Are you currently unemployed and looking for a job?: Yes Are you interested in more education?: No Please select the resources that you would like help with: None Currently or been in a relationship where the following occur: No concerns reported THRIVE Score: 2 AUDIT C Alcohol Use Questionnaire (AUDIT-C) 1. How often do you have a drink containing alcohol?: Never Total Score: 0 JUHI-7 AMB Questionnaire JUHI-7 Date JUHI - 7 assessed: 02/21/25 Feeling nervous, anxious, or on edge: 0 = Not at all Not being able to stop or control worryin = Not at all Worrying too much about different things: 0 = Not at all Trouble relaxin = Not at all Being so restless that it is hard to sit still: 0 = Not at all Becoming easily annoyed or irritable: 0 = Not at all Feeling afraid as if something awful might happen: 0 = Not at all Total JUHI-7 score (0-4 normal; 5-9 mild; 10-14 moderate; 15-21 severe): 0 Source: Developed by Drs. Hector Acuña, Varsha Chavez, Sage Sarabia and colleagues, with an educational jean marie from [employer]. JUHI-7 Assessment Billing JUHI-7 Assessment Tool: JUHI-7 Assessment 35359 Review of Systems Const Denies body aches, Denies chills, Denies excessive sweating, Denies fatigue, Denies fever(s) and Denies headache(s) Eyes Denies blurry vision ENT Denies dysphagia, Denies vertigo, Denies dizziness, Denies headache(s), Denies hearing loss and Denies tinnitus Card Denies chest pain, Denies chest pain with activity, Denies syncope, Denies irregular heart rhythm and Denies dyspnea Resp Denies chest congestion, Denies cough, Denies hemoptysis, Denies dyspnea and Denies wheezing GI Denies abdominal pain, Denies melena, Denies hematochezia, Denies coffee ground emesis, Denies dysphagia, Denies diarrhea, Denies nausea and Denies vomiting Denies urinary frequency, Denies dysuria, Denies urinary hesitancy and Denies urinary urgency Musc Denies arthralgias, Denies limited range of motion, Denies muscle cramps and Denies muscle weakness Skin/Breast Denies rash and Denies skin ulcer Neuro Denies Abnormal speech present, Denies confusion, Denies vertigo, Denies dizziness, Denies syncope, Denies headache(s), Denies memory loss and Denies seizure-like activity Psych Denies anxiety, Denies confusion, Denies depression, Denies memory loss, Denies panic attacks and Denies paranoia Endo Denies excessive sweating, Denies fatigue, Denies flushing, Denies polydipsia and Denies polyuria Aller/Immun Denies wheezing Physical exam (Primary Care) Vital Signs: Last Vital Signs Temp 97.3 F 06/04/25 14:51 Pulse 73 06/04/25 14:51 BP 112/76 06/04/25 14:51 Pulse Ox 97 06/04/25 14:51 Oxygen Delivery Method Room Air 06/04/25 14:51 BMI result Body Mass Index 35.5 BMI Assessment/Plan discussion: High BMI High, discussed plan: lifestyle, weight reduction, dietary and physical activity Tobacco/Smoking Status: Tobacco use Status Tobacco use date assessed 06/04/25 06/04/25 14:55 Patient Tobacco Use Status Never used Tobacco 06/04/25 14:55 e-Cigarette/Vaping Use Never Used 06/04/25 14:55 PHQ-9: PHQ-9 Score PHQ-9: Total score 2 06/04/25 14:55 Depression Screening Interpretation: Positive Depression Screening Follow-up: Existing condition Thrive Assessment: Date of Thrive Assessment Date Thrive assessed 02/21/25 06/04/25 14:55 Currently or been in a relationship where the following occur: No concerns reported Const General: cooperative, comfortable, no acute distress, alert and awake; No confusion Orientation/consciousness: oriented to person, oriented to place, patient oriented x3 and No confusion HENMT Head: Yes normocephalic Ears: external ears normal and TM's normal bilaterally Face and sinus: No sinus tenderness Mouth: Normal oral and palatal mucosa present and tongue normal Teeth and gingiva: dentition normal and gingiva normal Throat: Yes posterior oropharynx normal, Yes tonsils normal and Yes uvula midline Eyes Conjunctivae: conjunctivae normal Sclerae: sclerae normal Pupils: Equal, round and reactive pupils present EOM: EOMs intact bilaterally Direct Ophthalmoscopy: No no photophobia Neck Neck: Yes no lymphadenopathy, No tender and Yes no JVD Thyroid: Thyroid normal Carotids: no bruits Chest Chest palpation & inspection: no tenderness Resp Effort & Inspection: normal respiratory effort, no audible wheezes, not labored and no stridor Auscultation: no crackles, no rales, no rhonchi and no wheezes Cardio Jugular venous distension: no JVD Rate: regular rate, not bradycardic and not tachycardic Rhythm: regular rhythm Bruits: no carotid bruits Peripheral pulses: Peripheral pulses 2+ throughout GI Inspection: Yes normal to inspection, No abdominal wall ecchymosis and No visible herniation Palpation (GI): Soft to palpation, nontender, no guarding, not rigid and No hepatosplenomegaly present Auscultation: normoactive bowel sounds General: Yes no CVA tenderness Back/Spine/Pelvis Back: no CVA tenderness and No back tenderness Cervical Spine: cervical ROM normal Thoracic/Lumbar Spine: thoracic and lumbar spine normal to inspection, straight leg raise negative bilaterally, No thoraco-lumbar ROM limited and No lumbar spinal tenderness Skin Lesions: no lesions Rashes: no rashes Wounds: no wounds Neuro General: oriented to person, oriented to place, patient oriented x3, CN's II-XI intact bilaterally and No confusion Cranial nerves: Yes Equal, round and reactive pupils present and Yes Normal accommodation reflex present Cognition (Neuro): normal cognition Speech: No Abnormal speech present Gait exam (Neuro): Normal gait present Motor exam (neuro): 5/5 motor strength present throughout Extrem Right upper extremity: full ROM; no cyanosis Left upper extremity: full ROM; no cyanosis Right lower extremity: no edema Left lower extremity: no edema Psych Appearance: grossly normal Mental Status: mental status grossly normal Affect: normal affect Attitude: cooperative Thought process: Normal thought process present Coding Level of Care Code Est Pt Prev Care 40-64y(40198) Diagnoses Annual physical exam Z00.00 Migraine without status migrainosus, not intractable, unspecified migraine type G43.909 Migraine type: unspecified Status migrainosus presence: without status migrainosus Intractability: not intractable Essential hypertension I10 Hypertension type: essential hypertension Mild intermittent asthma without complication J45.20 Asthma severity: mild Asthma persistence: intermittent Asthma complication type: uncomplicated Class 2 obesity E66.812 Cervical cancer screening Z12.4 Intellectual disability F79 Additional Codes PHQ-9 - 45653 - PHQ-9 Billing: Yes ([id number]) JUHI-7 Assessment Billing - JUHI-7 Assessment Tool: JUHI-7 Assessment 70025 ([id number]) Assessment & Plan Assessment & Plan (1) Annual physical exam: Code(s): Z00.00 - Encounter for general adult medical examination without abnormal findings Category: Medical Plan: As per HPI (2) Migraine: Code(s): G43.909 - Migraine, unspecified, not intractable, without status migrainosus Category: Medical Qualifiers: Migraine type: unspecified Status migrainosus presence: without status migrainosus Intractability: not intractable Qualified Code(s): G43.909 - Migraine, unspecified, not intractable, without status migrainosus Plan: She is followed by neurologist. Patient has a migraine disorder for quite some time, unfortunately she does not like needles thus injectable therapies have not been effective for her . She has used sumatriptan with only little relief on a p.r.n. basis. She continues to ask for butalbital product. We did have discussion about habit-forming nature of this medication and the possibility of causing rebound headaches We did agree upon giving her 30 tablets for 30 days and advised to only use on a p.r.n. basis. (3) HTN (hypertension): Code(s): I10 - Essential (primary) hypertension Category: Medical Qualifiers: Hypertension type: essential hypertension Qualified Code(s): I10 - Essential (primary) hypertension Plan: Patient's blood pressure acceptable today in office. Will continue current dose of lisinopril with goal blood pressure to be below 140/90 (4) Asthma: Code(s): J45.909 - Unspecified asthma, uncomplicated Category: Medical Qualifiers: Asthma severity: mild Asthma persistence: intermittent Asthma complication type: uncomplicated Qualified Code(s): J45.20 - Mild intermittent asthma, uncomplicated Plan: Patient's asthma seems to be well controlled with current maintenance inhaler and p.r.n. use of her albuterol inhaler. She has denies any nighttime awakenings with asthma symptoms or recent asthma exacerbations. (5) Class 2 obesity: Code(s): E66.812 - Obesity, class 2 Category: Medical Plan: Patient does understand her BMI is over 35 and will work on trying to be more physically active and adapt to better eating habits to reduce her weight (6) Cervical cancer screening: Code(s): Z12.4 - Encounter for screening for malignant neoplasm of cervix Category: Medical Plan: Continues to decline cervical cancer screening (7) Intellectual disability: Code(s): F79 - Unspecified intellectual disabilities Category: Medical Plan: Patient born with an intellectual disability, lives at home with her parents. Does go to a day program on and off. Medications: Refilled jydfdwklfc-btgmqxxolinse-lvdl 50-325-40 mg TO BE USED once per day NEEDED ONLY FOR ACUTE MIGRAINES 1 tab PO ONCE PRN 30 tabs 1RF headaches 30 days G43.909 - Migraine, unspecified, not intractable, without status migrainosus ondansetron HCl 4 mg PO Q8H PRN 10 tabs 3RF nausea and vomiting K27.9 - Peptic ulcer, site unspecified, unspecified as acute or chronic, without hemorrhage or perforation loperamide 2 mg PO Q6H PRN 28 caps 3RF loose stool 7 days G43.909 - Migraine, unspecified, not intractable, without status migrainosus albuterol sulfate 90 mcg/actuation 1 inh inhalation QID 3 inhalers 1RF 90 days NS J45.909 - Unspecified asthma, uncomplicated lisinopril 2.5 mg PO DAILY 90 tabs 2RF 90 days I10 - Essential (primary) hypertension
[2025-06-04 14:51] VITALS: BP 112/76; PULSE 73; TEMP 36.3; O2SAT 97; BMI 35.5
--- OUTSIDE RECORDS SUMMARY | 2025-06-04 17:29 | XMS_ITS | Patient Health Record ---
Author Organization [facility] Address [address] [place] [address] Care Team Providers Care Job Trainer Name Role Phone Ernesto Hernandez Primary Care Provider UnavailLevy Alanis Jr Unavailable Allergies No Known Allergies Reason For Referral No Information Medications Medication SIG (Take, Route, Frequency, Duration) Notes Start Date End Date Status SUMAtriptan Succinate 100 MG Oral; Duration: 23 Active Cyclobenzaprine HCl 10 MG Oral; Duration: 7 Active Loperamide HCl 2 MG 1 Orally Four times a day for diarrhea; Duration: 90 days 12/06/2024 Active Omeprazole 40 MG TAKE 1 CAPSULE BY [facility] EVERY DAY Oral; Duration: 90 days Active ProAir HFA Active Dicyclomine HCl 20 MG 1-2 Orally before meals/prn Active Otgkeghlzg-SCKF-Wsxczale 50-325-40 MG Oral; Duration: 30 Days Acti ve ibuprofen Active Ipratropium [place] 0.03 % Nasal; Durati on: 30 Days Active Ondansetron HCl 4 MG TAKE 1 TABLET BY MO [facility] EVERY DAY FOR 90 DAYS; Duration: 90 Active Loperamide HCl 2 MG TAKE 1 CAPSULE BY [facility] FOUR TIMES A DAY NEEDED; Duration: 30 Active Immunizations Vaccine Route Administration Date Status Comme nts Influenza Unknown 05/10/2018 Administered Influenza Unknown 04/01/2020 Administered Social History Alcohol Screen Question Answer Notes Did you have a drink containing alcohol in the p ast year? No Points 0 Interpretation Negative Problems Problem Type SNOMED Code ICD Code Onset Dates Problem Status W/U Status Risk Notes Problem Epigastric pain (07338123) Epigastric pain (R10.13) Active confirmed Problem Change in bowel habit (54099783) Change in bowel habits (R19.4) Active confirmed Problem Irritable bowel syndrome with diarrhea (371653890) Irritable bowel syndrome with diarrhea (K58.0) Active confirmed Problem Gastroesophageal reflux disease without esophagitis (344116876) Gastroesophageal reflux disease without esophagitis (K21.9) Active confirmed Problem Gallstones (683565655) Gallstones (K80.20) Active confirmed Problem Steatosis of liver (978893813) Hepatic steatosis (K76.0) Active confirmed Vital Signs Blood pressure diastolic 77 mm Hg 12/06/2024 Height 62 in 12/06/2024 Blood pressure systolic 111 mm Hg 12/06/2024 Weight 224 lbs 12/06/2024 BMI 40.97 kg/m2 12/06/2024 Encounters Encounter Location Date Provider Diagnosis [facility] [address] [place] [id number] 12/06/2024 Levy Sung Jr Gastroesophageal reflux disease without esophagitis K21.9 and Irritable bowel syndrome with diarrhea K58.0 [facility] [address] [place] [phone] 12/04/2024 Levy Sung Jr Assessments Encounter Date [...] 08/19/2016 Next Appt Details Provider Name:Levy parekh , 12/12/2025 01:35:00 PM, [address], [address], [place], [address], Insurance Providers Payer Name Payer Address Payer Phone Subscriber Number Group Number Insured Name Patient Relationship to Insured Coverage Start Date Coverage End Date [facility] [address] [place], [place] [id number] FELI MORLEY Self - patient is the insured 4 MEDICA[employer] OF [employer] [address] [place] [address] [id number] FELI MORLEY Self - patient is the [...]
== END 2025-06-04 15:24 | disposition home or self-care (01) ==
LOC: HO.HMCH 14:29
PROVIDERS: PCP Physician Assistant; Visit Provider Physician Assistant
DX: Z00.00 Encounter for general adult medical examination without abnormal findings (principal); G43.909 Migraine, unspecified, not intractable, without status migrainosus; E66.812 Obesity, class 2; Z68.35 Body mass index [BMI] 35.0-35.9, adult; I10 Essential (primary) hypertension; J45.20 Mild intermittent asthma, uncomplicated; F79 Unspecified intellectual disabilities

== ENCOUNTER → 2025-06-04 14:28 | Outpatient (BNVA) | payer MEDICARE, SELFPAY | PROVIDERS: PCP Physician Assistant; Visit Provider Physician Assistant | DX: Z00.00 Encounter for general adult medical examination without abnormal findings (principal); G47.33 Obstructive sleep apnea (adult) (pediatric); G43.909 Migraine, unspecified, not intractable, without status migrainosus; I10 Essential (primary) hypertension; J45.20 Mild intermittent asthma, uncomplicated; E66.812 Obesity, class 2; F79 Unspecified intellectual disabilities; Z68.35 Body mass index [BMI] 35.0-35.9, adult | CPT/HCPCS: 96127; 99396 ==